=== PATIENT | male | born 1970 | race Two or more races ===

== ENCOUNTER 2016-04-20 00:36 | Emergency (ER) | payer BC ==
[2016-04-20] MEDS ORDERED: IBUPROFEN 600 MG TAB PO STA (00:50)
[2016-04-20] MEDS ORDERED: ACETAMINOPHEN TAB 500 MG TAB PO STA (00:50)
--- NOTE | 2016-04-20 01:01 | ED ---
URI HPI - General Chief Complaint: Upper Respiratory Infection Stated Complaint: Cough Time Seen by Provider: 04/20/16 00:45 Source: patient, RN notes reviewed Mode of arrival: ambulatory Limitations: no limitations - History of Present Illness Initial Comments: 46-year-old male presents emergency Department chief complaint fever, chills, cough. Patient states started last 24 hours. Patient states he has severe body aches. Patient has not taken any acetaminophen or ibuprofen for this. Patient denies any sick contacts though he states that he's been in the hospital visiting his . Patient states that he does have a headache but denies any neck pain or neck stiffness. Patient denies ear pain, runny nose. Patient states he has a dry cough. He primary complaint of the chills, bodyaches. Patient states he did not have a flu shot this year. Patient denies abdominal pain including nausea vomiting. - Related Data Home Medications Medication Instructions Recorded Confirmed Divalproex [Depakote] 500 mg PO BID 09/04/14 04/20/16 metFORMIN HCL [Glucophage] 850 mg PO BID 09/04/14 04/20/16 Atorvastatin [Lipitor] 10 mg PO DAILY 08/16/15 04/20/16 glyBURIDE [Diabeta] 5 mg PO AC-BRKFST 04/20/16 04/20/16 Previous Rx's Medication Instructions Recorded Oseltamivir [Tamiflu] 75 mg PO Q12HR #10 cap 04/20/16 Allergies Allergy/AdvReac Type Severity Reaction Status Date / Time No Known Allergies Allergy Verified 10/07/15 18:56 Review of Systems ROS Statement: Those systems with pertinent positive or pertinent negative responses have been documented in the HPI. ROS Other: All systems not noted in ROS Statement are negative. Past Medical History Past Medical History: Cancer, Diabetes Mellitus, Seizure Disorder Additional Past Medical History / Comment(s): possible enlarged prostate, testicular cancer, renal failure History of Any Multi-Drug Resistant Organisms: None Reported Past Surgical History: Bladder Surgery Additional Past Surgical History / Comment(s): testicular surgery, urethra reconstruction Past Anesthesia/Blood Transfusion Reactions: No Reported Reaction Past Psychological History: No Psychological Hx Reported Smoking Status: Current every day smoker Past Alcohol Use History: Occasional Past Drug Use History: None Reported - Past Family History Father Family Medical History: Diabetes Mellitus, Hypertension Mother Family Medical History: Diabetes Mellitus, Hypertension Additional Family Medical History / Comment(s): Glaucoma General Exam Limitations: no limitations General appearance: alert, in no apparent distress Head exam: Present: atraumatic, normocephalic, normal inspection Eye exam: Present: normal appearance, PERRL, EOMI. Absent: scleral icterus, conjunctival injection, periorbital swelling ENT exam: Present: normal exam, normal oropharynx, mucous membranes moist, TM's normal bilaterally, normal external ear exam Neck exam: Present: normal inspection, full ROM. Absent: tenderness, meningismus, lymphadenopathy Respiratory exam: Present: normal lung sounds bilaterally. Absent: respiratory distress, wheezes, rales, rhonchi, stridor Cardiovascular Exam: Present: normal rhythm, tachycardia, normal heart sounds. Absent: systolic murmur, diastolic murmur, rubs, gallop, clicks GI/Abdominal exam: Present: soft, normal bowel sounds. Absent: distended, tenderness, guarding, rebound, rigid Neurological exam: Present: alert, oriented X3, CN II-XII intact Skin exam: Present: warm, dry, intact, normal color. Absent: rash Course Vital Signs 04/20/16 00:39 Temperature 103.2 F H Pulse Rate 133 H Respiratory 20 Rate Blood Pressure 143/89 O2 Sat by Pulse 97 Oximetry Medical Decision Making - Lab Data Lab Results 04/20/16 Range/Units 00:00 Influenza Type A RNA Detected A (Not Detectd) Influenza Type B (PCR) Not Detected (Not Detectd) Disposition Clinical Impression: Fever, Influenza Disposition: HOME SELF-CARE Condition: Stable Instructions: Influenza (ED) Additional Instructions: Alternate acetaminophen and ibuprofen as directed for fever control.Please return to the Emergency Department if symptoms worsen or any other concerns. Prescriptions: Oseltamivir [Tamiflu] 75 mg PO Q12HR #10 cap Time of Disposition: 02:41
[2016-04-20] MEDS ORDERED: OSELTAMIVIR 75 MG CAP PO STA (02:40)
--- NOTE | 2016-04-20 02:57 | XR ---
EXAMINATION TYPE: XR chest 2V DATE OF EXAM: 04/20/2016 12:58 AM COMPARISON: 08/16/2015 HISTORY: Fever and cough and shortness of breath TECHNIQUE: Frontal and lateral views of the chest are obtained. FINDINGS: Mild infiltrates and atelectasis is suggested in the right lung base. There is mild pulmonary vascula r congestion. No pneumothorax or pleural effusion is noted. The cardiac silhouette size is within nor mal limits. The osseous structures are intact. IMPRESSION: 1. Mild infiltrates and atelectasis is suggested in the right lung base.
[2016-04-20 03:06] VITALS: BP 144/84; PULSE 117; RESP 18; TEMP 100.5
== END 2016-04-20 03:04 | disposition home or self-care (01) ==
LOC: EC 00:36
DX: J11.1 Influenza due to unidentified influenza virus with other respiratory manifestations (principal); G40.909 Epilepsy, unspecified, not intractable, without status epilepticus; E11.9 Type 2 diabetes mellitus without complications; Z85.47 Personal history of malignant neoplasm of testis; F17.200 Nicotine dependence, unspecified, uncomplicated; Z79.84 Long term (current) use of oral hypoglycemic drugs; Z79.899 Other long term (current) drug therapy
CPT/HCPCS: 71020; 87502; 99283

== ENCOUNTER → 2017-11-15 | Outpatient (CLI) | payer BC ==
[2017-11-15 12:17] LABS: Basophils # (A) 0.1 k/uL (0-0.2); Basophils % (A) 1 %; Eosinophils # (A) 0.3 k/uL (0-0.7); Eosinophils % (A) 3 %; HGB 13.5 gm/dL (13.0-17.5); Lymphocytes % (A) 45 %; MCH 30.7 pg (25.0-35.0); MCHC 34.6 g/dL (31.0-37.0); MCV 88.7 fL (80.0-100.0); Mean Platelet Volume 7.7; Monocytes # (A) 0.7 k/uL (0-1.0); Monocytes % (A) 8 %; Neutrophils # (A) 3.8 k/uL (1.3-7.7); Neutrophils % (A) 42 %; Platelet Count 197 k/uL (150-450); RDW 12.9 % (11.5-15.5)
[2017-11-15 12:58] LABS: Valproic Acid (Depakene) 64.5 ug/mL
== END | disposition home or self-care (01) ==
LOC: LABWHC1 12:01
PROVIDERS: ATTEND Psychiatry & Neurology Neurology
DX: G40.209 Localization-related (focal) (partial) symptomatic epilepsy and epileptic syndromes with complex partial seizures, not intractable, without status epilepticus (principal)
CPT/HCPCS: 36415; 80164; 84450; 84460; 85025

== ENCOUNTER → 2017-12-18 | Outpatient (CLI) | payer BC ==
[2017-12-18 10:57] LABS: ALT 69 U/L (21-72); AST 40 U/L (17-59)
== END | disposition home or self-care (01) ==
LOC: LABWHC1 10:01
PROVIDERS: ATTEND Psychiatry & Neurology Neurology
DX: G40.209 Localization-related (focal) (partial) symptomatic epilepsy and epileptic syndromes with complex partial seizures, not intractable, without status epilepticus (principal)
CPT/HCPCS: 36415; 84450; 84460

== ENCOUNTER → 2018-06-05 | Outpatient (CLI) | payer BC ==
--- NOTE | 2018-06-05 14:53 | CONS ---
CONSULTATION PSYCH CONSULTATION FOR SLEEP APNEA: A 48-year-old male patient, currently suffering excessive sleepiness. His Burton score is 19. He falls asleep at any time. He has snoring, quits breathing at night as told by his and he is very much somnolent and sleepy during the day. He wakes up in the morning with a dry mouth. He works at a local [employer] in [place]. He works between 3 pm and 11 pm. He gets home and goes to bed around 3 am, wakes up at 10 am in the morning. He carries the same schedule on the weekends. He works around days a week. When he wakes up, he feels non-refreshed and he is sleepy during the day. He does not fall asleep at work. He does not fall asleep while driving. No sleep paralysis. No hallucinations. No cataplexy, no indication of any narcoleptic disease. No restlessness in his lower extremities. He has gained around 40 pounds over the past 5 years or so. PAST MEDICAL HISTORY: 1. Diabetes. 2. Hyperlipidemia. 3. Obesity. 4. History of urethral stenosis, treated surgically. PAST SURGICAL HISTORY: Includes urethral reconstruction and previous history of testicular surgery for underlying testicular cancer. DRUG ALLERGIES: Not known. OUTPATIENT MEDICATION LIST: Includes Trulicity, metoprolol, ibuprofen, metformin, Lipitor, Divalproex, Januvia, and eyedrops. SOCIAL HISTORY: The patient is a nonsmoker. He vapes. No history of alcohol, no history of IV drugs. FAMILY HISTORY: Negative for sleep apnea. REVIEW OF SYSTEMS: A 12-point review of system was done. Positive findings are mentioned in history of present illness. No fever, no chills. No headache. No altered mentation. No focal neurological deficits. No nocturnal dyspnea, cough, chest tightness or wheeze. No sleepwalking or sleep talking. No parasomnias, no palpitation, no heartburn. No grinding of the teeth. PHYSICAL EXAMINATION: BP is 133/82, pulse 90, respirations 16, temperature 98.3, saturation 96% on room air. Weight is 233, height is 5, 3 inches, neck size 19 -1/4 inch. BMI is 41.8. Burton score is 19. GENERAL APPEARANCE: Calm, comfortable, in no acute distress. Head is atraumatic, normocephalic. Neck is supple. There is no JVD. No goiter or neck masses. He has a Mallampati class IV with significant crowding of the posterior oropharynx. LUNGS: Clear to auscultation. HEART: Sounds regular rate and rhythm. Normal S1, S2. No S3, S4. No murmurs. ABDOMEN: Soft, nontender. No organomegaly. EXTREMITIES: There is no edema and there is no cyanosis or clubbing at this point. NEUROLOGIC: Alert and oriented x3. There is no focal neurological deficits. PSYCHIATRIC: There is no anxiety or depression. IMPRESSION: 1. Hypersomnia, Burton score of 19, high likelihood for obstructive sleep apnea. 2. Obesity, body mass index of 41.2. 3. Diabetes mellitus. 4. Hyperlipidemia. 5. History of this testicular cancer. 6. History of urethral stenosis, treated surgically. We will proceed with a screening polysomnogram to investigate the patient for obstructive sleep apnea. JOHN / ISABELN: [id number] / PATRICK
== END ==
LOC: SLEEP 10:12
PROVIDERS: ATTEND Internal Medicine Critical Care Medicine
DX: G47.10 Hypersomnia, unspecified (principal); E66.9 Obesity, unspecified; E11.9 Type 2 diabetes mellitus without complications; E78.5 Hyperlipidemia, unspecified; N35.919 Unspecified urethral stricture, male, unspecified site; C62.90 Malignant neoplasm of unspecified testis, unspecified whether descended or undescended; Z68.41 Body mass index [BMI] 40.0-44.9, adult; Z79.899 Other long term (current) drug therapy; Z79.84 Long term (current) use of oral hypoglycemic drugs; Z79.1 Long term (current) use of non-steroidal anti-inflammatories (NSAID)
CPT/HCPCS: 99211

== ENCOUNTER → 2018-11-28 | Outpatient (CLI) | payer BC ==
[2018-11-28 12:07] LABS: Basophils % (A) 1 %; Eosinophils # (A) 0.3 k/uL (0-0.7); Eosinophils % (A) 4 %; HGB 13.4 gm/dL (13.0-17.5); Lymphocytes % (A) 36 %; MCH 30.7 pg (25.0-35.0); MCHC 33.6 g/dL (31.0-37.0); MCV 91.4 fL (80.0-100.0); Mean Platelet Volume 7.4; Monocytes # (A) 0.6 k/uL (0-1.0); Monocytes % (A) 7 %; Neutrophils # (A) 4.2 k/uL (1.3-7.7); Neutrophils % (A) 51 %; Platelet Count 227 k/uL (150-450); RBC 4.38 m/uL (4.30-5.90); RDW 13.8 % (11.5-15.5); WBC 8.3 k/uL (3.8-10.6)
== END | disposition home or self-care (01) ==
LOC: LABWHC1 11:40
PROVIDERS: ATTEND Psychiatry & Neurology Neurology
DX: G40.209 Localization-related (focal) (partial) symptomatic epilepsy and epileptic syndromes with complex partial seizures, not intractable, without status epilepticus (principal)
CPT/HCPCS: 36415; 80164; 84450; 84460; 85025

== ENCOUNTER → 2019-10-29 | Outpatient (CLI) | payer BC ==
[2019-10-29 15:46] LABS: Basophils % (A) 0 %; Eosinophils # (A) 0.2 k/uL (0-0.7); Eosinophils % (A) 2 %; HCT 38.5 % (39.0-53.0); HGB 13.2 gm/dL (13.0-17.5); Lymphocytes # (A) 3.5 k/uL (1.0-4.8); Lymphocytes % (A) 40 %; MCH 31.3 pg (25.0-35.0); MCHC 34.3 g/dL (31.0-37.0); Monocytes # (A) 0.6 k/uL (0-1.0); Monocytes % (A) 7 %; Neutrophils # (A) 4.3 k/uL (1.3-7.7); Neutrophils % (A) 49 %; Platelet Count 172 k/uL (150-450); RBC 4.23 m/uL (4.30-5.90); RDW 13.1 % (11.5-15.5); WBC 8.7 k/uL (3.8-10.6)
[2019-10-30 00:52] LABS: Valproic Acid (Depakene) 108.7 ug/mL (50.0-100.0)
== END ==
LOC: LABWHC1 14:52
PROVIDERS: ATTEND Psychiatry & Neurology Neurology
DX: G40.209 Localization-related (focal) (partial) symptomatic epilepsy and epileptic syndromes with complex partial seizures, not intractable, without status epilepticus (principal)
CPT/HCPCS: 36415; 80164; 84450; 84460; 85025

== ENCOUNTER 2019-12-10 15:48 | Emergency (ER) | payer BC ==
[2019-12-10] MEDS ORDERED: SODIUM CHLORIDE 0.9% 1,000 ML IV STA (16:22)
[2019-12-10] MEDS ORDERED: ONDANSETRON 4 MG/2 ML VIAL IVP STA (16:22)
[2019-12-10] MEDS ORDERED: FAMOTIDINE 20 MG/2 ML VIAL IV STA (16:23)
[2019-12-10] MEDS ORDERED: MAG HYDROX/AL HYDROX/SIMETH 30 ML, HYOSCYAMINE ELIXIR 10 ML, LIDOCAINE VISCOUS 2% 10 ML PO STA ×3 (16:23)
[2019-12-10 16:43] LABS: Basophils # (A) 0.1 k/uL (0-0.2); Basophils % (A) 1 %; Eosinophils # (A) 0.2 k/uL (0-0.7); Eosinophils % (A) 2 %; HCT 38.6 % (39.0-53.0); HGB 12.9 gm/dL (13.0-17.5); Lymphocytes # (A) 3.2 k/uL (1.0-4.8); Lymphocytes % (A) 34 %; MCHC 33.4 g/dL (31.0-37.0); MCV 89.8 fL (80.0-100.0); Mean Platelet Volume 7.4; Monocytes # (A) 0.7 k/uL (0-1.0); Monocytes % (A) 8 %; Neutrophils # (A) 5.2 k/uL (1.3-7.7); Neutrophils % (A) 54 %; Platelet Count 247 k/uL (150-450); WBC 9.6 k/uL (3.8-10.6)
[2019-12-10 16:45] LABS: Appearance,Urine Clear (Clear); Bilirubin,Urine Negative (Negative); Blood,Urine Negative (Negative); Color,Urine Yellow; Glucose,Urine (UA) Negative (Negative); Ketones,Urine Negative (Negative); Leukocyte Esterase,Urine Small (Negative); Mucus,Urine Rare /hpf; Nitrite,Urine Negative (Negative); Protein,Urine Negative (Negative); RBC,Urine 1 /hpf (0-5); Specific Gravity,Urine 1.017 (1.001-1.035); Squamous Epithelial Cell,Urine 1 /hpf (0-4); Urobilinogen,Urine <2.0 mg/dL (<2.0); WBC,Urine 3 /hpf (0-5)
[2019-12-10 16:50] LABS: ALT 21 U/L (4-49); AST 20 U/L (17-59); African American GFR (CKD) >90 (>60 ml/min/1.73 sqM); Albumin 3.9 g/dL (3.5-5.0); Alkaline Phosphatase 61 U/L (38-126); Amylase 66 U/L (30-110); Anion Gap 7 mmol/L; Blood Urea Nitrogen 10 mg/dL (9-20); Calcium 9.4 mg/dL (8.4-10.2); Carbon Dioxide 28 mmol/L (22-30); Chloride 104 mmol/L (98-107); Glucose 99 mg/dL (74-99); Non-African American GFR(CKD) >90 (>60 ml/min/1.73 sqM); Potassium 3.9 mmol/L (3.5-5.1); Sodium 139 mmol/L (137-145); Total Bilirubin 0.6 mg/dL (0.2-1.3)
--- NOTE | 2019-12-10 17:08 | ED ---
General Adult HPI - General Chief complaint: Abdominal Pain Stated complaint: chest pain Time Seen by Provider: 12/10/19 15:56 Source: patient, RN notes reviewed Mode of arrival: ambulatory Limitations: no limitations - History of Present Illness Initial comments: 49-year-old male with a past medical history of prostate cancer, testicular cancer, renal failure, diabetes mellitus on 3 oral medications, seizure disorder presents to the emergency room for epigastric and right upper quadrant pain. Patient reports that he has had this pain for a few weeks now. States that it seems to be getting worse. Patient is scheduled for an outpatient ultrasound on Monday but could not wait that long because of the pain. Patient denies any pain radiating to his chest. He does have some mild pain in his back. States that he thinks in his axis pain worse. He does admit to diarrhea. Denies vomiting. Patient has no other complaints at this time including shortness of breath, chest pain, nausea or vomiting, headache, or visual changes. - Related Data Home Medications Medication Instructions Recorded Confirmed Divalproex [Depakote] 500 mg PO BID 09/04/14 04/20/16 metFORMIN HCL [Glucophage] 850 mg PO BID 09/04/14 04/20/16 Atorvastatin [Lipitor] 10 mg PO DAILY 08/16/15 04/20/16 glyBURIDE [Diabeta] 5 mg PO AC-BRKFST 04/20/16 04/20/16 Previous Rx's Medication Instructions Recorded Oseltamivir [Tamiflu] 75 mg PO Q12HR #10 cap 04/20/16 Ondansetron [Zofran ODT] 4 mg PO Q8HR PRN #15 tab 12/10/19 Pantoprazole [Protonix] 40 mg PO DAILY 14 Days #14 12/10/19 tablet. Allergies Allergy/AdvReac Type Severity Reaction Status Date / Time No Known Allergies Allergy Verified 12/10/19 15:52 Review of Systems ROS Statement: Those systems with pertinent positive or pertinent negative responses have been documented in the HPI. ROS Other: All systems not noted in ROS Statement are negative. Past Medical History Past Medical History: Cancer, Diabetes Mellitus, Seizure Disorder Additional Past Medical History / Comment(s): possible enlarged prostate, testicular cancer, renal failure, History of Any Multi-Drug Resistant Organisms: None Reported Past Surgical History: Bladder Surgery Additional Past Surgical History / Comment(s): testicular surgery, urethra reconstruction, Past Anesthesia/Blood Transfusion Reactions: No Reported Reaction Past Psychological History: No Psychological Hx Reported Smoking Status: Former smoker, Vaper Past Alcohol Use History: Occasional Past Drug Use History: None Reported - Past Family History Father Family Medical History: Diabetes Mellitus, Hypertension Mother Family Medical History: Diabetes Mellitus, Hypertension Additional Family Medical History / Comment(s): Glaucoma General Exam Limitations: no limitations General appearance: alert, in no apparent distress Head exam: Present: atraumatic, normocephalic, normal inspection Eye exam: Present: normal appearance, PERRL, EOMI. Absent: scleral icterus, conjunctival injection, periorbital swelling ENT exam: Present: normal exam, mucous membranes moist Neck exam: Present: normal inspection, full ROM. Absent: tenderness, meni ngismus, lymphadenopathy Respiratory exam: Present: normal lung sounds bilaterally. Absent: respiratory distress, wheezes, rales, rhonchi, stridor Cardiovascular Exam: Present: regular rate, normal rhythm, normal heart sounds. Absent: systolic murmur, diastolic murmur, rubs, gallop, clicks GI/Abdominal exam: Present: soft, tenderness (Mild right upper quadrant and epigastric tenderness without guarding), normal bowel sounds. Absent: distended, guarding, rebound, rigid Expanded GI/Abdominal exam: Present: Holman's sign. Absent: psoas sign, obturator sign, heel tap sign, Rovsing's sign, tenderness at McBurney's Point Course Vital Signs 12/10/19 12/10/19 15:49 18:26 Temperature 98.3 F 98.2 F Pulse Rate 79 85 Respiratory 17 18 Rate Blood Pressure 154/92 151/86 O2 Sat by Pulse 99 98 Oximetry Medical Decision Making - Medical Decision Making Vitals are stable. Physical exam reveals mild epigastric and right upper quadrant pain. CBC CMP is unremarkable. There is mild elevation in lipase to 482. This is not triple normal value. Urinalysis is unremarkable. Ultrasound of the right upper quadrant was obtained which showed a moderate fatty infiltration to the liver. CBD measured 0.5 cm. No stones seen. There is moderate fatty infiltration of the liver. Patient was given pain medications and did have significant improvement in pain. At this time patient will be discharged home to follow-up with Gen. surgery as he may have gallbladder dysfunction. Recommended that if symptoms are worsening he'll return here to the emergency room for reevaluation and he is agreeable to this. - Lab Data Result diagrams: 12/10/19 16:28 12/10/19 16:28 Lab Results 12/10/19 12/10/19 12/10/19 Range/Units 16:28 16:28 16:28 WBC 9.6 (3.8-10.6) k/uL RBC 4.30 (4.30-5.90) m/uL Hgb 12.9 L (13.0-17.5) gm/dL Hct 38.6 L (39.0-53.0) % MCV 89.8 (80.0-100.0) fL MCH 30.0 (25.0-35.0) pg MCHC 33.4 (31.0-37.0) g/dL RDW 13.0 (11.5-15.5) % Plt Count 247 (150-450) k/uL Neutrophils % 54 % Lymphocytes % 34 % Monocytes % 8 % Eosinophils % 2 % Basophils % 1 % Neutrophils # 5.2 (1.3-7.7) k/uL Lymphocytes # 3.2 (1.0-4.8) k/uL Monocytes # 0.7 (0-1.0) k/uL Eosinophils # 0.2 (0-0.7) k/uL Basophils # 0.1 (0-0.2) k/uL Sodium 139 (137-145) mmol/L Potassium 3.9 (3.5-5.1) mmol/L Chloride 104 (98-107) mmol/L Carbon Dioxide 28 (22-30) mmol/L Anion Gap 7 mmol/L BUN 10 (9-20) mg/dL Creatinine 0.62 L (0.66-1.25) mg/dL Est GFR (CKD-EPI)AfAm >90 (>60 ml/min/1.73 sqM) Est GFR (CKD-EPI)NonAf >90 (>60 ml/min/1.73 sqM) Glucose 99 (74-99) mg/dL Plasma Lactic Acid Manuel (0.7-2.0) mmol/L Calcium 9.4 (8.4-10.2) mg/dL Total Bilirubin 0.6 (0.2-1.3) mg/dL AST 20 (17-59) U/L ALT 21 (4-49) U/L Alkaline Phosphatase 61 (38-126) U/L Troponin I (0.000-0.034) ng/mL Total Protein 7.0 (6.3-8.2) g/dL Albumin 3.9 (3.5-5.0) g/dL Amylase 66 (30-110) U/L Lipase 482 H (23-300) U/L Urine Color Yellow Urine Appearance Clear (Clear) Urine pH 7.0 (5.0-8.0) Ur Specific [place] 1.017 (1.001-1.035) Urine Protein Negative (Negative) Urine Glucose (UA) Negative (Negative) Urine Ketones Negative (Negative) Urine Blood Negative (Negative) Urine Nitrite Negative (Negative) Urine Bilirubin Negative (Negative) Urine Urobilinogen <2.0 (<2.0) mg/dL Ur Leukocyte Esterase Small H (Negative) Urine RBC 1 (0-5) /hpf Urine WBC 3 (0-5) /hpf Ur Squamous Epith Cells 1 (0-4) /hpf Urine Mucus Rare H (None) /hpf 12/10/19 12/10/19 Range/Units 16:28 16:28 WBC (3.8-10.6) k/uL RBC (4.30-5.90) m/uL Hgb (13.0-17.5) gm/dL Hct (39.0-53.0) % MCV (80.0-100.0) fL MCH (25.0-35.0) pg MCHC (31.0-37.0) g/dL RDW (11.5-15.5) % Plt Count (150-450) k/uL Neutrophils % % Lymphocytes % % Monocytes % % Eosinophils % % Basophils % % Neutrophils # (1.3-7.7) k/uL Lymphocytes # (1.0-4.8) k/uL Monocytes # (0-1.0) k/uL Eosinophils # (0-0.7) k/uL Basophils # (0-0.2) k/uL Sodium (137-145) mmol/L Potassium (3.5-5.1) mmol/L Chloride (98-107) mmol/L Carbon Dioxide (22-30) mmol/L Anion Gap mmol/L BUN (9-20) mg/dL Creatinine (0.66-1.25) mg/dL Est GFR (CKD-EPI)AfAm (>60 ml/min/1.73 sqM) Est GFR (CKD-EPI)NonAf (>60 ml/min/1.73 sqM) Glucose (74-99) mg/dL Plasma Lactic Acid Manuel 1.1 (0.7-2.0) mmol/L Calcium (8.4-10.2) mg/dL Total Bilirubin (0.2-1.3) mg/dL AST (17-59) U/L ALT (4-49) U/L Alkaline Phosphatase (38-126) U/L Troponin I <0.012 (0.000-0.034) ng/mL Total Protein (6.3-8.2) g/dL Albumin (3.5-5.0) g/dL Amylase (30-110) U/L Lipase (23-300) U/L Urine Color Urine Appearance (Clear) Urine pH (5.0-8.0) Ur Specific [place] (1.001-1.035) Urine Protein (Negative) Urine Glucose (UA) (Negative) Urine Ketones (Negative) Urine Blood (Negative) Urine Nitrite (Negative) Urine Bilirubin (Negative) Urine Urobilinogen (<2.0) mg/dL Ur Leukocyte Esterase (Negative) Urine RBC (0-5) /hpf Urine WBC (0-5) /hpf Ur Squamous Epith Cells (0-4) /hpf Urine Mucus (None) /hpf Disposition Clinical Impression: Elevated lipase, Abdominal pain Disposition: HOME SELF-CARE Condition: Good Instructions (If sedation given, give patient instructions): Abdominal Pain (ED) Additional Instructions: Please take Protonix as directed. Take Zofran as needed for nausea. Take Tylenol 3 for severe pain. Please follow-up with primary care and general surgery. If you have worsening symptoms or fevers he needs to return to the emergency room. Prescriptions: Pantoprazole [Protonix] 40 mg PO DAILY 14 Days #14 tablet. Ondansetron [Zofran ODT] 4 mg PO Q8HR PRN #15 tab PRN Reason: Nausea Is patient prescribed a controlled substance at d/c from ED?: No Referrals: Lucila Montejo MD [Primary Care Provider] - 1-2 days Florin Myrick MD [STAFF PHYSICIAN] - 1-2 days Time of Disposition: 19:09
--- NOTE | 2019-12-10 17:43 | US ---
EXAMINATION TYPE: US abdomen limited DATE OF EXAM: 12/10/2019 COMPARISON: NONE CLINICAL HISTORY: ruq. pain EXAM MEASUREMENTS: Liver Length: 15.9 cm Gallbladder Wall: 0.2 cm CBD: 0.5 cm Right Kidney: 13.9 x 4.8 x 6.0 cm Pancreas: not visualized due to bowel gas Liver: fatty sparing noted adjacent to gallbladder. Mild to moderate fatty infiltration liver is [place] dent. Gallbladder: No stones seen Evidence for sonographic Holman's sign: Yes CBD: measures 0.5 cm Right Kidney: No hydronephrosis or masses seen IMPRESSION: 1. Moderate fatty infiltration liver.
[2019-12-10] MEDS ORDERED: HYDROmorphone 0.5 MG/0.5 ML SYRINGE IVP STA (18:02)
[2019-12-10 18:27] VITALS: TEMP 98.2
--- NOTE | 2019-12-10 18:44 | XR ---
EXAMINATION TYPE: XR KUB DATE OF EXAM: 12/10/2019 COMPARISON: None INDICATION: Pain upper abdomen x2 weeks radiating into back TECHNIQUE: Single view abdomen upright view FINDINGS: No free air is under the diaphragm. No suspicious air-fluid levels or differential air-fluid levels a re present. Normal colonic bowel gas is present. Psoas margins are normal. No organomegaly is present. No suspicious calcifications are evident. IMPRESSION: 1. Unremarkable abdomen
[2019-12-10] MEDS ORDERED: ACET/COD 300 MG/30 MG STARTER PACK 6 TAB BTL PO STA (19:12)
[2019-12-10 19:40] VITALS: BP 167/103; PULSE 84; RESP 17
== END 2019-12-10 19:41 | disposition home or self-care (01) ==
LOC: EC 15:48
DX: R10.13 Epigastric pain (principal); R10.11 Right upper quadrant pain; R74.8 Abnormal levels of other serum enzymes; R19.7 Diarrhea, unspecified; K76.0 Fatty (change of) liver, not elsewhere classified; E11.9 Type 2 diabetes mellitus without complications; G40.909 Epilepsy, unspecified, not intractable, without status epilepticus; Z79.84 Long term (current) use of oral hypoglycemic drugs; Z79.899 Other long term (current) drug therapy; Z87.891 Personal history of nicotine dependence; Z85.47 Personal history of malignant neoplasm of testis; Z85.46 Personal history of malignant neoplasm of prostate
CPT/HCPCS: 36415; 93005; 80053; 82150; 83605; 83690; 84484; 85025; 81001; 74018; 76705; 99284; 96374; 96375 ×2; 96361 ×3; J2405; J1170

== ENCOUNTER → 2019-12-13 | Outpatient (CLI) | payer BC ==
[2019-12-13 14:40] LABS: Basophils % (A) 1 %; Eosinophils # (A) 0.1 k/uL (0-0.7); Eosinophils % (A) 2 %; HCT 40.1 % (39.0-53.0); HGB 13.4 gm/dL (13.0-17.5); Lymphocytes # (A) 2.7 k/uL (1.0-4.8); Lymphocytes % (A) 33 %; MCH 30.1 pg (25.0-35.0); MCHC 33.3 g/dL (31.0-37.0); MCV 90.3 fL (80.0-100.0); Mean Platelet Volume 7.5; Monocytes # (A) 0.6 k/uL (0-1.0); Monocytes % (A) 8 %; Neutrophils # (A) 4.7 k/uL (1.3-7.7); Neutrophils % (A) 56 %; Platelet Count 283 k/uL (150-450); RBC 4.44 m/uL (4.30-5.90); RDW 13.2 % (11.5-15.5); WBC 8.4 k/uL (3.8-10.6)
[2019-12-13 20:23] LABS: African American GFR (CKD) 129.3 (60.0-200.0); Albumin 4.4 g/dL (3.80-4.90); Albumin/Globulin Ratio 1.83 (1.60-3.17); Anion Gap 12.6 mmol/L (4.00-12.00); Calcium 9.4 mg/dL (8.7-10.3); Carbon Dioxide 25.4 mmol/L (21.6-31.8); Globulin 2.4 g/dL (1.6-3.3); Non-African American GFR(CKD) 111.6 (60.0-200.0); Potassium 4.2 mmol/L (3.5-5.5); Total Bilirubin 0.5 mg/dL (0.2-1.2); Total Protein 6.8 g/dL (6.2-8.2)
[2019-12-13 20:40] LABS: Valproic Acid (Depakene) 64.1 ug/mL (50.0-100.0)
[2019-12-14 03:30] LABS: Hemoglobin A1C 7.6 % (4.0-6.0)
== END | disposition home or self-care (01) ==
LOC: LABWHC1 13:20
PROVIDERS: ATTEND Family Medicine
DX: K83.9 Disease of biliary tract, unspecified (principal); M54.5 Low back pain; E11.65 Type 2 diabetes mellitus with hyperglycemia; K85.80 Other acute pancreatitis without necrosis or infection; G40.209 Localization-related (focal) (partial) symptomatic epilepsy and epileptic syndromes with complex partial seizures, not intractable, without status epilepticus
CPT/HCPCS: 36415; 80053; 80164; 83036; 83690; 83721; 84443; 84478; 85025

== ENCOUNTER → 2020-04-09 | Outpatient (CLI) | payer BC ==
[2020-04-09 15:04] LABS: Basophils # (A) 0.1 k/uL (0-0.2); Basophils % (A) 1 %; Eosinophils # (A) 0.2 k/uL (0-0.7); Eosinophils % (A) 3 %; HCT 40.9 % (39.0-53.0); HGB 13.9 gm/dL (13.0-17.5); Lymphocytes # (A) 2.7 k/uL (1.0-4.8); Lymphocytes % (A) 34 %; MCH 30.1 pg (25.0-35.0); MCV 88.4 fL (80.0-100.0); Mean Platelet Volume 7.7; Monocytes # (A) 0.5 k/uL (0-1.0); Monocytes % (A) 7 %; Neutrophils # (A) 4.3 k/uL (1.3-7.7); Neutrophils % (A) 54 %; Platelet Count 210 k/uL (150-450); RBC 4.62 m/uL (4.30-5.90); RDW 12.6 % (11.5-15.5); WBC 7.9 k/uL (3.8-10.6)
[2020-04-09 22:50] LABS: Valproic Acid (Depakene) 69.5 ug/mL (50.0-100.0)
== END | disposition home or self-care (01) ==
LOC: LABWHC1 14:25
PROVIDERS: ATTEND Psychiatry & Neurology Neurology
DX: G40.209 Localization-related (focal) (partial) symptomatic epilepsy and epileptic syndromes with complex partial seizures, not intractable, without status epilepticus (principal)
CPT/HCPCS: 36415; 80164; 80177; 84450; 84460; 85025

== ENCOUNTER → 2020-05-05 | Outpatient (CLI) | payer BC | END | disposition home or self-care (01) | LOC: LABWHC1 13:51 | PROVIDERS: ATTEND Psychiatry & Neurology Neurology | DX: G40.209 Localization-related (focal) (partial) symptomatic epilepsy and epileptic syndromes with complex partial seizures, not intractable, without status epilepticus (principal) | CPT/HCPCS: 36415; 80164; 80177 ==

== ENCOUNTER → 2020-06-01 | Outpatient (CLI) | payer BC | END | disposition home or self-care (01) | LOC: LABWHC1 12:08 | PROVIDERS: ATTEND Psychiatry & Neurology Neurology | DX: G40.209 Localization-related (focal) (partial) symptomatic epilepsy and epileptic syndromes with complex partial seizures, not intractable, without status epilepticus (principal) | CPT/HCPCS: 36415; 80177 ==

== ENCOUNTER → 2020-06-16 | Outpatient (CLI) | payer BC | END | disposition home or self-care (01) | LOC: LABWHC1 11:55 | PROVIDERS: ATTEND Psychiatry & Neurology Neurology | DX: G40.209 Localization-related (focal) (partial) symptomatic epilepsy and epileptic syndromes with complex partial seizures, not intractable, without status epilepticus (principal) | CPT/HCPCS: 36415; 80177 ==

== ENCOUNTER 2020-10-29 14:44 | Emergency (ER) | payer BC ==
[2020-10-29 15:44] VITALS: RESP 20
[2020-10-29 15:45] LABS: Basophils % (A) 0 %; Eosinophils # (A) 0.2 k/uL (0-0.7); Eosinophils % (A) 2 %; HCT 39.6 % (39.0-53.0); Lymphocytes # (A) 3.1 k/uL (1.0-4.8); Lymphocytes % (A) 37 %; MCH 30.6 pg (25.0-35.0); MCHC 35.2 g/dL (31.0-37.0); MCV 86.7 fL (80.0-100.0); Mean Platelet Volume 8.7; Monocytes # (A) 0.6 k/uL (0-1.0); Monocytes % (A) 7 %; Neutrophils # (A) 4.3 k/uL (1.3-7.7); Neutrophils % (A) 51 %; Platelet Count 251 k/uL (150-450); RBC 4.57 m/uL (4.30-5.90); RDW 13.1 % (11.5-15.5); WBC 8.4 k/uL (3.8-10.6)
--- NOTE | 2020-10-29 15:49 | ED ---
General Adult HPI - General Chief complaint: Recheck/Abnormal Lab/Rx Stated complaint: tremors Time Seen by Provider: 10/29/20 15:18 Source: patient Mode of arrival: ambulatory Limitations: no limitations - History of Present Illness Initial comments: Patient is a 50-year-old male with history of diabetes, epilepsy, presenting to the emergency Department with complaints of intermittent tremors over the past week or so. Patient states that a random times, he feels twitches in his leg that sometimes goes up into his arms and even into his neck. He states there is no correlation when these happen. He states he feels like it increases with bright lights. He did go to his neurologist today and she recommended patient having his Keppra levels checked but wanted to wait to this afternoon as he just took it this morning. According to his neurologist, she feels a thick [place] could be partial seizures but she is not sure at this time. Patient denies having any pain today, no headaches or blurry vision, no chest pain or shortness of breath, no muscle weakness. He still been eating and drinking as he normally does. No abdominal pain, nausea or vomiting, no fevers or chills. Patient has been on Keppra for the past 6 months, used to be on Depakote. He has been taking it regularly, last took it this morning. Denies any dysuria. He has no further complaints. His vitals are stable upon arrival. - Related Data Home Medications Medication Instructions Recorded Confirmed Atorvastatin [Lipitor] 10 mg PO DAILY 08/16/15 10/29/20 Dorzolamide-Timol 2.23%/0.68% 1 drop BOTH EYES BID 10/29/20 10/29/20 [Cosopt] Glimepiride [Amaryl] 4 mg PO BID 10/29/20 10/29/20 Insulin Glargine,Hum.rec.anlog 15 unit SQ DAILY 10/29/20 10/29/20 [Basaglrobinson Friedman U-100] Irbesartan [Avapro] 150 mg PO DAILY 10/29/20 10/29/20 Ketoconazole 2% Cream [Nizoral 2%] 1 applic TOPICAL BID 10/29/20 10/29/20 Metoprolol Tartrate [Lopressor] 50 mg PO BID 10/29/20 10/29/20 levETIRAcetam [Keppra] 1,500 mg PO BID 10/29/20 10/29/20 metFORMIN HCL [Glucophage] 850 mg PO TID 10/29/20 10/29/20 Allergies Allergy/AdvReac Type Severity Reaction Status Date / Time No Known Allergies Allergy Verified 10/29/20 17:03 Review of Systems ROS Statement: Those systems with pertinent positive or pertinent negative responses have been documented in the HPI. ROS Other: All systems not noted in ROS Statement are negative. Past Medical History Past Medical History: Cancer, Diabetes Mellitus, Seizure Disorder Additional Past Medical History / Comment(s): possible enlarged prostate, testicular cancer, renal failure, History of Any Multi-Drug Resistant Organisms: None Reported Past Surgical History: Bladder Surgery Additional Past Surgical History / Comment(s): testicular surgery, urethra reconstruction, Past Anesthesia/Blood Transfusion Reactions: No Reported Reaction Past Psychological History: No Psychological Hx Reported Smoking Status: Former smoker, Vaper Past Alcohol Use History: Occasional Past Drug Use History: None Reported - Past Family History Father Family Medical History: Diabetes Mellitus, Hypertension Mother Family Medical History: Diabetes Mellitus, Hypertension Additional Family Medical History / Comment(s): Glaucoma General Exam - General Exam Comments Initial Comments: GENERAL: Patient is well-developed and well-nourished. Patient is nontoxic and in no acute distress. HEAD: Atraumatic, normocephalic. EYES: Pupils equal round and reactive to light, extraocular movements intact, sclera anicteric, conjunctiva are normal. Eyelids were unremarkable. ENT: TMs normal, nares patent, oropharynx clear without exudates. Moist mucous membranes. NECK: Normal range of motion, supple without lymphadenopathy or JVD. LUNGS: Unlabored respirations. Breath sounds clear to auscultation bilaterally and equal. No wheezes rales or rhonchi. HEART: Regular rate and rhythm without murmurs, rubs or gallops. ABDOMEN: Soft, nontender, normoactive bowel sounds. No guarding, no rebound. No masses appreciated. : Deferred MUSCULOSKELETAL: Normal extremities with adequate strength and normal range of motion, no pitting or edema. No clubbing or cyanosis. NEUROLOGICAL: Patient is alert and oriented x 3. Motor and sensory are also intact. Cranial nerves II through XII grossly intact. Symmetrical smile. Normal speech, normal gait. PSYCH: Normal mood, normal affect. SKIN: Warm, Dry, normal turgor, no rashes or lesions noted. Limitations: no limitations Course Vital Signs 10/29/20 10/29/20 10/29/20 14:45 15:41 17:00 Temperature 98.2 F Pulse Rate 85 83 87 Respiratory 17 20 20 Rate Blood Pressure 148/87 124/77 111/69 O2 Sat by Pulse 96 97 96 Oximetry EKG Findings - EKG Comments: EKG Findings:: Normal sinus rhythm, normal ECG, no signs of acute process. Ventricular rate 83, ME interval 170, QT 376. Medical Decision Making - Medical Decision Making Patient is a 50-year-old male with history of diabetes, epilepsy, presenting for tremors of the been going on for about a week. He takes Keppra for the last 6 months, used to be on Depakote. He has been taking this regularly, last dose was this morning. His vitals are within normal limits. He has no complaints at this time. His exam is unremarkable, No acute neuro deficits. EKG is normal. Labs are within normal limits, no acute findings, urine has 11 wbc's, urine culture is pending. Patient states he doesn't a history of UTI secondary to stenosis skull or cancer. He has no symptoms at this time. We will await the culture for any further treatment. Keppra level is a send out, this is not back today. Patient has been resting comfortably, vitals are stable. CT shows no acute abnormalities. Patient will follow up with his neurologist, Dr. Del Valle. He will not be driving. He is in agreement with this plan of care is stable for discharge. Return parameters were discussed with them and they verbalized understanding. Case discussed with Dr. Veloz. - Lab Data Result diagrams: 10/29/20 15:33 10/29/20 15:33 Lab Results 10/29/20 10/29/20 10/29/20 Range/Units 15:33 15:33 15:33 WBC 8.4 (3.8-10.6) k/uL RBC 4.57 (4.30-5.90) m/uL Hgb 14.0 (13.0-17.5) gm/dL Hct 39.6 (39.0-53.0) % MCV 86.7 (80.0-100.0) fL MCH 30.6 (25.0-35.0) pg MCHC 35.2 (31.0-37.0) g/dL RDW 13.1 (11.5-15.5) % Plt Count 251 (150-450) k/uL MPV 8.7 Neutrophils % 51 % Lymphocytes % 37 % Monocytes % 7 % Eosinophils % 2 % Basophils % 0 % Neutrophils # 4.3 (1.3-7.7) k/uL Lymphocytes # 3.1 (1.0-4.8) k/uL Monocytes # 0.6 (0-1.0) k/uL Eosinophils # 0.2 (0-0.7) k/uL Basophils # 0.0 (0-0.2) k/uL Sodium 140 (137-145) mmol/L Potassium 4.2 (3.5-5.1) mmol/L Chloride 105 (98-107) mmol/L Carbon Dioxide 23 (22-30) mmol/L Anion Gap 12 mmol/L BUN 12 (9-20) mg/dL Creatinine 0.60 L (0.66-1.25) mg/dL Est GFR (CKD-EPI)AfAm >90 (>60 ml/min/1.73 sqM) Est GFR (CKD-EPI)NonAf >90 (>60 ml/min/1.73 sqM) Glucose 203 H (74-99) mg/dL Calcium 9.5 (8.4-10.2) mg/dL Magnesium (1.6-2.3) mg/dL Total Bilirubin 0.6 (0.2-1.3) mg/dL AST 42 (17-59) U/L ALT 78 H (4-49) U/L Alkaline Phosphatase 68 (38-126) U/L Total Protein 7.3 (6.3-8.2) g/dL Albumin 4.4 (3.5-5.0) g/dL Lipase 82 (23-300) U/L Urine Color Yellow Urine Appearance Clear (Clear) Urine pH 6.0 (5.0-8.0) Ur Specific Oracle 1.020 (1.001-1.035) Urine Protein Trace H (Negative) Urine Glucose (UA) 1+ H (Negative) Urine Ketones Negative (Negative) Urine Blood Negative (Negative) Urine Nitrite Negative (Negative) Urine Bilirubin Negative (Negative) Urine Urobilinogen 3.0 (<2.0) mg/dL Ur Leukocyte Esterase Small H (Negative) Urine RBC 1 (0-5) /hpf Urine WBC 11 H (0-5) /hpf Ur Squamous Epith Cells 1 (0-4) /hpf Urine Bacteria Rare H (None) /hpf Hyaline Casts 1 (0-2) /lpf Urine Mucus Rare H (None) /hpf 10/29/20 Range/Units 15:33 WBC (3.8-10.6) k/uL RBC (4.30-5.90) m/uL Hgb (13.0-17.5) gm/dL Hct (39.0-53.0) % MCV (80.0-100.0) fL MCH (25.0-35.0) pg MCHC (31.0-37.0) g/dL RDW (11.5-15.5) % Plt Count (150-450) k/uL MPV Neutrophils % % Lymphocytes % % Monocytes % % Eosinophils % % Basophils % % Neutrophils # (1.3-7.7) k/uL Lymphocytes # (1.0-4.8) k/uL Monocytes # (0-1.0) k/uL Eosinophils # (0-0.7) k/uL Basophils # (0-0.2) k/uL Sodium (137-145) mmol/L Potassium (3.5-5.1) mmol/L Chloride (98-107) mmol/L Carbon Dioxide (22-30) mmol/L Anion Gap mmol/L BUN (9-20) mg/dL Creatinine (0.66-1.25) mg/dL Est GFR (CKD-EPI)AfAm (>60 ml/min/1.73 sqM) Est GFR (CKD-EPI)NonAf (>60 ml/min/1.73 sqM) Glucose (74-99) mg/dL Calcium (8.4-10.2) mg/dL Magnesium 1.6 (1.6-2.3) mg/dL Total Bilirubin (0.2-1.3) mg/dL AST (17-59) U/L ALT (4-49) U/L Alkaline Phosphatase (38-126) U/L Total Protein (6.3-8.2) g/dL Albumin (3.5-5.0) g/dL Lipase (23-300) U/L Urine Color Urine Appearance (Clear) Urine pH (5.0-8.0) Ur Specific Oracle (1.001-1.035) Urine Protein (Negative) Urine Glucose (UA) (Negative) Urine Ketones (Negative) Urine Blood (Negative) Urine Nitrite (Negative) Urine Bilirubin (Negative) Urine Urobilinogen (<2.0) mg/dL Ur Leukocyte Esterase (Negative) Urine RBC (0-5) /hpf Urine WBC (0-5) /hpf Ur Squamous Epith Cells (0-4) /hpf Urine Bacteria (None) /hpf Hyaline Casts (0-2) /lpf Urine Mucus (None) /hpf Disposition Clinical Impression: Tremors of nervous system Disposition: HOME SELF-CARE Condition: Stable Instructions (If sedation given, give patient instructions): Tremors (ED) Additional Instructions: Please return to the Emergency Department if symptoms worsen or any other concerns. Please follow-up with your neurologist as discussed. Urine culture is pending as well as Keppra level. No driving. Work note given for 2 days. Is patient prescribed a controlled substance at d/c from ED?: No Referrals: Lucila Montejo MD [Primary Care Provider] - 1-2 days Time of Disposition: 17:31
[2020-10-29 15:53] LABS: ALT 78 U/L (4-49); AST 42 U/L (17-59); African American GFR (CKD) >90 (>60 ml/min/1.73 sqM); Albumin 4.4 g/dL (3.5-5.0); Alkaline Phosphatase 68 U/L (38-126); Anion Gap 12 mmol/L; Blood Urea Nitrogen 12 mg/dL (9-20); Calcium 9.5 mg/dL (8.4-10.2); Carbon Dioxide 23 mmol/L (22-30); Chloride 105 mmol/L (98-107); Glucose 203 mg/dL (74-99); Lipase 82 U/L (23-300); Non-African American GFR(CKD) >90 (>60 ml/min/1.73 sqM); Potassium 4.2 mmol/L (3.5-5.1); Sodium 140 mmol/L (137-145); Total Bilirubin 0.6 mg/dL (0.2-1.3); Total Protein 7.3 g/dL (6.3-8.2)
[2020-10-29 15:55] LABS: Appearance,Urine Clear (Clear); Bacteria,Urine Rare /hpf; Bilirubin,Urine Negative (Negative); Blood,Urine Negative (Negative); Color,Urine Yellow; Glucose,Urine (UA) 1+ (Negative); Hyaline Casts,Urine 1 /lpf (0-2); Ketones,Urine Negative (Negative); Leukocyte Esterase,Urine Small (Negative); Mucus,Urine Rare /hpf; Nitrite,Urine Negative (Negative); Protein,Urine Trace (Negative); RBC,Urine 1 /hpf (0-5); Squamous Epithelial Cell,Urine 1 /hpf (0-4); WBC,Urine 11 /hpf (0-5)
--- NOTE | 2020-10-29 16:02 | CT ---
EXAMINATION TYPE: CT brain wo con DATE OF EXAM: 10/29/2020 COMPARISON: 08/16/2015 INDICATION: tremors DLP: 1100.4 mGycm, Automated exposure control for dose reduction was used. CONTRAST: None CT of the brain is performed utilizing 3 mm thick sections through the posterior fossa and 3 mm thick sections through the remaining calvarium. Study is performed within 24 hours of arrival to the hosp ital. No abnormal hyperdensity is present to suggest an acute intracranial hemorrhage. No mass lesion is evident. No acute infarcts are evident. Ventricles and sulci are appropriate for the patient age. Paranasal sinuses and mastoid air cells within the [id number] are clear. IMPRESSIONS: 1. No acute intracranial process.
[2020-10-29 17:42] VITALS: BP 106/63; PULSE 79; TEMP 98
== END 2020-10-29 17:42 | disposition home or self-care (01) ==
LOC: EC 14:44
DX: R25.1 Tremor, unspecified (principal); E11.9 Type 2 diabetes mellitus without complications; G40.909 Epilepsy, unspecified, not intractable, without status epilepticus; Z79.4 Long term (current) use of insulin; Z79.899 Other long term (current) drug therapy; Z87.891 Personal history of nicotine dependence; Z83.3 Family history of diabetes mellitus; Z82.49 Family history of ischemic heart disease and other diseases of the circulatory system
CPT/HCPCS: 36415; 70450; 80053; 80177; 81001; 83690; 83735; 85025; 87077; 87086; 87186; 93005; 99284

== ENCOUNTER 2020-11-09 11:36 | Inpatient (IN) | payer BC ==
[2020-11-09] MEDS ORDERED: SODIUM CHLORIDE 0.9% 1,000 ML IV STA (11:58)
--- NOTE | 2020-11-09 12:01 | ED ---
General Adult HPI - General Chief complaint: Seizure Stated complaint: seizure Time Seen by Provider: 11/09/20 11:55 Source: patient, EMS, RN notes reviewed, old records reviewed Mode of arrival: EMS Limitations: altered mental status - History of Present Illness Initial comments: 50-year-old male with known history of seizure disorder presents from the primary care office for evaluation of recurrent seizure. Patient had multiple, up to 5 recurrent seizures prior to arrival. He was given 5 mg of Versed by EMS during transportation for witnessed tonic-clonic seizure. Apparently the patient had previously been on Depakote but is currently on Keppra and has had some dosing adjustments recently. Patient will respond to voice. Arrival but is not able to answer significant history questions. Vital signs are stable. - Related Data Home Medications Medication Instructions Recorded Confirmed Atorvastatin [Lipitor] 10 mg PO DAILY 08/16/15 11/09/20 Dorzolamide-Timol 2.23%/0.68% 1 drop BOTH EYES BID 10/29/20 11/09/20 [Cosopt] Glimepiride [Amaryl] 4 mg PO BID 10/29/20 11/09/20 Insulin Glargine,Hum.rec.anlog 15 unit SQ DAILY 10/29/20 11/09/20 [Basaglar Kwikpen U-100] Irbesartan [Avapro] 150 mg PO DAILY 10/29/20 11/09/20 Ketoconazole 2% Cream [Nizoral 2%] 1 applic TOPICAL BID 10/29/20 11/09/20 Metoprolol Tartrate [Lopressor] 50 mg PO BID 10/29/20 11/09/20 levETIRAcetam [Keppra] 1,500 mg PO BID 10/29/20 11/09/20 metFORMIN HCL [Glucophage] 850 mg PO TID 10/29/20 11/09/20 Topiramate [Topamax] 25 mg PO BID 11/09/20 11/09/20 Allergies Allergy/AdvReac Type Severity Reaction Status Date / Time No Known Allergies Allergy Verified 11/09/20 12:34 Review of Systems ROS Statement: Those systems with pertinent positive or pertinent negative responses have been documented in the HPI. ROS Other: All systems not noted in ROS Statement are negative. Past Medical History Past Medical History: Cancer, Diabetes Mellitus, Seizure Disorder Additional Past Medical History / Comment(s): possible enlarged prostate, testi cular cancer, renal failure, History of Any Multi-Drug Resistant Organisms: None Reported Past Surgical History: Bladder Surgery Additional Past Surgical History / Comment(s): testicular surgery, urethra reconstruction, Past Anesthesia/Blood Transfusion Reactions: No Reported Reaction Past Psychological History: No Psychological Hx Reported Smoking Status: Former smoker, Vaper Past Alcohol Use History: Occasional Past Drug Use History: None Reported - Past Family History Father Family Medical History: Diabetes Mellitus, Hypertension Mother Family Medical History: Diabetes Mellitus, Hypertension Additional Family Medical History / Comment(s): Glaucoma General Exam Limitations: altered mental status General appearance: lethargic Head exam: Present: atraumatic, normocephalic Eye exam: Present: normal appearance, PERRL ENT exam: Present: normal exam Neck exam: Present: normal inspection. Absent: tenderness, meningismus Respiratory exam: Present: normal lung sounds bilaterally. Absent: respiratory distress, wheezes Cardiovascular Exam: Present: regular rate, normal rhythm GI/Abdominal exam: Present: soft. Absent: distended, tenderness, guarding Extremities exam: Present: normal inspection, normal capillary refill. Absent: pedal edema Neurological exam: Present: other (She will respond to voice, somewhat sedated, nonfocal exam). Absent: motor sensory deficit Skin exam: Present: warm, dry Course Vital Signs 11/09/20 11/09/20 11:49 12:58 Temperature 98.9 F Pulse Rate 74 74 Respiratory 16 18 Rate Blood Pressure 114/76 119/76 O2 Sat by Pulse 99 100 Oximetry EKG Findings - EKG Comments: EKG Findings:: EKG: Normal sinus rhythm, rate 75, MN interval 176, QRS duration 86, QTC 426, no ST segment elevation. Medical Decision Making - Medical Decision Making 50-year-old male with current seizures. Patient had been given Versed by EMS. He was placed on seizure precautions while emergency prompt. Head CT was ordered which is negative for intracranial hemorrhage or mass effect or acute findings. Normal CBC, normal CMP, magnesium was 1.5, replaced with IV mag nesium. He did recently have a seizure-like activity while in the emergency department with left arm tremor and gaze deviation. He was given additional 2 mg of Ativan and given 1 g of Keppra. he will be admitted to Dr. Roche who is aware the patient and neurology will be placed on consult. - Lab Data Result diagrams: 11/09/20 12:15 11/09/20 12:15 Lab Results 11/09/20 11/09/20 Range/Units 12:15 12:15 WBC 8.3 (3.8-10.6) k/uL RBC 4.65 (4.30-5.90) m/uL Hgb 13.7 (13.0-17.5) gm/dL Hct 41.0 (39.0-53.0) % MCV 88.1 (80.0-100.0) fL MCH 29.5 (25.0-35.0) pg MCHC 33.5 (31.0-37.0) g/dL RDW 13.8 (11.5-15.5) % Plt Count 256 (150-450) k/uL MPV 8.3 Neutrophils % 55 % Lymphocytes % 33 % Monocytes % 7 % Eosinophils % 2 % Basophils % 1 % Neutrophils # 4.6 (1.3-7.7) k/uL Lymphocytes # 2.7 (1.0-4.8) k/uL Monocytes # 0.6 (0-1.0) k/uL Eosinophils # 0.2 (0-0.7) k/uL Basophils # 0.1 (0-0.2) k/uL Sodium 138 (137-145) mmol/L Potassium 4.2 (3.5-5.1) mmol/L Chloride 107 (98-107) mmol/L Carbon Dioxide 20 L (22-30) mmol/L Anion Gap 11 mmol/L BUN 11 (9-20) mg/dL Creatinine 0.49 L (0.66-1.25) mg/dL Est GFR (CKD-EPI)AfAm >90 (>60 ml/min/1.73 sqM) Est GFR (CKD-EPI)NonAf >90 (>60 ml/min/1.73 sqM) Glucose 197 H (74-99) mg/dL Calcium 9.7 (8.4-10.2) mg/dL Magnesium 1.5 L (1.6-2.3) mg/dL Total Bilirubin 0.6 (0.2-1.3) mg/dL AST 40 (17-59) U/L ALT 73 H (4-49) U/L Alkaline Phosphatase 74 (38-126) U/L Total Protein 7.0 (6.3-8.2) g/dL Albumin 4.2 (3.5-5.0) g/dL Critical Care Time Critical Care Time: Yes Total Critical Care Time: 35 Disposition Clinical Impression: Status epilepticus, Generalized seizure Disposition: ADMITTED IP TO THIS [facility] Condition: Stable Instructions (If sedation given, give patient instructions): Seizure/Epilepsy Discharge Instructions & Follow-Up Is patient prescribed a controlled substance at d/c from ED?: No Referrals: Lucila Montejo MD [Primary Care Provider] - 1-2 days Decision to Admit Reason: Admit from EC Decision Date: 11/09/20 Decision Time: 13:37
[2020-11-09 12:35] LABS: Basophils # (A) 0.1 k/uL (0-0.2); Basophils % (A) 1 %; Eosinophils # (A) 0.2 k/uL (0-0.7); Eosinophils % (A) 2 %; HGB 13.7 gm/dL (13.0-17.5); Lymphocytes # (A) 2.7 k/uL (1.0-4.8); Lymphocytes % (A) 33 %; MCH 29.5 pg (25.0-35.0); MCHC 33.5 g/dL (31.0-37.0); MCV 88.1 fL (80.0-100.0); Mean Platelet Volume 8.3; Monocytes # (A) 0.6 k/uL (0-1.0); Monocytes % (A) 7 %; Neutrophils # (A) 4.6 k/uL (1.3-7.7); Neutrophils % (A) 55 %; Platelet Count 256 k/uL (150-450); RBC 4.65 m/uL (4.30-5.90); RDW 13.8 % (11.5-15.5); WBC 8.3 k/uL (3.8-10.6)
[2020-11-09 12:54] LABS: ALT 73 U/L (4-49); AST 40 U/L (17-59); African American GFR (CKD) >90 (>60 ml/min/1.73 sqM); Albumin 4.2 g/dL (3.5-5.0); Alkaline Phosphatase 74 U/L (38-126); Anion Gap 11 mmol/L; Blood Urea Nitrogen 11 mg/dL (9-20); Calcium 9.7 mg/dL (8.4-10.2); Carbon Dioxide 20 mmol/L (22-30); Chloride 107 mmol/L (98-107); Glucose 197 mg/dL (74-99); Magnesium 1.5 mg/dL (1.6-2.3); Non-African American GFR(CKD) >90 (>60 ml/min/1.73 sqM); Potassium 4.2 mmol/L (3.5-5.1); Sodium 138 mmol/L (137-145); Total Bilirubin 0.6 mg/dL (0.2-1.3)
[2020-11-09] MEDS: LORazepam 2 MG/ML INJ IV PRN ×3 (12:59→22:58)
--- NOTE | 2020-11-09 13:10 | CT ---
EXAMINATION TYPE: CT brain wo con DATE OF EXAM: 11/09/2020 COMPARISON: 10/29/2010 HISTORY: 50-year-old male Seizure activity. TECHNIQUE: Examination was done in axial plane without intravenous contrast. Coronal and sagittal r econstructions performed. CT DLP: 1173.4 mGycm Automated exposure control for dose reduction was used. FINDINGS: There is no evidence of acute intracranial hemorrhage, acute ischemic changes, mass, mass-effect, or extra-axial fluid collection. There is no effacement of cerebral sulci or basal subarachnoid cister ns. There is no hydrocephalus. There is no midline shift. De La Rosa-white matter distinction is preserv ed. Benign hyperostosis frontalis interna. Paranasal sinuses and mastoid air cells well pneumatized. Slig ht leftward nasal septal deviation. Orbits and globes are intact. IMPRESSION: No acute intracranial abnormality seen.
[2020-11-09] MEDS ORDERED: NALOXONE 0.4 MG/ML 1 ML VIAL IV PRN (13:33)
[2020-11-09] MEDS ORDERED: ACETAMINOPHEN TAB 325 MG TAB PO PRN (13:33)
[2020-11-09] MEDS ORDERED: levETIRAcetam IV 1,000 MG in SALINE 1 100ML.BAG IVPB STA (13:34)
[2020-11-09] MEDS: SODIUM CHLORIDE 0.9% 1,000 ML IV SCH (13:41)
[2020-11-09] MEDS: MAGNESIUM SULFATE-D5W PMX 1 GM in DEXTROSE/WATER 1 100ML.BAG IVPB SCH ×2 (13:41→14:51)
--- NOTE | 2020-11-09 22:53 | P.CNNES ---
History of Present Illness Consult date: 11/09/20 Requesting physician: Yeison Thornton Reason for Consult: Seizure History of Present Illness: Patient is a 50-year-old male with questionable history of seizure disorder, versus tremor disorder, came to the hospital this morning at 11:36 AM for worsening tremor versus seizure. Patient's was also present who knows him for last 10 years. According to EMS flow sheet, found patient in care of staff in the doctor's office. Patient had multiple seizures in the office prior to arrival. Patient has history of seizure and was placed on Keppra with change of doses recently. Patient is conscious and alert 3 and stated he can feel the seizure coming on. Patient had another seizure in front of the EMS staff, started with hand tremors and became full-body lasting 15 seconds with no postictal state. It started with left hand tremors and talked through it. After about 1 minute, patient started with tremors and then into full-body seizures. Versed 5 mg IV push was given. Patient's blood pressure was 126/72, pulse rate 80, respiration 16 saturation 100. Blood sugar dose 85. Patient has mentioned that his triggers are light. CT head and EKG are normal. Blood test shows normal CBC, Chem-7. ALT 73, AST 40. Patient had a prior EEG on 11/13/2013 which was normal. Patient's most recent Keppra level on 10/29/2020 is 28.5 (3-60). Previous Depakote level was 71.1 on 05/05/2020 before it was discontinued. Patient and his states that he has been on Depakote for a long time. They do not know exactly why he was taking Depakote although believes ?may be from seizures, not sure if he has any bipolar disorder. While he was on Depakote for the 10 years, he has not had any seizures. His Depakote was discontinued and switched to Keppra around 04/13/2020. In April he had first seizure type spell. The second spell occurred about 2 months later. Then these have been getting worse and more frequent and particularly in the last 2 weeks which has been very frequent. Patient states that these Spells are occurring about 3-4 times a day and last between 1-2 minutes. Patient does take Keppra 1500 mg twice a day, Topamax 25 mg twice a day Lipitor 10 mg, metoprolol 50 mg twice a day metformin. Patient tells me that he was on Keppra 750 mg 2 tablets twice a day, and was recently increased to taking 3 tablets twice a day by his neurologist Dr. Jean. Patient was also started on Topamax 25 mg twice a day. Patient states that tremor skin start in the hands or the legs. If it affects the hands, it comes up to hold body. Also involves the neck" vocal cords", when he cannot talk. Patient states "It shakes my brain around". May also involve the hips, neck, spine and in the legs. Patient has history of hypertension and diabetes. He occasionally smokes, does not do any drugs. Very occasionally drinks alcohol not heavily. Review of Systems As above in detail. All other 14 point review of systems reviewed and noncontributory. Past Medical History Past Medical History: Cancer, Diabetes Mellitus, Seizure Disorder Additional Past Medical History / Comment(s): possible enlarged prostate, testicular cancer, renal failure, History of Any Multi-Drug Resistant Organisms: None Reported Past Surgical History: Bladder Surgery Additional Past Surgical History / Comment(s): testicular surgery, urethra rec onstruction, Past Anesthesia/Blood Transfusion Reactions: No Reported Reaction Past Psychological History: No Psychological Hx Reported Smoking Status: Former smoker, Vaper Past Alcohol Use History: Occasional Past Drug Use History: None Reported - Past Family History Father Family Medical History: Diabetes Mellitus, Hypertension Mother Family Medical History: Diabetes Mellitus, Hypertension Additional Family Medical History / Comment(s): Glaucoma Medications and Allergies Home Medications Medication Instructions Recorded Confirmed Type Atorvastatin [Lipitor] 10 mg PO DAILY 08/16/15 11/09/20 History Dorzolamide-Timol 2.23%/0.68% 1 drop BOTH EYES BID 10/29/20 11/09/20 History [Cosopt] Glimepiride [Amaryl] 4 mg PO BID 10/29/20 11/09/20 History Insulin Glargine,Hum.rec.anlog 15 unit SQ DAILY 10/29/20 11/09/20 History [Basaglar Kwikpen U-100] Irbesartan [Avapro] 150 mg PO DAILY 10/29/20 11/09/20 History Ketoconazole 2% Cream [Nizoral 2%] 1 applic TOPICAL BID 10/29/20 11/09/20 Histo ry Metoprolol Tartrate [Lopressor] 50 mg PO BID 10/29/20 11/09/20 History levETIRAcetam [Keppra] 1,500 mg PO BID 10/29/20 11/09/20 History metFORMIN HCL [Glucophage] 850 mg PO TID 10/29/20 11/09/20 History Topiramate [Topamax] 25 mg PO BID 11/09/20 11/09/20 History Allergies Allergy/AdvReac Type Severity Reaction Status Date / Time No Known Allergies Allergy Verified 11/09/20 12:34 Physical Examination - Vital Signs Vital Signs: Vital Signs Temp Pulse Resp BP Pulse Ox 11/09/20 15:03 78 16 114/69 100 11/09/20 12:58 74 18 119/76 100 11/09/20 11:49 98.9 F 74 16 114/76 99 Intake and Output 11/09/20 11/09/20 11/09/20 06:59 14:59 22:59 Other: Weight 108.862 kg Patient is a middle aged male, in no acute distress. Patient is alert awake oriented to time place and person. Patient knows that it is [facility]. He states the month as November, and the year is . On asking about the president laughed and states "nobody", then corrects to Biden. Although then Speech and language functions are normal. Attention, concentration and fund of knowledge is adequate. On cranial examination, pupils are round and reacting to light, visual shepard are full on confrontation, extraocular muscles are intact with no nystagmus. Face is symmetric, tongue protrudes to the midline. Palatal elevation and sensation normal, hearing and shoulder shrug normal, facial sensation normal. Shoulder shrug normal. On muscle strength testing, there is no pronator drift and the strength is normal in arms and legs distally and proximally. Deep tendon reflexes are hypoactive and plantars downgoing bilaterally. Sensory to touch is equal with no neglect. Cerebellar function showed no ataxia for [id number] testing, although patient was slow to perform the task. No dysdiadochokinesia. Tone and bulk of muscles normal. Patient gets intermittent tremors in the right arm more than the left. Also sometimes legs shake. Appears psychogenic. These are not seizures. Gait not checked. On general examination, there is no carotid bruit or murmur, S1-S2 audible. Abdomen is soft nontender. Chest is clear. Peripheral pulses are present. Mild peripheral edema. Results - Laboratory Findings CBC and BMP: 11/09/20 12:15 11/09/20 12:15 Abnormal Lab Findings: Abnormal Labs 11/09/20 12:15 Carbon Dioxide 20 L Creatinine 0.49 L Glucose 197 H Magnesium 1.5 L ALT 73 H Assessment and Plan Assessment: * Intermittent tremors, appears psychogenic. Doubt seizures. Plan: * Check TSH, B12, folate. * Await repeat Keppra level. * Check 2.5 hour EEG to evaluate for any interictal epileptiform activity. * Consider psychiatry consultation, if the EEG comes back negative.
[2020-11-09] MEDS ORDERED: LORazepam 2 MG/ML INJ ONE ×2 (22:55→23:12)
[2020-11-09] MEDS: NICOTINE 21MG/24HR PATCH TRANSDERM SCH (23:55)
[2020-11-10] MEDS: SODIUM CHLORIDE 0.9% 1,000 ML IV SCH ×2 (04:41→17:00)
[2020-11-10 06:35] LABS: Glucose,Whole Blood 125 mg/dL (75-99)
[2020-11-10] MEDS: INSULIN ASPART (NovoLOG) 100 UNIT/ML VIAL SQ SCH ×4 (06:38→21:02)
[2020-11-10] MEDS: LORazepam 2 MG/ML INJ IV PRN (07:25)
[2020-11-10] MEDS: DORZOLAMIDE-TIMOLOL 2.23%/0.68 10ML BTL BOTH EYES SCH ×2 (07:48→21:01)
[2020-11-10] MEDS: ATORVASTATIN 10 MG TAB PO SCH (07:48)
[2020-11-10] MEDS: CLOTRIMAZOLE 1% CREAM 30 GM TUBE TOPICAL SCH ×2 (07:48→21:02)
[2020-11-10] MEDS: GLIMEPIRIDE 4 MG TAB PO SCH ×2 (07:48→21:02)
[2020-11-10] MEDS: metFORMIN 850 MG TAB PO SCH ×3 (07:49→21:02)
[2020-11-10] MEDS: METOPROLOL TARTRATE 50 MG TAB PO SCH ×2 (07:49→21:02)
[2020-11-10] MEDS: LOSARTAN 50 MG TAB PO SCH (07:49)
[2020-11-10] MEDS: NICOTINE 21MG/24HR PATCH TRANSDERM SCH (07:49)
[2020-11-10] MEDS: TOPIRAMATE 25 MG TAB PO SCH ×2 (07:49→21:01)
[2020-11-10 12:03] LABS: Glucose,Whole Blood 159 mg/dL (75-99)
[2020-11-10 12:21] LABS: Folate, Serum >24.0 ng/mL
[2020-11-10 14:18] LABS: Hemoglobin A1C 8.2 % (4.0-6.0)
[2020-11-10] MEDS ORDERED: LORazepam 2 MG/ML INJ IV PRN (16:43)
[2020-11-10 17:05] LABS: Glucose,Whole Blood 195 mg/dL (75-99)
--- NOTE | 2020-11-10 18:32 | EEG ---
ELECTROENCEPHALOGRAM REPORT PROCEDURE DATE: 11/10/2020. ELECTROENCEPHALOGRAM (EEG) REPORT: This is a report from a prolonged 2.5 hour inpatient digital EEG performed using the 10/20 electrode placement system. HISTORY: Seizures. OTHER MEDICAL HISTORY: Includes diabetes. CURRENT MEDICATIONS: Tylenol, Lipitor, Cosopt, Amaryl, insulin, Keppra, metformin, Lopressor, Cozaar, nicotine patch, and Topamax. Recording start time: 11/10/2020 at 8:27 am. Recording end time: 11/10/2020 at 10:57 am. EVENTS: During this prolonged 2.5 hour outpatient inpatient digital EEG, three events were recorded that were not associated with epileptiform activity. The event #1 occurred at 10:42:39. There is intermittent right arm trembling and head shaking noted. Event #2 occurred at 10:47:44. The patient indicated that he was dizzy and he was seeing visions of animals. Event #3 occurred at 10:49:20 with the bilateral hand tremor. The duration of each of these symptoms was less than a minute. These symptoms were not associated with epileptiform activity. BACKGROUND: The background activity consisted of 9 to 10 hertz rhythmic waveforms symmetric through both posterior quadrants. ACTIVATION: Hyperventilation: Not performed. Photic stimulation: Symmetric driving seen. Sleep: Stages I and II sleep noted. Please note that the patient was asleep for the majority of this recording. ABNORMALITIES: None. IMPRESSION: Normal 2.5 hour prolonged inpatient digital video EEG. No clinical or electrographic seizures were recorded. No epileptiform activity was present. Three episodes were recorded as described above that were not associated with epileptiform activity. These findings were called to the neurologist taking care of the patient on 11/10/2020 at 2:30 pm. MMODL / IJN: [id number] /
--- NOTE | 2020-11-10 19:01 | P.HPIM ---
History of Present Illness H&P Date: 11/10/20 Chief Complaint: Refractory seizure, type 2 diabetes, hyperlipidemia, electr olyte imbalance. HISTORY OF PRESENT ILLNESS 50-year-old morbidly obese one of Dr. Montejo's patient with past medical history of type 2 diabetes on multiple medication, history of seizure has been on Keppra, history of bipolar disorders and previous history of testicular cancer has been in remission. Patient presented to the office for follow-up on 11/09/2020 he ended up having tonic-clonic seizure in the office. EMS were called and came in to bring patient to the emergency department at [facility]. And transportation patient had another episode of tonic-clonic seizure. At the time was arrived to the ER was loaded with Keppra and giving Versed add and lorazepam had another episode of seizure was more stable at the time. Neurology ended up seen patient and apparently he was on Depakote up till April when Depakote was stopped for claim that it causes side effect of liver problem while patient is uncertain diabetic medication. Patient had more titration of the Keppra at the time up to 750 mg twice a day which when found to have the first episode of seizure in April and then have another one few weeks later and since then has been coming a lot more often. Patient was seen and evaluated the emergency department, CT of the brain didn't show any major abnormality. Patient was seen neurology and not clear whether this is seizure or tremor according to neuro consult decided to up his Redness point can keep patient on seizure management activities EEG is done and rising his dose up to 1500 mg of Keppra twice a day with Topamax 25 mg twice a day. REVIEW OF SYSTEMS Constitutional: No fever, no chills, no night sweats. No weight change. No weakness, fatigue or lethargy. No daytime sleepiness. EENT: No headache. No blurred vision or double vision, no loss of vision. No loss of Hearing, no ringing in the ears, no dizziness. No nasal drainage or congestion. No epistaxis. No sore throat. Lungs: No shortness of breath, cough, no sputum production. No wheezing. Cardiovascular: No chest pain, no lower extremity edema. No palpitations. No paroxysmal nocturnal dyspnea. No orthopnea. No lightheadedness or dizziness. No syncopal episodes. Abdominal: No abdominal pain. No nausea, vomiting. No diarrhea. No cons tipation. No bloody or tarry stools.. No loss of appetite. Genitourinary: No dysuria, increased frequency, urgency. No urinary retention. Musculoskeletal: No myalgias. No muscle weakness, no gait dysfunction, no frequent falls. No back pain. No neck pain. Integumentary: No wounds, no lesions. No rash or pruritus. No unusual bruising. No change in hair or nails. Slight edema and chronic dermatitis. Neurologic: No aphasia. No facial droop. No change in mentation. No head injury. No headache. No paralysis. Positive seizure and tremor. Psychiatric: Positive depression and bipolar disorders. Endocrine: No abnormal blood sugars. No weight change. No excessive sweating or thirst. No cold intolerance. SOCIAL HISTORY Patient smoked one pack a day for the last 20 years, drinks psychosocially, patient is and lives with his . [place] sleep apnea with no CPAP. FAMILY HISTORY Both parents have history of diabetes hypertension and glaucoma. PHYSICAL EXAMINATION Gen: This is a 50 morbidly obese does not look in any respiratory distress. HEENT: Head is atraumatic, normocephalic. Pupils equal, round. Sclerae is anicteric. NECK: Supple. No JVD. No lymphadenopathy. No thyromegaly. LUNGS: Clear to auscultation. No wheezes or rhonchi. No intercostal retractions. HEART: Regular rate and rhythm. No murmur. ABDOMEN: Soft. Bowel sounds are present. No masses. No tenderness. EXTREMITIES: No pedal edema. No calf tenderness. NEUROLOGICAL: Patient is awake, alert and oriented x3. Cranial nerves 2 through 12 are grossly intact. No seizure the time. Examination. ASSESSMENT AND PLAN 1. Refractory seizure: Not clear etiology now only explanation whether having him off Depakote CAD has made huge impact on it. Patient was seen neurology and Keppra was up to 1500 mg twice a day along with Topamax continue medication awaiting for his EEG to decide on further management whether patient can benefit from second antiseizure medication. 2 type 2 diabetes: Has been on basically her 15 units daily along with metformin 850 mg twice a day continue Accu-Chek with sliding scales coverage and still on the glyburide 4 mg twice a day. 3 hypertension: Has been on metoprolol titrate 50 mg twice a day along with of July 02 50 mg daily. 4 hyperlipidemia: Remain on atorvastatin 10 mg a day resume medication. 5 electrolyte imbalance: Specially hypomagnesemia: Magnesium supplement was done today. 6 chronic history of smoking: Smoking cessation was addressed patient be started nicotine patch 20 mg daily. 7 history of testicular cancer: Post surgery patient is in remission doing well. 8 history of chronic kidney disease: Kidney function this time acting normal continue hydration watch for any decline in urine output. 9 GI prophylaxis: Patient will be continue on Pepcid 20 mg daily. 10 DVT prophylaxis: Patient will be on heparin 5000 units subcu status twice a day. CODE STATUS: Full code. Patient will be admitted to the hospital for a minimum of 2 night stay. Past Medical History Past Medical History: Cancer, Diabetes Mellitus, Seizure Disorder Additional Past Medical History / Comment(s): possible enlarged prostate, testicular cancer, renal failure, History of Any Multi-Drug Resistant Organisms: None Reported Past Surgical History: Bladder Surgery Additional Past Surgical History / Comment(s): testicular surgery, urethra reconstruction, Past Anesthesia/Blood Transfusion Reactions: No Reported Reaction Past Psychological History: No Psychological Hx Reported Smoking Status: Former smoker, Vaper Past Alcohol Use History: Occasional Past Drug Use History: None Reported - Past Family History Father Family Medical History: Diabetes Mellitus, Hypertension Mother Family Medical History: Diabetes Mellitus, Hypertension Additional Family Medical History / Comment(s): Glaucoma Medications and Allergies Home Medications Medication Instructions Recorded Confirmed Type Atorvastatin [Lipitor] 10 mg PO DAILY 08/16/15 11/09/20 History Dorzolamide-Timol 2.23%/0.68% 1 drop BOTH EYES BID 10/29/20 11/09/20 History [Cosopt] Glimepiride [Amaryl] 4 mg PO BID 10/29/20 11/09/20 History Insulin Glargine,Hum.rec.anlog 15 unit SQ DAILY 10/29/20 11/09/20 History [Basaglar Kwdannypen U-100] Irbesartan [Avapro] 150 mg PO DAILY 10/29/20 11/09/20 History Ketoconazole 2% Cream [Nizoral 2%] 1 applic TOPICAL BID 10/29/20 11/09/20 History Metoprolol Tartrate [Lopressor] 50 mg PO BID 10/29/20 11/09/20 History levETIRAcetam [Keppra] 1,500 mg PO BID 10/29/20 11/09/20 History metFORMIN HCL [Glucophage] 850 mg PO TID 10/29/20 11/09/20 History Topiramate [Topamax] 25 mg PO BID 11/09/20 11/09/20 History Allergies Allergy/AdvReac Type Severity Reaction Status Date / Time No Known Allergies Allergy Verified 11/09/20 12:34 Physical Exam Vitals: Vital Signs Temp Pulse Resp BP Pulse Ox 11/10/20 16:00 100 17 120/63 97 11/10/20 14:00 17 11/10/20 12:00 81 17 128/77 99 11/10/20 08:00 17 11/10/20 07:57 97.8 F 82 17 126/71 100 11/10/20 04:00 91 18 123/73 99 11/10/20 00:00 88 18 118/67 98 11/09/20 22:58 87 18 117/63 97 11/09/20 20:00 98.1 F 82 18 121/83 99 Intake and Output 11/10/20 11/10/20 11/10/20 06:59 14:59 22:59 Intake Total 620 Balance 620 Intake: Oral 620 Other: # Voids 2 2 Weight 101 kg Results CBC & Chem 7: 11/09/20 12:15 11/09/20 12:15 Labs: Abnormal Lab Results - Last 24 Hours (Table) 11/09/20 11/09/20 11/10/20 Range/Units 12:15 12:15 06:33 POC Glucose (mg/dL) 125 H (75-99) mg/dL Hemoglobin A1c 8.2 H (4.0-6.0) % Vitamin B12 1317.0 H (200.0-944.0) pg/mL 11/10/20 11/10/20 Range/Units 12:00 16:55 POC Glucose (mg/dL) 159 H 195 H (75-99) mg/dL Hemoglobin A1c (4.0-6.0) % Vitamin B12 (200.0-944.0) pg/mL Thrombosis Risk Factor Assmnt - Choose All That Apply Each Factor Represents 1 point: Age 41-60 years Thrombosis Risk Factor Assessment Total Risk Factor Score: 1 Thrombosis Risk Factor Assessment Level: Low Risk
[2020-11-10 20:18] LABS: Glucose,Whole Blood 180 mg/dL (75-99)
[2020-11-10] MEDS: HEPARIN SODIUM,PORCINE/PF 5,000 UNIT/0.5 ML SYRINGE SQ SCH (21:02)
[2020-11-11 06:15] LABS: Glucose,Whole Blood 94 mg/dL (75-99)
[2020-11-11] MEDS: INSULIN ASPART (NovoLOG) 100 UNIT/ML VIAL SQ SCH (06:39)
[2020-11-11 08:05] VITALS: BP 142/74; PULSE 102; RESP 18; TEMP 97.7
[2020-11-11] MEDS: SODIUM CHLORIDE 0.9% 1,000 ML IV SCH (08:24)
[2020-11-11] MEDS: CLOTRIMAZOLE 1% CREAM 30 GM TUBE TOPICAL SCH (08:27)
[2020-11-11] MEDS: metFORMIN 850 MG TAB PO SCH (08:28)
[2020-11-11] MEDS: GLIMEPIRIDE 4 MG TAB PO SCH (08:28)
[2020-11-11] MEDS: ATORVASTATIN 10 MG TAB PO SCH (08:28)
[2020-11-11] MEDS: LOSARTAN 50 MG TAB PO SCH (08:28)
[2020-11-11] MEDS: TOPIRAMATE 25 MG TAB PO SCH (08:28)
[2020-11-11] MEDS: HEPARIN SODIUM,PORCINE/PF 5,000 UNIT/0.5 ML SYRINGE SQ SCH (08:28)
[2020-11-11] MEDS: METOPROLOL TARTRATE 50 MG TAB PO SCH (08:29)
[2020-11-11] MEDS: DORZOLAMIDE-TIMOLOL 2.23%/0.68 10ML BTL BOTH EYES SCH (08:29)
[2020-11-11] MEDS: NICOTINE 21MG/24HR PATCH TRANSDERM SCH (08:29)
[2020-11-11] MEDS ORDERED: FAMOTIDINE 20 MG TAB PO SCH (09:00)
--- NOTE | 2020-11-11 09:45 | P.PN ---
Subjective Progress Note Date: 11/10/20 Patient was seen for a follow-up. Patient's was also present. Patient continues to have seizure-type spells. Patient had a 2-1/2 hours EEG, which was completely normal. Patient had 3 typical spells, which had no electrographic correlate. No epileptiform activity was seen. Patient's spells are psychogenic nonepileptic spells. Objective - Vital Signs Vital signs: Vital Signs Temp 97.8 F 11/10/20 07:57 Pulse 100 11/10/20 16:00 Resp 17 11/10/20 16:00 BP 120/63 11/10/20 16:00 Pulse Ox 97 11/10/20 16:00 Intake & Output 11/09/20 11/10/20 11/10/20 18:59 06:59 18:59 Intake Total 620 Balance 620 Weight 108.862 kg 101 kg Intake: Oral 620 Other: # Voids 2 2 - Exam Patient is laying in the bed, keeps his eyes closed. Patient shakes his left arm intermittently. Per nursing report, he sometimes shakes all over. Patient's telemetry showing sinus rhythm. Sometimes rhythmic artifact occurs due to tremors. - Labs CBC & Chem 7: 11/09/20 12:15 11/09/20 12:15 Labs: Abnormal Lab Results - Last 24 Hours (Table) 11/09/20 11/09/20 11/10/20 Range/Units 12:15 12:15 06:33 POC Glucose (mg/dL) 125 H (75-99) mg/dL Hemoglobin A1c 8.2 H (4.0-6.0) % Vitamin B12 1317.0 H (200.0-944.0) pg/mL 11/10/20 11/10/20 Range/Units 12:00 16:55 POC Glucose (mg/dL) 159 H 195 H (75-99) mg/dL Hemoglobin A1c (4.0-6.0) % Vitamin B12 (200.0-944.0) pg/mL Assessment and Plan Assessment: * Psychogenic nonepileptic seizures * Type 2 diabetes * Hypertension * Hyperlipidemia Plan: * Patient underwent prolonged video EEG for 2.5 today. No clinical or electrographic seizures were recorded. No epileptiform activity was present. 3 episodes were recorded as described above that were not associated with epileptiform activity. * TSH 1.49, B12 1317, folate > 24. * Keppra level 46.0 (3-60). * Psychiatry consultation for psychogenic nonepileptic seizures. * MRI of the brain with and without contrast.
--- NOTE | 2020-11-11 10:39 | P.DS ---
Providers Date of admission: 11/09/20 13:33 Expected date of discharge: 11/11/20 Attending physician: Shant Roche Consults: 11/09/20 13:33 Consult Physician Routine Consulting Provider: Yuridia De Luna Consult Reason/Comments: Seizure Do you want consulting provider notified?: Yes 11/10/20 14:43 Consult Physician Routine Consulting Provider: Louie Olmos Consult Reason/Comments: Non-epileptic spells/seizure type activity Do you want consulting provider notified?: Yes Primary care physician: Lucila Montejo [facility] Course: HISTORY OF PRESENT ILLNESS 50-year-old morbidly obese one of Dr. Montejo's patient with past medical history of type 2 diabetes on multiple medication, history of seizure has been on Keppra, history of bipolar disorders and previous history of testicular cancer has been in remission. Patient presented to the office for follow-up on 11/09/2020 he ended up having tonic-clonic seizure in the office. EMS were called and came in to bring patient to the emergency department at [facility]. And transportation patient had another episode of tonic-clonic seizure. At the time was arrived to the ER was loaded with Keppra and giving Versed add and lorazepam had another episode of seizure was more stable at the time. Neurology ended up seen patient and apparently he was on Depakote up till April when Depakote was stopped for claim that it causes side effect of liver problem while patient is uncertain diabetic medication. Patient had more titration of the Keppra at the time up to 750 mg twice a day which when found to have the first episode of seizure in April and then have another one few weeks later and since then has been coming a lot more often. Patient was seen and evaluated the emergency department, CT of the brain didn't show any major abnormality. Patient was seen neurology and not clear whether this is seizure or tremor according to neuro consult decided to up his Redness point can keep patient on seizure management activities EEG is done and rising his dose up to 1500 mg of Keppra twice a day with Topamax 25 mg twice a day. 11/11: Patient has been seen by Dr. De Luna. ASSESSMENT AND PLAN 1. Refractory seizure 2 type 2 diabetes 3 hypertension 4 hyperlipidemia 5 electrolyte imbalance: Specially hypomagnesemia 6 chronic history of smoking: Smoking cessation 7 history of testicular cancer: Post surgery patient is in remission 8 history of chronic kidney disease DISCHARGE PLAN Home Impression and plan of care have been directed as dictated by the signing physician. Neha Rinaldi nurse practitioner acting as scribe for signing physician. Patient Condition at Discharge: Stable Plan - Discharge Summary Discharge Rx Participant: No New Discharge Prescriptions: New Divalproex [Depakote] 250 mg PO BID #60 tablet.[address] Duran Atorvastatin [Lipitor] 10 mg PO DAILY Metoprolol Tartrate [Lopressor] 50 mg PO BID levETIRAcetam [Keppra] 1,500 mg PO BID Irbesartan [Avapro] 150 mg PO DAILY Insulin Glargine,Hum.rec.anlog [Basaglar Kwikpen U-100] 15 unit SQ DAILY metFORMIN HCL [Glucophage] 850 mg PO TID Ketoconazole 2% Cream [Nizoral 2%] 1 applic TOPICAL BID Glimepiride [Amaryl] 4 mg PO BID Dorzolamide-Timol 2.23%/0.68% [Cosopt] 1 drop BOTH EYES BID Topiramate [Topamax] 25 mg PO BID Discharge Medication List Atorvastatin [Lipitor] 10 mg PO DAILY 08/16/15 [History] Dorzolamide-Timol 2.23%/0.68% [Cosopt] 1 drop BOTH EYES BID 10/29/20 [History] Glimepiride [Amaryl] 4 mg PO BID 10/29/20 [History] Insulin Glargine,Hum.rec.anlog [Basaglar Kwikpen U-100] 15 unit SQ DAILY 10/29/20 [History] Irbesartan [Avapro] 150 mg PO DAILY 10/29/20 [History] Ketoconazole 2% Cream [Nizoral 2%] 1 applic TOPICAL BID 10/29/20 [History] Metoprolol Tartrate [Lopressor] 50 mg PO BID 10/29/20 [History] levETIRAcetam [Keppra] 1,500 mg PO BID 10/29/20 [History] metFORMIN HCL [Glucophage] 850 mg PO TID 10/29/20 [History] Topiramate [Topamax] 25 mg PO BID 11/09/20 [History] Divalproex [Depakote] 250 mg PO BID #60 tablet. 11/11/20 [Rx] Follow up Appointment(s)/Referral(s): Lucila Montejo MD [Primary Care Provider] - 1 Week Clementine Jean MD [REFERRING] - 1 Week Patient Instructions/Handouts: Seizure/Epilepsy Discharge Instructions & Follow-Up Discharge Disposition: HOME SELF-CARE
[2020-11-11 11:50] LABS: Glucose,Whole Blood 260 mg/dL (75-99)
--- NOTE | 2020-11-11 12:03 | CDI ---
Documentation Clarification Form Date: 11/11/2020 11:49:40 AM From: Gracia ZamoranoAlvarezRODRICK rivas, CCDS Admit Date: 11/09/2020 01:33:00 PM Patient Name: El Chase Visit Number: [id number] Discharge Date: ATTENTION: The Clinical Documentation Specialists (CDI) and [facility] Coding Staff appreciate your assistance in clarifying documentation. Please respond to the clarification below the line at the bottom and electronically sign. The CDI & [facility] Coding staff will review the response and follow-up if needed. Please note: Queries are made part of the Legal Health Record. If you have any questions, please contact the author of this message via ITS. Dr. Shant Roche: Conflicting documentation has been found in the medical record: Per the 11/11 Discharge Summary Assessment: Refractory seizures. Per the 11/09 Neurology Consult and 11/10 Progress Note Assessment: Psychogenic nonepileptic seizures. As attending physician, please provide clarification. History/Risk Factors per the 11/10 H/P: 50-year-old morbidly obese, with past medical history of DM II on multiple medications, Seizures on Keppra, Bipolar disorders and previous history of testicular cancer in remission. Clinical Indicators: Patient presented to the (PCP) office for follow-up on 11/09/2020 he ended up having tonic-clonic seizure in the office. EMS called. Had another episode of tonic-clonic seizure. On arrival to ER was loaded with Keppra, given Versed & Lorazepam. Had another episode of seizure, was more stable at the time. Neurology Consulted: Was on Depakote until April, Depakote was stopped due to possible side effects to liver. Assessment: Intermittent tremors, appears psychogenic, doubt seizures. Recommend Psychiatric Consult. 11/09 CT Brain: No acute intracranial abnormality. 11/10 EEG (Prolonged 2.5 hour EEG): No abnormalities found. Treatment: Telemetry, Blood Glucose Monitoring, Insulin sliding scale, Seizure precautions, IV Na Cl 1,000 mls @ 999 mls/hr q1H, IV Mag Sulf 100 mls/hr q1H, IV Keppra 400 mls/hr x1, IV Ativan 2 mg x2, IV Na Cl 1,000 mls @ 75 mls/hr q13H, Nicotine Patch. Please clarify which diagnosis is most appropriate: [xx ] Refractory Seizure (Unspecified Epilepsy, intractable) [ ] Psychogenic Nonepileptic Seizures [ ] Other (please specify) [ ] Unable to determine (Template Last Revised: June 2020) MTDD
== END 2020-11-11 12:05 | disposition home or self-care (01) | DRG 101 ==
LOC: EC 11:36 → 3SCARD 13:33
PROVIDERS: ADMIT Internal Medicine Geriatric Medicine; ATTEND Internal Medicine Geriatric Medicine
DX: G40.804 Other epilepsy, intractable, without status epilepticus (principal); E66.01 Morbid (severe) obesity due to excess calories; E78.5 Hyperlipidemia, unspecified; E83.42 Hypomagnesemia; E11.22 Type 2 diabetes mellitus with diabetic chronic kidney disease; G47.30 Sleep apnea, unspecified; I12.9 Hypertensive chronic kidney disease with stage 1 through stage 4 chronic kidney disease, or unspecified chronic kidney disease; N18.9 Chronic kidney disease, unspecified; Z79.84 Long term (current) use of oral hypoglycemic drugs; Z79.899 Other long term (current) drug therapy; Z82.49 Family history of ischemic heart disease and other diseases of the circulatory system; Z83.3 Family history of diabetes mellitus; Z85.47 Personal history of malignant neoplasm of testis; Z87.891 Personal history of nicotine dependence
CPT/HCPCS: 70450; 80053; 80177; 82607; 82746; 83036; 83735; 84443; 85025; 93005; 95713; 99291

== ENCOUNTER → 2021-01-13 | Outpatient (CLI) | payer BC | END | disposition home or self-care (01) | LOC: LABWHC1 15:19 | PROVIDERS: ATTEND Psychiatry & Neurology Neurology | DX: G40.209 Localization-related (focal) (partial) symptomatic epilepsy and epileptic syndromes with complex partial seizures, not intractable, without status epilepticus (principal) | CPT/HCPCS: 36415; 80164 ==

== ENCOUNTER → 2021-02-05 | Outpatient (CLI) | payer BC ==
[2021-02-05 16:14] LABS: Mean Platelet Volume 7.9; Platelet Count 193 k/uL (150-450)
[2021-02-06 04:27] LABS: Valproic Acid (Depakene) 88.8 ug/mL (50.0-100.0)
== END | disposition home or self-care (01) ==
LOC: LABWHC1 13:43
PROVIDERS: ATTEND Psychiatry & Neurology Neurology
DX: G40.209 Localization-related (focal) (partial) symptomatic epilepsy and epileptic syndromes with complex partial seizures, not intractable, without status epilepticus (principal); Z79.899 Other long term (current) drug therapy
CPT/HCPCS: 36415; 80164; 84450; 84460; 85049

== ENCOUNTER 2021-03-18 16:59 | Emergency (ER) | payer BC ==
[2021-03-18 17:21] VITALS: RESP 18
--- NOTE | 2021-03-18 18:14 | ED ---
General Adult HPI - General Chief complaint: Neuro Symptoms/Deficit Stated complaint: Poss stroke Time Seen by Provider: 03/18/21 17:41 Source: patient Mode of arrival: ambulatory Limitations: no limitations - History of Present Illness Initial comments: Dictation was produced using [employer] dictation software. please excuse any grammatical, word or spelling errors. Chief Complaint: 51-year-old male presents to the emergency department for abnormal face History of Present Illness: [id number] she has past medical history of d iabetes and seizures. Takes Depakote. Patient states that for 4 days his face has been frozen. States that he is having difficulties opening closing his eyes. Patient states he takes Depakote for seizure disorder. He states his whole face feels like he can't control it. Patient states he is also having worsening tremors. Patient states she's been taking his medications as prescribed. Denies any noticing paresthesias to his arms or legs. He lives at home with his . The ROS documented in this emergency department record has been reviewed and confirmed by me. Those systems with pertinent positive or negative responses have been documented in the HPI. All other systems are other negative and/or noncontributory. PHYSICAL EXAM: General Impression: Alert and oriented x3, not in acute distress HEENT: Normocephalic atraumatic, extra-ocular movements intact, pupils equal and reactive to light bilaterally, mucous membranes moist. Cardiovascular: Heart regular rate and rhythm Chest: Able to complete full sentences, no retractions, no tachypnea Abdomen: abdomen soft, non-tender, non-distended, no organomegaly Musculoskeletal: Pulses present and equal in all extremities, no peripheral edema Motor: no focal deficits noted Neurological: Having seconds long tremors at the bedside involving his arms and legs, patient does stop with sternal rub, when forcefully opening patient's eyelids he resists actively Skin: Intact with no visualized rashes Psych: Normal affect and mood ED course: 51-year-old male with chief complaint of facial dystonia. He does not take any antipsychotic medications. Patient states his whole face is dystonic. No concern for L palsy. States that he does have history of seizure and takes Depakote. He has psychogenic seizures because he responds with sternal rub during one of these active convulsive episodes. Chart review shows that patient was recently admitted to the hospital value to by neurology in November and suspicious for psychogenic seizures. He had an EEG that was negative. Vital signs upon arrival shows findings within acceptable limits. Patient is reevaluated at bedside at 7:30 PM. Patient not having any psychogenic seizures at the bedside. Repeat neurologic exam shows facial weakness to the right side and into the right periorbital area. 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 Patient counseled on eye care. He is given prescription for antivirals and prednisone. Patient advised follow-up with primary care doctor and neurologist. EKG interpretation: Ventricular rate a 4, normal sinus rhythm,. 166, QRS 78, QTC 425. No NV prolongation, no QTC prolongation, no ST or T-wave changes noted. Overall, this EKG is unremarkable - Related Data Home Medications Medication Instructions Recorded Confirmed Atorvastatin [Lipitor] 10 mg PO DAILY 08/16/15 03/18/21 Dorzolamide-Timol 2.23%/0.68% 1 drop BOTH EYES BID 10/29/20 03/18/21 [Cosopt] Glimepiride [Amaryl] 4 mg PO BID 10/29/20 03/18/21 Insulin Glargine,Hum.rec.anlog 22 unit SQ DAILY 10/29/20 03/18/21 [Basaglar Kwikpen U-100] Irbesartan [Avapro] 150 mg PO DAILY 10/29/20 03/18/21 Ketoconazole 2% Cream [Nizoral 2%] 1 applic TOPICAL DAILY 10/29/20 03/18/21 Metoprolol Tartrate [Lopressor] 50 mg PO BID 10/29/20 03/18/21 metFORMIN HCL [Glucophage] 850 mg PO TID 10/29/20 03/18/21 Divalproex Sodium [Depakote] 500 mg PO BID 03/18/21 03/18/21 Fluticasone Nasal Randall [Flonase 2 spray EA NOSTRIL HS 03/18/21 03/18/21 Nasal Randall] Previous Rx's Medication Instructions Recorded Divalproex [Depakote] 250 mg PO BID #60 tablet. 11/11/20 Artificial Tears-Hypromellose 1 drops LEFT EYE TID #10 ml 03/18/21 [Artificial Tear Drops] predniSONE 80 mg PO DAILY 7 Days #14 tab 03/18/21 valACYclovir HCL [Valtrex] 1,000 mg PO DAILY 7 Days #7 tablet 03/18/21 Allergies Allergy/AdvReac Type Severity Reaction Status Date / Time No Known Allergies Allergy Verified 03/18/21 18:39 Review of Systems ROS Statement: Those systems with pertinent positive or pertinent negative responses have been documented in the HPI. ROS Other: All systems not noted in ROS Statement are negative. Past Medical History Past Medical History: Cancer, Diabetes Mellitus, Seizure Disorder Additional Past Medical History / Comment(s): possible enlarged prostate, testicular cancer, renal failure, History of Any Multi-Drug Resistant Organisms: None Reported Past Surgical History: Bladder Surgery Additional Past Surgical History / Comment(s): testicular surgery, urethra reconstruction, Past Anesthesia/Blood Transfusion Reactions: No Reported Reaction Past Psychological History: No Psychological Hx Reported Smoking Status: Former smoker, Vaper Past Alcohol Use History: Occasional Past Drug Use History: None Reported - Past Family History Father Family Medical History: Diabetes Mellitus, Hypertension Mother Family Medical History: Diabetes Mellitus, Hypertension Additional Family Medical History / Comment(s): Glaucoma General Exam Limitations: no limitations Course Vital Signs 03/18/21 03/18/21 03/18/21 17:14 18:09 19:07 Temperature 98.2 F Pulse Rate 88 84 85 Respiratory 18 18 18 Rate Blood Pressure 128/80 120/66 103/73 O2 Sat by Pulse 96 96 100 Oximetry Medical Decision Making - Lab Data Result diagrams: 03/18/21 18:08 03/18/21 18:08 Lab Results 03/18/21 03/18/21 Range/Units 18:08 18:08 WBC 11.3 H (3.8-10.6) k/uL RBC 4.70 (4.30-5.90) m/uL Hgb 15.1 (13.0-17.5) gm/dL Hct 43.6 (39.0-53.0) % MCV 92.7 (80.0-100.0) fL MCH 32.1 (25.0-35.0) pg MCHC 34.7 (31.0-37.0) g/dL RDW 13.2 (11.5-15.5) % Plt Count 233 (150-450) k/uL MPV 7.3 Neutrophils % 43 % Lymphocytes % 43 % Monocytes % 9 % Eosinophils % 2 % Basophils % 1 % Neutrophils # 4.9 (1.3-7.7) k/uL Lymphocytes # 4.9 H (1.0-4.8) k/uL Monocytes # 1.0 (0-1.0) k/uL Eosinophils # 0.2 (0-0.7) k/uL Basophils # 0.1 (0-0.2) k/uL Sodium 136 L (137-145) mmol/L Potassium 4.4 (3.5-5.1) mmol/L Chloride 99 (98-107) mmol/L Carbon Dioxide 22 (22-30) mmol/L Anion Gap 15 mmol/L BUN 22 H (9-20) mg/dL Creatinine 0.80 (0.66-1.25) mg/dL Est GFR (CKD-EPI)AfAm >90 (>60 ml/min/1.73 sqM) Est GFR (CKD-EPI)NonAf >90 (>60 ml/min/1.73 sqM) Glucose 317 H (74-99) mg/dL Calcium 9.5 (8.4-10.2) mg/dL Magnesium 1.5 L (1.6-2.3) mg/dL Valproic Acid 94.2 ug/mL Disposition Clinical Impression: Psychogenic nonepileptic seizure, Cross palsy Disposition: HOME SELF-CARE Condition: Fair Instructions (If sedation given, give patient instructions): Cross Palsy (ED) Additional Instructions: Eye Protection Cornea eye protection Artificial tears qhr while patient is awake Ophthalmic ointment at night Eye should be taped shut at night Protective glasses or goggles Steroids Should be started within 72hrs of symptom onset Prednisone 60-80mg qday x1wk Antivirals Most likely no added benefit when combined with steroids. Valacyclovir 1000mg TID x1 week[4] Prescriptions: Artificial Tears-Hypromellose [Artificial Tear Drops] 1 drops LEFT EYE TID #10 ml predniSONE 80 mg PO DAILY 7 Days #14 tab valACYclovir HCL [Valtrex] 1,000 mg PO DAILY 7 Days #7 tablet Is patient prescribed a controlled substance at d/c from ED?: No Referrals: Lucila Montejo MD [Primary Care Provider] - 1-2 days
[2021-03-18 18:19] LABS: Basophils # (A) 0.1 k/uL (0-0.2); Basophils % (A) 1 %; Eosinophils # (A) 0.2 k/uL (0-0.7); Eosinophils % (A) 2 %; HCT 43.6 % (39.0-53.0); HGB 15.1 gm/dL (13.0-17.5); Lymphocytes # (A) 4.9 k/uL (1.0-4.8); Lymphocytes % (A) 43 %; MCH 32.1 pg (25.0-35.0); MCHC 34.7 g/dL (31.0-37.0); MCV 92.7 fL (80.0-100.0); Mean Platelet Volume 7.3; Monocytes % (A) 9 %; Neutrophils # (A) 4.9 k/uL (1.3-7.7); Neutrophils % (A) 43 %; Platelet Count 233 k/uL (150-450); RDW 13.2 % (11.5-15.5); WBC 11.3 k/uL (3.8-10.6)
[2021-03-18 18:55] LABS: African American GFR (CKD) >90 (>60 ml/min/1.73 sqM); Anion Gap 15 mmol/L; Blood Urea Nitrogen 22 mg/dL (9-20); Calcium 9.5 mg/dL (8.4-10.2); Carbon Dioxide 22 mmol/L (22-30); Chloride 99 mmol/L (98-107); Glucose 317 mg/dL (74-99); Magnesium 1.5 mg/dL (1.6-2.3); Non-African American GFR(CKD) >90 (>60 ml/min/1.73 sqM); Potassium 4.4 mmol/L (3.5-5.1); Sodium 136 mmol/L (137-145); Valproic Acid (Depakene) 94.2 ug/mL
[2021-03-18 19:08] VITALS: PULSE 85
[2021-03-18] MEDS ORDERED: MAGNESIUM OXIDE 400 MG TAB PO STA (19:33)
--- NOTE | 2021-03-18 19:39 | CT ---
EXAMINATION: CT brain wo con DATE AND TIME: 03/18/2021 7:16 PM CLINICAL INDICATION: PHH; seizure TECHNIQUE: Standard departmental protocol Total DLP: 2177.4 mGy-cm COMPARISON: 11/09/2020 FINDINGS: The calvarium is intact. There is no intracranial hemorrhage. There is no intracranial mass or mass effect. No definite new intra-axial or extra-axial attenuation defect. The paranasal sinuses, middle ear cavities, and mastoid sinus air cells are clear. The orbits are unremarkable. IMPRESSION: NO ACUTE PROCESS.
[2021-03-18] MEDS ORDERED: valACYclovir HCL 1,000 MG TABLET PO STA (19:59)
[2021-03-18] MEDS ORDERED: ARTIFICIAL TEARS OINTMENT 3.5 GM TUBE RIGHT EYE STA (20:00)
[2021-03-18] MEDS ORDERED: predniSONE 20 MG TAB PO STA (20:00)
[2021-03-18 20:37] VITALS: BP 99/65; TEMP 98.5
== END 2021-03-18 20:35 | disposition home or self-care (01) ==
LOC: EC 16:59
DX: G51.0 Bell's palsy (principal); F44.5 Conversion disorder with seizures or convulsions; E11.9 Type 2 diabetes mellitus without complications; Z87.891 Personal history of nicotine dependence; Z79.4 Long term (current) use of insulin; Z79.84 Long term (current) use of oral hypoglycemic drugs; Z79.899 Other long term (current) drug therapy
CPT/HCPCS: 36415; 93005; 80164; 80048; 83735; 85025; 70450; 99285; J7512

== ENCOUNTER 2022-11-02 14:40 | Inpatient (IN) | payer BC ==
[2022-11-02 15:06] LABS: Glucose,Whole Blood 254 mg/dL (70-110)
[2022-11-02 16:14] LABS: Glucose,Whole Blood 263 mg/dL (70-110)
--- NOTE | 2022-11-02 16:41 | ED ---
Dizziness HPI - General Chief Complaint: Syncope Stated Complaint: Nausea,Loss of Balance,Low Mobility/Type 2 Diab Source: patient Mode of arrival: wheelchair Limitations: no limitations - History of Present Illness Initial Comments: G2-year-old male presenting to the ED with a chief complaint of chills. Per patient, last night started to state that he did not feel good. Started to experience chills and nausea. Per , states that when the patient returned home last night complaining that he was not feeling good. Today, states that this has worsened. Notes that the patient is more tired than usual. States that the patient is normally not this lethargic. Patient and are unsure patient did have a syncopal episode. Denies any symptoms of cough, congestion. Patient currently denies abdominal pain or chest pain. No other complaints. - Related Data Home Medications Medication Instructions Recorded Confirmed Dorzolamide-Timol 2.23%/0.68% 1 drop BOTH EYES BID 10/29/20 11/02/22 [Cosopt] Glimepiride [Amaryl] 4 mg PO BID 10/29/20 11/02/22 Metoprolol Tartrate [Lopressor] 50 mg PO BID 10/29/20 11/02/22 metFORMIN HCL [Glucophage] 850 mg PO BID 10/29/20 11/02/22 Divalproex Sodium [Depakote] 1,000 mg PO DIRECTED 03/18/21 11/02/22 Fluticasone Nasal Lee [Flonase 1 spray EA NOSTRIL BID PRN 03/18/21 11/02/22 Nasal Lee] Divalproex [Depakote] 500 mg PO DIRECTED 11/02/22 11/02/22 Latanoprost [Latanoprost 0.005%] 1 drop BOTH EYES HS 11/02/22 11/02/22 Semaglutide [Ozempic] 0.5 mg SQ CAMACHO 11/02/22 11/02/22 Allergies Allergy/AdvReac Type Severity Reaction Status Date / Time No Known Allergies Allergy Verified 11/02/22 16:29 Review of Systems ROS Statement: Those systems with pertinent positive or pertinent negative responses have been documented in the HPI. ROS Other: All systems not noted in ROS Statement are negative. Past Medical History Past Medical History: Cancer, Diabetes Mellitus, Seizure Disorder Additional Past Medical History / Comment(s): possible enlarged prostate, testicular cancer, renal failure, History of Any Multi-Drug Resistant Organisms: None Reported Past Surgical History: Bladder Surgery Additional Past Surgical History / Comment(s): testicular surgery, urethra reconstruction, Past Anesthesia/Blood Transfusion Reactions: No Reported Reaction Past Psychological History: No Psychological Hx Reported Smoking Status: Former smoker, Vaper Past Alcohol Use History: Occasional Past Drug Use History: None Reported - Past Family History Father Family Medical History: Diabetes Mellitus, Hypertension Mother Family Medical History: Diabetes Mellitus, Hypertension Additional Family Medical History / Comment(s): Glaucoma General Exam Limitations: altered mental status (Lethargic however alert and oriented 3. Will eventually answer questions.) General appearance: alert, lethargic Eye exam: Present: PERRL ENT exam: Present: mucous membranes moist Respiratory exam: Present: normal lung sounds bilaterally Cardiovascular Exam: Present: regular rate, normal rhythm GI/Abdominal exam: Present: soft (Diffuse abdominal tenderness to palpation. No rebound guarding or rigidity.), normal bowel sounds Neurological exam: Present: alert, oriented X3 Skin exam: Present: warm, dry Course Vital Signs 11/02/22 11/02/22 11/02/22 15:03 16:17 18:05 Temperature 98 F 102.9 F H Pulse Rate 130 H 125 H 134 H Respiratory 20 22 24 Rate Blood Pressure 136/86 133/86 115/74 O2 Sat by Pulse 94 L 97 96 Oximetry Medical Decision Making - Medical Decision Making Was pt. sent in by a medical professional or institution (, PA, CASING WORKER, urgent care, hospital, or fdc...) When possible be specific @ -No Did you speak to anyone other than the patient for history (EMS, parent, family, police, friend...)? What history was obtained from this source @ -No Did you review nursing and triage notes (agree or disagree)? Why? @ -I reviewed and agree with nursing and triage notes Were old charts reviewed (outside hosp., previous admission, EMS record, old EKG, old radiological studies, urgent care reports/EKG's, fdc records)? Report findings @ -No old charts were reviewed Differential Diagnosis (chest pain, altered mental status, abdominal pain women, abdominal pain men, vaginal bleeding, weakness, fever, dyspnea, syncope, headache, dizziness, GI bleed, back pain, seizure, CVA, palpatations, mental health, musculoskeletal)? @ -Differential Altered Mental Status: Hypoglycemia, DKA, hypercapnia, ETOH, overdose, CO poisoning, trauma, myxedema coma, HTN encephalopathy, infection, encephalitis, psychosis, intercranial hemorrhage, hepatic encephalopathy, meningitis, CVA, this is not meant to be an all-inclusive list EKG interpreted by me (3pts min.). @ -As above X-rays interpreted by me (1pt min.). @ -X-ray of the chest showed low lung volumes. CT interpreted by me (1pt min.). @ -CT brain showed no acute findings. CT of the abdomen and pelvis showed fat stranding of the kidneys. U/S interpreted by me (1pt. min.). @ -None done What testing was considered but not performed or refused? (CT, X-rays, U/S, labs)? Why? @ -None What meds were considered but not given or refused? Why? @ -None Did you discuss the management of the patient with other professionals (professionals i.e. , PA, CASING WORKER, lab, RT, psych nurse, social media editor, forest management professor, teacher, admissions officer, casework specialist)? Give summary @ -Spoke to Dr. Taylor, who accepts admission. Was smoking cessation discussed for >3mins.? @ -No Was critical care preformed (if so, how long)? @ -No Were there social determinants of health that impacted care today? How? (Homelessness, low income, unemployed, alcoholism, drug addiction, transportation, low edu. Level, literacy, decrease access to med. care, usp, rehab)? @ -No Was there de-escalation of care discussed even if they declined (Discuss DNR or withdrawal of care, Hospice)? DNR status @ -No What co-morbidities impacted this encounter? (DM, HTN, Smoking, COPD, CAD, Cancer, CVA, ARF, Chemo, Hep., AIDS, mental health diagnosis, sleep apnea, morbid obesity)? @ -None Was patient admitted / discharged? Hospital course, mention meds given and route, prescriptions, significant lab abnormalities, going to OR and other pertinent info. @ -Admission. Laboratory studies show a white blood cell count at 14.6, glucose elevated at 263 otherwise chemistry panel unremarkable, urine showed some white blood cell clumps and they will white blood cells, positive leukocyte esterase, and trace blood. CT of the abdomen and pelvis showed fat stranding of the kidneys. Patient will be admitted for pyelonephritis. Blood cultures obtained. At this time lactic acid pending. Patient currently tachycardic and febrile, concern for sepsis. At this time, normotensive. Undiagnosed new problem with uncertain prognosis? @ -No Drug Therapy requiring intensive monitoring for toxicity (Heparin, Nitro, Insulin, Cardizem)? @ -No Were any procedures done? @ -No Diagnosis/symptom? @ -Pyelonephritis, sepsis Acute, or Chronic, or Acute on Chronic? @ -Acute Uncomplicated (without systemic symptoms) or Complicated (systemic symptoms)? @ -Complicated, tachycardic and febrile Side effects of treatment? @ -No Exacerbation, Progression, or Severe Exacerbation? @ -No Poses a threat to life or bodily function? How? (Chest pain, [place], ME, pneumonia, PE, COPD, DKA, ARF, appy, cholecystitis, CVA, Diverticulitis, Homicidal, Erin cidal, threat to staff... and all critical care pts) @ -Yes, sepsis - Lab Data Result diagrams: 11/02/22 15:45 11/02/22 15:45 Lab Results 11/02/22 11/02/22 11/02/22 Range/Units 15:05 15:45 15:45 WBC 14.6 H (3.8-10.6) k/uL RBC 4.59 (4.30-5.90) m/uL Hgb 15.3 (13.0-17.5) gm/dL Hct 42.7 (39.0-53.0) % MCV 93.2 (80.0-100.0) fL MCH 33.3 (25.0-35.0) pg MCHC 35.7 (31.0-37.0) g/dL RDW 12.7 (11.5-15.5) % Plt Count 144 L (150-450) k/uL MPV 7.9 Neutrophils % 69 % Lymphocytes % 16 % Monocytes % 12 % Eosinophils % 2 % Basophils % 0 % Neutrophils # 10.0 H (1.3-7.7) k/uL Lymphocytes # 2.4 (1.0-4.8) k/uL Monocytes # 1.7 H (0-1.0) k/uL Eosinophils # 0.2 (0-0.7) k/uL Basophils # 0.0 (0-0.2) k/uL PT 10.6 (9.0-12.0) sec INR 1.0 (<1.2) APTT 23.6 (22.0-30.0) sec Sodium (137-145) mmol/L Potassium (3.5-5.1) mmol/L Chloride (98-107) mmol/L Carbon Dioxide (22-30) mmol/L Anion Gap mmol/L BUN (9-20) mg/dL Creatinine (0.66-1.25) mg/dL Est GFR (CKD-EPI)AfAm (>60 ml/min/1.73 sqM) Est GFR (CKD-EPI)NonAf (>60 ml/min/1.73 sqM) Glucose (74-99) mg/dL POC Glucose (mg/dL) 254 H (70-110) mg/dL POC Glu Energy Director ID Pj, Alfred Plasma Lactic Acid Manuel (0.7-2.0) mmol/L Calcium (8.4-10.2) mg/dL Magnesium (1.6-2.3) mg/dL Total Bilirubin (0.2-1.3) mg/dL AST (17-59) U/L ALT (4-49) U/L Alkaline Phosphatase (38-126) U/L Troponin I (0.000-0.034) ng/mL Total Protein (6.3-8.2) g/dL Albumin (3.5-5.0) g/dL Amylase (30-110) U/L Lipase (23-300) U/L Urine Color Urine Appearance (Clear) Urine pH (5.0-8.0) Ur Specific [place] (1.001-1.035) Urine Protein (Negative) Urine Glucose (UA) (Negative) Urine Ketones (Negative) Urine Blood (Negative) Urine Nitrite (Negative) Urine Bilirubin (Negative) Urine Urobilinogen (<2.0) mg/dL Ur Leukocyte Esterase (Negative) Urine RBC (0-5) /hpf Urine WBC (0-5) /hpf Urine WBC Clumps (None) /hpf Ur Squamous Epith Cells (0-4) /hpf Urine Mucus (None) /hpf 11/02/22 11/02/2223 Range/Units 15:45 15:45 16:03 WBC (3.8-10.6) k/uL RBC (4.30-5.90) m/uL Hgb (13.0-17.5) gm/dL Hct (39.0-53.0) % MCV (80.0-100.0) fL MCH (25.0-35.0) pg MCHC (31.0-37.0) g/dL RDW (11.5-15.5) % Plt Count (150-450) k/uL MPV Neutrophils % % Lymphocytes % % Monocytes % % Eosinophils % % Basophils % % Neutrophils # (1.3-7.7) k/uL Lymphocytes # (1.0-4.8) k/uL Monocytes # (0-1.0) k/uL Eosinophils # (0-0.7) k/uL Basophils # (0-0.2) k/uL PT (9.0-12.0) sec INR (<1.2) APTT (22.0-30.0) sec Sodium 135 L (137-145) mmol/L Potassium 4.3 (3.5-5.1) mmol/L Chloride 98 (98-107) mmol/L Carbon Dioxide 27 (22-30) mmol/L Anion Gap 10 mmol/L BUN 12 (9-20) mg/dL Creatinine 0.83 (0.66-1.25) mg/dL Est GFR (CKD-EPI)AfAm >90 (>60 ml/min/1.73 sqM) Est GFR (CKD-EPI)NonAf >90 (>60 ml/min/1.73 sqM) Glucose 258 H (74-99) mg/dL POC Glucose (mg/dL) 263 H (70-110) mg/dL POC Glu Energy Director Akiko Booth Plasma Lactic Acid Manuel (0.7-2.0) mmol/L Calcium 9.6 (8.4-10.2) mg/dL Magnesium 1.3 L (1.6-2.3) mg/dL Total Bilirubin 1.0 (0.2-1.3) mg/dL AST 47 (17-59) U/L ALT 82 H (4-49) U/L Alkaline Phosphatase 75 (38-126) U/L Troponin I <0.012 (0.000-0.034) ng/mL Total Protein 7.9 (6.3-8.2) g/dL Albumin 4.3 (3.5-5.0) g/dL Amylase 56 (30-110) U/L Lipase 246 (23-300) U/L Urine Color Urine Appearance (Clear) Urine pH (5.0-8.0) Ur Specific [place] (1.001-1.035) Urine Protein (Negative) Urine Glucose (UA) (Negative) Urine Ketones (Negative) Urine Blood (Negative) Urine Nitrite (Negative) Urine Bilirubin (Negative) Urine Urobilinogen (<2.0) mg/dL Ur Leukocyte Esterase (Negative) Urine RBC (0-5) /hpf Urine WBC (0-5) /hpf Urine WBC Clumps (None) /hpf Ur Squamous Epith Cells (0-4) /hpf Urine Mucus (None) /hpf 11/02/22 11/02/22 Range/Units 17:30 18:05 WBC (3.8-10.6) k/uL RBC (4.30-5.90) m/uL Hgb (13.0-17.5) gm/dL Hct (39.0-53.0) % MCV (80.0-100.0) fL MCH (25.0-35.0) pg MCHC (31.0-37.0) g/dL RDW (11.5-15.5) % Plt Count (150-450) k/uL MPV Neutrophils % % Lymphocytes % % Monocytes % % Eosinophils % % Basophils % % Neutrophils # (1.3-7.7) k/uL Lymphocytes # (1.0-4.8) k/uL Monocytes # (0-1.0) k/uL Eosinophils # (0-0.7) k/uL Basophils # (0-0.2) k/uL PT (9.0-12.0) sec INR (<1.2) APTT (22.0-30.0) sec Sodium (137-145) mmol/L Potassium (3.5-5.1) mmol/L Chloride (98-107) mmol/L Carbon Dioxide (22-30) mmol/L Anion Gap mmol/L BUN (9-20) mg/dL Creatinine (0.66-1.25) mg/dL Est GFR (CKD-EPI)AfAm (>60 ml/min/1.73 sqM) Est GFR (CKD-EPI)NonAf (>60 ml/min/1.73 sqM) Glucose (74-99) mg/dL POC Glucose (mg/dL) (70-110) mg/dL POC Glu Energy Director ID Plasma Lactic Acid Manuel 1.5 (0.7-2.0) mmol/L Calcium (8.4-10.2) mg/dL Magnesium (1.6-2.3) mg/dL Total Bilirubin (0.2-1.3) mg/dL AST (17-59) U/L ALT (4-49) U/L Alkaline Phosphatase (38-126) U/L Troponin I (0.000-0.034) ng/mL Total Protein (6.3-8.2) g/dL Albumin (3.5-5.0) g/dL Amylase (30-110) U/L Lipase (23-300) U/L Urine Color Yellow Urine Appearance Clear (Clear) Urine pH 6.0 (5.0-8.0) Ur Specific [place] 1.024 (1.001-1.035) Urine Protein 1+ H (Negative) Urine Glucose (UA) 4+ H (Negative) Urine Ketones 1+ H (Negative) Urine Blood Trace H (Negative) Urine Nitrite Negative (Negative) Urine Bilirubin Negative (Negative) Urine Urobilinogen <2.0 (<2.0) mg/dL Ur Leukocyte Esterase Small H (Negative) Urine RBC 9 H (0-5) /hpf Urine WBC 31 H (0-5) /hpf Urine WBC Clumps Rare H (None) /hpf Ur Squamous Epith Cells <1 (0-4) /hpf Urine Mucus Rare H (None) /hpf - EKG Data EKG Comments: EKG shows sinus tachycardia at a rate of 128 beats for minute. ID [id number], QRS 87, QT/QTC 294/370. Disposition Clinical Impression: Pyelonephritis, Sepsis Disposition: ADMITTED IP TO THIS HOSP Condition: Good Referrals: Lucila Montejo MD [Primary Care Provider] - 1-2 days Time of Disposition: 18:22
[2022-11-02 16:52] LABS: Basophils % (A) 0 %; Eosinophils # (A) 0.2 k/uL (0-0.7); Eosinophils % (A) 2 %; HCT 42.7 % (39.0-53.0); HGB 15.3 gm/dL (13.0-17.5); Lymphocytes # (A) 2.4 k/uL (1.0-4.8); Lymphocytes % (A) 16 %; MCH 33.3 pg (25.0-35.0); MCHC 35.7 g/dL (31.0-37.0); MCV 93.2 fL (80.0-100.0); Mean Platelet Volume 7.9; Monocytes # (A) 1.7 k/uL (0-1.0); Monocytes % (A) 12 %; Neutrophils % (A) 69 %; Platelet Count 144 k/uL (150-450); RBC 4.59 m/uL (4.30-5.90); RDW 12.7 % (11.5-15.5); WBC 14.6 k/uL (3.8-10.6)
[2022-11-02 17:08] LABS: ALT 82 U/L (4-49); AST 47 U/L (17-59); African American GFR (CKD) >90 (>60 ml/min/1.73 sqM); Albumin 4.3 g/dL (3.5-5.0); Alkaline Phosphatase 75 U/L (38-126); Amylase 56 U/L (30-110); Anion Gap 10 mmol/L; Blood Urea Nitrogen 12 mg/dL (9-20); Calcium 9.6 mg/dL (8.4-10.2); Carbon Dioxide 27 mmol/L (22-30); Chloride 98 mmol/L (98-107); Glucose 258 mg/dL (74-99); Lipase 246 U/L (23-300); Magnesium 1.3 mg/dL (1.6-2.3); Non-African American GFR(CKD) >90 (>60 ml/min/1.73 sqM); Potassium 4.3 mmol/L (3.5-5.1); Sodium 135 mmol/L (137-145); Total Protein 7.9 g/dL (6.3-8.2)
[2022-11-02 17:11] LABS: Partial Thromboplastin Time 23.6 sec (22.0-30.0); Prothrombin Time 10.6 sec (9.0-12.0)
--- NOTE | 2022-11-02 17:37 | XR ---
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 CLINICAL INDICATION:Male, 52 years old with history of AMS; FINDINGS: Lungs/Pleura: There is no evidence of pleural effusion, focal consolidation, or pneumothorax. Pulmonary vascularity: Unremarkable. Heart/mediastinum: Cardiomediastinal silhouette is unremarkable. Musculoskeletal: No acute osseous pathology. IMPRESSION: Low lung volumes with a generalized hazy appearance which could represent atelectasis versus pulmonar y edema correlate with serum BNP.
--- NOTE | 2022-11-02 17:40 | CT ---
EXAMINATION TYPE: CT brain wo con CT DLP: 1176.4 mGycm, Automated exposure control for dose reduction was used. DATE OF EXAM: 11/02/2022 5:10 PM COMPARISON: 03/18/2021. CLINICAL INDICATION:Male, 52 years old with history of syncope, syncope and abdominal pain TECHNIQUE: Brain: Axial CT images of the brain were obtained with coronal and sagittal reformats created and rev iewed. Contrast used: None. Oral contrast used: None. FINDINGS: Brain: Extra-axial spaces: No abnormal extra-axial fluid collections. Ventricular system: Within normal limits Cerebral parenchyma: No acute intraparenchymal hemorrhage or mass effect. The owen-white junction is well differentiated. Cerebellum: Unremarkable. Mass effect: No evidence of midline shift. Intracranial vasculature: unremarkable Soft tissues: Normal. Calvarium/osseous structures: No depressed skull fracture. Paranasal sinuses and mastoid air cells: Mild scattered paranasal sinus disease. Visualized orbits: Orbital contents are intact. IMPRESSION: No acute intracranial process.
[2022-11-02 17:41] LABS: Appearance,Urine Clear (Clear); Bilirubin,Urine Negative (Negative); Blood,Urine Trace (Negative); Color,Urine Yellow; Glucose,Urine (UA) 4+ (Negative); Ketones,Urine 1+ (Negative); Leukocyte Esterase,Urine Small (Negative); Mucus,Urine Rare /hpf; Nitrite,Urine Negative (Negative); Protein,Urine 1+ (Negative); RBC,Urine 9 /hpf (0-5); Specific Gravity,Urine 1.024 (1.001-1.035); Squamous Epithelial Cell,Urine <1 /hpf (0-4); Urobilinogen,Urine <2.0 mg/dL (<2.0); WBC,Urine 31 /hpf (0-5)
--- NOTE | 2022-11-02 17:44 | CT ---
EXAMINATION TYPE: CT abdomen pelvis wo con CT DLP: 1052.4 mGycm, Automated exposure control for dose reduction was used. DATE OF EXAM: 11/02/2022 5:13 PM COMPARISON: None. CLINICAL INDICATION:Male, 52 years old with history of abdominal pain diffuse; syncope and abdominal pain TECHNIQUE: Axial CT of the abdomen and pelvis. Sagittal and coronal reformats were created on a [employer] workstation. Contrast used: mL of , (none if empty) Oral contrast used: without Oral Contrast (none if empty) FINDINGS: LOWER CHEST: Unremarkable ABDOMEN LIVER: Diffusely hypoattenuating parenchyma. GALLBLADDER AND BILE DUCTS: Unremarkable. PANCREAS: Unremarkable. SPLEEN: Unremarkable. ADRENAL GLANDS: Unremarkable. KIDNEYS AND URETERS: Tiny 1 mm calcifications are seen bilaterally. Some facet joint changes are seen in the kidneys. PELVIS BLADDER: Unremarkable REPRODUCTIVE: Unremarkable. ABDOMEN & PELVIS STOMACH AND BOWEL: No evidence of bowel obstruction. The appendix is normal. PERITONEUM/RETROPERITONEUM: No evidence of pneumoperitoneum or free fluid. VASCULATURE: No evidence of aortic aneurysm. MUSCULOSKELETAL: No acute osseous abnormalities LYMPH NODES: No gross evidence for lymphadenopathy. SOFT TISSUE/ABDOMINAL WALL: Unremarkable IMPRESSION: 1. Fat stranding changes around the kidneys, left greater than right, with prominent retroperitoneal lymph nodes most proximal left. Correlate for infection. Consider dedicated renal mass protocol CT/M RI for underlying for complete evaluation of the kidneys. Correlation with urinalysis recommended. 2. Hepatic steatosis.
[2022-11-02] MEDS ORDERED: SODIUM CHLORIDE 0.9% 1,000 ML IV STA (18:33)
[2022-11-02] MEDS ORDERED: SODIUM CHLORIDE 0.9% 2,000 ML IV STA (18:33)
[2022-11-02] MEDS ORDERED: NALOXONE 0.4 MG/ML 1 ML VIAL IV PRN (19:37)
[2022-11-02] MEDS ORDERED: HYDROmorphone 0.5 MG/0.5 ML SYRINGE IVP PRN (19:37)
[2022-11-02] MEDS ORDERED: ONDANSETRON 4 MG/2 ML VIAL IVP PRN (19:37)
[2022-11-02] MEDS: SODIUM CHLORIDE 0.9% 1,000 ML IV SCH (19:58)
[2022-11-03] MEDS: ACETAMINOPHEN TAB 325 MG TAB PO PRN ×3 (00:53→17:48)
[2022-11-03] MEDS: HYDROmorphone 1 MG/ML 1 ML SYRINGE IVP PRN ×2 (00:54→06:00)
[2022-11-03] MEDS: SODIUM CHLORIDE 0.9% 1,000 ML IV SCH ×3 (03:32→22:59)
[2022-11-03] MEDS ORDERED: Magnesium Replacement Protocol 1 EACH MISC MISCELLANE PRN (04:57)
[2022-11-03] MEDS: MAGNESIUM SULFATE-D5W PMX 1 GM in DEXTROSE/WATER 1 100ML.BAG IVPB SCH ×4 (05:59→09:06)
[2022-11-03 07:48] LABS: Glucose,Whole Blood 328 mg/dL (70-110)
[2022-11-03] MEDS ORDERED: FLUTICASONE 50MCG/SPRAY NASAL 16GM EA NOSTRIL PRN (09:14)
[2022-11-03] MEDS ORDERED: DEXTROSE 50% SYRINGE 50 ML IVP PRN ×4 (09:16→15:23)
[2022-11-03] MEDS: DIVALPROEX 500 MG TABLET.DR PO SCH ×2 (10:31→21:28)
[2022-11-03] MEDS: METOPROLOL TARTRATE 50 MG TAB PO SCH ×2 (10:31→21:28)
[2022-11-03] MEDS: DIVALPROEX 250 MG TABLET.DR PO SCH ×2 (11:03→21:33)
[2022-11-03] MEDS: DORZOLAMIDE-TIMOLOL 2.23%/0.68 10ML BTL BOTH EYES SCH ×2 (11:04→22:38)
[2022-11-03 11:36] LABS: African American GFR (CKD) >90 (>60 ml/min/1.73 sqM); Anion Gap 13 mmol/L; Blood Urea Nitrogen 18 mg/dL (9-20); Calcium 8.2 mg/dL (8.4-10.2); Carbon Dioxide 20 mmol/L (22-30); Chloride 95 mmol/L (98-107); Glucose 421 mg/dL (74-99); Magnesium 2.6 mg/dL (1.6-2.3); Non-African American GFR(CKD) 82 (>60 ml/min/1.73 sqM); Potassium 4.7 mmol/L (3.5-5.1); Sodium 128 mmol/L (137-145)
[2022-11-03 11:49] LABS: HCT 38.9 % (39.0-53.0); HGB 13.9 gm/dL (13.0-17.5); MCH 34.4 pg (25.0-35.0); MCHC 35.8 g/dL (31.0-37.0); MCV 95.9 fL (80.0-100.0); Mean Platelet Volume 8.1; Platelet Count 154 k/uL (150-450); RBC 4.06 m/uL (4.30-5.90); RDW 13.1 % (11.5-15.5)
[2022-11-03 12:19] LABS: Glucose,Whole Blood 408 mg/dL (70-110)
[2022-11-03 12:42] LABS: Eosinophils # (M) 0.22 k/uL (0-0.7); Lymphocytes # (M) 2.86 k/uL (1.0-4.8); Metamyelocytes # (M) 0.22 k/uL (0); Metamyelocytes % 1 %; Monocytes # (M) 3.96 k/uL (0-1.0); Neutrophils # (M) 14.96 k/uL (1.3-7.7); Neutrophils % (M) 68 %; Nucleated Red Blood Cells 0 /100 WBC (0-0); Total Cells Counted 200
[2022-11-03] MEDS: INSULIN ASPART (NovoLOG) 100 UNIT/ML VIAL SQ SCH ×3 (13:08→21:41)
[2022-11-03] MEDS ORDERED: KETOROLAC 15 MG/ML 1 ML VIAL IVP PRN (16:21)
--- NOTE | 2022-11-03 16:26 | P.HPIM ---
History of Present Illness H&P Date: 11/03/22 This is a 52-year-old male who presented to the emergency department for increased weakness and fatigue and generalized not feeling well. Patient reports over the last 2 days he is progressively becoming more weak and having chills and fevers and came to the ER for further evaluation. Patient also reports he has been having pain and burning with urination that has been ongoing for the last 2 weeks and did not follow-up with his doctor in regards to this. Patient follows with Dr. Montejo in the outpatient setting with a past medical history of enlarged prostate, testicular cancer along with diabetes mellitus and seizure disorder and renal failure. Patient reports to being a former smoker and uses a vape. In the ER chest x-ray showed low lung volumes with a generalized hazy appearance which could represent atelectasis versus pulmonary edema, CT brain showed no acute intracranial process, CT abdomen and pelvis showed fat stranding changing around the kidneys with left greater than right with prominent retroperitoneal lymph nodes most proximal left correlate for infection consider dedicated renal mass protocol CT MRI for underlying for complete evaluation of the kidneys and correlation with urinalysis is recommended along with hepatic steatosis, and EKG showed sinus tachycardia. Labs reviewed reveal a white blood count of 14.6, hemoglobin 15.3, sodium 135 with a potassium of 4.3, creatinine 0.83, lactic acid was 1.5, magnesium was 1.3 with a total bilirubin of 1.0, troponin was negative and amylase lipase within normal limits. Urinalysis revealed high protein glucose and ketones with a small amount of leukocyte Estrace and white blood count was 31. Urine culture is pending at this time. Blood cultures were ordered and infectious disease was consulted. Patient was given a gram of Rocephin and will resume and start the patient on insulin regimen as patient's blood sugars are poorly controlled. Review Of Systems: Constitutional: Reports fever with chills, no night sweats. No weight change. Reports weakness, fatigue and lethargy. Reports daytime sleepiness. HEENT: No headache. No blurred vision or double vision, no loss of vision. No loss of Hearing, no ringing in the ears, no dizziness. No nasal drainage or congestion. No epistaxis. No sore throat. Lungs: No shortness of breath, cough, no sputum production. No wheezing. Cardiovascular: No chest pain, no lower extremity edema. No palpitations. No paroxysmal nocturnal dyspnea. No orthopnea. No lightheadedness or dizziness. No syncopal episodes. Abdominal: No abdominal pain. No nausea, vomiting. No diarrhea. No constipation. No bloody or tarry stools.. Reports loss of appetite. Genitourinary: Reports pain dysuria with urination, increased frequency, urgency. No urinary retention. Musculoskeletal: Reports myalgias. No muscle weakness, no gait dysfunction, no frequent falls. No back pain. No neck pain. Integumentary: No wounds, no lesions. No rash or pruritus. No unusual bruising. No change in hair or nails. Neurologic: No aphasia. No facial droop. No change in mentation. No head injury. No headache. No paralysis. No paresthesia. Psychiatric: No depression. No anxiety. No mood swings. Endocrine: Reports abnormal blood sugars. No weight change. No excessive swe ating or thirst. No cold intolerance. PHYSICAL EXAMINATION: GENERAL: The patient is alert and oriented 2-3, nodding off and lethargic at times, Well developed, well nourished. Obese HEENT: Pupils are round and equally reacting to light. EOMI. no scleral icterus. No conjunctival pallor. Normocephalic, atraumatic. No pharyngeal erythema. No thyromegaly. CARDIOVASCULAR: S1 and S2 muffled PULMONARY: diminished breath sounds bilaterally with no wheezing or rhonchi noted. ABDOMEN: soft. Nontender on exam. obese. non-distended, normoactive bowel sounds. No palpable organomegaly. MUSCULOSKELETAL: No joint swelling or deformity. EXTREMITIES: No cyanosis, clubbing, or pedal edema. NEUROLOGICAL: Gross neurological examination did not reveal any focal deficits. Diffuse weakness SKIN: No rashes. Assessment: Burning with urination, possible acute urinary tract infection, present on admission Possible pyelonephritis Leukocytosis secondary to above Hypomagnesemia Obesity with a BMI of 34.3 Diabetes mellitus, type II, severely uncontrolled with hyperglycemia and noncompliance of medications History of testicular cancer Seizure disorder history Former smoker and Vapes GI prophylaxis DVT prophylaxis Full code Plan: Patient will be continued on IV hydration and home medications reviewed and resumed as appropriate Infectious disease consulted and pending at this time for urinary tract infection with pyelonephritis Patient significantly uncontrolled diabetes with hyperglycemia will add insulin sliding scale along with long-acting with consistent carb diet Patient with increased lethargy would recommend holding IV narcotics and will continue Tylenol and add Toradol Currently awaiting urine and blood cultures which are pending will give 1 g ceftriaxone and await input and recommendations from infectious disease as patient reports has been having burning and pain with frequency during urination that has been ongoing for the last few weeks although started developing fevers and chills with body aches over the last 2-3 days and becoming progressively more weak Will have PT/OT therapy evaluate the patient Discussed with the patient at length about diabetes compliance and will also obtain hemoglobin A1c. Patient does take ozempic along with oral diabetic agents once weekly. Will hold diabetic agents for now and continue with insulin regimen Encouraged to increase activity as tolerated and will also add incentive spirometer and encourage the patient to continue coughing and deep breathing as well. The impression and plan of care has been dictated by Dagmar Cardona, nurse practitioner as directed. Dr. Gabriel MD I have performed a history and examination and MDM of this patient, discussed the same with the dictator, and agree with the dictator's assessment and plan as written ,documented as a scribe. Based on total visit time, I have performed more than 50% of the visit. Any additional findings or plans will be noted. Past Medical History Past Medical History: Cancer, Diabetes Mellitus, Seizure Disorder Additional Past Medical History / Comment(s): possible enlarged prostate, testicular cancer, renal failure, History of Any Multi-Drug Resistant Organisms: None Reported Past Surgical History: Bladder Surgery Additional Past Surgical History / Comment(s): testicular surgery, urethra reconstruction, Past Anesthesia/Blood Transfusion Reactions: No Reported Reaction Past Psychological History: No Psychological Hx Reported Smoking Status: Former smoker, Vaper Past Alcohol Use History: Occasional Past Drug Use History: None Reported - Past Family History Father Family Medical History: Diabetes Mellitus, Hypertension Mother Family Medical History: Diabetes Mellitus, Hypertension Additional Family Medical History / Comment(s): Glaucoma Medications and Allergies Home Medications Medication Instructions Recorded Confirmed Type Dorzolamide-Timol 2.23%/0.68% 1 drop BOTH EYES BID 10/29/20 11/02/22 History [Cosopt] Glimepiride [Amaryl] 4 mg PO BID 10/29/20 11/02/22 History Metoprolol Tartrate [Lopressor] 50 mg PO BID 10/29/20 11/02/22 History metFORMIN HCL [Glucophage] 850 mg PO BID 10/29/20 11/02/22 History Divalproex Sodium [Depakote] 1,000 mg PO DIRECTED 03/18/21 11/02/22 History Fluticasone Nasal [place] [Flonase 1 spray EA NOSTRIL BID PRN 03/18/21 11/02/22 History Nasal [place]] Divalproex [Depakote] 500 mg PO DIRECTED 11/02/22 11/02/22 History Latanoprost [Latanoprost 0.005%] 1 drop BOTH EYES HS 11/02/22 11/02/22 History Semaglutide [Ozempic] 0.5 mg SQ CAMACHO 11/02/22 11/02/22 History Allergies Allergy/AdvReac Type Severity Reaction Status Date / Time No Known Allergies Allergy Verified 11/02/22 16:29 Physical Exam Vitals: Vital Signs Temp Pulse Pulse Resp BP BP Pulse Ox 11/03/22 08:00 98.2 F 113 H 18 126/62 95 11/03/22 06:00 126 H 18 123/82 94 L 11/03/22 04:43 98.6 F 120 H 16 123/82 96 11/03/22 04:00 121 H 18 95 11/03/22 03:29 122 H 18 93 L 11/03/22 02:07 100.3 F H 11/03/22 02:00 135 H 20 142/66 93 L 11/03/22 00:46 103.1 F H 11/03/22 00:00 134 H 134/77 95 11/02/22 22:00 125 H 158/76 95 11/02/22 21:00 99.8 F H 11/02/22 20:00 130 H 123/59 95 11/02/22 19:55 133 H 20 123/59 96 11/02/22 18:05 102.9 F H 134 H 24 115/74 96 11/02/22 16:17 125 H 22 133/86 97 11/02/22 15:03 98 F 130 H 20 136/86 94 L Intake and Output 11/02/22 11/03/22 11/03/22 22:59 06:59 14:59 Intake Total 360 Balance 360 Intake: Oral 360 Other: Weight 90.718 kg Results CBC & Chem 7: 11/03/22 10:57 11/03/22 10:57 Labs: Abnormal Lab Results - Last 24 Hours (Table) 11/02/22 11/02/22 11/02/22 Range/Units 15:05 15:45 15:45 WBC 14.6 H (3.8-10.6) k/uL Plt Count 144 L (150-450) k/uL Neutrophils # 10.0 H (1.3-7.7) k/uL Monocytes # 1.7 H (0-1.0) k/uL Sodium 135 L (137-145) mmol/L Glucose 258 H (74-99) mg/dL POC Glucose (mg/dL) 254 H (70-110) mg/dL Magnesium 1.3 L (1.6-2.3) mg/dL ALT 82 H (4-49) U/L Urine Protein (Negative) Urine Glucose (UA) (Negative) Urine Ketones (Negative) Urine Blood (Negative) Ur Leukocyte Esterase (Negative) Urine RBC (0-5) /hpf Urine WBC (0-5) /hpf Urine WBC Clumps (None) /hpf Urine Mucus (None) /hpf 11/02/22 11/02/22 11/03/22 Range/Units 16:03 17:30 07:47 WBC (3.8-10.6) k/uL Plt Count (150-450) k/uL Neutrophils # (1.3-7.7) k/uL Monocytes # (0-1.0) k/uL Sodium (137-145) mmol/L Glucose (74-99) mg/dL POC Glucose (mg/dL) 263 H 328 H (70-110) mg/dL Magnesium (1.6-2.3) mg/dL ALT (4-49) U/L Urine Protein 1+ H (Negative) Urine Glucose (UA) 4+ H (Negative) Urine Ketones 1+ H (Negative) Urine Blood Trace H (Negative) Ur Leukocyte Esterase Small H (Negative) Urine RBC 9 H (0-5) /hpf Urine WBC 31 H (0-5) /hpf Urine WBC Clumps Rare H (None) /hpf Urine Mucus Rare H (None) /hpf Thrombosis Risk Factor Assmnt - DVT/VTE Prophylaxis DVT/VTE Prophylaxis: Pharmacologic Prophylaxis ordered Assessment and Plan Time with Patient: Greater than 30
[2022-11-03] MEDS: INSULIN DETEMIR (LEVEMIR) 100 UNIT/ML SYR SQ SCH ×2 (17:22→22:58)
[2022-11-03 17:24] LABS: Glucose,Whole Blood 288 mg/dL (70-110)
--- NOTE | 2022-11-03 20:00 | US ---
EXAMINATION TYPE: US kidneys/renal and bladder DATE OF EXAM: 11/03/2022 COMPARISON: CT: 11/02/22 CLINICAL INDICATION: Male, 52 years old with history of UTI, pyelonephritis. EXAM MEASUREMENTS: Right Kidney: 12.8 x 5.7 x 6.5 cm Left Kidney: 13.3 x 5.5 x 7.2 cm Right Kidney: No hydronephrosis or masses seen Left Kidney: No hydronephrosis or masses seen Bladder: Masslike mural based echogenic material along the anterior wall towards the left, refer to i mage 10 of 42. This may represent artifact as it was not appreciated by the machine hoop maker helper during real-t negar scanning. Recommend short interval follow-up in 2-3 days to ensure that there is no bladder mass. Bilateral Jets seen: No Incidental echogenic hepatic parenchyma. IMPRESSION: 1. No hydronephrosis. 2. Masslike area along the left anterior wall of the bladder. This may represent artifact as it was n ot appreciated by the machine hoop maker helper during real-time scanning. Recommend short interval follow-up in 2- 3 days to ensure that there is no bladder mass. 3. Incidental hepatic steatosis.
[2022-11-03 20:46] LABS: Glucose,Whole Blood 254 mg/dL (70-110)
[2022-11-03] MEDS: HEPARIN SODIUM,PORCINE 5,000 UNIT/ML 1 ML VIAL SQ SCH (21:29)
--- NOTE | 2022-11-03 22:03 | P.CONS ---
History of Present Illness - Reason for Consult Consult date: 11/03/22 - History of Present Illness Patient is a 52-year-old male with a past medical history significant for diabetes mellitus history of testicular cancer and seizure disorder did have a surgery for testicular cancer and urothelial reconstruction presenting to the hospital for evaluation of chills patient mention has not been feeling well for the last few days patient did have nausea and decreased oral intake and has been complaining of some pain to the right flank area more of a dull aching 5-09/10 no radiation patient also complaining of burning after eating some difficulty urination for a few days with the same to the patient has been evaluated on presentation to the hospital patient did have a fever of 102 F, patient was tachycardic however not hypotensive or hypoxic and did have white count of 22,000 with a left shift kidney function has been normal did have a positive UA blood and urine culture has been received currently pending patient did have a CT of abdominal pelvis 5 stranding changes around the kidneys left greater than the right concerning for infection evidence of any abscess or stones and no hydronephrosis patient was started on ceftriaxone infectious disease consulted for further management of antibiotic therapy Past Medical History Past Medical History: Cancer, Diabetes Mellitus, Seizure Disorder Additional Past Medical History / Comment(s): possible enlarged prostate, testicular cancer, renal failure, History of Any Multi-Drug Resistant Organisms: None Reported Past Surgical History: Bladder Surgery Additional Past Surgical History / Comment(s): testicular surgery, urethra reconstruction, Past Anesthesia/Blood Transfusion Reactions: No Reported Reaction Past Psychological History: No Psychological Hx Reported Smoking Status: Former smoker, Vaper Past Alcohol Use History: Occasional Past Drug Use History: None Reported - Past Family History Father Family Medical History: Diabetes Mellitus, Hypertension Mother Family Medical History: Diabetes Mellitus, Hypertension Additional Family Medical History / Comment(s): Glaucoma Medications and Allergies Home Medications Medication Instructions Recorded Confirmed Type Dorzolamide-Timol 2.23%/0.68% 1 drop BOTH EYES BID 10/29/20 11/02/22 History [Cosopt] Glimepiride [Amaryl] 4 mg PO BID 10/29/20 11/02/22 History Metoprolol Tartrate [Lopressor] 50 mg PO BID 10/29/20 11/02/22 History metFORMIN HCL [Glucophage] 850 mg PO BID 10/29/20 11/02/22 History Divalproex Sodium [Depakote] 1,000 mg PO DIRECTED 03/18/21 11/02/22 History Fluticasone Nasal [place] [Flonase 1 spray EA NOSTRIL BID PRN 03/18/21 11/02/22 History Nasal [place]] Divalproex [Depakote] 500 mg PO DIRECTED 11/02/22 11/02/22 History Latanoprost [Latanoprost 0.005%] 1 drop BOTH EYES HS 11/02/22 11/02/22 History Semaglutide [Ozempic] 0.5 mg SQ CAMACHO 11/02/22 11/02/22 History Allergies Allergy/AdvReac Type Severity Reaction Status Date / Time No Known Allergies Allergy Verified 11/02/22 16:29 Physical Exam Vitals: Vital Signs Temp Pulse Pulse Resp BP BP Pulse Ox 11/03/22 08:00 98.2 F 113 H 18 126/62 95 11/03/22 06:00 126 H 18 123/82 94 L 11/03/22 04:43 98.6 F 120 H 16 123/82 96 11/03/22 04:00 121 H 18 95 11/03/22 03:29 122 H 18 93 L 11/03/22 02:07 100.3 F H 11/03/22 02:00 135 H 20 142/66 93 L 11/03/22 00:46 103.1 F H 11/03/22 00:00 134 H 134/77 95 11/02/22 22:00 125 H 158/76 95 11/02/22 21:00 99.8 F H 11/02/22 20:00 130 H 123/59 95 11/02/22 19:55 133 H 20 123/59 96 11/02/22 18:05 102.9 F H 134 H 24 115/74 96 11/02/22 16:17 125 H 22 133/86 97 11/02/22 15:03 98 F 130 H 20 136/86 94 L Intake and Output 11/02/22 11/03/22 11/03/22 22:59 06:59 14:59 Intake Total 360 Balance 360 Intake: Oral 360 Other: Weight 90.718 kg Results CBC & Chem 7: 11/05/22 04:12 11/05/22 04:12 Labs: Abnormal Lab Results - Last 24 Hours (Table) 11/02/22 11/02/22 11/02/22 Range/Units 15:05 15:45 15:45 WBC 14.6 H (3.8-10.6) k/uL Plt Count 144 L (150-450) k/uL Neutrophils # 10.0 H (1.3-7.7) k/uL Monocytes # 1.7 H (0-1.0) k/uL Sodium 135 L (137-145) mmol/L Chloride (98-107) mmol/L Carbon Dioxide (22-30) mmol/L Glucose 258 H (74-99) mg/dL POC Glucose (mg/dL) 254 H (70-110) mg/dL Calcium (8.4-10.2) mg/dL Magnesium 1.3 L (1.6-2.3) mg/dL ALT 82 H (4-49) U/L Urine Protein (Negative) Urine Glucose (UA) (Negative) Urine Ketones (Negative) Urine Blood (Negative) Ur Leukocyte Esterase (Negative) Urine RBC (0-5) /hpf Urine WBC (0-5) /hpf Urine WBC Clumps (None) /hpf Urine Mucus (None) /hpf 11/02/22 11/02/22 11/03/22 Range/Units 16:03 17:30 07:47 WBC (3.8-10.6) k/uL Plt Count (150-450) k/uL Neutrophils # (1.3-7.7) k/uL Monocytes # (0-1.0) k/uL Sodium (137-145) mmol/L Chloride (98-107) mmol/L Carbon Dioxide (22-30) mmol/L Glucose (74-99) mg/dL POC Glucose (mg/dL) 263 H 328 H (70-110) mg/dL Calcium (8.4-10.2) mg/dL Magnesium (1.6-2.3) mg/dL ALT (4-49) U/L Urine Protein 1+ H (Negative) Urine Glucose (UA) 4+ H (Negative) Urine Ketones 1+ H (Negative) Urine Blood Trace H (Negative) Ur Leukocyte Esterase Small H (Negative) Urine RBC 9 H (0-5) /hpf Urine WBC 31 H (0-5) /hpf Urine WBC Clumps Rare H (None) /hpf Urine Mucus Rare H (None) /hpf 11/03/22 Range/Units 10:57 WBC (3.8-10.6) k/uL Plt Count (150-450) k/uL Neutrophils # (1.3-7.7) k/uL Monocytes # (0-1.0) k/uL Sodium 128 L (137-145) mmol/L Chloride 95 L (98-107) mmol/L Carbon Dioxide 20 L (22-30) mmol/L Glucose 421 H (74-99) mg/dL POC Glucose (mg/dL) (70-110) mg/dL Calcium 8.2 L (8.4-10.2) mg/dL Magnesium 2.6 H (1.6-2.3) mg/dL ALT (4-49) U/L Urine Protein (Negative) Urine Glucose (UA) (Negative) Urine Ketones (Negative) Urine Blood (Negative) Ur Leukocyte Esterase (Negative) Urine RBC (0-5) /hpf Urine WBC (0-5) /hpf Urine WBC Clumps (None) /hpf Urine Mucus (None) /hpf Assessment and Plan Plan: 1patient presented to the hospital with sepsis in this patient did have a fever tachycardia elevated white resources pyelonephritis in this patient with a urinary symptoms and did have a history of urethra reconstruction after surgery for testicular cancer however CT did not show evidence of hydronephrosis respectively possibly involving some urinary retention 2-we will increase the dose of Rocephin to 2 g daily 3-gentle IV fluid We will follow on clinical condition and cultures to further adjust medication if needed Thank you for this consultation we will follow the patient along with you Dictation was produced using [employer] dictation software. please excuse any grammatical, word or spelling errors. Time with Patient: Greater than 30
[2022-11-03] MEDS: LATANOPROST 0.005% OPHTH DROPS 2.5 ML BTL BOTH EYES SCH (22:38)
[2022-11-04] MEDS: ACETAMINOPHEN TAB 325 MG TAB PO PRN ×2 (00:02→06:49)
[2022-11-04 05:42] LABS: Glucose,Whole Blood 181 mg/dL (70-110)
[2022-11-04 06:37] LABS: Basophils # (A) 0.1 k/uL (0-0.2); Basophils % (A) 0 %; Eosinophils # (A) 0.3 k/uL (0-0.7); Eosinophils % (A) 2 %; HCT 38.5 % (39.0-53.0); HGB 13.4 gm/dL (13.0-17.5); Lymphocytes # (A) 2.7 k/uL (1.0-4.8); Lymphocytes % (A) 14 %; MCH 32.8 pg (25.0-35.0); MCHC 34.7 g/dL (31.0-37.0); MCV 94.6 fL (80.0-100.0); Mean Platelet Volume 7.6; Monocytes # (A) 1.8 k/uL (0-1.0); Monocytes % (A) 9 %; Neutrophils # (A) 14.1 k/uL (1.3-7.7); Neutrophils % (A) 73 %; Platelet Count 145 k/uL (150-450); RBC 4.08 m/uL (4.30-5.90); WBC 19.4 k/uL (3.8-10.6)
[2022-11-04] MEDS: INSULIN DETEMIR (LEVEMIR) 100 UNIT/ML SYR SQ SCH ×2 (06:49→20:56)
[2022-11-04] MEDS: INSULIN ASPART (NovoLOG) 100 UNIT/ML VIAL SQ SCH ×4 (06:50→20:56)
[2022-11-04 07:12] LABS: Band Neutrophils % 3 %; Monocytes # (M) 2.33 k/uL (0-1.0); Neutrophils % (M) 68 %; Nucleated Red Blood Cells 0 /100 WBC (0-0); Total Cells Counted 100
[2022-11-04 07:13] LABS: ALT 37 U/L (4-49); African American GFR (CKD) >90 (>60 ml/min/1.73 sqM); Albumin 3.4 g/dL (3.5-5.0); Anion Gap 10 mmol/L; Blood Urea Nitrogen 14 mg/dL (9-20); Calcium 8.2 mg/dL (8.4-10.2); Carbon Dioxide 22 mmol/L (22-30); Chloride 101 mmol/L (98-107); Globulin 3.3 g/dL; Glucose 185 mg/dL (74-99); Non-African American GFR(CKD) >90 (>60 ml/min/1.73 sqM); Polychromasia Present; Sodium 133 mmol/L (137-145); Total Bilirubin 0.9 mg/dL (0.2-1.3); Total Protein 6.7 g/dL (6.3-8.2)
[2022-11-04 07:23] LABS: AST 35 U/L (17-59); Alkaline Phosphatase 54 U/L (38-126)
[2022-11-04] MEDS ORDERED: PANTOPRAZOLE 40 MG TABLET PO SCH (07:30)
[2022-11-04] MEDS: DIVALPROEX 500 MG TABLET.DR PO SCH ×2 (08:49→21:09)
[2022-11-04] MEDS: DIVALPROEX 250 MG TABLET.DR PO SCH (08:49)
[2022-11-04] MEDS: HEPARIN SODIUM,PORCINE 5,000 UNIT/ML 1 ML VIAL SQ SCH ×2 (08:50→20:53)
[2022-11-04] MEDS: DORZOLAMIDE-TIMOLOL 2.23%/0.68 10ML BTL BOTH EYES SCH ×2 (08:50→20:57)
[2022-11-04] MEDS: METOPROLOL TARTRATE 50 MG TAB PO SCH ×2 (08:50→20:56)
[2022-11-04 09:00] LABS: Valproic Acid (Depakene) 120.5 ug/mL
[2022-11-04 09:37] LABS: Glucose,Whole Blood 217 mg/dL (70-110)
[2022-11-04] MEDS ORDERED: LORazepam 2 MG/ML INJ ONE ×2 (09:38→09:45)
[2022-11-04] MEDS ORDERED: ACETAMINOPHEN IV (For NPO) 1,000 MG in EMPTY BAG 1 BAG IVPB ONE (09:40)
[2022-11-04] MEDS ORDERED: LORazepam 2 MG/ML INJ IV STA (09:40)
--- NOTE | 2022-11-04 10:42 | CT ---
EXAMINATION TYPE: CT brain wo con DATE OF EXAM: 11/04/2022 COMPARISON: 11/02/2022 HISTORY: 52-year-old male Seizures. TECHNIQUE: Examination was done in axial plane without intravenous contrast. Coronal and sagittal r econstructions performed. CT DLP: 1271.4 mGycm Automated exposure control for dose reduction was used. FINDINGS: Exam limitations due to combination of movement and prominent calvarial and dental amalgam artifacts There is no evidence of acute intracranial hemorrhage, acute ischemic changes, mass, mass-effect, or extra-axial fluid collection. There is no effacement of cerebral sulci or basal subarachnoid cister ns. There is no hydrocephalus. There is no midline shift. [place]-white matter distinction is preserv ed. Leftward nasal septal deviation. Paranasal sinuses and mastoid air cells well pneumatized. Orbits and globes are intact. Partially empty sella. IMPRESSION: Allowing for scattered prominent artifacts, no definite acute process.
[2022-11-04 10:43] LABS: Glucose,Whole Blood 285 mg/dL (70-110)
--- NOTE | 2022-11-04 10:50 | P.CNPUL ---
History of Present Illness Consult date: 11/04/22 Chief complaint: Sepsis, altered mentation History of present illness: This is a 52-year-old male patient chest to the intensive care unit as the patient was having fever and ongoing seizures on the medical floor. The patient was admitted yesterday to the hospital with symptoms of UTI and SPECT of urine tract infection sepsis. The patient was complaining of some pain in the right flank along burning in his urine for few days. He is known to have diabetes mellitus. His also undergone a previous surgery for testicular cancer and is also known to have seizure disorder maintained on Depakote a total of 1500 mg on a daily basis. The patient presented with fever of 102, tachycardia, hypotension, leukocytosis and sepsis. The patient had a white cell count of 22,000. The patient had a CAT scan of the abdomen that showed stranding along the left kidney and the right kidney concerning of an underlying infection. The fat stranding was worse on the left. The patient also has a prominent retroperitoneal lymph nodes proximal left. There was also evidence of hepatitic steatosis. The patient was started on IV Rocephin. The patient was seen by infectious disease. UA showed 31 WBCs and +4 glucose, +1 ketones and small amount of leukocyte esterase. Ultrasound the kidneys and the level was also done that showed no evidence of any hydronephrosis. There was a masslike area along the left anterior wall of the bladder which could be a session artifacts. There was again hepatitic steatosis. The patient got transferred to the ICU as the patient was having high-grade fever. The patient was becoming unresponsive and has had been having frequent episodes of seizures a total of 3 or 4. The A team was involved and the patient was given a total of 6 minute grams of IV Ativan. Currently is post ictal and unresponsive. Chest is currently on 3 L of oxygen by nasal cannula. He is obese and he is having some soft snoring. Non verbal. Not responding to any verbal commands. Withdraws only to painful stimulation. No neck stiffness. Is in sinus tachycardia. Heart rate is around 140. Pulse is 94% on 3 L of oxygen by nasal cannula. BP is 130/77. Kingston catheter be inserted. The seizures were essentially the pulmonary chronic chronic seizures. The patient's had a CAT scan of the brain and the time of admission that showed no acute abnormalities. His Depakote level is 120 which is supratherapeutic. The patient has been followed by Dr. rider outpatient. Blood sugar control has been suboptimal outpatient basis. He has limited on a combination of ozempic and oral hypoglycemic medications. No chronic lung disea se. No history of any cardiac disease. IV fluids are currently in the form of normal saline at 130 mL an hour. Most recent temperature is 103.8. Review of Systems ROS unobtainable: due to mental status Past Medical History Past Medical History: Cancer, Diabetes Mellitus, Seizure Disorder Additional Past Medical History / Comment(s): possible enlarged prostate, testicular cancer, renal failure, History of Any Multi-Drug Resistant Organisms: None Reported Past Surgical History: Bladder Surgery Additional Past Surgical History / Comment(s): testicular surgery, urethra reconstruction, Past Anesthesia/Blood Transfusion Reactions: No Reported Reaction Past Psychological History: No Psychological Hx Reported Smoking Status: Former smoker, Vaper Past Alcohol Use History: Occasional Past Drug Use History: None Reported - Past Family History Father Family Medical History: Diabetes Mellitus, Hypertension Mother Family Medical History: Diabetes Mellitus, Hypertension Additional Family Medical History / Comment(s): Glaucoma Medications and Allergies Home Medications Medication Instructions Recorded Confirmed Type Dorzolamide-Timol 2.23%/0.68% 1 drop BOTH EYES BID 10/29/20 11/02/22 History [Cosopt] Glimepiride [Amaryl] 4 mg PO BID 10/29/20 11/02/22 History Metoprolol Tartrate [Lopressor] 50 mg PO BID 10/29/20 11/02/22 History metFORMIN HCL [Glucophage] 850 mg PO BID 10/29/20 11/02/22 History Divalproex Sodium [Depakote] 1,000 mg PO DIRECTED 03/18/21 11/02/22 History Fluticasone Nasal [place] [Flonase 1 spray EA NOSTRIL BID PRN 03/18/21 11/02/22 History Nasal [place]ie] Divalproex [Depakote] 500 mg PO DIRECTED 11/02/22 11/02/22 History Latanoprost [Latanoprost 0.005%] 1 drop BOTH EYES HS 11/02/22 11/02/22 History Semaglutide [Ozempic] 0.5 mg SQ CAMACHO 11/02/22 11/02/22 History Allergies Allergy/AdvReac Type Severity Reaction Status Date / Time No Known Allergies Allergy Verified 11/02/22 16:29 Physical Exam Vitals: Vital Signs Temp Pulse Pulse Resp BP BP Pulse Ox 11/04/22 08:56 99.8 F H 11/04/22 06:52 103.1 F H 138 H 19 114/72 91 L 11/04/22 01:44 101.9 F H 118 H 18 122/69 90 L 11/03/22 22:29 102.9 F H 11/03/22 19:41 101.0 F H 120 H 20 124/65 11/03/22 18:36 98.9 F 102 H 14 119/80 97 11/03/22 18:11 100.3 F H 114 H 18 118/69 100 11/03/22 17:44 100.3 F H 114 H 18 118/69 100 11/03/22 12:00 105 H 18 131/84 95 Intake and Output 11/03/22 11/04/22 11/04/22 22:59 06:59 14:59 Output Total 200 Balance -200 Output: Urine 200 Other: # Voids 2 3 The patient is unresponsive at this point in time. Breathing is labored. He is tachypneic. His tachycardic. Is afebrile. No active seizures at this point in time. He is encephalopathic and he is probably a post ictal stage also. Head exam was generally normal. There was no scleral icterus or corneal arcus. Mucous membranes were moist. Neck was supple and without jugular venous distension, thyromegaly, or carotid bruits. Carotids were easily palpable bilaterally. There was no adenopathy. There is no neck stiffness. The patient has dry mucous membranes and the patient is a Mallampati class IV. Lungs were clear to auscultation and percussion, and with normal diaphragmatic excursion. No wheezes or rales were noted. Cardiac exam revealed the PMI to be normally situated and sized. The rhythm was regular and no extrasystoles were noted during several minutes of auscultation. The first and second heart sounds were normal and physiologic splitting of the second heart sound was noted. There were no murmurs, rubs, clicks, or gallops. Abdominal exam revealed normal bowel sounds. The abdomen was soft, non-tender, and without masses, organomegaly, or appreciable enlargement of the abdominal aorta. Extremities Examination of the extremities revealed easily palpable radial, femoral and pedal pulses. There was no cyanosis, clubbing or edema. Examination of the skin revealed no evidence of significant rashes, suspicious appearing nevi or other concerning lesions. Results - Laboratory Findings CBC and BMP: 11/04/22 06:20 11/04/22 06:20 PT/INR, D-dimer PT 10.6 sec (9.0-12.0) 11/02/22 15:45 INR 1.0 (<1.2) 11/02/22 15:45 Abnormal lab findings: Abnormal Labs 11/02/22 11/02/22 11/02/22 15:05 15:45 15:45 WBC 14.6 H RBC Hct Plt Count 144 L Neutrophils # 10.0 H Neutrophils # (Manual) Monocytes # 1.7 H Monocytes # (Manual) Metamyelocytes # (Man) Sodium 135 L Chloride Carbon Dioxide Glucose 258 H POC Glucose (mg/dL) 254 H Calcium Magnesium 1.3 L ALT 82 H Albumin Urine Protein Urine Glucose (UA) Urine Ketones Urine Blood Ur Leukocyte Esterase Urine RBC Urine WBC Urine WBC Clumps Urine Mucus Valproic Acid 11/02/22 11/02/22 11/03/22 16:03 17:30 07:47 WBC RBC Hct Plt Count Neutrophils # Neutrophils # (Manual) Monocytes # Monocytes # (Manual) Metamyelocytes # (Man) Sodium Chloride Carbon Dioxide Glucose POC Glucose (mg/dL) 263 H 328 H Calcium Magnesium ALT Albumin Urine Protein 1+ H Urine Glucose (UA) 4+ H Urine Ketones 1+ H Urine Blood Trace H Ur Leukocyte Esterase Small H Urine RBC 9 H Urine WBC 31 H Urine WBC Clumps Rare H Urine Mucus Rare H Valproic Acid 11/03/22 11/03/22 11/03/22 10:57 10:57 12:17 WBC 22.0 H RBC 4.06 L Hct 38.9 L Plt Count Neutrophils # Neutrophils # (Manual) 14.96 H Monocytes # Monocytes # (Manual) 3.96 H Metamyelocytes # (Man) 0.22 H Sodium 128 L Chloride 95 L Carbon Dioxide 20 L Glucose 421 H POC Glucose (mg/dL) 408 H Calcium 8.2 L Magnesium 2.6 H ALT Albumin Urine Protein Urine Glucose (UA) Urine Ketones Urine Blood Ur Leukocyte Esterase Urine RBC Urine WBC Urine WBC Clumps Urine Mucus Valproic Acid 11/03/22 11/03/22 11/04/22 17:22 20:44 05:40 WBC RBC Hct Plt Count Neutrophils # Neutrophils # (Manual) Monocytes # Monocytes # (Manual) Metamyelocytes # (Man) Sodium Chloride Carbon Dioxide Glucose POC Glucose (mg/dL) 288 H 254 H 181 H Calcium Magnesium ALT Albumin Urine Protein Urine Glucose (UA) Urine Ketones Urine Blood Ur Leukocyte Esterase Urine RBC Urine WBC Urine WBC Clumps Urine Mucus Valproic Acid 11/04/22 11/04/22 11/04/22 06:20 06:20 09:34 WBC 19.4 H RBC 4.08 L Hct 38.5 L Plt Count 145 L Neutrophils # 14.1 H Neutrophils # (Manual) 13.70 H Monocytes # 1.8 H Monocytes # (Manual) 2.33 H Metamyelocytes # (Man) Sodium 133 L Chloride Carbon Dioxide Glucose 185 H POC Glucose (mg/dL) 217 H Calcium 8.2 L Magnesium ALT Albumin 3.4 L Urine Protein Urine Glucose (UA) Urine Ketones Urine Blood Ur Leukocyte Esterase Urine RBC Urine WBC Urine WBC Clumps Urine Mucus Valproic Acid 120.5 H* - Diagnostic Findings Chest x-ray: image reviewed Assessment and Plan Plan: Acute breakthrough seizure, Depakote level is 120 and the patient received a total of 6 mg grams IV Ativan. The patient is known to have seizure disorder. CAT scan of the brain was done at time of admission that was negative. Repeat CAT scan results are still pending. Acute febrile illness/sepsis currently under investigation. Rule out underlying urinary tract infection/pyelonephritis. The patient may have underlying pyonep hritis on the left and the patient initially presented with flank pain. The patient is on IV Rocephin. CAT scan of abdomen showed fat stranding bilaterally worse on the left. Acute leukocytosis secondary to above Acute tachycardia secondary to above Diabetes mellitus type 2 Obesity with a BMI of 34.3. Altered mentation secondary to sepsis in addition to post ictal state following recurrent seizures witnessed on the medical floor History of testicular cancer with previous testicular resection and bladder surgeries Plan IV Tylenol for fever Cooling blankets and ice packs blood cultures, urine culture and check pro calcitonin level Continue IV Rocephin 2 g every 24 hours and add vancomycin ID consultation Monitor mental status. The patient has a therapeutic/supratherapeutic Depakote level. He was given IV Ativan. We'll discuss with neurology and add IV needed. Check CPK Check lactic acid level Check blood gases This is a Kingston catheter Continue IV fluids with normal saline at the rate of 150 mL an hour Aspiration precautions Seizure precautions Neurology consultation EEG Sliding-scale insulin coverage Lovenox 40 mg subcu for DVT prophylaxis IV Protonix Titrate oxygen flow to maintain a saturation above 90% Monitor stool output and his diarrhea, check stool for C. diff We'll continue to follow Condition is critical
[2022-11-04] MEDS ORDERED: LORazepam 2 MG/ML INJ IV PRN (11:03)
[2022-11-04] MEDS ORDERED: NALOXONE 0.4 MG/ML 1 ML VIAL IV PRN (11:03)
[2022-11-04] MEDS ORDERED: Lacosamide IV (ages 17+ yrs) 200 MG/20 ML ML IVP STA (11:03)
[2022-11-04 11:30] LABS: African American GFR (CKD) >90 (>60 ml/min/1.73 sqM); Anion Gap 12 mmol/L; Blood Urea Nitrogen 16 mg/dL (9-20); Calcium 7.7 mg/dL (8.4-10.2); Carbon Dioxide 17 mmol/L (22-30); Chloride 100 mmol/L (98-107); Creatine Kinase 103 U/L (55-170); Glucose 244 mg/dL (74-99); Non-African American GFR(CKD) >90 (>60 ml/min/1.73 sqM); Sodium 129 mmol/L (137-145)
[2022-11-04 11:38] LABS: Basophils % (A) 0 %; Eosinophils # (A) 0.1 k/uL (0-0.7); Eosinophils % (A) 1 %; HCT 36.3 % (39.0-53.0); HGB 12.4 gm/dL (13.0-17.5); Lymphocytes # (A) 1.1 k/uL (1.0-4.8); Lymphocytes % (A) 8 %; MCH 32.6 pg (25.0-35.0); MCHC 34.2 g/dL (31.0-37.0); MCV 95.1 fL (80.0-100.0); Magnesium 1.8 mg/dL (1.6-2.3); Mean Platelet Volume 7.7; Monocytes # (A) 1.2 k/uL (0-1.0); Monocytes % (A) 9 %; Neutrophils # (A) 11.1 k/uL (1.3-7.7); Neutrophils % (A) 81 %; Platelet Count 121 k/uL (150-450); Potassium 4.5 mmol/L (3.5-5.1); RBC 3.81 m/uL (4.30-5.90); RDW 12.9 % (11.5-15.5); WBC 13.7 k/uL (3.8-10.6)
[2022-11-04] MEDS: SODIUM CHLORIDE 0.9% 1,000 ML IV SCH ×2 (12:00→19:08)
[2022-11-04 12:36] LABS: ABG Base Excess -1.6 mmol/L; ABG HCO3 23 mmol/L (21-25); ABG Oxygen Saturation 97.2 % (94-97); ABG PCO2 37 mmHg (35-45); ABG PH 7.41 (7.35-7.45); ABG PO2 88 mmHg (83-108); ABG TCO2 24 mmol/L (19-24); Allen Test Performed? Yes
--- NOTE | 2022-11-04 12:59 | P.CNNES ---
History of Present Illness Consult date: 11/04/22 Requesting physician: Dagmar Cardona Reason for Consult: seizure-like activity History of Present Illness: This is a 52-year-old gentleman with history of nonepileptic seizures, type 2 diabetes, hypertension, hyperlipidemia who is in the hospital for underlying UTI. It seems that the patient is in sepsis due to underlying UTI. The history is obtained from medical records as well as the patient's was at bedside. Neurology is consulted because of seizure-like activity. Today in the morning is seems the patient had seizure-like activity for 10 minutes according to the nurse practitioner from the primary team as well as the nurse and the episode lasted for 10 minutes and he was shaking of upper extremity eyes closed and was drooling. As a result A-team was called and patient was given 6mg Ativan. Then the patient was present the ICU. According to the patient has nonepileptic seizures and he had a prolonged EEG about a week long over at [facility] and she stated that the his episodes were nonepileptic. Patient is on Depakote 1500mg bid. Per the the patient has not followed up with a neurologist currently but in the past was followed up with Dr. Del Valle and the patient was on Keppra and he did not tolerate the medication well. The patient and is seeking that to see a different neurologist. Per the he is having shaking of extremities that is brief and after the episode he be responsive and sometimes not responsive but there are brief period denies any urinary or bowel incontinence. Had few episodes of tongue bite. Of note, patient was seen by my colleague (Dr. De Luna) last on 11/10/2020 and he stated that psychogenic nonepileptic seizures.. Patient had that to a half hour EEG in our facility and no clinical or electrographic seizures were recorded. No epileptiform activity were present. 3 episodes were recorded and were not associated with epileptiform activity. Some other workup during this hospital visit consisted of: White blood cells 14.6 thousand predominantly neutrophilic and then it got as high as 22,000 Sugar is uncontrolled in the 200s. Hemoglobin A1c is 11.0. Plasma-Lyte acid vein is a 1.4 Urinalysis is a leukocyte esterases small but urine white blood cells 31. Valproic acid is 120.5 and the therapeutic is between 5220 within [address] of the head was reported as allowing for scattered prominent artifact, no definite acute process. I personally reviewed the CT and I agree there is motion artifact but there is no acute or subacute ischemia or bleed that was appreciable. Ammonia level is 32. Normal is less than 30. Review of Systems Review of system is limited with apparent positive and negative as per HPI. Past Medical History Past Medical History: Cancer, Diabetes Mellitus, Seizure Disorder Additional Past Medical History / Comment(s): possible enlarged prostate, testicular cancer, renal failure, History of Any Multi-Drug Resistant Organisms: None Reported Past Surgical History: Bladder Surgery Additional Past Surgical History / Comment(s): testicular surgery, urethra reconstruction, Past Anesthesia/Blood Transfusion Reactions: No Reported Reaction Past Psychological History: No Psychological Hx Reported Smoking Status: Former smoker, Vaper Past Alcohol Use History: Occasional Past Drug Use History: None Reported - Past Family History Father Family Medical History: Diabetes Mellitus, Hypertension Mother Family Medical History: Diabetes Mellitus, Hypertension Additional Family Medical History / Comment(s): Glaucoma Medications and Allergies Home Medications Medication Instructions Recorded Confirmed Type Dorzolamide-Timol 2.23%/0.68% 1 drop BOTH EYES BID 10/29/20 11/02/22 History [Cosopt] Glimepiride [Amaryl] 4 mg PO BID 10/29/20 11/02/22 History Metoprolol Tartrate [Lopressor] 50 mg PO BID 10/29/20 11/02/22 History metFORMIN HCL [Glucophage] 850 mg PO BID 10/29/20 11/02/22 History Divalproex Sodium [Depakote] 1,000 mg PO DIRECTED 03/18/21 11/02/22 History Fluticasone Nasal [place] [Flonase 1 spray EA NOSTRIL BID PRN 03/18/21 11/02/22 History Nasal [place]] Divalproex [Depakote] 500 mg PO DIRECTED 11/02/22 11/02/22 History Latanoprost [Latanoprost 0.005%] 1 drop BOTH EYES HS 11/02/22 11/02/22 History Semaglutide [Ozempic] 0.5 mg SQ CAMACHO 11/02/22 11/02/22 History Allergies Allergy/AdvReac Type Severity Reaction Status Date / Time No Known Allergies Allergy Verified 11/02/22 16:29 Physical Examination - Vital Signs Vital Signs: Vital Signs Temp Pulse Pulse Resp BP BP BP 11/04/22 12:00 102.3 F H 114 H 33 H 92/54 11/04/22 10:32 103.8 F H 146 H 52 H 100/53 11/04/22 08:56 99.8 F H 11/04/22 06:52 103.1 F H 138 H 19 114/72 11/04/22 01:44 101.9 F H 118 H 18 122/69 11/03/22 22:29 102.9 F H 11/03/22 19:41 101.0 F H 120 H 20 124/65 11/03/22 18:36 98.9 F 102 H 14 119/80 11/03/22 18:11 100.3 F H 114 H 18 118/69 11/03/22 17:44 100.3 F H 114 H 18 118/69 11/03/22 16:00 101 H 131/84 11/03/22 14:00 104 H 131/84 Pulse Ox 11/04/22 12:00 96 11/04/22 10:32 95 11/04/22 08:56 11/04/22 06:52 91 L 11/04/22 01:44 90 L 11/03/22 22:29 11/03/22 19:41 11/03/22 18:36 97 11/03/22 18:11 100 11/03/22 17:44 100 11/03/22 16:00 11/03/22 14:00 Intake and Output 11/03/22 11/04/22 11/04/22 22:59 06:59 14:59 Intake Total 130 Output Total 200 600 Balance -200 -470 Intake: Intake, IV Titration 130 Amount Sodium Chloride 0.9% 1, 130 000 ml @ 130 mls/hr IV . [id number] [facility] Rx#:[id number] Output: Urine 200 600 Other: Voiding Method Urinal # Voids 2 3 GENERAL: The patient is lying in bed and does not appear in acute distress. HENT: Supple neck. NEUROLOGICAL: Limited since patient received total of 6mg of Ativan. Severely encephalopathic. No facial weakness. No spontaneous movement. Normal bulk of extremities. Plantars are mute. Results - Laboratory Findings CBC and BMP: 11/04/22 10:53 11/04/22 10:53 Abnormal Lab Findings: Abnormal Labs 11/02/22 11/02/22 11/02/22 15:05 15:45 15:45 WBC 14.6 H RBC Hgb Hct Plt Count 144 L Neutrophils # 10.0 H Neutrophils # (Manual) Monocytes # 1.7 H Monocytes # (Manual) Metamyelocytes # (Man) Sodium 135 L Chloride Carbon Dioxide Glucose 258 H POC Glucose (mg/dL) 254 H Hemoglobin A1c Calcium Magnesium 1.3 L ALT 82 H Ammonia Albumin Urine Protein Urine Glucose (UA) Urine Ketones Urine Blood Ur Leukocyte Esterase Urine RBC Urine WBC Urine WBC Clumps Urine Mucus Valproic Acid 11/02/22 11/02/22 11/03/22 16:03 17:30 07:47 WBC RBC Hgb Hct Plt Count Neutrophils # Neutrophils # (Manual) Monocytes # Monocytes # (Manual) Metamyelocytes # (Man) Sodium Chloride Carbon Dioxide Glucose POC Glucose (mg/dL) 263 H 328 H Hemoglobin A1c Calcium Magnesium ALT Ammonia Albumin Urine Protein 1+ H Urine Glucose (UA) 4+ H Urine Ketones 1+ H Urine Blood Trace H Ur Leukocyte Esterase Small H Urine RBC 9 H Urine WBC 31 H Urine WBC Clumps Rare H Urine Mucus Rare H Valproic Acid 11/03/22 11/03/22 11/03/22 10:57 10:57 12:17 WBC 22.0 H RBC 4.06 L Hgb Hct 38.9 L Plt Count Neutrophils # Neutrophils # (Manual) 14.96 H Monocytes # Monocytes # (Manual) 3.96 H Metamyelocytes # (Man) 0.22 H Sodium 128 L Chloride 95 L Carbon Dioxide 20 L Glucose 421 H POC Glucose (mg/dL) 408 H Hemoglobin A1c Calcium 8.2 L Magnesium 2.6 H ALT Ammonia Albumin Urine Protein Urine Glucose (UA) Urine Ketones Urine Blood Ur Leukocyte Esterase Urine RBC Urine WBC Urine WBC Clumps Urine Mucus Valproic Acid 11/03/22 11/03/22 11/04/22 17:22 20:44 05:40 WBC RBC Hgb Hct Plt Count Neutrophils # Neutrophils # (Manual) Monocytes # Monocytes # (Manual) Metamyelocytes # (Man) Sodium Chloride Carbon Dioxide Glucose POC Glucose (mg/dL) 288 H 254 H 181 H Hemoglobin A1c Calcium Magnesium ALT Ammonia Albumin Urine Protein Urine Glucose (UA) Urine Ketones Urine Blood Ur Leukocyte Esterase Urine RBC Urine WBC Urine WBC Clumps Urine Mucus Valproic Acid 11/04/22 11/04/22 11/04/22 06:20 06:20 09:34 WBC 19.4 H RBC 4.08 L Hgb Hct 38.5 L Plt Count 145 L Neutrophils # 14.1 H Neutrophils # (Manual) 13.70 H Monocytes # 1.8 H Monocytes # (Manual) 2.33 H Metamyelocytes # (Man) Sodium 133 L Chloride Carbon Dioxide Glucose 185 H POC Glucose (mg/dL) 217 H Hemoglobin A1c Calcium 8.2 L Magnesium ALT Ammonia Albumin 3.4 L Urine Protein Urine Glucose (UA) Urine Ketones Urine Blood Ur Leukocyte Esterase Urine RBC Urine WBC Urine WBC Clumps Urine Mucus Valproic Acid 120.5 H* 11/04/22 11/04/22 11/04/22 10:42 10:53 10:53 WBC RBC Hgb Hct Plt Count Neutrophils # Neutrophils # (Manual) Monocytes # Monocytes # (Manual) Metamyelocytes # (Man) Sodium Chloride Carbon Dioxide Glucose POC Glucose (mg/dL) 285 H Hemoglobin A1c 11.0 H Calcium Magnesium ALT Ammonia 32 H Albumin Urine Protein Urine Glucose (UA) Urine Ketones Urine Blood Ur Leukocyte Esterase Urine RBC Urine WBC Urine WBC Clumps Urine Mucus Valproic Acid 11/04/22 11/04/22 10:53 10:53 WBC 13.7 H RBC 3.81 L Hgb 12.4 L Hct 36.3 L Plt Count 121 L Neutrophils # 11.1 H Neutrophils # (Manual) Monocytes # 1.2 H Monocytes # (Manual) Metamyelocytes # (Man) Sodium 129 L Chloride Carbon Dioxide 17 L Glucose 244 H POC Glucose (mg/dL) Hemoglobin A1c Calcium 7.7 L Magnesium ALT Ammonia Albumin Urine Protein Urine Glucose (UA) Urine Ketones Urine Blood Ur Leukocyte Esterase Urine RBC Urine WBC Urine WBC Clumps Urine Mucus Valproic Acid Assessment and Plan Assessment: This is a 52-year-old gentleman with history of nonepileptic seizures and had multiple studies had a prolonged 20 half hour EEG in our facility in November 2020 and his episodes were not epileptic as well as a had EEG done overhead reported and also was nonepileptic according to the , uncontrolled diabetes will has underlying sepsis due to UTI. Today patient had seizure-like activity lasting for 10 minutes and resolved she was given 6 limb Ativan. Breakthrough seizure as likely nonepileptic in nature especially with his previous history of nonepileptic seizures and his lactic acid was normal today (even though he had prolonged shaking) Encephalopathy as a result the patient given 6 limb Ativan after the seizure as well as underlying sepsis History of nonepileptic seizures (had prolonged 2.5 hour EEG in our facility in 11/2020 and a week study at [facility] and both were non-epileptic) Uncontrolled diabetes mellitus with a hemoglobin A1c of 11.0 Sepsis possible due to underlying UTI/pyelonephritis Plan: Since the patient's valproic acid level was 120 which was a possible toxic level. I went down on valproic acid function at 1500 mg twice a day 2000 mg twice a day. There is a a lot of side effects to valproic acid such as obesity, osteoporosis, confusion etc. I loaded the patient with Vimpat 100 mg once and I saw him on Vimpat 50mg twice a day in the meantime. Once the patient is more awake. The Vimpat and started him on Lamictal which helps with both mood disord er as well as antiepileptic. He discontinued the order of 2 mg every 1 hour when necessary for seizures that was ordered by the ICU attending especially since the patient's episodes are nonepileptic Recommend the patient to follow-up with a neurologist as an outpatient as well as psychiatry as an outpatient because of his nonepileptic seizures Continue neuro checks Defer the rest of the management to primary, I see another specialist The plan discussed with the patient's was at bedside and the primary team H[employer]HER. Thank you for consultation Time with Patient: Greater than 30
--- NOTE | 2022-11-04 13:08 | EEG ---
ELECTROENCEPHALOGRAM REPORT CLINICAL HISTORY: This is a 52-year-old gentleman with history of seizure who had seizure-like activity today witnessed by nursing staff and as a result was given 6 mg of Ativan. The video EEG is obtained to evaluate for seizure epileptiform activity. RELEVANT MEDICATION: Depakote. EEG TYPE: A routine 21 channel EEG is obtained using 10/20 electrode system is obtained. DESCRIPTION: Background consists of low to moderate voltage of 11 to 12 hertz activity. At times, the background consists of diffuse nonrhythmic delta activity. There was no physiological stage 2 sleep architecture. There is no focal slowing. Interictal ictal is none. ACTIVATION PROCEDURE: Photic stimulation did not evoke positive driving response. There is no abnormality during the photic stimulation. Hyperventilation is not performed. CLINICAL CORRELATION: This is an abnormal routine EEG. The background slowing is suggestive of mild encephalopathy likely due to medication effect (Ativan). Otherwise there is no focal slowing, epileptiform discharges or seizure on the EEG. Clinical correlation is recommended. JOHN / ISABELN: [id number] / PATRICK
[2022-11-04 14:27] LABS: Glucose,Whole Blood 220 mg/dL (70-110)
[2022-11-04] MEDS ORDERED: LIDOCAINE 2% URO-JET JELLY 5 ML KIT URETHRAL ONE (15:49)
[2022-11-04] MEDS ORDERED: ACETAMINOPHEN IV (For NPO) 1,000 MG in EMPTY BAG 1 BAG IVPB PRN (16:00)
[2022-11-04 18:17] LABS: Glucose,Whole Blood 212 mg/dL (70-110)
[2022-11-04 18:48] LABS: Urine Alcohol Negative (Negative); Urine Barbiturate Negative (Negative); Urine Cocaine Negative (Negative); Urine Methadone Negative (Negative); Urine Opiates Negative (Negative); Urine Phencyclidine Negative (Negative)
[2022-11-04 18:51] LABS: Appearance,Urine Clear (Clear); Bilirubin,Urine Negative (Negative); Blood,Urine Trace (Negative); Color,Urine Yellow; Glucose,Urine (UA) 4+ (Negative); Ketones,Urine Trace (Negative); Leukocyte Esterase,Urine Negative (Negative); Nitrite,Urine Negative (Negative); PH, Urine 5.5 (5.0-8.0); Protein,Urine Trace (Negative); RBC,Urine 2 /hpf (0-5); Specific Gravity,Urine 1.019 (1.001-1.035); Urobilinogen,Urine <2.0 mg/dL (<2.0); WBC,Urine 6 /hpf (0-5)
--- NOTE | 2022-11-04 19:15 | P.PN ---
Subjective Progress Note Date: 11/04/22 This is a 52-year-old male who presented to the emergency department for increased weakness and fatigue and generalized not feeling well. Patient reports over the last 2 days he is progressively becoming more weak and having chills and fevers and came to the ER for further evaluation. Patient also reports he has been having pain and burning with urination that has been ongoing for the last 2 weeks and did not follow-up with his doctor in regards to this. Patient follows with Dr. Montejo in the outpatient setting with a past medical history of enlarged prostate, testicular cancer along with diabetes mellitus and seizure disorder and renal failure. Patient reports to being a former smoker and uses a vape. In the ER chest x-ray showed low lung volumes with a generalized hazy appearance which could represent atelectasis versus pulmonary edema, CT brain showed no acute intracranial process, CT abdomen and pelvis showed fat stranding changing around the kidneys with left greater than right with prominent retroperitoneal lymph nodes most proximal left correlate for infection consider dedicated renal mass protocol CT MRI for underlying for complete evaluation of the kidneys and correlation with urinalysis is recommended along with hepatic steatosis, and EKG showed sinus tachycardia. L abs reviewed reveal a white blood count of 14.6, hemoglobin 15.3, sodium 135 with a potassium of 4.3, creatinine 0.83, lactic acid was 1.5, magnesium was 1.3 with a total bilirubin of 1.0, troponin was negative and amylase lipase within normal limits. Urinalysis revealed high protein glucose and ketones with a small amount of leukocyte Estrace and white blood count was 31. Urine culture is pending at this time. Blood cultures were ordered and infectious disease was consulted. Patient was given a gram of Rocephin and will resume and start the patient on insulin regimen as patient's blood sugars are poorly controlled. 11/04/2022 Patient seen and evaluated in follow-up this morning during an a team for seizure-like activity. Patient maintained on Depakote as per for seizure history and had extensive neurologic workup at [facility] and reported as nonepileptic. Medical records requested and pending at this time. Patient had been seen previously in this hospital and underwent prolonged EEG which was negative as well. Valproic acid level was drawn and extremely elevated at 120. Patient started becoming more obtunded and unresponsive and convulsing that lasted approximately 10 minutes. Patient received a total of 6 mg of Ativan during the a team and a repeat computed tomography scan was ordered and pending. Patient was noted to have significant fevers throughout the night of 103. Patient is currently maintained on IV antibiotics in the form of ceftriaxone with infectious disease following. Urine culture has been sent and pending at this time. Blood sugars better controlled and will continue current regimen hemoglobin A1c was noted to be above 11 and patient is normally maintained on once weekly ozempic along with oral diabetic agents and will need better glycemic control and insulins on discharge. Patient continued to have seizure- like activity and unresponsive and discussed with ICU equine manager and will be brought to ICU for closer monitoring. Neurology was consulted as well. Review of systems: Unable to obtain as patient is having seizure-like activity currently and sedated on Ativan PHYSICAL EXAMINATION: GENERAL: The patient is bed, unresponsive, lethargic, Well developed, well nourished. Obese HEENT: Pupils are 2-3 mm although reacting to light. EOMI. no scleral icterus. No conjunctival pallor. Normocephalic, atraumatic. No pharyngeal erythema. No thyromegaly. CARDIOVASCULAR: S1 and S2 muffled PULMONARY: diminished breath sounds bilaterally with no wheezing or rhonchi noted. tachypneic ABDOMEN: soft. Nontender on exam. obese. non-distended, normoactive bowel sounds. No palpable organomegaly. MUSCULOSKELETAL: No joint swelling or deformity. EXTREMITIES: No cyanosis, clubbing, or pedal edema. NEUROLOGICAL: Gross neurological examination did not reveal any focal deficits. Diffuse weakness SKIN: No rashes. Assessment: Fevers with leukocytosis with features of sepsis, present on admission. Patient is reporting Burning and frequency with urination, possible acute urinary tract infection/ pyelonephritis Leukocytosis secondary to above Acute Metabolic encephalopathy, multifactorial, secondary to sepsis as well as seizure-like activity Hypomagnesemia, replaced and improved Breakthrough seizure with history of seizure disorder, maintained on Depakote Elevated Depakote level of 120 Obesity with a BMI of 34.3 Diabetes mellitus, type II, severely uncontrolled with hyperglycemia and noncompliance of medications, hemoglobin A1c is 11 History of testicular cancer Seizure disorder history Former smoker and Vapes GI prophylaxis DVT prophylaxis Full code Plan: Patient will be continued on IV hydration and home medications reviewed and resumed as appropriate. Confirmed with primary care provider's office of Depakote dosage that was prescribed to him from [facility] and he takes a total of 750 mg twice daily. Valproic acid was 120. Patient was an a team for seizure-like activity most likely provoked from fevers as patient was having temps throughout the night and T-max 103. Neurology was consulted and patient did receive a total of 6 mg of Ativan for continued seizing patient is presently postictal and unresponsive. Repeat CT showed no acute abnormalities. EEG is ordered and pending. Per patient had extensive epileptic workup at [facility] with prolonged EEG showing no epileptiform activity. Requested medical records which are pending at this time Was brought to the ICU for continued seizing activity and unresponsive and equine manager consulted. Awaiting urine culture and patient is continued on ceftriaxone with concerns of pyelonephritis with urinary tract infection. Infectious disease is following. Patient significantly uncontrolled diabetes with hyperglycemia will continue insulin sliding scale along with long-acting with consistent carb diet. Hemoglo bin A1c was above 11 and will need insulins on discharge Will order indwelling Kingston catheter for strict intake and output although patient has history of testicular cancer and reconstruction surgeries will consult urology for Kingston catheter insertion Will have PT/OT therapy evaluate the patient The impression and plan of care has been dictated by Dagmar Cardona, nurse practitioner as directed. Dr. Gabriel MD I have performed a history and examination and MDM of this patient, discussed the same with the dictator, and agree with the dictator's assessment and plan as written ,documented as a scribe. Based on total visit time, I have performed more than 50% of the visit. Any additional findings or plans will be noted. Objective - Vital Signs Vital signs: Vital Signs Temp 101.9 F H 11/04/22 01:44 Pulse 118 H 11/04/22 01:44 Resp 18 11/04/22 01:44 BP 122/69 11/04/22 01:44 Pulse Ox 90 L 11/04/22 01:44 FiO2 Intake & Output 11/03/22 11/03/22 11/04/22 06:59 18:59 06:59 Intake Total 480 Output Total 200 Balance 280 Intake: Oral 480 Output: Urine 200 Other: Voiding Method Urinal # Voids 2 - Labs CBC & Chem 7: 11/04/22 10:53 11/04/22 10:53 Labs: Abnormal Lab Results - Last 24 Hours (Table) 11/03/22 11/03/22 11/03/22 Range/Units 07:47 10:57 10:57 WBC 22.0 H (3.8-10.6) k/uL RBC 4.06 L (4.30-5.90) m/uL Hct 38.9 L (39.0-53.0) % Neutrophils # (Manual) 14.96 H (1.3-7.7) k/uL Monocytes # (Manual) 3.96 H (0-1.0) k/uL Metamyelocytes # (Man) 0.22 H (0) k/uL Sodium 128 L (137-145) mmol/L Chloride 95 L (98-107) mmol/L Carbon Dioxide 20 L (22-30) mmol/L Glucose 421 H (74-99) mg/dL POC Glucose (mg/dL) 328 H (70-110) mg/dL Calcium 8.2 L (8.4-10.2) mg/dL Magnesium 2.6 H (1.6-2.3) mg/dL 11/03/22 11/03/22 11/03/22 Range/Units 12:17 17:22 20:44 WBC (3.8-10.6) k/uL RBC (4.30-5.90) m/uL Hct (39.0-53.0) % Neutrophils # (Manual) (1.3-7.7) k/uL Monocytes # (Manual) (0-1.0) k/uL Metamyelocytes # (Man) (0) k/uL Sodium (137-145) mmol/L Chloride (98-107) mmol/L Carbon Dioxide (22-30) mmol/L Glucose (74-99) mg/dL POC Glucose (mg/dL) 408 H 288 H 254 H (70-110) mg/dL Calcium (8.4-10.2) mg/dL Magnesium (1.6-2.3) mg/dL 11/04/22 Range/Units 05:40 WBC (3.8-10.6) k/uL RBC (4.30-5.90) m/uL Hct (39.0-53.0) % Neutrophils # (Manual) (1.3-7.7) k/uL Monocytes # (Manual) (0-1.0) k/uL Metamyelocytes # (Man) (0) k/uL Sodium (137-145) mmol/L Chloride (98-107) mmol/L Carbon Dioxide (22-30) mmol/L Glucose (74-99) mg/dL POC Glucose (mg/dL) 181 H (70-110) mg/dL Calcium (8.4-10.2) mg/dL Magnesium (1.6-2.3) mg/dL Microbiology - Last 24 Hours (Table) 11/02/22 18:00 Blood Culture - Preliminary Blood 11/02/22 17:45 Blood Culture - Preliminary Blood
[2022-11-04 20:46] LABS: Glucose,Whole Blood 193 mg/dL (70-110)
[2022-11-04] MEDS: Lacosamide IV (ages 17+ yrs) 200 MG/20 ML ML IVP SCH (20:53)
[2022-11-04] MEDS: LATANOPROST 0.005% OPHTH DROPS 2.5 ML BTL BOTH EYES SCH (20:57)
[2022-11-05] MEDS: ACETAMINOPHEN TAB 325 MG TAB PO PRN ×2 (02:59→20:20)
[2022-11-05] MEDS: SODIUM CHLORIDE 0.9% 1,000 ML IV SCH ×4 (03:34→19:35)
[2022-11-05 04:40] LABS: Basophils % (A) 0 %; Eosinophils # (A) 0.1 k/uL (0-0.7); Eosinophils % (A) 1 %; HCT 32.5 % (39.0-53.0); HGB 11.4 gm/dL (13.0-17.5); Lymphocytes # (A) 1.6 k/uL (1.0-4.8); Lymphocytes % (A) 15 %; MCH 33.1 pg (25.0-35.0); MCHC 35.1 g/dL (31.0-37.0); MCV 94.3 fL (80.0-100.0); Mean Platelet Volume 7.7; Monocytes # (A) 1.2 k/uL (0-1.0); Monocytes % (A) 11 %; Neutrophils # (A) 7.7 k/uL (1.3-7.7); Neutrophils % (A) 70 %; Platelet Count 112 k/uL (150-450); RBC 3.44 m/uL (4.30-5.90); RDW 12.7 % (11.5-15.5); WBC 10.9 k/uL (3.8-10.6)
[2022-11-05 04:50] LABS: African American GFR (CKD) >90 (>60 ml/min/1.73 sqM); Anion Gap 5 mmol/L; Blood Urea Nitrogen 14 mg/dL (9-20); Calcium 7.5 mg/dL (8.4-10.2); Carbon Dioxide 23 mmol/L (22-30); Chloride 105 mmol/L (98-107); Glucose 104 mg/dL (74-99); Non-African American GFR(CKD) >90 (>60 ml/min/1.73 sqM); Potassium 3.7 mmol/L (3.5-5.1); Sodium 133 mmol/L (137-145)
[2022-11-05] MEDS ORDERED: Potassium Replacement Protocol 1 EACH MISC MISCELLANE PRN (05:18)
[2022-11-05 05:28] LABS: Valproic Acid (Depakene) 127.2 ug/mL
[2022-11-05] MEDS ORDERED: POTASSIUM CHLORIDE ER 20 MEQ TAB.ER PO SCH (06:00)
[2022-11-05] MEDS: INSULIN DETEMIR (LEVEMIR) 100 UNIT/ML SYR SQ SCH ×2 (06:12→20:21)
[2022-11-05 06:42] LABS: Glucose,Whole Blood 111 mg/dL (70-110)
[2022-11-05] MEDS: INSULIN ASPART (NovoLOG) 100 UNIT/ML VIAL SQ SCH ×4 (06:45→20:21)
--- NOTE | 2022-11-05 07:18 | P.GSCN ---
History of Present Illness Consult date: 11/04/22 Reason for Consult: Urethral stricture Requesting physician: Lee Ann Taylor History of present illness: The patient is a 52-year-old white male admitted with fever, chills, weakness, and generalized malaise. He has recently experienced dysuria. Attempts by the nursing staff to insert a Kingston catheter were unsuccessful. The patient's postvoid residual was 211 mL. The patient's urologic history is significant for testicular cancer. He underwent a left radical orchiectomy and received adjuvant radiation therapy, consistent with the management of seminoma. He underwent an open urethroplasty by Dr. Christiano Avendano at [facility] for urethral stricture disease. The patient is minimally communicative and much of the history was obtained from the patient's . Review of Systems - Constitutional Reports chills, Reports fatigue, Reports fever, Reports weakness - Genitourinary Reports dysuria Past Medical History Past Medical History: Cancer, Diabetes Mellitus, Seizure Disorder Additional Past Medical History / Comment(s): possible enlarged prostate, test icular cancer, renal failure, History of Any Multi-Drug Resistant Organisms: None Reported Past Surgical History: Bladder Surgery Additional Past Surgical History / Comment(s): testicular surgery, urethra reconstruction, Past Anesthesia/Blood Transfusion Reactions: No Reported Reaction Past Psychological History: No Psychological Hx Reported Smoking Status: Former smoker, Vaper Past Alcohol Use History: Occasional Past Drug Use History: None Reported - Past Family History Father Family Medical History: Diabetes Mellitus, Hypertension Mother Family Medical History: Diabetes Mellitus, Hypertension Additional Family Medical History / Comment(s): Glaucoma Medications and Allergies Home Medications Medication Instructions Recorded Confirmed Type Dorzolamide-Timol 2.23%/0.68% 1 drop BOTH EYES BID 10/29/20 11/02/22 History [Cosopt] Glimepiride [Amaryl] 4 mg PO BID 10/29/20 11/02/22 History Metoprolol Tartrate [Lopressor] 50 mg PO BID 10/29/20 11/02/22 History metFORMIN HCL [Glucophage] 850 mg PO BID 10/29/20 11/02/22 History Divalproex Sodium [Depakote] 1,000 mg PO DIRECTED 03/18/21 11/02/22 History Fluticasone Nasal [place] [Flonase 1 spray EA NOSTRIL BID PRN 03/18/21 11/02/22 History Nasal [place]] Divalproex [Depakote] 500 mg PO DIRECTED 11/02/22 11/02/22 History Latanoprost [Latanoprost 0.005%] 1 drop BOTH EYES HS 11/02/22 11/02/22 History Semaglutide [Ozempic] 0.5 mg SQ CAMACHO 11/02/22 11/02/22 History Allergies Allergy/AdvReac Type Severity Reaction Status Date / Time No Known Allergies Allergy Verified 11/02/22 16:29 Surgical - Exam Vital Signs Temp Pulse Resp BP Pulse Ox 98 F 130 H 20 136/86 94 L 11/02/22 15:03 11/02/22 15:03 11/02/22 15:03 11/02/22 15:03 11/02/22 15:03 - General well developed, well nourished, no distress - Respiratory normal respiratory effort - Abdomen Abdomen: soft, non tender, no guarding, no rigid, no rebound - Genitourinary The penis is covered by an external urinary collection device. The scrotum is normal. The right testicle is normal. The left testicle is surgically absent. - Psychiatric oriented to time, oriented to person, oriented to place, speech is normal, memory intact Results - Labs 11/05/22 04:12 11/05/22 04:12 Abnormal Lab Results - Last 24 Hours (Table) 11/04/22 11/04/22 11/04/22 Range/Units 05:40 06:20 06:20 WBC 19.4 H (3.8-10.6) k/uL RBC 4.08 L (4.30-5.90) m/uL Hgb (13.0-17.5) gm/dL Hct 38.5 L (39.0-53.0) % Plt Count 145 L (150-450) k/uL Neutrophils # 14.1 H (1.3-7.7) k/uL Neutrophils # (Manual) 13.70 H (1.3-7.7) k/uL Monocytes # 1.8 H (0-1.0) k/uL Monocytes # (Manual) 2.33 H (0-1.0) k/uL ABG O2 Saturation (94-97) % Sodium 133 L (137-145) mmol/L Carbon Dioxide (22-30) mmol/L Glucose 185 H (74-99) mg/dL POC Glucose (mg/dL) 181 H (70-110) mg/dL Hemoglobin A1c (<=6.0) % Calcium 8.2 L (8.4-10.2) mg/dL Ammonia (<30) umol/L Albumin 3.4 L (3.5-5.0) g/dL Procalcitonin (0.02-0.09) ng/mL Urine Protein (Negative) Urine Glucose (UA) (Negative) Urine Ketones (Negative) Urine Blood (Negative) Urine WBC (0-5) /hpf Valproic Acid 120.5 H* ug/mL 11/04/22 11/04/22 11/04/22 Range/Units 09:34 10:42 10:53 WBC (3.8-10.6) k/uL RBC (4.30-5.90) m/uL Hgb (13.0-17.5) gm/dL Hct (39.0-53.0) % Plt Count (150-450) k/uL Neutrophils # (1.3-7.7) k/uL Neutrophils # (Manual) (1.3-7.7) k/uL Monocytes # (0-1.0) k/uL Monocytes # (Manual) (0-1.0) k/uL ABG O2 Saturation (94-97) % Sodium (137-145) mmol/L Carbon Dioxide (22-30) mmol/L Glucose (74-99) mg/dL POC Glucose (mg/dL) 217 H 285 H (70-110) mg/dL Hemoglobin A1c 11.0 H (<=6.0) % Calcium (8.4-10.2) mg/dL Ammonia (<30) umol/L Albumin (3.5-5.0) g/dL Procalcitonin (0.02-0.09) ng/mL Urine Protein (Negative) Urine Glucose (UA) (Negative) Urine Ketones (Negative) Urine Blood (Negative) Urine WBC (0-5) /hpf Valproic Acid ug/mL 11/04/22 11/04/22 11/04/22 Range/Units 10:53 10:53 10:53 WBC 13.7 H (3.8-10.6) k/uL RBC 3.81 L (4.30-5.90) m/uL Hgb 12.4 L (13.0-17.5) gm/dL Hct 36.3 L (39.0-53.0) % Plt Count 121 L (150-450) k/uL Neutrophils # 11.1 H (1.3-7.7) k/uL Neutrophils # (Manual) (1.3-7.7) k/uL Monocytes # 1.2 H (0-1.0) k/uL Monocytes # (Manual) (0-1.0) k/uL ABG O2 Saturation (94-97) % Sodium 129 L (137-145) mmol/L Carbon Dioxide 17 L (22-30) mmol/L Glucose 244 H (74-99) mg/dL POC Glucose (mg/dL) (70-110) mg/dL Hemoglobin A1c (<=6.0) % Calcium 7.7 L (8.4-10.2) mg/dL Ammonia 32 H (<30) umol/L Albumin (3.5-5.0) g/dL Procalcitonin (0.02-0.09) ng/mL Urine Protein (Negative) Urine Glucose (UA) (Negative) Urine Ketones (Negative) Urine Blood (Negative) Urine WBC (0-5) /hpf Valproic Acid ug/mL 11/04/22 11/04/22 11/04/22 Range/Units 10:53 12:29 14:26 WBC (3.8-10.6) k/uL RBC (4.30-5.90) m/uL Hgb (13.0-17.5) gm/dL Hct (39.0-53.0) % Plt Count (150-450) k/uL Neutrophils # (1.3-7.7) k/uL Neutrophils # (Manual) (1.3-7.7) k/uL Monocytes # (0-1.0) k/uL Monocytes # (Manual) (0-1.0) k/uL ABG O2 Saturation 97.2 H (94-97) % Sodium (137-145) mmol/L Carbon Dioxide (22-30) mmol/L Glucose (74-99) mg/dL POC Glucose (mg/dL) 220 H (70-110) mg/dL Hemoglobin A1c (<=6.0) % Calcium (8.4-10.2) mg/dL Ammonia (<30) umol/L Albumin (3.5-5.0) g/dL Procalcitonin 1.98 H (0.02-0.09) ng/mL Urine Protein (Negative) Urine Glucose (UA) (Negative) Urine Ketones (Negative) Urine Blood (Negative) Urine WBC (0-5) /hpf Valproic Acid ug/mL 11/04/22 11/04/22 11/04/22 Range/Units 18:16 18:30 20:45 WBC (3.8-10.6) k/uL RBC (4.30-5.90) m/uL Hgb (13.0-17.5) gm/dL Hct (39.0-53.0) % Plt Count (150-450) k/uL Neutrophils # (1.3-7.7) k/uL Neutrophils # (Manual) (1.3-7.7) k/uL Monocytes # (0-1.0) k/uL Monocytes # (Manual) (0-1.0) k/uL ABG O2 Saturation (94-97) % Sodium (137-145) mmol/L Carbon Dioxide (22-30) mmol/L Glucose (74-99) mg/dL POC Glucose (mg/dL) 212 H 193 H (70-110) mg/dL Hemoglobin A1c (<=6.0) % Calcium (8.4-10.2) mg/dL Ammonia (<30) umol/L Albumin (3.5-5.0) g/dL Procalcitonin (0.02-0.09) ng/mL Urine Protein Trace H (Negative) Urine Glucose (UA) 4+ H (Negative) Urine Ketones Trace H (Negative) Urine Blood Trace H (Negative) Urine WBC 6 H (0-5) /hpf Valproic Acid ug/mL Microbiology - Last 24 Hours (Table) 11/02/22 18:00 Blood Culture - Preliminary Blood 11/02/22 17:45 Blood Culture - Preliminary Blood Diabetes panel 11/04/22 11/04/22 11/04/22 Range/Units 06:20 10:53 10:53 Sodium 133 L 129 L (137-145) mmol/L Potassium 5.0 4.5 (3.5-5.1) mmol/L Chloride 101 100 (98-107) mmol/L Carbon Dioxide 22 17 L (22-30) mmol/L BUN 14 16 (9-20) mg/dL Creatinine 0.75 0.84 (0.66-1.25) mg/dL Glucose 185 H 244 H (74-99) mg/dL Hemoglobin A1c 11.0 H (<=6.0) % Calcium 8.2 L 7.7 L (8.4-10.2) mg/dL AST 35 (17-59) U/L ALT 37 (4-49) U/L Alkaline Phosphatase 54 (38-126) U/L Total Protein 6.7 (6.3-8.2) g/dL Albumin 3.4 L (3.5-5.0) g/dL Calcium panel 11/04/22 11/04/22 Range/Units 06:20 10:53 Calcium 8.2 L 7.7 L (8.4-10.2) mg/dL Albumin 3.4 L (3.5-5.0) g/dL Pituitary panel 11/04/22 11/04/22 Range/Units 06:20 10:53 Sodium 133 L 129 L (137-145) mmol/L Potassium 5.0 4.5 (3.5-5.1) mmol/L Chloride 101 100 (98-107) mmol/L Carbon Dioxide 22 17 L (22-30) mmol/L BUN 14 16 (9-20) mg/dL Creatinine 0.75 0.84 (0.66-1.25) mg/dL Glucose 185 H 244 H (74-99) mg/dL Calcium 8.2 L 7.7 L (8.4-10.2) mg/dL Adrenal panel 11/04/22 11/04/22 Range/Units 06:20 10:53 Sodium 133 L 129 L (137-145) mmol/L Potassium 5.0 4.5 (3.5-5.1) mmol/L Chloride 101 100 (98-107) mmol/L Carbon Dioxide 22 17 L (22-30) mmol/L BUN 14 16 (9-20) mg/dL Creatinine 0.75 0.84 (0.66-1.25) mg/dL Glucose 185 H 244 H (74-99) mg/dL Calcium 8.2 L 7.7 L (8.4-10.2) mg/dL Total Bilirubin 0.9 (0.2-1.3) mg/dL AST 35 (17-59) U/L ALT 37 (4-49) U/L Alkaline Phosphatase 54 (38-126) U/L Total Protein 6.7 (6.3-8.2) g/dL Albumin 3.4 L (3.5-5.0) g/dL - Imaging CT scan - abdomen: report reviewed, image reviewed Assessment and Plan Assessment: CT scan shows fat stranding around both kidneys, left greater than right, with mild left retroperitoneal adenopathy. Although this appears to be inflammatory, perhaps due to an underlying UTI, it is noteworthy that this is the region where left testicular cancer would metastasize. Plan: Urethral dilation would be required to place a Kingston catheter. Given that the patient is emptying his bladder adequately, it would be my preference not to instrument his urethra unless absolutely necessary. The patient is currently re ceiving ceftriaxone, pending urine and blood cultures. I will review the patient's office records regarding his history of seminoma. Thank you for allowing me to participate in Mr. Chase's care. I will continue to follow him with you. Time with Patient: Greater than 30
--- NOTE | 2022-11-05 08:31 | P.PN ---
Subjective Progress Note Date: 11/04/22 Principal diagnosis: UTI with sepsis Patient is a 52-year-old male with a past medical history significant for diabetes mellitus history of testicular cancer and seizure disorder did have a surgery for testicular cancer and urothelial reconstruction presenting to the hospital for evaluation of chills patient mention has not been feeling well, patient was diagnosed with a pyelonephritis admitted to the floor subsequently did have another fever and question of seizure and the patient was transferred to the ICU. On today's evaluation that is 11/04/2022 the patient did spike a fever of 103 F this morning, patient is currently on 3 L nasal cannula oxygen patient is le thargic and has received medication for seizure and did not provide any history no vomiting diarrhea or any other changes reported. Patient white count is down to 13.7 creatinine 0.84 COVID influenza and RSV PCR negative blood cultures currently pending urine cultures pending Objective - Vital Signs Vital signs: Vital Signs Temp 101 F H 11/04/22 12:37 Pulse 107 H 11/04/22 12:30 Resp 27 H 11/04/22 12:30 BP 90/49 11/04/22 12:30 Pulse Ox 95 11/04/22 12:30 FiO2 Intake & Output 11/03/22 11/04/22 11/04/22 18:59 06:59 18:59 Intake Total 480 130 Output Total 200 600 Balance 280 -470 Intake: Intake, IV Titration 130 Amount Sodium Chloride 0.9% 1, 130 000 ml @ 130 mls/hr IV . Q7H42M [facility] Rx#:[id number] Oral 480 Output: Urine 200 600 Other: Voiding Method Urinal Urinal # Voids 2 3 - Exam GENERAL DESCRIPTION: A middle-age male lying in bed in no distress RESPIRATORY SYSTEM: Unlabored breathing , decreased breath sounds at bases HEART: S1 S2 regular rate and rhythm , ABDOMEN: Soft , no tenderness EXTREMITIES: No edema feet - Labs CBC & Chem 7: 11/05/22 04:12 11/05/22 04:12 Labs: Abnormal Lab Results - Last 24 Hours (Table) 11/03/22 11/03/22 11/03/22 Range/Units 10:57 17:22 20:44 WBC (3.8-10.6) k/uL RBC (4.30-5.90) m/uL Hgb (13.0-17.5) gm/dL Hct (39.0-53.0) % Plt Count (150-450) k/uL Neutrophils # (1.3-7.7) k/uL Neutrophils # (Manual) 14.96 H (1.3-7.7) k/uL Monocytes # (0-1.0) k/uL Monocytes # (Manual) 3.96 H (0-1.0) k/uL Metamyelocytes # (Man) 0.22 H (0) k/uL ABG O2 Saturation (94-97) % Sodium (137-145) mmol/L Carbon Dioxide (22-30) mmol/L Glucose (74-99) mg/dL POC Glucose (mg/dL) 288 H 254 H (70-110) mg/dL Hemoglobin A1c (<=6.0) % Calcium (8.4-10.2) mg/dL Ammonia (<30) umol/L Albumin (3.5-5.0) g/dL Valproic Acid ug/mL 11/04/22 11/04/22 11/04/22 Range/Units 05:40 06:20 06:20 WBC 19.4 H (3.8-10.6) k/uL RBC 4.08 L (4.30-5.90) m/uL Hgb (13.0-17.5) gm/dL Hct 38.5 L (39.0-53.0) % Plt Count 145 L (150-450) k/uL Neutrophils # 14.1 H (1.3-7.7) k/uL Neutrophils # (Manual) 13.70 H (1.3-7.7) k/uL Monocytes # 1.8 H (0-1.0) k/uL Monocytes # (Manual) 2.33 H (0-1.0) k/uL Metamyelocytes # (Man) (0) k/uL ABG O2 Saturation (94-97) % Sodium 133 L (137-145) mmol/L Carbon Dioxide (22-30) mmol/L Glucose 185 H (74-99) mg/dL POC Glucose (mg/dL) 181 H (70-110) mg/dL Hemoglobin A1c (<=6.0) % Calcium 8.2 L (8.4-10.2) mg/dL Ammonia (<30) umol/L Albumin 3.4 L (3.5-5.0) g/dL Valproic Acid 120.5 H* ug/mL 11/04/22 11/04/22 11/04/22 Range/Units 09:34 10:42 10:53 WBC (3.8-10.6) k/uL RBC (4.30-5.90) m/uL Hgb (13.0-17.5) gm/dL Hct (39.0-53.0) % Plt Count (150-450) k/uL Neutrophils # (1.3-7.7) k/uL Neutrophils # (Manual) (1.3-7.7) k/uL Monocytes # (0-1.0) k/uL Monocytes # (Manual) (0-1.0) k/uL Metamyelocytes # (Man) (0) k/uL ABG O2 Saturation (94-97) % Sodium (137-145) mmol/L Carbon Dioxide (22-30) mmol/L Glucose (74-99) mg/dL POC Glucose (mg/dL) 217 H 285 H (70-110) mg/dL Hemoglobin A1c 11.0 H (<=6.0) % Calcium (8.4-10.2) mg/dL Ammonia (<30) umol/L Albumin (3.5-5.0) g/dL Valproic Acid ug/mL 11/04/22 11/04/22 11/04/22 Range/Units 10:53 10:53 10:53 WBC 13.7 H (3.8-10.6) k/uL RBC 3.81 L (4.30-5.90) m/uL Hgb 12.4 L (13.0-17.5) gm/dL Hct 36.3 L (39.0-53.0) % Plt Count 121 L (150-450) k/uL Neutrophils # 11.1 H (1.3-7.7) k/uL Neutrophils # (Manual) (1.3-7.7) k/uL Monocytes # 1.2 H (0-1.0) k/uL Monocytes # (Manual) (0-1.0) k/uL Metamyelocytes # (Man) (0) k/uL ABG O2 Saturation (94-97) % Sodium 129 L (137-145) mmol/L Carbon Dioxide 17 L (22-30) mmol/L Glucose 244 H (74-99) mg/dL POC Glucose (mg/dL) (70-110) mg/dL Hemoglobin A1c (<=6.0) % Calcium 7.7 L (8.4-10.2) mg/dL Ammonia 32 H (<30) umol/L Albumin (3.5-5.0) g/dL Valproic Acid ug/mL 11/04/22 Range/Units 12:29 WBC (3.8-10.6) k/uL RBC (4.30-5.90) m/uL Hgb (13.0-17.5) gm/dL Hct (39.0-53.0) % Plt Count (150-450) k/uL Neutrophils # (1.3-7.7) k/uL Neutrophils # (Manual) (1.3-7.7) k/uL Monocytes # (0-1.0) k/uL Monocytes # (Manual) (0-1.0) k/uL Metamyelocytes # (Man) (0) k/uL ABG O2 Saturation 97.2 H (94-97) % Sodium (137-145) mmol/L Carbon Dioxide (22-30) mmol/L Glucose (74-99) mg/dL POC Glucose (mg/dL) (70-110) mg/dL Hemoglobin A1c (<=6.0) % Calcium (8.4-10.2) mg/dL Ammonia (<30) umol/L Albumin (3.5-5.0) g/dL Valproic Acid ug/mL Microbiology - Last 24 Hours (Table) 11/02/22 18:00 Blood Culture - Preliminary Blood 11/02/22 17:45 Blood Culture - Preliminary Blood Assessment and Plan (1) Pyelonephritis Current Visit: Yes Status: Acute Code(s): N12 - TUBULO-INTERSTITIAL NEPHRITIS, NOT SPCF ACUTE OR CHRONIC SNOMED Code(s): 18915018 (2) Sepsis Current Visit: Yes Status: Acute Code(s): A41.9 - SEPSIS, UNSPECIFIED ORGANISM SNOMED Code(s): 33154926 Plan: 1patient presented to the hospital with sepsis in this patient did have a fever tachycardia elevated white resources pyelonephritis in this patient with a urinary symptoms and did have a history of urethra reconstruction after surgery for testicular cancer however CT did not show evidence of hydronephrosis 2-the patient white count is trending down more likely indicating Rocephin sensitive pathogen we will continue the patient on Rocephin to 2 g daily and monitor his clinical course closely. Family the bedside questions were answered Dictation was produced using [employer] dictation software. please excuse any grammatical, word or spelling errors.
--- NOTE | 2022-11-05 08:36 | P.PN ---
Subjective Progress Note Date: 11/05/22 Principal diagnosis: Difficulty voiding The patient states that he is voiding without difficulty this morning. Urine output has been good. Postvoid residuals have been consistently below 200 mL. Objective - Vital Signs Vital signs: Vital Signs Temp 100.6 F H 11/05/22 08:00 Pulse 107 H 11/05/22 08:00 Resp 36 H 11/05/22 08:00 BP 104/82 11/05/22 08:00 Pulse Ox 97 11/05/22 08:10 FiO2 Intake & Output 11/04/22 11/05/22 11/05/22 18:59 06:59 18:59 Intake Total 1170 1820 Output Total 850 650 Balance 320 1170 Weight 90.718 kg 107.4 kg Intake: Intake, IV Titration 1170 1820 Amount Sodium Chloride 0.9% 1, 1170 1820 000 ml @ 130 mls/hr IV . Q7H42M [facility] Rx#:[id number] Output: Urine 850 650 Other: Voiding Method Urinal External Catheter # Voids 1 - Constitutional General appearance: Present: average body habitus, no acute distress - Psychiatric Psychiatric: Present: A&O x's 3 - Labs CBC & Chem 7: 11/05/22 04:12 11/05/22 04:12 Labs: Abnormal Lab Results - Last 24 Hours (Table) 11/04/22 11/04/22 11/04/22 Range/Units 06:20 09:34 10:42 WBC (3.8-10.6) k/uL RBC (4.30-5.90) m/uL Hgb (13.0-17.5) gm/dL Hct (39.0-53.0) % Plt Count (150-450) k/uL Neutrophils # (1.3-7.7) k/uL Monocytes # (0-1.0) k/uL ABG O2 Saturation (94-97) % Sodium (137-145) mmol/L Carbon Dioxide (22-30) mmol/L Glucose (74-99) mg/dL POC Glucose (mg/dL) 217 H 285 H (70-110) mg/dL Hemoglobin A1c (<=6.0) % Calcium (8.4-10.2) mg/dL Ammonia (<30) umol/L Procalcitonin (0.02-0.09) ng/mL Urine Protein (Negative) Urine Glucose (UA) (Negative) Urine Ketones (Negative) Urine Blood (Negative) Urine WBC (0-5) /hpf Valproic Acid 120.5 H* ug/mL 11/04/22 11/04/22 11/04/22 Range/Units 10:53 10:53 10:53 WBC 13.7 H (3.8-10.6) k/uL RBC 3.81 L (4.30-5.90) m/uL Hgb 12.4 L (13.0-17.5) gm/dL Hct 36.3 L (39.0-53.0) % Plt Count 121 L (150-450) k/uL Neutrophils # 11.1 H (1.3-7.7) k/uL Monocytes # 1.2 H (0-1.0) k/uL ABG O2 Saturation (94-97) % Sodium (137-145) mmol/L Carbon Dioxide (22-30) mmol/L Glucose (74-99) mg/dL POC Glucose (mg/dL) (70-110) mg/dL Hemoglobin A1c 11.0 H (<=6.0) % Calcium (8.4-10.2) mg/dL Ammonia 32 H (<30) umol/L Procalcitonin (0.02-0.09) ng/mL Urine Protein (Negative) Urine Glucose (UA) (Negative) Urine Ketones (Negative) Urine Blood (Negative) Urine WBC (0-5) /hpf Valproic Acid ug/mL 11/04/22 11/04/22 11/04/22 Range/Units 10:53 10:53 12:29 WBC (3.8-10.6) k/uL RBC (4.30-5.90) m/uL Hgb (13.0-17.5) gm/dL Hct (39.0-53.0) % Plt Count (150-450) k/uL Neutrophils # (1.3-7.7) k/uL Monocytes # (0-1.0) k/uL ABG O2 Saturation 97.2 H (94-97) % Sodium 129 L (137-145) mmol/L Carbon Dioxide 17 L (22-30) mmol/L Glucose 244 H (74-99) mg/dL POC Glucose (mg/dL) (70-110) mg/dL Hemoglobin A1c (<=6.0) % Calcium 7.7 L (8.4-10.2) mg/dL Ammonia (<30) umol/L Procalcitonin 1.98 H (0.02-0.09) ng/mL Urine Protein (Negative) Urine Glucose (UA) (Negative) Urine Ketones (Negative) Urine Blood (Negative) Urine WBC (0-5) /hpf Valproic Acid ug/mL 11/04/22 11/04/22 11/04/22 Range/Units 14:26 18:16 18:30 WBC (3.8-10.6) k/uL RBC (4.30-5.90) m/uL Hgb (13.0-17.5) gm/dL Hct (39.0-53.0) % Plt Count (150-450) k/uL Neutrophils # (1.3-7.7) k/uL Monocytes # (0-1.0) k/uL ABG O2 Saturation (94-97) % Sodium (137-145) mmol/L Carbon Dioxide (22-30) mmol/L Glucose (74-99) mg/dL POC Glucose (mg/dL) 220 H 212 H (70-110) mg/dL Hemoglobin A1c (<=6.0) % Calcium (8.4-10.2) mg/dL Ammonia (<30) umol/L Procalcitonin (0.02-0.09) ng/mL Urine Protein Trace H (Negative) Urine Glucose (UA) 4+ H (Negative) Urine Ketones Trace H (Negative) Urine Blood Trace H (Negative) Urine WBC 6 H (0-5) /hpf Valproic Acid ug/mL 11/04/22 11/05/22 11/05/22 Range/Units 20:45 04:12 04:12 WBC 10.9 H (3.8-10.6) k/uL RBC 3.44 L (4.30-5.90) m/uL Hgb 11.4 L (13.0-17.5) gm/dL Hct 32.5 L (39.0-53.0) % Plt Count 112 L (150-450) k/uL Neutrophils # (1.3-7.7) k/uL Monocytes # 1.2 H (0-1.0) k/uL ABG O2 Saturation (94-97) % Sodium 133 L (137-145) mmol/L Carbon Dioxide (22-30) mmol/L Glucose 104 H (74-99) mg/dL POC Glucose (mg/dL) 193 H (70-110) mg/dL Hemoglobin A1c (<=6.0) % Calcium 7.5 L (8.4-10.2) mg/dL Ammonia (<30) umol/L Procalcitonin (0.02-0.09) ng/mL Urine Protein (Negative) Urine Glucose (UA) (Negative) Urine Ketones (Negative) Urine Blood (Negative) Urine WBC (0-5) /hpf Valproic Acid 127.2 H* ug/mL 11/05/22 Range/Units 06:41 WBC (3.8-10.6) k/uL RBC (4.30-5.90) m/uL Hgb (13.0-17.5) gm/dL Hct (39.0-53.0) % Plt Count (150-450) k/uL Neutrophils # (1.3-7.7) k/uL Monocytes # (0-1.0) k/uL ABG O2 Saturation (94-97) % Sodium (137-145) mmol/L Carbon Dioxide (22-30) mmol/L Glucose (74-99) mg/dL POC Glucose (mg/dL) 111 H (70-110) mg/dL Hemoglobin A1c (<=6.0) % Calcium (8.4-10.2) mg/dL Ammonia (<30) umol/L Procalcitonin (0.02-0.09) ng/mL Urine Protein (Negative) Urine Glucose (UA) (Negative) Urine Ketones (Negative) Urine Blood (Negative) Urine WBC (0-5) /hpf Valproic Acid ug/mL Microbiology - Last 24 Hours (Table) 11/02/22 18:00 Blood Culture - Preliminary Blood 11/02/22 17:45 Blood Culture - Preliminary Blood Assessment and Plan Assessment: The patient is emptying his bladder adequately. CT scan shows fat stranding around both kidneys, left greater than right, with mild left retroperitoneal adenopathy. Although this appears to be inflammatory, perhaps due to an un derlying UTI, it is noteworthy that this is the region where left testicular cancer would metastasize. Plan: -Urethral dilation would be required to place a [place] catheter. I will recommend this be done only if his postvoid residuals increase. - Continue ceftriaxone, pending urine and blood cultures. - Will review office records regarding patient's history of seminoma.
--- NOTE | 2022-11-05 08:49 | P.PN ---
Subjective Progress Note Date: 11/05/22 This is a 52-year-old male patient chest to the intensive care unit as the patient was having fever and ongoing seizures on the medical floor. The patient was admitted yesterday to the hospital with symptoms of UTI and SPECT of urine tract infection sepsis. The patient was complaining of some pain in the right flank along burning in his urine for few days. He is known to have diabetes mellitus. His also undergone a previous surgery for testicular cancer and is also known to have seizure disorder maintained on Depakote a total of 1500 mg on a daily basis. The patient presented with fever of 102, tachycardia, hypotension, leukocytosis and sepsis. The patient had a white cell count of 22,000. The patient had a CAT scan of the abdomen that showed stranding along the left kidney and the right kidney concerning of an underlying infection. The fat stranding was worse on the left. The patient also has a prominent retroperitoneal lymph nodes proximal left. There was also evidence of hepatitic steatosis. The patient was started on IV Rocephin. The patient was seen by infectious disease. UA showed 31 WBCs and +4 glucose, +1 ketones and small amount of leukocyte esterase. Ultrasound the kidneys and the level was also done that showed no evidence of any hydronephrosis. There was a masslike area along the left anterior wall of the bladder which could be a session artifacts. There was again hepatitic steatosis. The patient got transferred to the ICU as the patient was having high-grade fever. The patient was becoming unresponsive and has had been having frequent episodes of seizures a total of 3 or 4. The A team was involved and the patient was given a total of 6 minute grams of IV Ativan. Currently is post ictal and unresponsive. Chest is currently on 3 L of oxygen by nasal cannula. He is obese and he is having some soft snoring. Nonverbal. Not responding to any verbal commands. Withdraws only to painful stimulation. No neck stiffness. Is in sinus tachycardia. Heart rate is around 140. Pulse is 94% on 3 L of oxygen by nasal cannula. BP is 130/77. Kingston catheter be inserted. The seizures were essentially the pulmonary chronic chronic seizures. The patient's had a CAT scan of the brain and the time of admission that showed no acute abnormalities. His Depakote level is 120 which is supratherapeutic. The patient has been followed by Dr. rider outpatient. Blood sugar control has been suboptimal outpatient basis. He has limited on a combination of ozempic and oral hypoglycemic medications. No chronic lung disease. No history of any cardiac disease. IV fluids are currently in the form of normal saline at 130 mL an hour. Most recent temperature is 103.8. On today's evaluation of 11/05/2022, the patient is being seen for a follow-up. Is calm and comfortable. No seizure activity overnight. The patient is currently on oxygen at 2 L/m nasal cannula. His white cell count is at 10.9. Blood cultures are still negative. His most recent temperature was 100.6. Cultures still pending for now. His pro calcitonin level was elevated at 1.98 consistent with an underlying bacterial infection. He remains on Rocephin 2 g. There was also given a dose of vancomycin yesterday. He remains on Vimpat. Neurology is on the case. EEG was completed yesterday and the patient's had an abnormal EEG with diffuse slowing of the ways. There was no evidence of any active seizures based on the EEG findings. The white cycles of 10.9, hemoglobin 11.4, platelet count is at 112, BUN is at 40 with a creatinine of 0.9 and a sodium level is at 133. His urine drug screen has been negative. He remains on Tylenol for fever. He remains on Lovenox for DVT prophylaxis. Remains on Levemir insulin at a dose of 25 units and is also receiving a sliding scale coverage. The patient is recovering from his post ictal state. He remains quite lethargic and somnolent and encephalopathic at this point in time. Urology was consulted regarding urethral stricture and there was noted that the patient was emptying his bladder adequately. CAT scan of the abdomen showed fat stranding in both kidneys. There is obviously inflammatory. Is also known to have less testicular cancer. The Kingston catheter was then inserted due to urethral stricture. Objective - Vital Signs Vital signs: Vital Signs Temp 100.6 F H 11/05/22 08:00 Pulse 107 H 11/05/22 08:00 Resp 36 H 11/05/22 08:00 BP 104/82 11/05/22 08:00 Pulse Ox 97 11/05/22 08:10 FiO2 Intake & Output 11/04/22 11/05/22 11/05/22 18:59 06:59 18:59 Intake Total 1170 1820 Output Total 850 650 Balance 320 1170 Weight 90.718 kg 107.4 kg Intake: Intake, IV Titration 1170 1820 Amount Sodium Chloride 0.9% 1, 1170 1820 000 ml @ 130 mls/hr IV . Q7H42M [facility] Rx#:[id number] Output: Urine 850 650 Other: Voiding Method Urinal External Catheter # Voids 1 - Exam The patient is still encephalopathic, yet arousable. Is quite somnolent. Is moving all 4 extremities. No focal neurological deficits. No neck stiffness. He was in a postictal state yesterday and he seems to be gradually improving. Head exam was generally normal. There was no scleral icterus or corneal arcus. Mucous membranes were moist. Neck was supple and without jugular venous distension, thyromegaly, or carotid bruits. Carotids were easily palpable bilaterally. There was no adenopathy. There is no neck stiffness. The patient has dry mucous membranes and the patient is a Mallampati class IV. Lungs were clear to auscultation and percussion, and with normal diaphragmatic excursion. No wheezes or rales were noted. Cardiac exam revealed the PMI to be normally situated and sized. The rhythm was regular and no extrasystoles were noted during several minutes of auscultation. The first and second heart sounds were normal and physiologic splitting of the second heart sound was noted. There were no murmurs, rubs, clicks, or gallops. Abdominal exam revealed normal bowel sounds. The abdomen was soft, non-tender, and without masses, organomegaly, or appreciable enlargement of the abdominal aorta. Extremities Examination of the extremities revealed easily palpable radial, femoral and pedal pulses. There was no cyanosis, clubbing or edema. Examination of the skin revealed no evidence of significant rashes, suspicious appearing nevi or other concerning lesions. - Labs CBC & Chem 7: 11/05/22 04:12 11/05/22 04:12 Labs: Abnormal Lab Results - Last 24 Hours (Table) 11/04/22 11/04/22 11/04/22 Range/Units 06:20 09:34 10:42 WBC (3.8-10.6) k/uL RBC (4.30-5.90) m/uL Hgb (13.0-17.5) gm/dL Hct (39.0-53.0) % Plt Count (150-450) k/uL Neutrophils # (1.3-7.7) k/uL Monocytes # (0-1.0) k/uL ABG O2 Saturation (94-97) % Sodium (137-145) mmol/L Carbon Dioxide (22-30) mmol/L Glucose (74-99) mg/dL POC Glucose (mg/dL) 217 H 285 H (70-110) mg/dL Hemoglobin A1c (<=6.0) % Calcium (8.4-10.2) mg/dL Ammonia (<30) umol/L Procalcitonin (0.02-0.09) ng/mL Urine Protein (Negative) Urine Glucose (UA) (Negative) Urine Ketones (Negative) Urine Blood (Negative) Urine WBC (0-5) /hpf Valproic Acid 120.5 H* ug/mL 11/04/22 11/04/22 11/04/22 Range/Units 10:53 10:53 10:53 WBC 13.7 H (3.8-10.6) k/uL RBC 3.81 L (4.30-5.90) m/uL Hgb 12.4 L (13.0-17.5) gm/dL Hct 36.3 L (39.0-53.0) % Plt Count 121 L (150-450) k/uL Neutrophils # 11.1 H (1.3-7.7) k/uL Monocytes # 1.2 H (0-1.0) k/uL ABG O2 Saturation (94-97) % Sodium (137-145) mmol/L Carbon Dioxide (22-30) mmol/L Glucose (74-99) mg/dL POC Glucose (mg/dL) (70-110) mg/dL Hemoglobin A1c 11.0 H (<=6.0) % Calcium (8.4-10.2) mg/dL Ammonia 32 H (<30) umol/L Procalcitonin (0.02-0.09) ng/mL Urine Protein (Negative) Urine Glucose (UA) (Negative) Urine Ketones (Negative) Urine Blood (Negative) Urine WBC (0-5) /hpf Valproic Acid ug/mL 08/04/23 08/04/23 08/04/23 Range/Units 10:53 10:53 12:29 WBC (3.8-10.6) k/uL RBC (4.30-5.90) m/uL Hgb (13.0-17.5) gm/dL Hct (39.0-53.0) % Plt Count (150-450) k/uL Neutrophils # (1.3-7.7) k/uL Monocytes # (0-1.0) k/uL ABG O2 Saturation 97.2 H (94-97) % Sodium 129 L (137-145) mmol/L Carbon Dioxide 17 L (22-30) mmol/L Glucose 244 H (74-99) mg/dL POC Glucose (mg/dL) (70-110) mg/dL Hemoglobin A1c (<=6.0) % Calcium 7.7 L (8.4-10.2) mg/dL Ammonia (<30) umol/L Procalcitonin 1.98 H (0.02-0.09) ng/mL Urine Protein (Negative) Urine Glucose (UA) (Negative) Urine Ketones (Negative) Urine Blood (Negative) Urine WBC (0-5) /hpf Valproic Acid ug/mL 11/04/22 11/04/22 11/04/22 Range/Units 14:26 18:16 18:30 WBC (3.8-10.6) k/uL RBC (4.30-5.90) m/uL Hgb (13.0-17.5) gm/dL Hct (39.0-53.0) % Plt Count (150-450) k/uL Neutrophils # (1.3-7.7) k/uL Monocytes # (0-1.0) k/uL ABG O2 Saturation (94-97) % Sodium (137-145) mmol/L Carbon Dioxide (22-30) mmol/L Glucose (74-99) mg/dL POC Glucose (mg/dL) 220 H 212 H (70-110) mg/dL Hemoglobin A1c (<=6.0) % Calcium (8.4-10.2) mg/dL Ammonia (<30) umol/L Procalcitonin (0.02-0.09) ng/mL Urine Protein Trace H (Negative) Urine Glucose (UA) 4+ H (Negative) Urine Ketones Trace H (Negative) Urine Blood Trace H (Negative) Urine WBC 6 H (0-5) /hpf Valproic Acid ug/mL 11/04/22 11/05/22 11/05/22 Range/Units 20:45 04:12 04:12 WBC 10.9 H (3.8-10.6) k/uL RBC 3.44 L (4.30-5.90) m/uL Hgb 11.4 L (13.0-17.5) gm/dL Hct 32.5 L (39.0-53.0) % Plt Count 112 L (150-450) k/uL Neutrophils # (1.3-7.7) k/uL Monocytes # 1.2 H (0-1.0) k/uL ABG O2 Saturation (94-97) % Sodium 133 L (137-145) mmol/L Carbon Dioxide (22-30) mmol/L Glucose 104 H (74-99) mg/dL POC Glucose (mg/dL) 193 H (70-110) mg/dL Hemoglobin A1c (<=6.0) % Calcium 7.5 L (8.4-10.2) mg/dL Ammonia (<30) umol/L Procalcitonin (0.02-0.09) ng/mL Urine Protein (Negative) Urine Glucose (UA) (Negative) Urine Ketones (Negative) Urine Blood (Negative) Urine WBC (0-5) /hpf Valproic Acid 127.2 H* ug/mL 11/05/22 Range/Units 06:41 WBC (3.8-10.6) k/uL RBC (4.30-5.90) m/uL Hgb (13.0-17.5) gm/dL Hct (39.0-53.0) % Plt Count (150-450) k/uL Neutrophils # (1.3-7.7) k/uL Monocytes # (0-1.0) k/uL ABG O2 Saturation (94-97) % Sodium (137-145) mmol/L Carbon Dioxide (22-30) mmol/L Glucose (74-99) mg/dL POC Glucose (mg/dL) 111 H (70-110) mg/dL Hemoglobin A1c (<=6.0) % Calcium (8.4-10.2) mg/dL Ammonia (<30) umol/L Procalcitonin (0.02-0.09) ng/mL Urine Protein (Negative) Urine Glucose (UA) (Negative) Urine Ketones (Negative) Urine Blood (Negative) Urine WBC (0-5) /hpf Valproic Acid ug/mL Microbiology - Last 24 Hours (Table) 11/02/22 18:00 Blood Culture - Preliminary Blood 11/02/22 17:45 Blood Culture - Preliminary Blood Assessment and Plan Plan: Acute breakthrough seizure, Depakote level is 120 and the patient received a total of 6 mg grams IV Ativan. The patient is known to have seizure disorder. CAT scan of the brain was done at time of admission that was negative. Repeat CAT scan was done yesterday and showed no acute process and the EEG showed no active seizure activity and there was diffuse slowing of the ways and the p atient remains on Vimpat. Neurology is on the case. No neck stiffness. No focal neurological deficit at this point in time. Acute febrile illness/sepsis currently under investigation. Rule out underlying urinary tract infection/pyelonephritis. The patient may have underlying pyonephritis on the left and the patient initially presented with flank pain. The patient is on IV Rocephin. CAT scan of abdomen showed fat stranding bilaterally worse on the left. The pro-calcitonin level is elevated and suspected bacterial infection. The patient remains on IV Rocephin. ID is on the case. Cultures are negative thus far. Acute leukocytosis secondary to above, improving Acute tachycardia secondary to above, improving Diabetes mellitus type 2, currently on Levemir insulin Obesity with a BMI of 34.3. Altered mentation secondary to sepsis in addition to post ictal state following recurrent seizures witnessed on the medical floor History of testicular cancer with previous testicular resection and bladder surgeries Urethral stricture, no instrumentation or Kingston catheterization was done and the patient is voiding adequately for now Plan IV Tylenol for fever, monitor fever pattern blood cultures, urine culture and check pro calcitonin level is elevated Continue IV Rocephin 2 g every 24 hours ID consultation Monitor mental status. Mental status is somewhat improved compared to yesterday although the patient continues to be encephalopathic Continue Vimpat Check CPK Check lactic acid level was 1.4 Check blood gases Kingston catheter was inserted because of urethral stricture Continue IV fluids with normal saline at the rate of 1:30 mL an hour Aspiration precautions Seizure precautions Neurology consultation EEG was noted is consistent with encephalopathy Sliding-scale insulin coverage, addition to Levemir insulin Lovenox 40 mg subcu for DVT prophylaxis IV Protonix Titrate oxygen flow to maintain a saturation above 90% Monitor stool output and his diarrhea, check stool for C. diff We'll continue to follow Condition is critical We'll keep the patient in intensive care unit for now
[2022-11-05] MEDS: DIVALPROEX 500 MG TABLET.DR PO SCH ×2 (09:36→20:20)
[2022-11-05] MEDS: ENOXAPARIN 40 MG/0.4 ML SYRINGE SQ SCH (09:40)
[2022-11-05] MEDS: Lacosamide IV (ages 17+ yrs) 200 MG/20 ML ML IVP SCH (09:40)
[2022-11-05] MEDS: PANTOPRAZOLE 40 MG/10 ML VIAL IV SCH (09:40)
[2022-11-05] MEDS: METOPROLOL TARTRATE 50 MG TAB PO SCH ×2 (09:40→20:21)
[2022-11-05] MEDS: DORZOLAMIDE-TIMOLOL 2.23%/0.68 10ML BTL BOTH EYES SCH ×2 (09:49→20:21)
--- NOTE | 2022-11-05 11:15 | P.PN ---
Subjective Progress Note Date: 11/05/22 Patient seen at bedside and the per the nurse he is improving. Objective - Vital Signs Vital signs: Vital Signs Temp 100.6 F H 11/05/22 08:00 Pulse 107 H 11/05/22 09:00 Resp 26 H 11/05/22 09:00 BP 115/70 11/05/22 09:00 Pulse Ox 97 11/05/22 09:00 FiO2 Intake & Output 11/04/22 11/05/22 11/05/22 18:59 06:59 18:59 Intake Total 1170 1820 270 Output Total 850 650 0 Balance 320 1170 270 Weight 90.718 kg 107.4 kg Intake: IV 270 Invasive Line 1 10 Sodium Chloride 0.9% 1, 260 000 ml @ 130 mls/hr IV . Q7H42M [facility] Rx#:[id number] Intake, IV Titration 1170 1820 Amount Sodium Chloride 0.9% 1, 1170 1820 000 ml @ 130 mls/hr IV . Q7H42M [facility] Rx#:[id number] Output: Urine 850 650 0 Other: Voiding Method Urinal External Catheter External Catheter # Voids 1 - Exam General: patient is lying in bed and is not in acute distress. Neuro- Limited because of his condition/cooperation. Patient is drowsy but is awake couple to voice. He is oriented to self, place and time. He is able to follow a few simple commands such as a showed a thumbs up and do wiggling his toes. No facial weakness. No dysarthria. Motor the strength is hard to assess because of his cooperation but is able to show thumbs up on bilateral hand as well as wiggling toes. Some other workup during this hospital visit consisted of: White blood cells 14.6 thousand predominantly neutrophilic and then it got as high as 22,000 Sugar is uncontrolled in the 200s. Hemoglobin A1c is 11.0. Plasma lactic acid vein is a 1.4 Urinalysis is a leukocyte esterases small but urine white blood cells 31. Valproic acid is 120.5 and the therapeutic is between 5220 within [address] of the head was reported as allowing for scattered prominent artifact, no definite acute process. I personally reviewed the CT and I agree there is motion artifact but there is no acute or subacute ischemia or bleed that was appreciable. Ammonia level is 32. Normal is less than 30. Routine EEG is abnormal. The background slowing suggestive of mild encephalopathy likely due to underlying medication effect (Ativan). Was there is no focal slowing, epileptiform discharges or seizure on the EEG. - Labs CBC & Chem 7: 11/05/22 04:12 11/05/22 04:12 Labs: Abnormal Lab Results - Last 24 Hours (Table) 11/04/22 11/04/22 11/04/22 Range/Units 10:53 10:53 10:53 WBC 13.7 H (3.8-10.6) k/uL RBC 3.81 L (4.30-5.90) m/uL Hgb 12.4 L (13.0-17.5) gm/dL Hct 36.3 L (39.0-53.0) % Plt Count 121 L (150-450) k/uL Neutrophils # 11.1 H (1.3-7.7) k/uL Monocytes # 1.2 H (0-1.0) k/uL ABG O2 Saturation (94-97) % Sodium (137-145) mmol/L Carbon Dioxide (22-30) mmol/L Glucose (74-99) mg/dL POC Glucose (mg/dL) (70-110) mg/dL Hemoglobin A1c 11.0 H (<=6.0) % Calcium (8.4-10.2) mg/dL Ammonia 32 H (<30) umol/L Procalcitonin (0.02-0.09) ng/mL Urine Protein (Negative) Urine Glucose (UA) (Negative) Urine Ketones (Negative) Urine Blood (Negative) Urine WBC (0-5) /hpf Valproic Acid ug/mL 11/04/22 11/04/22 11/04/22 Range/Units 10:53 10:53 12:29 WBC (3.8-10.6) k/uL RBC (4.30-5.90) m/uL Hgb (13.0-17.5) gm/dL Hct (39.0-53.0) % Plt Count (150-450) k/uL Neutrophils # (1.3-7.7) k/uL Monocytes # (0-1.0) k/uL ABG O2 Saturation 97.2 H (94-97) % Sodium 129 L (137-145) mmol/L Carbon Dioxide 17 L (22-30) mmol/L Glucose 244 H (74-99) mg/dL POC Glucose (mg/dL) (70-110) mg/dL Hemoglobin A1c (<=6.0) % Calcium 7.7 L (8.4-10.2) mg/dL Ammonia (<30) umol/L Procalcitonin 1.98 H (0.02-0.09) ng/mL Urine Protein (Negative) Urine Glucose (UA) (Negative) Urine Ketones (Negative) Urine Blood (Negative) Urine WBC (0-5) /hpf Valproic Acid ug/mL 11/04/22 11/04/22 11/04/22 Range/Units 14:26 18:16 18:30 WBC (3.8-10.6) k/uL RBC (4.30-5.90) m/uL Hgb (13.0-17.5) gm/dL Hct (39.0-53.0) % Plt Count (150-450) k/uL Neutrophils # (1.3-7.7) k/uL Monocytes # (0-1.0) k/uL ABG O2 Saturation (94-97) % Sodium (137-145) mmol/L Carbon Dioxide (22-30) mmol/L Glucose (74-99) mg/dL POC Glucose (mg/dL) 220 H 212 H (70-110) mg/dL Hemoglobin A1c (<=6.0) % Calcium (8.4-10.2) mg/dL Ammonia (<30) umol/L Procalcitonin (0.02-0.09) ng/mL Urine Protein Trace H (Negative) Urine Glucose (UA) 4+ H (Negative) Urine Ketones Trace H (Negative) Urine Blood Trace H (Negative) Urine WBC 6 H (0-5) /hpf Valproic Acid ug/mL 11/04/22 11/05/22 11/05/22 Range/Units 20:45 04:12 04:12 WBC 10.9 H (3.8-10.6) k/uL RBC 3.44 L (4.30-5.90) m/uL Hgb 11.4 L (13.0-17.5) gm/dL Hct 32.5 L (39.0-53.0) % Plt Count 112 L (150-450) k/uL Neutrophils # (1.3-7.7) k/uL Monocytes # 1.2 H (0-1.0) k/uL ABG O2 Saturation (94-97) % Sodium 133 L (137-145) mmol/L Carbon Dioxide (22-30) mmol/L Glucose 104 H (74-99) mg/dL POC Glucose (mg/dL) 193 H (70-110) mg/dL Hemoglobin A1c (<=6.0) % Calcium 7.5 L (8.4-10.2) mg/dL Ammonia (<30) umol/L Procalcitonin (0.02-0.09) ng/mL Urine Protein (Negative) Urine Glucose (UA) (Negative) Urine Ketones (Negative) Urine Blood (Negative) Urine WBC (0-5) /hpf Valproic Acid 127.2 H* ug/mL 11/05/22 Range/Units 06:41 WBC (3.8-10.6) k/uL RBC (4.30-5.90) m/uL Hgb (13.0-17.5) gm/dL Hct (39.0-53.0) % Plt Count (150-450) k/uL Neutrophils # (1.3-7.7) k/uL Monocytes # (0-1.0) k/uL ABG O2 Saturation (94-97) % Sodium (137-145) mmol/L Carbon Dioxide (22-30) mmol/L Glucose (74-99) mg/dL POC Glucose (mg/dL) 111 H (70-110) mg/dL Hemoglobin A1c (<=6.0) % Calcium (8.4-10.2) mg/dL Ammonia (<30) umol/L Procalcitonin (0.02-0.09) ng/mL Urine Protein (Negative) Urine Glucose (UA) (Negative) Urine Ketones (Negative) Urine Blood (Negative) Urine WBC (0-5) /hpf Valproic Acid ug/mL Microbiology - Last 24 Hours (Table) 11/02/22 18:00 Blood Culture - Preliminary Blood 11/02/22 17:45 Blood Culture - Preliminary Blood Assessment and Plan Assessment: This is a 52-year-old gentleman with history of nonepileptic seizures and had multiple studies had a prolonged 20 half hour EEG in our facility in November 2020 and his episodes were not epileptic as well as a had EEG done overhead reported and also was nonepileptic according to the , uncontrolled diabetes will has underlying sepsis due to UTI. Today patient had seizure-like activity lasting for 10 minutes and resolved she was given 6 limb Ativan. Breakthrough seizure is likely nonepileptic in nature especially with his previous history of nonepileptic seizures and his lactic acid was normal (even though he had prolonged shaking). EEG is mild encephalopathy and no seizure or discharges. Encephalopathy due to underlying sepsis from UTI/pyelopnephritis--mentation improving History of nonepileptic seizures (had prolonged 2.5 hour EEG in our facility in 11/2020 and a week study at [facility] and both were non-epileptic) Uncontrolled diabetes mellitus with a hemoglobin A1c of 11.0 Sepsis possible due to underlying UTI/pyelonephritis Plan: Since the patient's valproic acid level was 120 which was a possible toxic level. I went down on valproic acid function at 1500 mg twice a day 2000 mg twice a day. There is a a lot of side effects to valproic acid such as obesity, osteoporosis, confusion etc. I started him on Vimpat 50mg twice a day on 11/04/2022. I will stop Vimpat since mentation is better and started him on Lamictal which helps both with mood disorder and antiepiletpic benefit. Also start the patient on Lamictal 25 mg daily at bedtime and the goal is 50 mg twice a day. Every week we'll add a 25 mg dose (so next week 25mg bid). If patient develop any rash please discontinue lamictal. Ordered repeat Valproic level. I discontinued the order of 2 mg every 1 hour when necessary for seizures that was ordered by the ICU attending especially since the patient's episodes are nonepileptic Recommend the patient to follow-up with a neurologist as an outpatient as well as psychiatry as an outpatient because of his nonepileptic seizures Continue neuro checks Defer the rest of the management to primary, I see another specialist The plan discussed with his nurse. Time with Patient: Less than 30
[2022-11-05 11:37] LABS: Glucose,Whole Blood 78 mg/dL (70-110)
[2022-11-05] MEDS: lamoTRIgine 25 MG TAB PO SCH (11:50)
--- NOTE | 2022-11-05 12:46 | P.PN ---
Subjective Progress Note Date: 11/05/22 This is a 52-year-old male who presented to the emergency department for increased weakness and fatigue and generalized not feeling well. Patient reports over the last 2 days he is progressively becoming more weak and having chills and fevers and came to the ER for further evaluation. Patient also repo rts he has been having pain and burning with urination that has been ongoing for the last 2 weeks and did not follow-up with his doctor in regards to this. Patient follows with Dr. Montejo in the outpatient setting with a past medical history of enlarged prostate, testicular cancer along with diabetes mellitus and seizure disorder and renal failure. Patient reports to being a former smoker and uses a vape. In the ER chest x-ray showed low lung volumes with a generalized hazy appearance which could represent atelectasis versus pulmonary edema, CT brain showed no acute intracranial process, CT abdomen and pelvis showed fat stranding changing around the kidneys with left greater than right with prominent retroperitoneal lymph nodes most proximal left correlate for infection consider dedicated renal mass protocol CT MRI for underlying for complete evaluation of the kidneys and correlation with urinalysis is recommended along with hepatic steatosis, and EKG showed sinus tachycardia. Labs reviewed reveal a white blood count of 14.6, hemoglobin 15.3, sodium 135 with a potassium of 4.3, creatinine 0.83, lactic acid was 1.5, magnesium was 1.3 with a total bilirubin of 1.0, troponin was negative and amylase lipase within normal limits. Urinalysis revealed high protein glucose and ketones with a small amount of leukocyte Estrace and white blood count was 31. Urine culture is pending at this time. Blood cultures were ordered and infectious disease was consulted. Patient was given a gram of Rocephin and will resume and start the patient on insulin regimen as patient's blood sugars are poorly controlled. 11/04/2022 Patient seen and evaluated in follow-up this morning during an a team for seizure-like activity. Patient maintained on Depakote as per for seizure history and had extensive neurologic workup at [facility] and reported as nonepileptic. Medical records requested and pending at this time. Patient had been seen previously in this hospital and underwent prolonged EEG which was negative as well. Valproic acid level was drawn and extremely elevated at 120. Patient started becoming more obtunded and unresponsive and convulsing that lasted approximately 10 minutes. Patient received a total of 6 mg of Ativan during the a team and a repeat computed tomography scan was ordered and pending. Patient was noted to have significant fevers throughout the night of 103. Patient is currently maintained on IV antibiotics in the form of ceftriaxone wi th infectious disease following. Urine culture has been sent and pending at this time. Blood sugars better controlled and will continue current regimen hemoglobin A1c was noted to be above 11 and patient is normally maintained on once weekly ozempic along with oral diabetic agents and will need better glycemic control and insulins on discharge. Patient continued to have seizure- like activity and unresponsive and discussed with ICU meteorologist in charge and will be brought to ICU for closer monitoring. Neurology was consulted as well. 11/05/2022 Patient remains in intensive care unit, no further seizure-like activity reported. He continues to be confused today he is alert 0. Brain CT completed yesterday shows scattered prominent artifact with no definite acute process. He also underwent EEG which is negative for seizure-like activity this suggestion of mild encephalopathy likely due to medication effect. Patient did receive IV Ativan prior to. He was seen in consultation by neurology, meteorologist in charge and urologist. He does have a history of multiple urological surgeries does have a known urethral stricture ALLERGIES recommending to use external catheter and avoid indwelling catheter possible. His bladder scans have been showing less than 200 mls. He is following commands he was noted to have diffused weakness. Labs today show white count of 10.9, hemoglobin stable 11.4, sodium has improved to 133, kidney function is within normal limits. His blood glucoses improved with the addition of long-acting insulin today to swell 4. Hemoglobin A1c was noted to be 11. He had an elevated pro-calcitonin level of 1.98 suggesting an underlying bacterial infection and he remains on IV antibiotics in the form of IV Rocephin. Valproic acid was noted to be in the toxic range of 127.2 today neurology did decrease depakote and also recommended patient to begin lamictal. Ammonia level was noted to be elevated at 30 to yesterday we will repeat this level and provide a dose of lactulose. Review of systems: Unable to obtain patient is confused alert x 0 and not answering questions appropriately. PHYSICAL EXAMINATION: GENERAL: The patient is bed, alert x 0, lethargic, Well developed, well nourished. Obese HEENT: Pupils are 2-3 mm although reacting to light. EOMI. no scleral icterus. No conjunctival pallor. Normocephalic, atraumatic. No pharyngeal erythema. No thyromegaly. CARDIOVASCULAR: S1 and S2 muffled PULMONARY: diminished breath sounds bilaterally with no wheezing or rhonchi noted. tachypneic ABDOMEN: soft. Nontender on exam. obese. non-distended, normoactive bowel sounds. No palpable organomegaly. MUSCULOSKELETAL: No joint swelling or deformity. EXTREMITIES: No cyanosis, clubbing, or pedal edema. NEUROLOGICAL: Gross neurological examination did not reveal any focal deficits. Diffuse weakness SKIN: No rashes. Assessment: Fevers with leukocytosis with features of sepsis, present on admission. Patient is reporting Burning and frequency with urination, possible acute urinary tract infection/ pyelonephritis. Procalcitonin is elevated suggestive of bacterial infection. Leukocytosis secondary to above Acute Metabolic encephalopathy, multifactorial, secondary to sepsis as well as seizure-like activity with EEG showing no seizure like activity Hypomagnesemia, replaced and improved Breakthrough seizure with history of seizure disorder, maintained on Depakote Elevated Depakote level Obesity with a BMI of 34.3 Diabetes mellitus, type II, severely uncontrolled with hyperglycemia and noncompliance of medications, hemoglobin A1c is 11 History of testicular cancer Seizure disorder history Former smoker and Vapes GI prophylaxis DVT prophylaxis Full code Plan: Confirmed with primary care provider's office of Depakote dosage [facility] and he takes a total of 750 mg twice daily. Valproic acid was 120. Medical records from [facility] are pending. Was brought to the ICU for continued seizing activity and unresponsive and meteorologist in charge consulted. Patient will remain in the ICU with close monitoring. No further seizure like activity noted. Awaiting urine culture and patient is continued on ceftriaxone with concerns of pyelonephritis with urinary tract infection. Infectious disease is following. Urine culture has not been collected yet. Patient significantly uncontrolled diabetes with hyperglycemia will continue insulin sliding scale along with long-acting with consistent carb diet. Hemoglobin A1c was above 11 and will need insulins on discharge Urology has evaluated the patient recommending external catheter to avoid IDC if possible and continue to monitor for urinary retention. Will have PT/OT therapy evaluate the patient Repeat ammonia level and follow up CBC and BMP In the AM. Neurology adjusting medications has decreased depakote dose and will repeat valproic acid level. The impression and plan of care has been dictated by Vee Melendrez Nurse Practitioner as directed. Dr. Gabriel MD I have performed a history and physical examination and medical decision making of this patient, discussed the same with the dictator, and agree with the dictators assessment and plan as written, documented as a scribe. Based on total visit time, I have performed more than 50% of this visit. Objective - Vital Signs Vital signs: Vital Signs Temp 100.6 F H 11/05/22 08:00 Pulse 107 H 11/05/22 08:00 Resp 36 H 11/05/22 08:00 BP 104/82 11/05/22 08:00 Pulse Ox 97 11/05/22 08:10 FiO2 Intake & Output 11/04/22 11/05/22 11/05/22 18:59 06:59 18:59 Intake Total 1170 1820 Output Total 850 650 Balance 320 1170 Weight 90.718 kg 107.4 kg Intake: Intake, IV Titration 1170 1820 Amount Sodium Chloride 0.9% 1, 1170 1820 000 ml @ 130 mls/hr IV . [id number] [facility] Rx#:[id number] Output: Urine 850 650 Other: Voiding Method Urinal External Catheter # Voids 1 - Labs CBC & Chem 7: 11/05/22 04:12 11/05/22 04:12 Labs: Abnormal Lab Results - Last 24 Hours (Table) 11/04/22 11/04/22 11/04/22 Range/Units 09:34 10:42 10:53 WBC (3.8-10.6) k/uL RBC (4.30-5.90) m/uL Hgb (13.0-17.5) gm/dL Hct (39.0-53.0) % Plt Count (150-450) k/uL Neutrophils # (1.3-7.7) k/uL Monocytes # (0-1.0) k/uL ABG O2 Saturation (94-97) % Sodium (137-145) mmol/L Carbon Dioxide (22-30) mmol/L Glucose (74-99) mg/dL POC Glucose (mg/dL) 217 H 285 H (70-110) mg/dL Hemoglobin A1c 11.0 H (<=6.0) % Calcium (8.4-10.2) mg/dL Ammonia (<30) umol/L Procalcitonin (0.02-0.09) ng/mL Urine Protein (Negative) Urine Glucose (UA) (Negative) Urine Ketones (Negative) Urine Blood (Negative) Urine WBC (0-5) /hpf Valproic Acid ug/mL 11/04/22 11/04/22 11/04/22 Range/Units 10:53 10:53 10:53 WBC 13.7 H (3.8-10.6) k/uL RBC 3.81 L (4.30-5.90) m/uL Hgb 12.4 L (13.0-17.5) gm/dL Hct 36.3 L (39.0-53.0) % Plt Count 121 L (150-450) k/uL Neutrophils # 11.1 H (1.3-7.7) k/uL Monocytes # 1.2 H (0-1.0) k/uL ABG O2 Saturation (94-97) % Sodium 129 L (137-145) mmol/L Carbon Dioxide 17 L (22-30) mmol/L Glucose 244 H (74-99) mg/dL POC Glucose (mg/dL) (70-110) mg/dL Hemoglobin A1c (<=6.0) % Calcium 7.7 L (8.4-10.2) mg/dL Ammonia 32 H (<30) umol/L Procalcitonin (0.02-0.09) ng/mL Urine Protein (Negative) Urine Glucose (UA) (Negative) Urine Ketones (Negative) Urine Blood (Negative) Urine WBC (0-5) /hpf Valproic Acid ug/mL 11/04/22 11/04/22 11/04/22 Range/Units 10:53 12:29 14:26 WBC (3.8-10.6) k/uL RBC (4.30-5.90) m/uL Hgb (13.0-17.5) gm/dL Hct (39.0-53.0) % Plt Count (150-450) k/uL Neutrophils # (1.3-7.7) k/uL Monocytes # (0-1.0) k/uL ABG O2 Saturation 97.2 H (94-97) % Sodium (137-145) mmol/L Carbon Dioxide (22-30) mmol/L Glucose (74-99) mg/dL POC Glucose (mg/dL) 220 H (70-110) mg/dL Hemoglobin A1c (<=6.0) % Calcium (8.4-10.2) mg/dL Ammonia (<30) umol/L Procalcitonin 1.98 H (0.02-0.09) ng/mL Urine Protein (Negative) Urine Glucose (UA) (Negative) Urine Ketones (Negative) Urine Blood (Negative) Urine WBC (0-5) /hpf Valproic Acid ug/mL 11/04/22 11/04/22 11/04/22 Range/Units 18:16 18:30 20:45 WBC (3.8-10.6) k/uL RBC (4.30-5.90) m/uL Hgb (13.0-17.5) gm/dL Hct (39.0-53.0) % Plt Count (150-450) k/uL Neutrophils # (1.3-7.7) k/uL Monocytes # (0-1.0) k/uL ABG O2 Saturation (94-97) % Sodium (137-145) mmol/L Carbon Dioxide (22-30) mmol/L Glucose (74-99) mg/dL POC Glucose (mg/dL) 212 H 193 H (70-110) mg/dL Hemoglobin A1c (<=6.0) % Calcium (8.4-10.2) mg/dL Ammonia (<30) umol/L Procalcitonin (0.02-0.09) ng/mL Urine Protein Trace H (Negative) Urine Glucose (UA) 4+ H (Negative) Urine Ketones Trace H (Negative) Urine Blood Trace H (Negative) Urine WBC 6 H (0-5) /hpf Valproic Acid ug/mL 11/05/22 11/05/22 11/05/22 Range/Units 04:12 04:12 06:41 WBC 10.9 H (3.8-10.6) k/uL RBC 3.44 L (4.30-5.90) m/uL Hgb 11.4 L (13.0-17.5) gm/dL Hct 32.5 L (39.0-53.0) % Plt Count 112 L (150-450) k/uL Neutrophils # (1.3-7.7) k/uL Monocytes # 1.2 H (0-1.0) k/uL ABG O2 Saturation (94-97) % Sodium 133 L (137-145) mmol/L Carbon Dioxide (22-30) mmol/L Glucose 104 H (74-99) mg/dL POC Glucose (mg/dL) 111 H (70-110) mg/dL Hemoglobin A1c (<=6.0) % Calcium 7.5 L (8.4-10.2) mg/dL Ammonia (<30) umol/L Procalcitonin (0.02-0.09) ng/mL Urine Protein (Negative) Urine Glucose (UA) (Negative) Urine Ketones (Negative) Urine Blood (Negative) Urine WBC (0-5) /hpf Valproic Acid 127.2 H* ug/mL Microbiology - Last 24 Hours (Table) 11/02/22 18:00 Blood Culture - Preliminary Blood 11/02/22 17:45 Blood Culture - Preliminary Blood Assessment and Plan Time with Patient: Less than 30
[2022-11-05 16:48] LABS: Glucose,Whole Blood 67 mg/dL (70-110)
[2022-11-05 17:11] LABS: Glucose,Whole Blood 75 mg/dL (70-110)
[2022-11-05 20:12] LABS: Glucose,Whole Blood 96 mg/dL (70-110)
[2022-11-05] MEDS: LATANOPROST 0.005% OPHTH DROPS 2.5 ML BTL BOTH EYES SCH (20:21)
--- NOTE | 2022-11-05 23:21 | XR ---
EXAMINATION TYPE: XR chest 1V DATE OF EXAM: 11/05/2022 COMPARISON: None INDICATION: Fever TECHNIQUE: Single frontal view of the chest is obtained. FINDINGS: The heart size is mildly prominent. The pulmonary vasculature is upper limits of normal. The lungs are clear. IMPRESSION: 1. Cardiomegaly with prominent pulmonary vascular markings. Early volume overload or congestive heart failure can be considered. Follow-up can be performed as clinically indicated.
[2022-11-06 03:54] LABS: African American GFR (CKD) >90 (>60 ml/min/1.73 sqM); Anion Gap 6 mmol/L; Blood Urea Nitrogen 12 mg/dL (9-20); Calcium 7.6 mg/dL (8.4-10.2); Carbon Dioxide 21 mmol/L (22-30); Chloride 105 mmol/L (98-107); Glucose 127 mg/dL (74-99); Non-African American GFR(CKD) >90 (>60 ml/min/1.73 sqM); Potassium 4.2 mmol/L (3.5-5.1); Sodium 132 mmol/L (137-145)
[2022-11-06 03:59] LABS: Basophils % (A) 0 %; Eosinophils % (A) 1 %; HCT 32.6 % (39.0-53.0); HGB 11.3 gm/dL (13.0-17.5); Lymphocytes # (A) 1.6 k/uL (1.0-4.8); Lymphocytes % (A) 23 %; MCH 33.4 pg (25.0-35.0); MCHC 34.7 g/dL (31.0-37.0); MCV 96.1 fL (80.0-100.0); Mean Platelet Volume 7.6; Monocytes # (A) 0.9 k/uL (0-1.0); Monocytes % (A) 13 %; Neutrophils # (A) 4.3 k/uL (1.3-7.7); Neutrophils % (A) 60 %; Platelet Count 117 k/uL (150-450); RBC 3.39 m/uL (4.30-5.90); RDW 12.7 % (11.5-15.5); WBC 7.2 k/uL (3.8-10.6)
[2022-11-06] MEDS: SODIUM CHLORIDE 0.9% 1,000 ML IV SCH ×2 (04:26→09:16)
[2022-11-06] MEDS: INSULIN DETEMIR (LEVEMIR) 100 UNIT/ML SYR SQ SCH ×2 (06:22→20:20)
[2022-11-06] MEDS: INSULIN ASPART (NovoLOG) 100 UNIT/ML VIAL SQ SCH ×4 (06:43→20:20)
[2022-11-06 06:44] LABS: Glucose,Whole Blood 150 mg/dL (70-110)
--- NOTE | 2022-11-06 08:24 | P.PN ---
Subjective Progress Note Date: 11/06/22 This is a 52-year-old male patient chest to the intensive care unit as the patient was having fever and ongoing seizures on the medical floor. The patient was admitted yesterday to the hospital with symptoms of UTI and SPECT of urine tract infection sepsis. The patient was complaining of some pain in the right flank along burning in his urine for few days. He is known to have diabetes mellitus. His also undergone a previous surgery for testicular cancer and is also known to have seizure disorder maintained on Depakote a total of 1500 mg on a daily basis. The patient presented with fever of 102, tachycardia, hypotension, leukocytosis and sepsis. The patient had a white cell count of 22,000. The patient had a CAT scan of the abdomen that showed stranding along the left kidney and the right kidney concerning of an underlying infection. The fat stranding was worse on the left. The patient also has a prominent retroperitoneal lymph nodes proximal left. There was also evidence of hepatitic steatosis. The patient was started on IV Rocephin. The patient was seen by infectious disease. UA showed 31 WBCs and +4 glucose, +1 ketones and small amount of leukocyte esterase. Ultrasound the kidneys and the level was also done that showed no evidence of any hydronephrosis. There was a masslike area along the left anterior wall of the bladder which could be a session artifacts. There was again hepatitic steatosis. The patient got transferred to the ICU as the patient was having high-grade fever. The patient was becoming unresponsive and has had been having frequent episodes of seizures a total of 3 or 4. The A team was involved and the patient was given a total of 6 minute grams of IV Ativan. Currently is post ictal and unresponsive. Chest is currently on 3 L of oxygen by nasal cannula. He is obese and he is having some soft snoring. Nonverbal. Not responding to any verbal commands. Withdraws only to painful stimulation. No neck stiffness. Is in sinus tachycardia. Heart rate is around 140. Pulse is 94% on 3 L of oxygen by nasal cannula. BP is 130/77. Kingston catheter be inserted. The seizures were essentially the pulmonary chronic chronic seizures. The patient's had a CAT scan of the brain and the time of admission that showed no acute abnormalities. His Depakote level is 120 which is supratherapeutic. The patient has been followed by Dr. adry outpatient. Blood sugar control has been suboptimal outpatient basis. He has limited on a combination of ozempic and oral hypoglycemic medications. No chronic lung disease. No history of any cardiac disease. IV fluids are currently in the form of normal saline at 130 mL an hour. Most recent temperature is 103.8. On today's evaluation of 11/05/2022, the patient is being seen for a follow-up. Is calm and comfortable. No seizure activity overnight. The patient is currently on oxygen at 2 L/m nasal cannula. His white cell count is at 10.9. Blood cultures are still negative. His most recent temperature was 100.6. Cultures still pending for now. His pro calcitonin level was elevated at 1.98 consistent with an underlying bacterial infection. He remains on Rocephin 2 g. There was also given a dose of vancomycin yesterday. He remains on Vimpat. Neurology is on the case. EEG was completed yesterday and the patient's had an abnormal EEG with diffuse slowing of the ways. There was no evidence of any active seizures based on the EEG findings. The white cycles of 10.9, hemoglobin 11.4, platelet count is at 112, BUN is at 40 with a creatinine of 0.9 and a sodium level is at 133. His urine drug screen has been negative. He remains on Tylenol for fever. He remains on Lovenox for DVT prophylaxis. Remains on Levemir insulin at a dose of 25 units and is also receiving a sliding scale coverage. The patient is recovering from his post ictal state. He remains quite lethargic and somnolent and encephalopathic at this point in time. Urology was consulted regarding urethral stricture and there was noted that the patient was emptying his bladder adequately. CAT scan of the abdomen showed fat stranding in both kidneys. There is obviously inflammatory. Is also known to have less testicular cancer. The Kingston catheter was then inserted due to urethral stricture. 11/06/2022, the patient is still spiking temperature. The working diagnosis was UTI with secondary sepsis. All of the cultures came back negative. Pro- calcitonin was elevated suggestive of an underlying bacterial infection. The white cycles down to 7.2 and the patient is hemodynamically stable. Meanwhile, his mental status continues to improve and the patient is lethargic and sleepy at awake and communicating and he wants to have some breakfast today. Hemodynamically stable. No neck pain. No headache. No neck stiffness. Neurology on the case. No active seizures noted over the past 48 hours and the patient remains on Vimpat. He is moving all 4 extremities without any limitation. Blood cultures were negative. Kingston catheter was not inserted due to stricture on urology is on the case and if urine output is adequate for now. The white cell count at 7.2 with a hemoglobin of 11 and a platelet count of 117. BUN is at 12 and a creatinine of 0.5 and a sodium level is at 132. Chest x-ray showing some mild pulmonary vascular congestion. The patient is currently on normal saline at rate of 130 mL an hour and the patient is on oxygen at 2 L. Objective - Vital Signs Vital signs: Vital Signs Temp 98.3 F 11/06/22 04:00 Pulse 90 11/06/22 07:00 Resp 20 11/06/22 07:00 BP 114/68 11/06/22 07:00 Pulse Ox 98 11/06/22 07:00 FiO2 Intake & Output 11/05/22 11/06/22 11/06/22 18:59 06:59 18:59 Intake Total 1460 1720 130 Output Total 903 1705 300 Balance 557 15 -170 Weight 109.1 kg Intake: IV 1460 1720 130 Invasive Line 1 30 30 Sodium Chloride 0.9% 1, 1430 1690 130 000 ml @ 130 mls/hr IV . Q7H42M [facility] Rx#:[id number] Output: Urine 900 1700 300 Stool 3 5 Other: Voiding Method External Catheter External Catheter # Voids 1 # Bowel Movements 1 - Exam The patient is more awake and arousable. Is quite somnolent. Is moving all 4 extremities. No focal neurological deficits. No neck stiffness. He was in a postictal state yesterday and he seems to be gradually improving.is communicating. She is following commands. Head exam was generally normal. There was no scleral icterus or corneal arcus. Mucous membranes were moist. Neck was supple and without jugular venous distension, thyromegaly, or carotid bruits. Carotids were easily palpable bilaterally. There was no adenopathy. There is no neck stiffness. The patient has dry mucous membranes and the patient is a Mallampati class IV. Lungs were clear to auscultation and percussion, and with normal diaphragmatic excursion. No wheezes or rales were noted. Cardiac exam revealed the PMI to be normally situated and sized. The rhythm was regular and no extrasystoles were noted during several minutes of auscultation. The first and second heart sounds were normal and physiologic splitting of the second heart sound was noted. There were no murmurs, rubs, clicks, or gallops. Abdominal exam revealed normal bowel sounds. The abdomen was soft, non-tender, and without masses, organomegaly, or appreciable enlargement of the abdominal aorta. Extremities Examination of the extremities revealed easily palpable radial, femoral and pedal pulses. There was no cyanosis, clubbing or edema. Examination of the skin revealed no evidence of significant rashes, suspicious appearing nevi or other concerning lesions. - Labs CBC & Chem 7: 11/06/22 03:11 11/06/22 03:11 Labs: Abnormal Lab Results - Last 24 Hours (Table) 11/05/22 11/06/22 11/06/22 Range/Units 16:46 03:11 03:11 RBC 3.39 L (4.30-5.90) m/uL Hgb 11.3 L (13.0-17.5) gm/dL Hct 32.6 L (39.0-53.0) % Plt Count 117 L (150-450) k/uL Sodium 132 L (137-145) mmol/L Carbon Dioxide 21 L (22-30) mmol/L Creatinine 0.59 L (0.66-1.25) mg/dL Glucose 127 H (74-99) mg/dL POC Glucose (mg/dL) 67 L (70-110) mg/dL Calcium 7.6 L (8.4-10.2) mg/dL 11/06/22 Range/Units 06:42 RBC (4.30-5.90) m/uL Hgb (13.0-17.5) gm/dL Hct (39.0-53.0) % Plt Count (150-450) k/uL Sodium (137-145) mmol/L Carbon Dioxide (22-30) mmol/L Creatinine (0.66-1.25) mg/dL Glucose (74-99) mg/dL POC Glucose (mg/dL) 150 H (70-110) mg/dL Calcium (8.4-10.2) mg/dL Microbiology - Last 24 Hours (Table) 11/02/22 18:00 Blood Culture - Preliminary Blood 11/02/22 17:45 Blood Culture - Preliminary Blood 11/04/22 11:35 Blood Culture - Preliminary Blood 11/04/22 11:20 Blood Culture - Preliminary Blood Assessment and Plan Plan: Acute breakthrough seizure, Depakote level is 120 and the patient received a total of 6 mg grams IV Ativan. The patient is known to have seizure disorder. CAT scan of the brain was done at time of admission that was negative. Repeat CAT scan was done yesterday and showed no acute process and the EEG showed no active seizure activity and there was diffuse slowing of the ways and the patient remains on Vimpat. Neurology is on the case. No neck stiffness. No focal neurological deficit at this point in time.the patient has been free of seizures for the past 48 hours and then he remains on Vimpat and valproic acid Acute febrile illness/sepsis currently under investigation. Rule out underlying urinary tract infection/pyelonephritis. The patient may have underlying pyonephritis on the left and the patient initially presented with flank pain. The patient is on IV Rocephin. CAT scan of abdomen showed fat stranding bilaterally worse on the left. The pro-calcitonin level is elevated and suspected bacterial infection. The patient remains on IV Rocephin. ID is on the case. Cultures are negative thus far.his mental status continues to be impaired and the patient continues to have fever, a lumbar puncture may need to be considered for the possibility of encephalitis. I do favor bacterial infecti on and the patient's pro-calcitonin level was elevated. The source is likely urinary and the patient has a urethral stricture and chronic obstructive uropathy along with previous history of testicular cancer and previous testicular and bladder surgeries. Acute leukocytosis secondary to above, improving Acute tachycardia secondary to above, improving Metabolic encephalopathy secondary to above, improving, and there was also a component of post ictal state procedures Diabetes mellitus type 2, currently on Levemir insulin Obesity with a BMI of 34.3. Altered mentation secondary to sepsis in addition to post ictal state following recurrent seizures witnessed on the medical floor, currently free of any seizures History of testicular cancer with previous testicular resection and bladder s urgeries Urethral stricture, no instrumentation or Kingston catheterization was done and the patient is voiding adequately for now diarrhea, stool for C. diff has been negative Plan IV Tylenol for fever, monitor fever pattern blood cultures, urine culture and check pro calcitonin level is elevated Continue IV Rocephin 2 g every 24 hours ID consultation consider a lumbar puncture if the patient continues to have febrile episodes Monitor mental status. Mental status is somewhat improved compared to yesterday although the patient continues to be encephalopathic, He continues to improve Continue Vimpat Check CPK nonelevated Check lactic acid level was 1.4 Kingston catheter was inserted because of urethral stricture Continue IV fluids 50 mL an hour oxygen at Aspiration precautions Seizure precautions Neurology consultation EEG was noted is consistent with encephalopathy Sliding-scale insulin coverage, addition to Levemir insulin Lovenox 40 mg subcu for DVT prophylaxis IV Protonix Titrate oxygen flow to maintain a saturation above 90% Monitor stool output and his diarrhea, check stool for C. diffhas been negative for now check valproic acid level We'll continue to follow We'll keep the patient in intensive care unit for now
[2022-11-06] MEDS ORDERED: NON FORMULARY DRUG (Semaglutide [Ozempic] 0.25 MG/0.2 ML Each) SQ SCH (09:00)
[2022-11-06] MEDS: lamoTRIgine 25 MG TAB PO SCH (09:13)
[2022-11-06] MEDS: METOPROLOL TARTRATE 50 MG TAB PO SCH ×2 (09:13→20:20)
[2022-11-06] MEDS: PANTOPRAZOLE 40 MG/10 ML VIAL IV SCH (09:13)
[2022-11-06] MEDS: ENOXAPARIN 40 MG/0.4 ML SYRINGE SQ SCH (09:13)
[2022-11-06] MEDS: DORZOLAMIDE-TIMOLOL 2.23%/0.68 10ML BTL BOTH EYES SCH ×2 (09:21→20:21)
--- NOTE | 2022-11-06 09:23 | P.PN ---
Subjective Progress Note Date: 11/06/22 Principal diagnosis: Difficulty voiding The patient is more alert this morning. He reports mild dysuria and urinary urgency. Urine output has been good. Postvoid residuals have been consistently below 200 mL. Objective - Vital Signs Vital signs: Vital Signs Temp 98.3 F 11/06/22 04:00 Pulse 88 11/06/22 06:00 Resp 22 11/06/22 06:00 BP 119/65 11/06/22 06:00 Pulse Ox 97 11/06/22 06:00 FiO2 Intake & Output 11/05/22 11/05/22 11/06/22 06:59 18:59 06:59 Intake Total 1820 1460 1720 Output Total 593 486 3361 Balance 1170 557 15 Weight 107.4 kg 109.1 kg Intake: IV 1460 1720 Invasive Line 1 30 30 Sodium Chloride 0.9% 1, 1430 1690 000 ml @ 130 mls/hr IV . Q7H42M [facility] Rx#:[id number] Intake, IV Titration 1820 Amount Sodium Chloride 0.9% 1, 1820 000 ml @ 130 mls/hr IV . Q7H42M [facility] Rx#:[id number] Output: Urine 782 380 5751 Stool 3 5 Other: Voiding Method External Catheter External Catheter External Catheter # Voids 1 # Bowel Movements 1 - Constitutional General appearance: Present: average body habitus, cooperative, no acute distress - Psychiatric Psychiatric: Present: A&O x's 3 - Labs CBC & Chem 7: 11/06/22 03:11 11/06/22 03:11 Labs: Abnormal Lab Results - Last 24 Hours (Table) 11/05/22 11/05/22 11/06/22 Range/Units 06:41 16:46 03:11 RBC 3.39 L (4.30-5.90) m/uL Hgb 11.3 L (13.0-17.5) gm/dL Hct 32.6 L (39.0-53.0) % Plt Count 117 L (150-450) k/uL Sodium (137-145) mmol/L Carbon Dioxide (22-30) mmol/L Creatinine (0.66-1.25) mg/dL Glucose (74-99) mg/dL POC Glucose (mg/dL) 111 H 67 L (70-110) mg/dL Calcium (8.4-10.2) mg/dL 11/06/22 Range/Units 03:11 RBC (4.30-5.90) m/uL Hgb (13.0-17.5) gm/dL Hct (39.0-53.0) % Plt Count (150-450) k/uL Sodium 132 L (137-145) mmol/L Carbon Dioxide 21 L (22-30) mmol/L Creatinine 0.59 L (0.66-1.25) mg/dL Glucose 127 H (74-99) mg/dL POC Glucose (mg/dL) (70-110) mg/dL Calcium 7.6 L (8.4-10.2) mg/dL Microbiology - Last 24 Hours (Table) 11/02/22 18:00 Blood Culture - Preliminary Blood 11/02/22 17:45 Blood Culture - Preliminary Blood 11/04/22 11:35 Blood Culture - Preliminary Blood 11/04/22 11:20 Blood Culture - Preliminary Blood Assessment and Plan Assessment: The patient reports mild dysuria and urgency, but has confirmed to be emptying his bladder adequately. Urine culture was ordered but appears not to have been done. Blood cultures are negative thus far. I had the opportunity to review the patient's records regarding testicular cancer. He underwent a left radical orchiectomy in April 2006 for an 8 cm le ft testicular mass. Alpha-fetoprotein and beta hCG levels were elevated. 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 CT scan of the chest, abdomen, and pelvis showed possible small pulmonary nodules with peritracheal and left para-aortic adenopathy. The patient was treated with systemic chemotherapy (BEP). CT scan now shows fat stranding around both kidneys, left greater than right, with mild left retroperitoneal adenopathy. Although this appears to be inflammatory, perhaps due to an underlying UTI, it is noteworthy that this is the region where left testicular cancer would metastasize. Plan: -Urethral dilation would be required to place a Kingston catheter. I will recommend this be done only if his postvoid residuals increase. Given the patient's voiding symptoms, I have suggested he schedule a follow-up appointment for office cystoscopy for further evaluation. - Continue ceftriaxone, pending final culture results. - In view of the patient's history of testicular cancer and the para-aortic adenopathy seen on CT scan, I have ordered serum markers be checked (LDH, alpha- fetoprotein, beta hCG).
[2022-11-06 09:52] LABS: Valproic Acid (Depakene) 77.7 ug/mL
[2022-11-06] MEDS: DIVALPROEX 500 MG TABLET.DR PO SCH ×2 (10:27→20:19)
--- NOTE | 2022-11-06 10:42 | P.PN ---
Subjective Progress Note Date: 11/06/22 On follow-up with the patient and per the nurse, his mentation is improving. Patient did acknowlege he had long EEG study over at [facility] and was told nonepileptic seizures. Objective - Vital Signs Vital signs: Vital Signs Temp 99.5 F 11/06/22 09:00 Pulse 94 11/06/22 10:00 Resp 15 11/06/22 10:00 BP 136/97 11/06/22 10:00 Pulse Ox 98 11/06/22 10:00 FiO2 Intake & Output 11/05/22 11/06/22 11/06/22 18:59 06:59 18:59 Intake Total 1460 1720 130 Output Total 903 1705 300 Balance 557 15 -170 Weight 109.1 kg Intake: IV 1460 1720 130 Invasive Line 1 30 30 Sodium Chloride 0.9% 1, 1430 1690 130 000 ml @ 130 mls/hr IV . Q7H42M [facility] Rx#:[id number] Output: Urine 900 1700 300 Stool 3 5 Other: Voiding Method External Catheter External Catheter # Voids 1 # Bowel Movements 1 - Exam General: patient is lying in bed and is not in acute distress. Neuro- Somewhat limited because of his condition/cooperation. Patient is mildly drowsy but is awakeable to voice. He is oriented to self, place and time. He is able to name watch and glasses. He is able to follow simple commands such as a showed a thumbs up and do wiggling his toes. No facial weakness. No dysarthria. Motor the strength is hard to assess because of his cooperation but is able to lift bilateral upper extremities on own and appears symmetric and wiggling toes. Some other workup during this hospital visit consisted of: White blood cells 14.6 thousand predominantly neutrophilic and then it got as high as 22,000 Sugar is uncontrolled in the 200s. Hemoglobin A1c is 11.0. Plasma lactic acid vein is a 1.4 Urinalysis is a leukocyte esterases small but urine white blood cells 31. Valproic acid is 120.5 and the therapeutic is between 50-120. > 100 is considered possible toxic. Recent repeat Valproic acid level is 77.7. CT of the head was reported as allowing for scattered prominent artifact, no definite acute process. I personally reviewed the CT and I agree there is motion artifact but there is no acute or subacute ischemia or bleed that was appreciable. Ammonia level is 32. Normal is less than 30.--repeat is 22. Routine EEG is abnormal. The background slowing suggestive of mild encephalopathy likely due to underlying medication effect (Ativan). Was there is no focal slowing, epileptiform discharges or seizure on the EEG. - Labs CBC & Chem 7: 11/06/22 03:11 11/06/22 03:11 Labs: Abnormal Lab Results - Last 24 Hours (Table) 11/05/22 11/06/22 11/06/22 Range/Units 16:46 03:11 03:11 RBC 3.39 L (4.30-5.90) m/uL Hgb 11.3 L (13.0-17.5) gm/dL Hct 32.6 L (39.0-53.0) % Plt Count 117 L (150-450) k/uL Sodium 132 L (137-145) mmol/L Carbon Dioxide 21 L (22-30) mmol/L Creatinine 0.59 L (0.66-1.25) mg/dL Glucose 127 H (74-99) mg/dL POC Glucose (mg/dL) 67 L (70-110) mg/dL Calcium 7.6 L (8.4-10.2) mg/dL Lactate Dehydrogenase (120-246) U/L 11/06/22 11/06/22 Range/Units 06:42 09:20 RBC (4.30-5.90) m/uL Hgb (13.0-17.5) gm/dL Hct (39.0-53.0) % Plt Count (150-450) k/uL Sodium (137-145) mmol/L Carbon Dioxide (22-30) mmol/L Creatinine (0.66-1.25) mg/dL Glucose (74-99) mg/dL POC Glucose (mg/dL) 150 H (70-110) mg/dL Calcium (8.4-10.2) mg/dL Lactate Dehydrogenase 272 H (120-246) U/L Microbiology - Last 24 Hours (Table) 11/02/22 18:00 Blood Culture - Preliminary Blood 11/02/22 17:45 Blood Culture - Preliminary Blood 11/04/22 11:35 Blood Culture - Preliminary Blood 11/04/22 11:20 Blood Culture - Preliminary Blood Assessment and Plan Assessment: This is a 52-year-old gentleman with history of nonepileptic seizures and had multiple studies had a prolonged 20 half hour EEG in our facility in November 2020 and his episodes were not epileptic as well as a had EEG done overhead reported and also was nonepileptic according to the , uncontrolled diabetes will has underlying sepsis due to UTI. Today patient had seizure-like activity lasting for 10 minutes and resolved she was given 6 limb Ativan. Breakthrough seizure is likely nonepileptic in nature especially with his previous history of nonepileptic seizures and his lactic acid was normal (even though he had prolonged shaking). EEG is mild encephalopathy and no seizure or discharges. His break-thru seizure due to underlying UTI--stable for last two days. Encephalopathy due to underlying sepsis from UTI/pyelopnephritis--mentation improving. History of nonepileptic seizures (had prolonged 2.5 hour EEG in our facility in 11/2020 and a week study at [facility] and both were non-epileptic) Uncontrolled diabetes mellitus with a hemoglobin A1c of 11.0 Sepsis possible due to underlying UTI/pyelonephritis Plan: Since the patient's valproic acid level was 120 which was a possible toxic level. I went down on valproic acid function at 1500 mg twice a day to 1000 mg twice a day. There is a a lot of side effects to valproic acid such as obesity, osteoporosis, confusion etc. I started him on Lamictal which helps both with mood disorder and antiepiletpic benefit. Also start the patient on Lamictal 25 mg daily at bedtime and the goal is 50 mg twice a day. Every week we'll add a 25 mg dose (so next week 25mg bid). If patient develop any rash please disconti nue lamictal. I discontinued the order of 2 mg every 1 hour when necessary for seizures that was ordered by the ICU attending especially since the patient's episodes are nonepileptic If mentation does not improve and continues to have fever consider lumbar puncture and consider repeat EEG. Recommend the patient to follow-up with a neurologist as an outpatient as well as psychiatry as an outpatient because of his nonepileptic seizures Continue neuro checks Defer the rest of the management to primary, I see another specialist The plan discussed with his nurse. Dr. De Luna will start neurology service tomorrow A.M. Time with Patient: Less than 30
[2022-11-06 11:09] LABS: Glucose,Whole Blood 146 mg/dL (70-110)
[2022-11-06 13:56] LABS: Glucose,Whole Blood 180 mg/dL (70-110)
--- NOTE | 2022-11-06 15:06 | P.PN ---
Subjective Progress Note Date: 11/06/22 This is a 52-year-old male who presented to the emergency department for increased weakness and fatigue and generalized not feeling well. Patient reports over the last 2 days he is progressively becoming more weak and having chills and fevers and came to the ER for further evaluation. Patient also repo rts he has been having pain and burning with urination that has been ongoing for the last 2 weeks and did not follow-up with his doctor in regards to this. Patient follows with Dr. Montejo in the outpatient setting with a past medical history of enlarged prostate, testicular cancer along with diabetes mellitus and seizure disorder and renal failure. Patient reports to being a former smoker and uses a vape. In the ER chest x-ray showed low lung volumes with a generalized hazy appearance which could represent atelectasis versus pulmonary edema, CT brain showed no acute intracranial process, CT abdomen and pelvis showed fat stranding changing around the kidneys with left greater than right with prominent retroperitoneal lymph nodes most proximal left correlate for infection consider dedicated renal mass protocol CT MRI for underlying for complete evaluation of the kidneys and correlation with urinalysis is recommended along with hepatic steatosis, and EKG showed sinus tachycardia. Labs reviewed reveal a white blood count of 14.6, hemoglobin 15.3, sodium 135 with a potassium of 4.3, creatinine 0.83, lactic acid was 1.5, magnesium was 1.3 with a total bilirubin of 1.0, troponin was negative and amylase lipase within normal limits. Urinalysis revealed high protein glucose and ketones with a small amount of leukocyte Estrace and white blood count was 31. Urine culture is pending at this time. Blood cultures were ordered and infectious disease was consulted. Patient was given a gram of Rocephin and will resume and start the patient on insulin regimen as patient's blood sugars are poorly controlled. 11/04/2022 Patient seen and evaluated in follow-up this morning during an a team for seizure-like activity. Patient maintained on Depakote as per for seizure history and had extensive neurologic workup at [facility] and reported as nonepileptic. Medical records requested and pending at this time. Patient had been seen previously in this hospital and underwent prolonged EEG which was negative as well. Valproic acid level was drawn and extremely elevated at 120. Patient started becoming more obtunded and unresponsive and convulsing that lasted approximately 10 minutes. Patient received a total of 6 mg of Ativan during the a team and a repeat computed tomography scan was ordered and pending. Patient was noted to have significant fevers throughout the night of 103. Patient is currently maintained on IV antibiotics in the form of ceftriaxone wi th infectious disease following. Urine culture has been sent and pending at this time. Blood sugars better controlled and will continue current regimen hemoglobin A1c was noted to be above 11 and patient is normally maintained on once weekly ozempic along with oral diabetic agents and will need better glycemic control and insulins on discharge. Patient continued to have seizure- like activity and unresponsive and discussed with ICU sprayer insecticide and will be brought to ICU for closer monitoring. Neurology was consulted as well. 11/05/2022 Patient remains in intensive care unit, no further seizure-like activity reported. He continues to be confused today he is alert 0. Brain CT completed yesterday shows scattered prominent artifact with no definite acute process. He also underwent EEG which is negative for seizure-like activity this suggestion of mild encephalopathy likely due to medication effect. Patient did receive IV Ativan prior to. He was seen in consultation by neurology, sprayer insecticide and urologist. He does have a history of multiple urological surgeries does have a known urethral stricture ALLERGIES recommending to use external catheter and avoid indwelling catheter possible. His bladder scans have been showing less than 200 mls. He is following commands he was noted to have diffused weakness. Labs today show white count of 10.9, hemoglobin stable 11.4, sodium has improved to 133, kidney function is within normal limits. His blood glucoses improved with the addition of long-acting insulin today to swell 4. Hemoglobin A1c was noted to be 11. He had an elevated pro-calcitonin level of 1.98 suggesting an underlying bacterial infection and he remains on IV antibiotics in the form of IV Rocephin. Valproic acid was noted to be in the toxic range of 127.2 today neurology did decrease depakote and also recommended patient to begin lamictal. Ammonia level was noted to be elevated at 30 to yesterday we will repeat this level and provide a dose of lactulose. 11/06/2022 Patient remains in intensive care unit mentation is improved he is currently alert 3. He is still fatigued and tires easily with activity. No further seizure-like activity. He remains on a decreased dose of Depakote and serum valproic acid levels have normalized. Level is currently 77.7 which is an therapeutic range He also continues on Lamictal daily. Neurology is following closely. LabsIMA, 7.2, hemoglobin 11.3, sodium 132, BUN 12, creatinine 0.59, blood glucose 180s. Blood culture remains negative and urine culture is currently received and pending at this time. He remains on IV ceftriaxone. Had a chest x-ray yesterday evening showing cardiomegaly with prominent pulmonary vascular markings with early volume overload or congestive heart failure to be considered. He did have a proBNP which is up in the 600s is increased from prior but still normal for age. Patient is currently afebrile, heart rate of 89, blood pressure 123/68 and he is 96% on room air. Review of Systems Constitutional: Denied any fatigue denied any fever. Cardio vascular: denied any chest pain, palpitations Gastrointestinal: denied any nausea, vomiting, diarrhea Pulmonary: Denied any shortness of breath cough Neurologic denied any new focal deficits All inpatient medications were reviewed and appropriate changes in these medications as dictated in the interval history and assessment and plan. PHYSICAL EXAMINATION: GENERAL: The patient is bed, alert x 3, fatigued. Well developed, well nourished. Obese HEENT: Pupils are 2-3 mm although reacting to light. EOMI. no scleral icterus. No conjunctival pallor. Normocephalic, atraumatic. No pharyngeal erythema. No thyromegaly. CARDIOVASCULAR: S1 and S2 muffled PULMONARY: diminished breath sounds bilaterally with no wheezing or rhonchi noted. ABDOMEN: soft. Nontender on exam. obese. non-distended, normoactive bowel so unds. No palpable organomegaly. MUSCULOSKELETAL: No joint swelling or deformity. EXTREMITIES: No cyanosis, clubbing, or pedal edema. NEUROLOGICAL: Gross neurological examination did not reveal any focal deficits. Diffuse weakness SKIN: No rashes. Assessment: Fevers with leukocytosis with features of sepsis, present on admission. Possibly urinary tract infection/pyelonephritis. Procalcitonin is elevated suggestive of bacterial infection. Leukocytosis secondary to above, normalized Acute Metabolic encephalopathy, multifactorial, secondary to sepsis as well as seizure-like activity with EEG no epileptiform activity Hypomagnesemia, replaced and improved Breakthrough seizure with history of nonepileptic seizure disorder, maintained on Depakote Elevated Depakote level currently normalized and in therapeutic range Obesity with a BMI of 34.3 Diabetes mellitus, type II, severely uncontrolled with hyperglycemia and noncompliance of medications, hemoglobin A1c is 11 History of testicular cancer Seizure disorder history Former smoker and Vapes GI prophylaxis DVT prophylaxis Full code Plan: Continues on Depakote at decreased dose as well as lamictal, seizure precautions and neurology following Medical records [facility] are pending. Continues close monitoring in intensive care unit Awaiting urine culture, patient remains on IV ceftriaxone for suspected UTI/Pyelone. Infectious disease is following. Urology has evaluated the patient recommending external catheter to avoid IDC if possible and continue to monitor for urinary retention. Will have PT/OT therapy evaluate the patient Repeat labs in AM The impression and plan of care has been dictated by Vee Melendrez, Nurse Practitioner as directed. Dr. Gabriel MD I have performed a history and physical examination and medical decision making of this patient, discussed the same with the dictator, and agree with the dictators assessment and plan as written, documented as a scribe. Based on total visit time, I have performed more than 50% of this visit. Objective - Vital Signs Vital signs: Vital Signs Temp 98.3 F 11/06/22 04:00 Pulse 90 11/06/22 07:00 Resp 20 11/06/22 07:00 BP 114/68 11/06/22 07:00 Pulse Ox 98 11/06/22 07:00 FiO2 Intake & Output 11/05/22 11/06/22 11/06/22 18:59 06:59 18:59 Intake Total 1460 1720 130 Output Total 903 1705 300 Balance 557 15 -170 Weight 109.1 kg Intake: IV 1460 1720 130 Invasive Line 1 30 30 Sodium Chloride 0.9% 1, 1430 1690 130 000 ml @ 130 mls/hr IV . Q7H42M [facility] Rx#:[id number] Output: Urine 900 1700 300 Stool 3 5 Other: Voiding Method External Catheter External Catheter # Voids 1 # Bowel Movements 1 - Labs CBC & Chem 7: 11/06/22 03:11 11/06/22 03:11 Labs: Abnormal Lab Results - Last 24 Hours (Table) 11/05/22 11/06/22 11/06/22 Range/Units 16:46 03:11 03:11 RBC 3.39 L (4.30-5.90) m/uL Hgb 11.3 L (13.0-17.5) gm/dL Hct 32.6 L (39.0-53.0) % Plt Count 117 L (150-450) k/uL Sodium 132 L (137-145) mmol/L Carbon Dioxide 21 L (22-30) mmol/L Creatinine 0.59 L (0.66-1.25) mg/dL Glucose 127 H (74-99) mg/dL POC Glucose (mg/dL) 67 L (70-110) mg/dL Calcium 7.6 L (8.4-10.2) mg/dL 11/06/22 Range/Units 06:42 RBC (4.30-5.90) m/uL Hgb (13.0-17.5) gm/dL Hct (39.0-53.0) % Plt Count (150-450) k/uL Sodium (137-145) mmol/L Carbon Dioxide (22-30) mmol/L Creatinine (0.66-1.25) mg/dL Glucose (74-99) mg/dL POC Glucose (mg/dL) 150 H (70-110) mg/dL Calcium (8.4-10.2) mg/dL Microbiology - Last 24 Hours (Table) 11/02/22 18:00 Blood Culture - Preliminary Blood 11/02/22 17:45 Blood Culture - Preliminary Blood 11/04/22 11:35 Blood Culture - Preliminary Blood 11/04/22 11:20 Blood Culture - Preliminary Blood Assessment and Plan Time with Patient: Less than 30
--- NOTE | 2022-11-06 16:08 | P.PN ---
Subjective Progress Note Date: 11/05/22 Principal diagnosis: UTI with sepsis Patient is a 52-year-old male with a past medical history significant for diabetes mellitus history of testicular cancer and seizure disorder did have a surgery for testicular cancer and urothelial reconstruction presenting to the hospital for evaluation of chills patient mention has not been feeling well, patient was diagnosed with a pyelonephritis admitted to the floor subsequently did have another fever and question of seizure and the patient was transferred to the ICU. On today's evaluation that is 11/05/2022 the patient did spike a fever of 102 F this morning, patient is currently on 3 L nasal cannula oxygen patient is l ethargic and did not provide any history no vomiting diarrhea or any other changes reported by the nursing staff Patient white count is down to 10.9 creatinine 0.69, COVID influenza and RSV PCR negative blood cultures currently pending urine cultures pending Objective - Vital Signs Vital signs: Vital Signs Temp 100.6 F H 11/05/22 08:00 Pulse 107 H 11/05/22 09:00 Resp 26 H 11/05/22 09:00 BP 115/70 11/05/22 09:00 Pulse Ox 97 11/05/22 09:00 FiO2 Intake & Output 11/04/22 11/05/22 11/05/22 18:59 06:59 18:59 Intake Total 1170 1820 270 Output Total 850 650 0 Balance 320 1170 270 Weight 90.718 kg 107.4 kg Intake: IV 270 Invasive Line 1 10 Sodium Chloride 0.9% 1, 260 000 ml @ 130 mls/hr IV . Q7H42M [facility] Rx#:[id number] Intake, IV Titration 1170 1820 Amount Sodium Chloride 0.9% 1, 1170 1820 000 ml @ 130 mls/hr IV . Q7H42M [facility] Rx#:[id number] Output: Urine 850 650 0 Other: Voiding Method Urinal External Catheter External Catheter # Voids 1 - Exam GENERAL DESCRIPTION: A middle-age male lying in bed in no distress RESPIRATORY SYSTEM: Unlabored breathing , decreased breath sounds at bases HEART: S1 S2 regular rate and rhythm , ABDOMEN: Soft , no tenderness EXTREMITIES: No edema feet - Labs CBC & Chem 7: 11/06/22 03:11 11/06/22 03:11 Labs: Abnormal Lab Results - Last 24 Hours (Table) 0811/04/22 11/04/22 Range/Units 10:53 10:53 10:53 WBC 13.7 H (3.8-10.6) k/uL RBC 3.81 L (4.30-5.90) m/uL Hgb 12.4 L (13.0-17.5) gm/dL Hct 36.3 L (39.0-53.0) % Plt Count 121 L (150-450) k/uL Neutrophils # 11.1 H (1.3-7.7) k/uL Monocytes # 1.2 H (0-1.0) k/uL ABG O2 Saturation (94-97) % Sodium (137-145) mmol/L Carbon Dioxide (22-30) mmol/L Glucose (74-99) mg/dL POC Glucose (mg/dL) (70-110) mg/dL Hemoglobin A1c 11.0 H (<=6.0) % Calcium (8.4-10.2) mg/dL Ammonia 32 H (<30) umol/L Procalcitonin (0.02-0.09) ng/mL Urine Protein (Negative) Urine Glucose (UA) (Negative) Urine Ketones (Negative) Urine Blood (Negative) Urine WBC (0-5) /hpf Valproic Acid ug/mL 11/04/22 11/04/22 11/04/22 Range/Units 10:53 10:53 12:29 WBC (3.8-10.6) k/uL RBC (4.30-5.90) m/uL Hgb (13.0-17.5) gm/dL Hct (39.0-53.0) % Plt Count (150-450) k/uL Neutrophils # (1.3-7.7) k/uL Monocytes # (0-1.0) k/uL ABG O2 Saturation 97.2 H (94-97) % Sodium 129 L (137-145) mmol/L Carbon Dioxide 17 L (22-30) mmol/L Glucose 244 H (74-99) mg/dL POC Glucose (mg/dL) (70-110) mg/dL Hemoglobin A1c (<=6.0) % Calcium 7.7 L (8.4-10.2) mg/dL Ammonia (<30) umol/L Procalcitonin 1.98 H (0.02-0.09) ng/mL Urine Protein (Negative) Urine Glucose (UA) (Negative) Urine Ketones (Negative) Urine Blood (Negative) Urine WBC (0-5) /hpf Valproic Acid ug/mL 11/04/22 11/04/22 11/04/22 Range/Units 14:26 18:16 18:30 WBC (3.8-10.6) k/uL RBC (4.30-5.90) m/uL Hgb (13.0-17.5) gm/dL Hct (39.0-53.0) % Plt Count (150-450) k/uL Neutrophils # (1.3-7.7) k/uL Monocytes # (0-1.0) k/uL ABG O2 Saturation (94-97) % Sodium (137-145) mmol/L Carbon Dioxide (22-30) mmol/L Glucose (74-99) mg/dL POC Glucose (mg/dL) 220 H 212 H (70-110) mg/dL Hemoglobin A1c (<=6.0) % Calcium (8.4-10.2) mg/dL Ammonia (<30) umol/L Procalcitonin (0.02-0.09) ng/mL Urine Protein Trace H (Negative) Urine Glucose (UA) 4+ H (Negative) Urine Ketones Trace H (Negative) Urine Blood Trace H (Negative) Urine WBC 6 H (0-5) /hpf Valproic Acid ug/mL 11/04/22 11/05/22 11/05/22 Range/Units 20:45 04:12 04:12 WBC 10.9 H (3.8-10.6) k/uL RBC 3.44 L (4.30-5.90) m/uL Hgb 11.4 L (13.0-17.5) gm/dL Hct 32.5 L (39.0-53.0) % Plt Count 112 L (150-450) k/uL Neutrophils # (1.3-7.7) k/uL Monocytes # 1.2 H (0-1.0) k/uL ABG O2 Saturation (94-97) % Sodium 133 L (137-145) mmol/L Carbon Dioxide (22-30) mmol/L Glucose 104 H (74-99) mg/dL POC Glucose (mg/dL) 193 H (70-110) mg/dL Hemoglobin A1c (<=6.0) % Calcium 7.5 L (8.4-10.2) mg/dL Ammonia (<30) umol/L Procalcitonin (0.02-0.09) ng/mL Urine Protein (Negative) Urine Glucose (UA) (Negative) Urine Ketones (Negative) Urine Blood (Negative) Urine WBC (0-5) /hpf Valproic Acid 127.2 H* ug/mL 11/05/22 Range/Units 06:41 WBC (3.8-10.6) k/uL RBC (4.30-5.90) m/uL Hgb (13.0-17.5) gm/dL Hct (39.0-53.0) % Plt Count (150-450) k/uL Neutrophils # (1.3-7.7) k/uL Monocytes # (0-1.0) k/uL ABG O2 Saturation (94-97) % Sodium (137-145) mmol/L Carbon Dioxide (22-30) mmol/L Glucose (74-99) mg/dL POC Glucose (mg/dL) 111 H (70-110) mg/dL Hemoglobin A1c (<=6.0) % Calcium (8.4-10.2) mg/dL Ammonia (<30) umol/L Procalcitonin (0.02-0.09) ng/mL Urine Protein (Negative) Urine Glucose (UA) (Negative) Urine Ketones (Negative) Urine Blood (Negative) Urine WBC (0-5) /hpf Valproic Acid ug/mL Microbiology - Last 24 Hours (Table) 11/02/22 18:00 Blood Culture - Preliminary Blood 11/02/22 17:45 Blood Culture - Preliminary Blood Assessment and Plan (1) Pyelonephritis Current Visit: Yes Status: Acute Code(s): N12 - TUBULO-INTERSTITIAL NEP HRITIS, NOT SPCF ACUTE OR CHRONIC SNOMED Code(s): 77701106 (2) Sepsis Current Visit: Yes Status: Acute Code(s): A41.9 - SEPSIS, UNSPECIFIED ORGANISM SNOMED Code(s): 36242027 Plan: 1patient presented to the hospital with sepsis in this patient did have a fever tachycardia elevated white resources pyelonephritis in this patient with a urinary symptoms and did have a history of urethra reconstruction after surgery for testicular cancer however CT did not show evidence of hydronephrosis 2-the patient white count has normalized blood culture has been negative so far urine cultures pending 3-we'll continue the patient on Rocephin while waiting for the culture finalized and monitor clinical course closely Mother at the bedside and multiple questions and concerns were answered Dictation was produced using [employer] dictation software. please excuse any grammatical, word or spelling errors. Time with Patient: Less than 30
--- NOTE | 2022-11-06 16:10 | P.PN ---
Subjective Progress Note Date: 11/06/22 Principal diagnosis: UTI with sepsis Patient is a 52-year-old male with a past medical history significant for diabetes mellitus history of testicular cancer and seizure disorder did have a surgery for testicular cancer and urothelial reconstruction presenting to the hospital for evaluation of chills patient mention has not been feeling well, patient was diagnosed with a pyelonephritis admitted to the floor subsequently did have another fever and question of seizure and the patient was transferred to the ICU. On today's evaluation that is 11/06/2022 the patient did spike a fever of 101.8F last night the patient is afebrile this morning, patient is more awake and alert up in the chair and is breathing comfortably on room air denies any chest pain occasional cough no vomiting or diarrhea has been reported and no abdominal pain Patient white count is down to 7.2, creatinine 0.59, COVID influenza and RSV PCR negative blood cultures so far negative, urine cultures pending, patient did have a chest x-ray is mostly shows pulmonary vascular congestion no mention of any consolidation , Objective - Vital Signs Vital signs: Vital Signs Temp 99.5 F 11/06/22 09:00 Pulse 89 11/06/22 15:00 Resp 22 11/06/22 15:00 BP 123/68 11/06/22 15:00 Pulse Ox 96 11/06/22 15:00 FiO2 Intake & Output 11/05/22 11/06/22 11/06/22 18:59 06:59 18:59 Intake Total 1460 1720 1000 Output Total 903 1705 1000 Balance 557 15 0 Weight 109.1 kg Intake: IV 1460 1720 150 Invasive Line 1 30 30 20 Sodium Chloride 0.9% 1, 1430 1690 130 000 ml @ 130 mls/hr IV . Q7H42M [facility] Rx#:[id number] Intake, IV Titration 350 Amount Sodium Chloride 0.9% 1, 50 000 ml @ 50 mls/hr IV . Q20H [facility] Rx#:[id number] cefTRIAXone 2 gm In 300 Sodium Chloride 0.9% 50 ml @ 100 mls/hr IVPB Q24HR [facility] Rx#:[id number] Oral 500 Output: Urine 900 1700 1000 Stool 3 5 Other: Voiding Method External Catheter External Catheter # Voids 1 # Bowel Movements 1 1 - Exam GENERAL DESCRIPTION: A middle-age male up in the chair in no distress RESPIRATORY SYSTEM: Unlabored breathing , decreased breath sounds at bases HEART: S1 S2 regular rate and rhythm , ABDOMEN: Soft , no tenderness EXTREMITIES: No edema feet - Labs CBC & Chem 7: 11/06/22 03:11 11/06/22 03:11 Labs: Abnormal Lab Results - Last 24 Hours (Table) 11/05/22 11/06/22 11/06/22 Range/Units 16:46 03:11 03:11 RBC 3.39 L (4.30-5.90) m/uL Hgb 11.3 L (13.0-17.5) gm/dL Hct 32.6 L (39.0-53.0) % Plt Count 117 L (150-450) k/uL Sodium 132 L (137-145) mmol/L Carbon Dioxide 21 L (22-30) mmol/L Creatinine 0.59 L (0.66-1.25) mg/dL Glucose 127 H (74-99) mg/dL POC Glucose (mg/dL) 67 L (70-110) mg/dL Calcium 7.6 L (8.4-10.2) mg/dL Lactate Dehydrogenase (120-246) U/L 11/06/22 11/06/22 11/06/22 Range/Units 06:42 09:20 11:08 RBC (4.30-5.90) m/uL Hgb (13.0-17.5) gm/dL Hct (39.0-53.0) % Plt Count (150-450) k/uL Sodium (137-145) mmol/L Carbon Dioxide (22-30) mmol/L Creatinine (0.66-1.25) mg/dL Glucose (74-99) mg/dL POC Glucose (mg/dL) 150 H 146 H (70-110) mg/dL Calcium (8.4-10.2) mg/dL Lactate Dehydrogenase 272 H (120-246) U/L 11/06/22 Range/Units 13:55 RBC (4.30-5.90) m/uL Hgb (13.0-17.5) gm/dL Hct (39.0-53.0) % Plt Count (150-450) k/uL Sodium (137-145) mmol/L Carbon Dioxide (22-30) mmol/L Creatinine (0.66-1.25) mg/dL Glucose (74-99) mg/dL POC Glucose (mg/dL) 180 H (70-110) mg/dL Calcium (8.4-10.2) mg/dL Lactate Dehydrogenase (120-246) U/L Microbiology - Last 24 Hours (Table) 11/02/22 18:00 Blood Culture - Preliminary Blood 11/02/22 17:45 Blood Culture - Preliminary Blood 11/04/22 11:35 Blood Culture - Preliminary Blood 11/04/22 11:20 Blood Culture - Preliminary Blood Assessment and Plan (1) Pyelonephritis Current Visit: Yes Status: Acute Code(s): N12 - TUBULO-INTERSTITIAL NEPHRITIS, NOT SPCF ACUTE OR CHRONIC SNOMED Code(s): 72357102 (2) Sepsis Current Visit: Yes Status: Acute Code(s): A41.9 - SEPSIS, UNSPECIFIED ORGANISM SNOMED Code(s): 96608449 Plan: 1patient presented to the hospital with sepsis in this patient did have a fever tachycardia elevated white resources pyelonephritis in this patient with a urinary symptoms and did have a history of urethra reconstruction after surgery for testicular cancer however CT did not show evidence of hydronephrosis 2-the patient white count has normalized blood culture has been negative so far urine cultures pending 3-patient to continue Rocephin and monitor clinical course closely Dictation was produced using [employer] dictation software. please excuse any grammatical, word or spelling errors. Time with Patient: Less than 30
[2022-11-06 16:17] LABS: Glucose,Whole Blood 177 mg/dL (70-110)
[2022-11-06 20:00] LABS: Glucose,Whole Blood 197 mg/dL (70-110)
[2022-11-06] MEDS: LATANOPROST 0.005% OPHTH DROPS 2.5 ML BTL BOTH EYES SCH (20:21)
[2022-11-07 04:02] LABS: Basophils % (A) 0 %; Eosinophils # (A) 0.1 k/uL (0-0.7); Eosinophils % (A) 1 %; HCT 33.2 % (39.0-53.0); HGB 11.6 gm/dL (13.0-17.5); Lymphocytes # (A) 1.6 k/uL (1.0-4.8); Lymphocytes % (A) 24 %; MCH 32.7 pg (25.0-35.0); MCHC 34.8 g/dL (31.0-37.0); Mean Platelet Volume 7.5; Monocytes # (A) 0.7 k/uL (0-1.0); Monocytes % (A) 11 %; Neutrophils % (A) 60 %; Platelet Count 128 k/uL (150-450); RBC 3.53 m/uL (4.30-5.90); RDW 12.6 % (11.5-15.5); WBC 6.6 k/uL (3.8-10.6)
[2022-11-07 04:14] LABS: African American GFR (CKD) >90 (>60 ml/min/1.73 sqM); Anion Gap 8 mmol/L; Blood Urea Nitrogen 8 mg/dL (9-20); Calcium 8.2 mg/dL (8.4-10.2); Carbon Dioxide 22 mmol/L (22-30); Chloride 104 mmol/L (98-107); Glucose 150 mg/dL (74-99); Magnesium 1.6 mg/dL (1.6-2.3); Non-African American GFR(CKD) >90 (>60 ml/min/1.73 sqM); Potassium 3.9 mmol/L (3.5-5.1); Sodium 134 mmol/L (137-145)
[2022-11-07] MEDS ORDERED: POTASSIUM CHLORIDE ER 20 MEQ TAB.ER PO SCH (05:00)
[2022-11-07] MEDS: MAGNESIUM SULFATE-D5W PMX 1 GM in DEXTROSE/WATER 1 100ML.BAG IVPB SCH ×2 (05:21→05:58)
[2022-11-07] MEDS: SODIUM CHLORIDE 0.9% 1,000 ML IV SCH (05:29)
[2022-11-07 06:22] LABS: Glucose,Whole Blood 186 mg/dL (70-110)
[2022-11-07] MEDS: INSULIN DETEMIR (LEVEMIR) 100 UNIT/ML SYR SQ SCH ×2 (06:30→20:55)
[2022-11-07] MEDS: INSULIN ASPART (NovoLOG) 100 UNIT/ML VIAL SQ SCH ×4 (06:30→20:55)
[2022-11-07] MEDS: METOPROLOL TARTRATE 50 MG TAB PO SCH ×2 (08:55→20:55)
[2022-11-07] MEDS: lamoTRIgine 25 MG TAB PO SCH (08:55)
[2022-11-07] MEDS: DIVALPROEX 500 MG TABLET.DR PO SCH ×2 (08:55→20:55)
[2022-11-07] MEDS: DORZOLAMIDE-TIMOLOL 2.23%/0.68 10ML BTL BOTH EYES SCH ×2 (08:55→20:55)
[2022-11-07] MEDS: ENOXAPARIN 40 MG/0.4 ML SYRINGE SQ SCH (08:55)
[2022-11-07] MEDS: PANTOPRAZOLE 40 MG/10 ML VIAL IV SCH (08:55)
[2022-11-07] MEDS: ACETAMINOPHEN TAB 325 MG TAB PO PRN (08:56)
[2022-11-07 11:19] LABS: Glucose,Whole Blood 139 mg/dL (70-110)
--- NOTE | 2022-11-07 12:33 | P.PN ---
Subjective Progress Note Date: 11/07/22 Principal diagnosis: Acute febrile illness/sepsis and breakthrough seizure This is a 52-year-old male patient chest to the intensive care unit as the patient was having fever and ongoing seizures on the medical floor. The patient was admitted yesterday to the hospital with symptoms of UTI and SPECT of urine tract infection sepsis. The patient was complaining of some pain in the right flank along burning in his urine for few days. He is known to have diabetes mellitus. His also undergone a previous surgery for testicular cancer and is also known to have seizure disorder maintained on Depakote a total of 1500 mg on a daily basis. The patient presented with fever of 102, tachycardia, hypotension, leukocytosis and sepsis. The patient had a white cell count of 22,000. The patient had a CAT scan of the abdomen that showed stranding along the left kidney and the right kidney concerning of an underlying infection. The fat stranding was worse on the left. The patient also has a prominent retroperitoneal lymph nodes proximal left. There was also evidence of hepatitic steatosis. The patient was started on IV Rocephin. The patient was seen by infectious disease. UA showed 31 WBCs and +4 glucose, +1 ketones and small amount of leukocyte esterase. Ultrasound the kidneys and the level was also done that showed no evidence of any hydronephrosis. There was a masslike area along the left anterior wall of the bladder which could be a session artifacts. There was again hepatitic steatosis. The patient got transferred to the ICU as the patient was having high-grade fever. The patient was becoming unresponsive and has had been having frequent episodes of seizures a total of 3 or 4. The A team was involved and the patient was given a total of 6 minute grams of IV Ativan. Currently is post ictal and unresponsive. Chest is currently on 3 L of oxygen by nasal cannula. He is obese and he is having some soft snoring. Nonverbal. Not responding to any verbal commands. Withdraws only to painful stimulation. No neck stiffness. Is in sinus tachycardia. Heart rate is around 140. Pulse is 94% on 3 L of oxygen by nasal cannula. BP is 130/77. Kingston catheter be inserted. The seizures were essentially the pulmonary chronic chronic seizures. The patient's had a CAT scan of the brain and the time of admission that showed no acute abnormalities. His Depakote level is 120 which is supratherapeutic. The patient has been followed by Dr. rider outpatient. Blood sugar control has been suboptimal outpatient basis. He has limited on a combination of ozempic and oral hypoglycemic medications. No chronic lung disease. No history of any cardiac disease. IV fluids are currently in the form of normal saline at 130 mL an hour. Most recent temperature is 103.8. On today's evaluation of 11/05/2022, the patient is being seen for a follow-up. Is calm and comfortable. No seizure activity overnight. The patient is currently on oxygen at 2 L/m nasal cannula. His white cell count is at 10.9. Blood cultures are still negative. His most recent temperature was 100.6. Cultures still pending for now. His pro calcitonin level was elevated at 1.98 consistent with an underlying bacterial infection. He remains on Rocephin 2 g. There was also given a dose of vancomycin yesterday. He remains on Vimpat. Neurology is on the case. EEG was completed yesterday and the patient's had an abnormal EEG with diffuse slowing of the ways. There was no evidence of any active seizures based on the EEG findings. The white cycles of 10.9, hemoglobin 11.4, platelet count is at 112, BUN is at 40 with a creatinine of 0.9 and a sodium level is at 133. His urine drug screen has been negative. He remains on Tylenol for fever. He remains on Lovenox for DVT prophylaxis. Remains on Levemir insulin at a dose of 25 units and is also receiving a sliding scale coverage. The patient is recovering from his post ictal state. He remains quite lethargic and somnolent and encephalopathic at this point in time. Urology was consulted regarding urethral stricture and there was noted that the patient was emptying his bladder adequately. CAT scan of the abdomen showed fat stranding in both kidneys. There is obviously inflammatory. Is also known to have less testicular cancer. The Kingston catheter was then inserted due to urethral stricture. 11/06/2022, the patient is still spiking temperature. The working diagnosis was UTI with secondary sepsis. All of the cultures came back negative. Pro- calcitonin was elevated suggestive of an underlying bacterial infection. The white cycles down to 7.2 and the patient is hemodynamically stable. Meanwhile, his mental status continues to improve and the patient is lethargic and sleepy at awake and communicating and he wants to have some breakfast today. Hemodynamically stable. No neck pain. No headache. No neck stiffness. Neurology on the case. No active seizures noted over the past 48 hours and the patient remains on Vimpat. He is moving all 4 extremities without any limitation. Blood cultures were negative. Kingston catheter was not inserted due to stricture on urology is on the case and if urine output is adequate for now. The white cell count at 7.2 with a hemoglobin of 11 and a platelet count of 117. BUN is at 12 and a creatinine of 0.5 and a sodium level is at 132. Chest x-ray showing some mild pulmonary vascular congestion. The patient is currently on normal saline at rate of 130 mL an hour and the patient is on oxygen at 2 L. Reevaluated today on 11/07/2022, patient remains in the ICU, he is presently on room air, complaining of a sore neck, does not seem to be in any distress, all his cultures remain negative pro-calcitonin level was elevated. Patient is hemo dynamically stable, no active seizures over the last 72 hours, patient remains on Vimpat. WBC count is 6.6 hemoglobin 11.6 Electrolytesenc normal renal profile is normal. Chest x-ray from 11/05 showed cardiomegaly and some prominent pulmonary vasculature, urine cultures and blood cultures remain negative. Remains on Rocephin, being followed by infectious disease. Objective - Vital Signs Vital signs: Vital Signs Temp 98.3 F 11/07/22 08:00 Pulse 94 11/07/22 08:00 Resp 22 11/07/22 08:00 BP 117/71 11/07/22 08:00 Pulse Ox 93 L 11/07/22 07:36 FiO2 Intake & Output 11/06/22 11/07/22 11/07/22 18:59 06:59 18:59 Intake Total 1660 600 Output Total 1750 1550 Balance -90 -950 Intake: IV 130 Sodium Chloride 0.9% 1, 130 000 ml @ 130 mls/hr IV . Q7H42M [facility] Rx#:[id number] Intake, IV Titration 550 600 Amount Sodium Chloride 0.9% 1, 100 600 000 ml @ 50 mls/hr IV . Q20H [facility] Rx#:[id number] cefTRIAXone 2 gm In 450 Sodium Chloride 0.9% 50 ml @ 100 mls/hr IVPB Q24HR [facility] Rx#:[id number] Oral 980 Output: Urine 1750 1550 Other: Voiding Method External Catheter Urinal Urinal # Bowel Movements 1 - Exam Physical Exam: Revealed 52-year-old male in no distress, on room air with O2 saturation ranging between 93 and 95% Head: Atraumatic, normocephalic. HEENT:[Neck is supple.] [No neck masses.] [No thyromegaly.] [No JVD.] Chest: [Clear throughout, no crackles, no rhonchi, no wheezes.] Cardiac Exam: [Normal S1 and S2, no S3 gallop, no murmur.] Abdomen: [Soft, nontender, no megaly, no rebound, no guarding, normal bowel sounds.] Extremities: [No clubbing, no edema, no cyanosis.] Neurological Exam: [No focal neurologic deficit.] Alert and oriented 3 Psychiatric: Normal mood affect and normal mental status exam. - Labs CBC & Chem 7: 11/07/22 03:06 11/07/22 03:06 Labs: Abnormal Lab Results - Last 24 Hours (Table) 11/06/22 11/06/22 11/06/22 Range/Units 13:55 16:16 19:58 RBC (4.30-5.90) m/uL Hgb (13.0-17.5) gm/dL Hct (39.0-53.0) % Plt Count (150-450) k/uL Sodium (137-145) mmol/L BUN (9-20) mg/dL Creatinine (0.66-1.25) mg/dL Glucose (74-99) mg/dL POC Glucose (mg/dL) 180 H 177 H 197 H (70-110) mg/dL Calcium (8.4-10.2) mg/dL 11/07/22 11/07/22 11/07/22 Range/Units 03:06 03:06 06:21 RBC 3.53 L (4.30-5.90) m/uL Hgb 11.6 L (13.0-17.5) gm/dL Hct 33.2 L (39.0-53.0) % Plt Count 128 L (150-450) k/uL Sodium 134 L (137-145) mmol/L BUN 8 L (9-20) mg/dL Creatinine 0.58 L (0.66-1.25) mg/dL Glucose 150 H (74-99) mg/dL POC Glucose (mg/dL) 186 H (70-110) mg/dL Calcium 8.2 L (8.4-10.2) mg/dL 11/07/22 Range/Units 11:18 RBC (4.30-5.90) m/uL Hgb (13.0-17.5) gm/dL Hct (39.0-53.0) % Plt Count (150-450) k/uL Sodium (137-145) mmol/L BUN (9-20) mg/dL Creatinine (0.66-1.25) mg/dL Glucose (74-99) mg/dL POC Glucose (mg/dL) 139 H (70-110) mg/dL Calcium (8.4-10.2) mg/dL Microbiology - Last 24 Hours (Table) 11/05/22 19:30 Urine Culture - Final Urine,Clean Catch 11/04/22 11:35 Blood Culture - Preliminary Blood 11/04/22 11:20 Blood Culture - Preliminary Blood Assessment and Plan Assessment: Impression: Acute febrile illness/sepsis, possible urinary tract infection/pyelonephritis. Acute breakthrough seizure Metabolic encephalopathy, resolved/acute Type 2 diabetes without complications under control. History of testicular cancer History of urethral stricture Recommendation: Will recommend transferring the patient out of the ICU to a regular medical floor. Continue antibiotics as per ID on the case presently on Rocephin Neurological status is being addressed by neurology on the case, remains on Vimpat for his breakthrough seizure Continue aspiration precautions Continue sliding scale insulin coverage Continue GI and DVT prophylaxis including Lovenox and Protonix Transfer patient out of the ICU to a medical surgical floor. We will continue to follow Time with Patient: Less than 30
--- NOTE | 2022-11-07 12:41 | P.PN ---
Subjective Progress Note Date: 11/07/22 Patient was initially seen by Dr. Fabiano Morales. Please refer to his notes for detail. Patient was seen for a follow-up. Patient is laying comfortably in the bed. Patient denies any headache. He has slow mentation. He denies any pain anywhere. Patient is a 52-year-old male who presents because of pyelonephritis. Patient had a 10 minute seizure but has history of nonepileptic seizures. Patient was on Depakote 1.5 g, but Dr. Morales has decreased it to 1 g. Also started him on Lamictal. Some other workup during this hospital visit consisted of: White blood cells 14.6 thousand predominantly neutrophilic and then it got as high as 22,000 Sugar is uncontrolled in the 200s. Hemoglobin A1c is 11.0. Plasma lactic acid vein is a 1.4 Urinalysis is a leukocyte esterases small but urine white blood cells 31. Valproic acid is 120.5 and the therapeutic is between 50-120. > 100 is considered possible toxic. Recent repeat Valproic acid level is 77.7. CT of the head was reported as allowing for scattered prominent artifact, no definite acute process. I personally reviewed the CT and I agree there is motion artifact but there is no acute or subacute ischemia or bleed that was appreciable. Ammonia level is 32. Normal is less than 30.--repeat is 22. Routine EEG is abnormal. The background slowing suggestive of mild encephalopathy likely due to underlying medication effect (Ativan). Was there is no focal slowing, epileptiform discharges or seizure on the EEG. ( Objective - Vital Signs Vital signs: Vital Signs Temp 98.3 F 11/07/22 08:00 Pulse 94 11/07/22 08:00 Resp 20 11/07/22 08:00 BP 117/71 11/07/22 08:00 Pulse Ox 93 L 11/07/22 07:36 FiO2 Intake & Output 11/06/22 11/07/22 11/07/22 18:59 06:59 18:59 Intake Total 1660 600 Output Total 1750 1550 Balance -90 -950 Intake: IV 130 Sodium Chloride 0.9% 1, 130 000 ml @ 130 mls/hr IV . Q7H42M [facility] Rx#:[id number] Intake, IV Titration 550 600 Amount Sodium Chloride 0.9% 1, 100 600 000 ml @ 50 mls/hr IV . Q20H [facility] Rx#:[id number] cefTRIAXone 2 gm In 450 Sodium Chloride 0.9% 50 ml @ 100 mls/hr IVPB Q24HR [facility] Rx#:[id number] Oral 980 Output: Urine 1750 1550 Other: Voiding Method External Catheter Urinal # Bowel Movements 1 - Exam Patient is a middle aged male, laying in the bed. Patient has slow mentation. Patient knows it is [facility] in [facility]. He knows it is November 2022. Speech and language functions are normal. His pupils are equal, round and reacting, visual shepard are full, face is symmetric and tongue protrudes the midline. Muscle strength appears normal. - Labs CBC & Chem 7: 11/07/22 03:06 11/07/22 03:06 Labs: Abnormal Lab Results - Last 24 Hours (Table) 11/06/22 11/06/22 11/06/22 Range/Units 09:20 11:08 13:55 RBC (4.30-5.90) m/uL Hgb (13.0-17.5) gm/dL Hct (39.0-53.0) % Plt Count (150-450) k/uL Sodium (137-145) mmol/L BUN (9-20) mg/dL Creatinine (0.66-1.25) mg/dL Glucose (74-99) mg/dL POC Glucose (mg/dL) 146 H 180 H (70-110) mg/dL Calcium (8.4-10.2) mg/dL Lactate Dehydrogenase 272 H (120-246) U/L 11/06/22 11/06/22 11/07/22 Range/Units 16:16 19:58 03:06 RBC 3.53 L (4.30-5.90) m/uL Hgb 11.6 L (13.0-17.5) gm/dL Hct 33.2 L (39.0-53.0) % Plt Count 128 L (150-450) k/uL Sodium (137-145) mmol/L BUN (9-20) mg/dL Creatinine (0.66-1.25) mg/dL Glucose (74-99) mg/dL POC Glucose (mg/dL) 177 H 197 H (70-110) mg/dL Calcium (8.4-10.2) mg/dL Lactate Dehydrogenase (120-246) U/L 11/07/22 11/07/22 Range/Units 03:06 06:21 RBC (4.30-5.90) m/uL Hgb (13.0-17.5) gm/dL Hct (39.0-53.0) % Plt Count (150-450) k/uL Sodium 134 L (137-145) mmol/L BUN 8 L (9-20) mg/dL Creatinine 0.58 L (0.66-1.25) mg/dL Glucose 150 H (74-99) mg/dL POC Glucose (mg/dL) 186 H (70-110) mg/dL Calcium 8.2 L (8.4-10.2) mg/dL Lactate Dehydrogenase (120-246) U/L Microbiology - Last 24 Hours (Table) 11/05/22 19:30 Urine Culture - Final Urine,Clean Catch 11/04/22 11:35 Blood Culture - Preliminary Blood 11/04/22 11:20 Blood Culture - Preliminary Blood Assessment and Plan Assessment: This is a 52-year-old gentleman with history of nonepileptic seizures and had multiple studies had a prolonged 2.5 hour EEG in our facility in November 2020 and his episodes were not epileptic as well as a had EEG done overhead reported and also was nonepileptic according to the , uncontrolled diabetes will has underlying sepsis due to UTI. Patient had seizure-like activity lasting for 10 minutes and resolved she was given 6 mg Ativan. Breakthrough seizure is likely nonepileptic in nature especially with his previous history of nonepileptic seizures and his lactic acid was normal (even though he had prolonged shaking). EEG showed mild encephalopathy and no seizure or discharges. His break-thru seizure due to underlying UTI--stable for last two days. Encephalopathy due to underlying sepsis from UTI/pyelopnephritis--mentation improving. History of nonepileptic seizures (had prolonged 2.5 hour EEG in our facility in 11/2020 and a week study at [facility] and both were non-epileptic) Uncontrolled diabetes mellitus with a hemoglobin A1c of 11.0 Sepsis possible due to underlying UTI/pyelonephritis Plan: Since the patient's valproic acid level was 120 which was a possible toxic lev el. Dr. Morales has decreased dose of Depakote from 1500 mg twice a day down to 1000 mg twice a day. There is a a lot of side effects to valproic acid such as obesity, osteoporosis, confusion etc. Dr. Dr. Morales further started him on Lamictal which helps both with mood disorder and antiepiletpic benefit. Also start the patient on Lamictal 25 mg daily at bedtime and the goal is 50 mg twice a day. Every week we'll add a 25 mg dose (so from 11/12/2022, the dose can be increased to 25mg bid). If patient develop any rash please discontinue lamictal. Recommend the patient to follow-up with a neurologist as an outpatient as well as psychiatry as an outpatient because of his nonepileptic seizures Continue neuro checks Defer the rest of the management to primary, and other specialists on board.
--- NOTE | 2022-11-07 14:33 | P.PN ---
Subjective Progress Note Date: 11/07/22 This is a 52-year-old male who presented to the emergency department for increased weakness and fatigue and generalized not feeling well. Patient reports over the last 2 days he is progressively becoming more weak and having chills and fevers and came to the ER for further evaluation. Patient also reports he has been having pain and burning with urination that has been ongoing for the last 2 weeks and did not follow-up with his doctor in regards to this. Patient follows with Dr. Montejo in the outpatient setting with a past medical history of enlarged prostate, testicular cancer along with diabetes mellitus and seizure disorder and renal failure. Patient reports to being a former smoker and uses a vape. In the ER chest x-ray showed low lung volumes with a generalized hazy appearance which could represent atelectasis versus pulmonary edema, CT brain showed no acute intracranial process, CT abdomen and pelvis showed fat stranding changing around the kidneys with left greater than right with prominent retroperitoneal lymph nodes most proximal left correlate for infection consider dedicated renal mass protocol CT MRI for underlying for complete evaluation of the kidneys and correlation with urinalysis is recommended along with hepatic steatosis, and EKG showed sinus tachycardia. L abs reviewed reveal a white blood count of 14.6, hemoglobin 15.3, sodium 135 with a potassium of 4.3, creatinine 0.83, lactic acid was 1.5, magnesium was 1.3 with a total bilirubin of 1.0, troponin was negative and amylase lipase within normal limits. Urinalysis revealed high protein glucose and ketones with a small amount of leukocyte Estrace and white blood count was 31. Urine culture is pending at this time. Blood cultures were ordered and infectious disease was consulted. Patient was given a gram of Rocephin and will resume and start the patient on insulin regimen as patient's blood sugars are poorly controlled. 11/04/2022 Patient seen and evaluated in follow-up this morning during an a team for seizure-like activity. Patient maintained on Depakote as per for seizure history and had extensive neurologic workup at [facility] and reported as nonepileptic. Medical records requested and pending at this time. Patient had been seen previously in this hospital and underwent prolonged EEG which was negative as well. Valproic acid level was drawn and extremely elevated at 120. Patient started becoming more obtunded and unresponsive and convulsing that lasted approximately 10 minutes. Patient received a total of 6 mg of Ativan during the a team and a repeat computed tomography scan was ordered and pending. Patient was noted to have significant fevers throughout the night of 103. Patient is currently maintained on IV antibiotics in the form of ceftriaxone with infectious disease following. Urine culture has been sent and pending at this time. Blood sugars better controlled and will continue current regimen hemoglobin A1c was noted to be above 11 and patient is normally maintained on once weekly ozempic along with oral diabetic agents and will need better glycemic control and insulins on discharge. Patient continued to have seizure- like activity and unresponsive and discussed with ICU vessel master and will be brought to ICU for closer monitoring. Neurology was consulted as well. 11/05/2022 Patient remains in intensive care unit, no further seizure-like activity reported. He continues to be confused today he is alert 0. Brain CT completed yesterday shows scattered prominent artifact with no definite acute process. He also underwent EEG which is negative for seizure-like activity this suggestion of mild encephalopathy likely due to medication effect. Patient did receive IV Ativan prior to. He was seen in consultation by neurology, vessel master and urologist. He does have a history of multiple urological surgeries does have a known urethral stricture ALLERGIES recommending to use external catheter and avoid indwelling catheter possible. His bladder scans have been showing less than 200 mls. He is following commands he was noted to have diffused weakness. Labs today show white count of 10.9, hemoglobin stable 11.4, sodium has improved to 133, kidney function is within normal limits. His blood glucoses improved with the addition of long-acting insulin today to swell 4. Hemoglobin A1c was noted to be 11. He had an elevated pro-calcitonin level of 1.98 suggesting an underlying bacterial infection and he remains on IV antibiotics in the form of IV Rocephin. Valproic acid was noted to be in the toxic range of 127.2 today neurology did decrease depakote and also recommended patient to begin lamictal. Ammonia level was noted to be elevated at 30 to yesterday we will repeat this level and provide a dose of lactulose. 11/06/2022 Patient remains in intensive care unit mentation is improved he is currently laura rt 3. He is still fatigued and tires easily with activity. No further seizure-like activity. He remains on a decreased dose of Depakote and serum valproic acid levels have normalized. Level is currently 77.7 which is an therapeutic range He also continues on Lamictal daily. Neurology is following closely. LabsIMA, 7.2, hemoglobin 11.3, sodium 132, BUN 12, creatinine 0.59, blood glucose 180s. Blood culture remains negative and urine culture is currently received and pending at this time. He remains on IV ceftriaxone. Had a chest x-ray yesterday evening showing cardiomegaly with prominent pulmonary vascular markings with early volume overload or congestive heart failure to be considered. He did have a proBNP which is up in the 600s is increased from prior but still normal for age. Patient is currently afebrile, heart rate of 89, blood pressure 123/68 and he is 96% on room air. 11/07/2022 Patient is seen and evaluated and follow-up continues to be in the ICU with multiple medical consultations following. Patient currently awaiting a [facility] bed and is a down grade. Patient has been seen by neurology recommending to continue current regimen and close outpatient follow-up with his neurologist. Patient has been room air with no further reports of shortness of breath. Patient is maintained on IV ceftriaxone with infectious disease following an cultures including urine culture has finalized and negative and will discuss further with infectious disease about discharge planning with antibiotics. Patient is afebrile with no reports of chest pain or palpitations. Patient tolerating diet and will continue monitoring blood sugars. Patient will need insulins on discharge. Review of Systems Constitutional: Denied any fatigue denied any fever. Cardio vascular: denied any chest pain, palpitations Gastrointestinal: denied any nausea, vomiting, diarrhea Pulmonary: Denied any shortness of breath cough Neurologic denied any new focal deficits, reports generalized weakness Active Medications Acetaminophen (Acetaminophen Tab 325 Mg Tab) 650 mg PO Q6HR PRN PRN Reason: Mild Pain or Fever > 100.5 Last Admin: 11/07/22 08:56 Dose: 650 mg Dextrose/Water (Dextrose 50% Syringe 50 Ml) 25 ml IVP PER PROTOCOL PRN; Protocol PRN Reason: Hypoglycemia Dextrose/Water (Dextrose 50% Syringe 50 Ml) 50 ml IVP PER PROTOCOL PRN; Protocol PRN Reason: Hypoglycemia Divalproex Sodium (Divalproex 500 Mg Anirudh.) 1,000 mg PO BID BRIAN Last Admin: 11/07/22 08:55 Dose: 1,000 mg Dorzolamide/Timolol (Dorzolamide-Timolol 2.23%/0.68 10ml Btl) 1 drops BOTH EYES BID [facility] Last Admin: 11/07/22 08:55 Dose: 1 drops Enoxaparin Sodium (Enoxaparin 40 Mg/0.4 Ml Syringe) 40 mg SQ DAILY [facility] Last Admin: 11/07/22 08:55 Dose: 40 mg Fluticasone Propionate (Fluticasone 50mcg/[place] Nasal 16gm) 1 spray EA NOSTRIL BID PRN PRN Reason: Allergy Symptoms Ceftriaxone Sodium 2 gm/ (Sodium Chloride) 50 mls @ 100 mls/hr IVPB Q24HR [facility]; Protocol Last Admin: 11/07/22 08:54 Dose: 100 mls/hr Sodium Chloride (Saline 0.9%) 1,000 mls @ 50 mls/hr IV .Q20H [facility] Last Admin: 11/07/22 05:29 Dose: 50 mls/hr Insulin Aspart (Insulin Aspart (Novolog) 100 Unit/Ml Vial) 0 unit SQ ACHS [facility]; Protocol Last Admin: 11/07/22 11:49 Dose: Not Given Insulin Detemir (Insulin Detemir (Levemir) 100 Unit/Ml Syr) 25 unit SQ BID@0700,2100 [facility] Last Admin: 11/07/22 06:30 Dose: 25 unit Ketorolac Tromethamine (Ketorolac 15 Mg/Ml 1 Ml Vial) 15 mg IVP Q6HR PRN PRN Reason: Pain Stop: 11/08/22 16:21 Lamotrigine (Lamotrigine 25 Mg Tab) 25 mg PO DAILY [facility] Last Admin: 11/07/22 08:55 Dose: 25 mg Latanoprost (Latanoprost 0.005% Ophth Drops 2.5 Ml Btl) 1 drops BOTH EYES HS [facility] Last Admin: 11/06/22 20:21 Dose: 1 drops Metoprolol Tartrate (Metoprolol Tartrate 50 Mg Tab) 50 mg PO BID [facility] Last Admin: 11/07/22 08:55 Dose: 50 mg Miscellaneous Information (Magnesium Replacement Protocol 1 Each Misc) 1 each MISCELLANE DAILY PRN; Protocol PRN Reason: Per Protocol Miscellaneous Information (Potassium Replacement Protocol 1 Each Misc) 1 each MISCELLANE DAILY PRN; Protocol PRN Reason: Per Protocol Naloxone HCl (Naloxone 0.4 Mg/Ml 1 Ml Vial) 0.2 mg IV Q2M PRN PRN Reason: Opioid Reversal Non-Formulary Medication (Semaglutide [Ozempic]) 0.5 mg SQ [place] [facility] Last Admin: 11/06/22 15:46 Dose: Not Given Ondansetron HCl (Ondansetron 4 Mg/2 Ml Vial) 4 mg IVP Q8HR PRN PRN Reason: Nausea And Vomiting Last Admin: 11/04/22 00:57 Dose: 4 mg Pantoprazole Sodium (Pantoprazole 40 Mg/10 Ml Vial) 40 mg IV DAILY [facility] Last Admin: 11/07/22 08:55 Dose: 40 mg PHYSICAL EXAMINATION: GENERAL: The patient is currently up on the bedside commode, alert and oriented 3, Well developed, well nourished. Obese HEENT: Pupils are 2-3 mm although reacting to light. EOMI. no scleral icterus. No conjunctival pallor. Normocephalic, atraumatic. No pharyngeal erythema. No thyromegaly. CARDIOVASCULAR: S1 and S2 muffled PULMONARY: diminished breath sounds bilaterally with no wheezing or rhonchi noted. ABDOMEN: soft. Nontender on exam. obese. non-distended, normoactive bowel sounds. No palpable organomegaly. MUSCULOSKELETAL: No joint swelling or deformity. EXTREMITIES: No cyanosis, clubbing, or pedal edema. NEUROLOGICAL: Gross neurological examination did not reveal any focal deficits. Diffuse weakness SKIN: No rashes. Assessment: Fevers with leukocytosis with features of sepsis, present on admission. Pro- calcitonin elevated with concerns of urinary tract infection/pyelonephritis, suggestive of bacterial infection Leukocytosis secondary to above, normalized Acute Metabolic encephalopathy, multifactorial, secondary to sepsis as well as seizure-like activity, EEG negative for epileptiform activity Hypomagnesemia, replaced and improved Breakthrough seizure with history of seizure disorder, maintained on Depakote Elevated Depakote level of 120, normalized and within therapeutic range Obesity with a BMI of 34.3 Diabetes mellitus, type II, severely uncontrolled with hyperglycemia and noncompliance of medications, hemoglobin A1c is 11 History of testicular cancer Seizure disorder history Former smoker and Vapes GI prophylaxis DVT prophylaxis Full code Plan: Continues on Depakote at decreased dose as well as lamictal, seizure precautions and neurology following recommending outpatient follow-up and continue current regimen [facility]. Continues to be closely monitored in intensive care unit and awaiting a bed on the MedSurg unit Awaiting urine culture, patient remains on IV ceftriaxone for suspected UTI/Pyelone. Infectious disease is following. Urology has evaluated the patient recommending external catheter to avoid IDC if possible and continue to monitor for urinary retention. Patient reports voiding with no difficulties Will have PT/OT therapy evaluate the patient Repeat labs in AM and replace magnesium and electrolytes per protocol Possible discharge in the next 24 hours The impression and plan of care has been dictated by Dagmar Cardona, nurse practitioner as directed. Dr. Brandon MD I have performed a history and examination and MDM of this patient, discussed the same with the dictator, and agree with the dictator's assessment and plan as written ,documented as a scribe. Based on total visit time, I have performed more than 50% of the visit. Any additional findings or plans will be noted. Objective - Vital Signs Vital signs: Vital Signs Temp 98.3 F 11/07/22 13:59 Pulse 84 11/07/22 13:59 Resp 16 11/07/22 13:59 BP 123/74 11/07/22 13:59 Pulse Ox 93 L 11/07/22 07:36 FiO2 Intake & Output 11/06/22 11/07/22 11/07/22 18:59 06:59 18:59 Intake Total 1660 600 Output Total 1750 1550 Balance -90 -950 Intake: IV 130 Sodium Chloride 0.9% 1, 130 000 ml @ 130 mls/hr IV . Q7H42M [facility]RIAN Rx#:[id number] Intake, IV Titration 550 600 Amount Sodium Chloride 0.9% 1, 100 600 000 ml @ 50 mls/hr IV . Q20H [facility] Rx#:[id number] cefTRIAXone 2 gm In 450 Sodium Chloride 0.9% 50 ml @ 100 mls/hr IVPB Q24HR [facility] Rx#:[id number] Oral 980 Output: Urine 1750 1550 Other: Voiding Method External Catheter Urinal Urinal # Bowel Movements 1 - Labs CBC & Chem 7: 11/07/22 03:06 11/07/22 03:06 Labs: Abnormal Lab Results - Last 24 Hours (Table) 11/06/22 11/06/22 11/07/22 Range/Units 16:16 19:58 03:06 RBC 3.53 L (4.30-5.90) m/uL Hgb 11.6 L (13.0-17.5) gm/dL Hct 33.2 L (39.0-53.0) % Plt Count 128 L (150-450) k/uL Sodium (137-145) mmol/L BUN (9-20) mg/dL Creatinine (0.66-1.25) mg/dL Glucose (74-99) mg/dL POC Glucose (mg/dL) 177 H 197 H (70-110) mg/dL Calcium (8.4-10.2) mg/dL 11/07/22 11/07/22 11/07/22 Range/Units 03:06 06:21 11:18 RBC (4.30-5.90) m/uL Hgb (13.0-17.5) gm/dL Hct (39.0-53.0) % Plt Count (150-450) k/uL Sodium 134 L (137-145) mmol/L BUN 8 L (9-20) mg/dL Creatinine 0.58 L (0.66-1.25) mg/dL Glucose 150 H (74-99) mg/dL POC Glucose (mg/dL) 186 H 139 H (70-110) mg/dL Calcium 8.2 L (8.4-10.2) mg/dL Microbiology - Last 24 Hours (Table) 11/05/22 19:30 Urine Culture - Final Urine,Clean Catch 11/04/22 11:35 Blood Culture - Preliminary Blood 11/04/22 11:20 Blood Culture - Preliminary Blood
[2022-11-07 16:28] LABS: Glucose,Whole Blood 204 mg/dL (70-110)
[2022-11-07 20:35] LABS: Glucose,Whole Blood 223 mg/dL (70-110)
[2022-11-07] MEDS: LATANOPROST 0.005% OPHTH DROPS 2.5 ML BTL BOTH EYES SCH (20:55)
[2022-11-08] MEDS: SODIUM CHLORIDE 0.9% 1,000 ML IV SCH (01:34)
[2022-11-08 03:53] VITALS: RESP 16
[2022-11-08] MEDS ORDERED: Magnesium Replacement Protocol 1 EACH MISC MISCELLANE PRN (06:08)
[2022-11-08 06:33] LABS: Glucose,Whole Blood 182 mg/dL (70-110)
[2022-11-08] MEDS: INSULIN ASPART (NovoLOG) 100 UNIT/ML VIAL SQ SCH ×2 (06:42→12:09)
[2022-11-08] MEDS: INSULIN DETEMIR (LEVEMIR) 100 UNIT/ML SYR SQ SCH (06:42)
[2022-11-08] MEDS: MAGNESIUM SULFATE-D5W PMX 1 GM in DEXTROSE/WATER 1 100ML.BAG IVPB SCH ×2 (06:43→08:32)
[2022-11-08] MEDS: DORZOLAMIDE-TIMOLOL 2.23%/0.68 10ML BTL BOTH EYES SCH (08:31)
[2022-11-08] MEDS: ENOXAPARIN 40 MG/0.4 ML SYRINGE SQ SCH (08:32)
[2022-11-08] MEDS: PANTOPRAZOLE 40 MG/10 ML VIAL IV SCH (08:32)
[2022-11-08] MEDS: lamoTRIgine 25 MG TAB PO SCH (08:33)
[2022-11-08] MEDS: METOPROLOL TARTRATE 50 MG TAB PO SCH (08:33)
[2022-11-08] MEDS: DIVALPROEX 500 MG TABLET.DR PO SCH (08:33)
[2022-11-08 08:46] VITALS: BP 129/80; PULSE 68; TEMP 98.7
--- NOTE | 2022-11-08 10:46 | P.PN ---
Subjective Progress Note Date: 11/08/22 Principal diagnosis: Acute febrile illness/sepsis and breakthrough seizure This is a 52-year-old male patient chest to the intensive care unit as the patient was having fever and ongoing seizures on the medical floor. The patient was admitted yesterday to the hospital with symptoms of UTI and SPECT of urine tract infection sepsis. The patient was complaining of some pain in the right flank along burning in his urine for few days. He is known to have diabetes mellitus. His also undergone a previous surgery for testicular cancer and is also known to have seizure disorder maintained on Depakote a total of 1500 mg on a daily basis. The patient presented with fever of 102, tachycardia, hypotension, leukocytosis and sepsis. The patient had a white cell count of 22,000. The patient had a CAT scan of the abdomen that showed stranding along the left kidney and the right kidney concerning of an underlying infection. The fat stranding was worse on the left. The patient also has a prominent retroperitoneal lymph nodes proximal left. There was also evidence of hepatitic steatosis. The patient was started on IV Rocephin. The patient was seen by infectious disease. UA showed 31 WBCs and +4 glucose, +1 ketones and small amount of leukocyte esterase. Ultrasound the kidneys and the level was also done that showed no evidence of any hydronephrosis. There was a masslike area along the left anterior wall of the bladder which could be a session artifacts. There was again hepatitic steatosis. The patient got transferred to the ICU as the patient was having high-grade fever. The patient was becoming unresponsive and has had been having frequent episodes of seizures a total of 3 or 4. The A team was involved and the patient was given a total of 6 minute grams of IV Ativan. Currently is post ictal and unresponsive. Chest is currently on 3 L of oxygen by nasal cannula. He is obese and he is having some soft snoring. Nonverbal. Not responding to any verbal commands. Withdraws only to painful stimulation. No neck stiffness. Is in sinus tachycardia. Heart rate is around 140. Pulse is 94% on 3 L of oxygen by nasal cannula. BP is 130/77. Kingston catheter be inserted. The seizures were essentially the pulmonary chronic chronic seizures. The patient's had a CAT scan of the brain and the time of admission that showed no acute abnormalities. His Depakote level is 120 which is supratherapeutic. The patient has been followed by Dr. rider outpatient. Blood sugar control has been suboptimal outpatient basis. He has limited on a combination of ozempic and oral hypoglycemic medications. No chronic lung disease. No history of any cardiac disease. IV fluids are currently in the form of normal saline at 130 mL an hour. Most recent temperature is 103.8. On today's evaluation of 11/05/2022, the patient is being seen for a follow-up. Is calm and comfortable. No seizure activity overnight. The patient is currently on oxygen at 2 L/m nasal cannula. His white cell count is at 10.9. Blood cultures are still negative. His most recent temperature was 100.6. Cultures still pending for now. His pro calcitonin level was elevated at 1.98 consistent with an underlying bacterial infection. He remains on Rocephin 2 g. There was also given a dose of vancomycin yesterday. He remains on Vimpat. Neurology is on the case. EEG was completed yesterday and the patient's had an abnormal EEG with diffuse slowing of the ways. There was no evidence of any active seizures based on the EEG findings. The white cycles of 10.9, hemoglobin 11.4, platelet count is at 112, BUN is at 40 with a creatinine of 0.9 and a sodium level is at 133. His urine drug screen has been negative. He remains on Tylenol for fever. He remains on Lovenox for DVT prophylaxis. Remains on Levemir insulin at a dose of 25 units and is also receiving a sliding scale coverage. The patient is recovering from his post ictal state. He remains quite lethargic and somnolent and encephalopathic at this point in time. Urology was consulted regarding urethral stricture and there was noted that the patient was emptying his bladder adequately. CAT scan of the abdomen showed fat stranding in both kidneys. There is obviously inflammatory. Is also known to have less testicular cancer. The Kingston catheter was then inserted due to urethral stricture. 11/06/2022, the patient is still spiking temperature. The working diagnosis was UTI with secondary sepsis. All of the cultures came back negative. Pro- calcitonin was elevated suggestive of an underlying bacterial infection. The white cycles down to 7.2 and the patient is hemodynamically stable. Meanwhile, his mental status continues to improve and the patient is lethargic and sleepy at awake and communicating and he wants to have some breakfast today. Hemodynamically stable. No neck pain. No headache. No neck stiffness. Neurology on the case. No active seizures noted over the past 48 hours and the patient remains on Vimpat. He is moving all 4 extremities without any limitation. Blood cultures were negative. Kingston catheter was not inserted due to stricture on urology is on the case and if urine output is adequate for now. The white cell count at 7.2 with a hemoglobin of 11 and a platelet count of 117. BUN is at 12 and a creatinine of 0.5 and a sodium level is at 132. Chest x-ray showing some mild pulmonary vascular congestion. The patient is currently on normal saline at rate of 130 mL an hour and the patient is on oxygen at 2 L. Reevaluated today on 11/07/2022, patient remains in the ICU, he is presently on room air, complaining of a sore neck, does not seem to be in any distress, all his cultures remain negative pro-calcitonin level was elevated. Patient is hemo dynamically stable, no active seizures over the last 72 hours, patient remains on Vimpat. WBC count is 6.6 hemoglobin 11.6 Electrolytesenc normal renal profile is normal. Chest x-ray from 11/05 showed cardiomegaly and some prominent pulmonary vasculature, urine cultures and blood cultures remain negative. Remains on Rocephin, being followed by infectious disease. Patient was reevaluated today on 11/08/2022, remains in the ICU, presently on room air, doing extremely well, asymptomatic, is presently overflow to a medical surgical floor. WBC count 6.6 hemoglobin is 11.6, electrolytes are normal renal profile is normal, cultures, and that is including blood cultures and urine cultures Objective - Vital Signs Vital signs: Vital Signs Temp 98.7 F 11/08/22 08:00 Pulse 68 11/08/22 08:00 Resp 16 11/08/22 08:00 BP 129/80 11/08/22 08:00 Pulse Ox 96 11/08/22 08:00 FiO2 Intake & Output 11/07/22 11/08/22 11/08/22 18:59 06:59 18:59 Intake Total 500 Output Total 1500 1400 Balance -1500 -900 Weight 108.4 kg Intake: IV 500 Sodium Chloride 0.9% 1, 500 000 ml @ 50 mls/hr IV . Q20H [facility] Rx#:[id number] Output: Urine 1500 1400 Other: Voiding Method Urinal External Catheter # Bowel Movements 1 2 - Exam Physical Exam: Revealed 52-year-old male in no distress, on room air Head: Atraumatic, normocephalic. HEENT:[Neck is supple.] [No neck masses.] [No thyromegaly.] [No JVD.] Chest: [Clear throughout, no crackles, no rhonchi, no wheezes.] Cardiac Exam: [Normal S1 and S2, no S3 gallop, no murmur.] Abdomen: [Soft, nontender, no megaly, no rebound, no guarding, normal bowel sounds.] Extremities: [No clubbing, no edema, no cyanosis.] Neurological Exam: [No focal neurologic deficit.] Alert and oriented 3 Psychiatric: Normal mood affect and normal mental status exam. - Labs CBC & Chem 7: 11/07/22 03:06 11/07/22 03:06 Labs: Abnormal Lab Results - Last 24 Hours (Table) 11/07/22 11/07/22 11/07/22 Range/Units 11:18 16:27 20:34 POC Glucose (mg/dL) 139 H 204 H 223 H (70-110) mg/dL Magnesium (1.6-2.3) mg/dL 11/08/22 11/08/22 Range/Units 03:05 06:32 POC Glucose (mg/dL) 182 H (70-110) mg/dL Magnesium 1.5 L (1.6-2.3) mg/dL Microbiology - Last 24 Hours (Table) 11/02/22 18:00 Blood Culture - Final Blood 11/02/22 17:45 Blood Culture - Final Blood 11/04/22 11:35 Blood Culture - Preliminary Blood 11/04/22 11:20 Blood Culture - Preliminary Blood 11/05/22 19:30 Urine Culture - Final Urine,Clean Catch Assessment and Plan Assessment: Impression: Acute febrile illness/sepsis, possible pyelonephritis Acute breakthrough seizure Metabolic encephalopathy, resolved/acute Type 2 diabetes without complications under control. History of testicular cancer History of urethral stricture Recommendation: Continue antibiotics as per ID on the case presently on Rocephin Continue seizure meds/of Vimpat Continue aspiration precautions Continue sliding scale insulin coverage Continue GI and DVT prophylaxis including Lovenox and Protonix Will clear for transfer out of the ICU to a regular medical floor once a bed is available We will continue to follow Time with Patient: Less than 30
[2022-11-08 11:28] LABS: Glucose,Whole Blood 221 mg/dL (70-110)
[2022-11-08 13:06] VITALS: BMI 41.0
--- NOTE | 2022-11-08 15:14 | P.PN ---
Subjective Progress Note Date: 11/07/22 Principal diagnosis: UTI with sepsis Patient is a 52-year-old male with a past medical history significant for diabetes mellitus history of testicular cancer and seizure disorder did have a surgery for testicular cancer and urothelial reconstruction presenting to the hospital for evaluation of chills patient mention has not been feeling well, patient was diagnosed with a pyelonephritis admitted to the floor subsequently did have another fever and question of seizure and the patient was transferred to the ICU. On today's evaluation that is 11/07/2022 the patient is afebrile for more than 24 hours now, patient is more awake and alert up in the chair, the patient is breathing comfortably on room air , the patient denies any chest pain occasional cough no vomiting or diarrhea has been reported and no abdominal pain Patient white count is normal at 6.6 , creatinine 0.58, COVID influenza and RSV PCR negative blood cultures so far negative, urine cultures negative so far, patient did have a chest x-ray is mostly shows pulmonary vascular congestion no mention of any consolidation , Objective - Vital Signs Vital signs: Vital Signs Temp 98.3 F 11/07/22 08:00 Pulse 94 11/07/22 08:00 Resp 22 11/07/22 08:00 BP 117/71 11/07/22 08:00 Pulse Ox 93 L 11/07/22 07:36 FiO2 Intake & Output 11/06/22 11/07/22 11/07/22 18:59 06:59 18:59 Intake Total 1660 600 Output Total 1750 1550 Balance -90 -950 Intake: IV 130 Sodium Chloride 0.9% 1, 130 000 ml @ 130 mls/hr IV . Q7H42M [facility] Rx#:[id number] Intake, IV Titration 550 600 Amount Sodium Chloride 0.9% 1, 100 600 000 ml @ 50 mls/hr IV . Q20H [facility] Rx#:[id number] cefTRIAXone 2 gm In 450 Sodium Chloride 0.9% 50 ml @ 100 mls/hr IVPB Q24HR [facility] Rx#:[id number] Oral 980 Output: Urine 1750 1550 Other: Voiding Method External Catheter Urinal Urinal # Bowel Movements 1 - Exam GENERAL DESCRIPTION: A middle-age male up in the chair in no distress RESPIRATORY SYSTEM: Unlabored breathing , decreased breath sounds at bases HEART: S1 S2 regular rate and rhythm , ABDOMEN: Soft , no tenderness EXTREMITIES: No edema feet - Labs CBC & Chem 7: 11/07/22 03:06 11/07/22 03:06 Labs: Abnormal Lab Results - Last 24 Hours (Table) 11/06/22 11/06/22 11/06/22 Range/Units 13:55 16:16 19:58 RBC (4.30-5.90) m/uL Hgb (13.0-17.5) gm/dL Hct (39.0-53.0) % Plt Count (150-450) k/uL Sodium (137-145) mmol/L BUN (9-20) mg/dL Creatinine (0.66-1.25) mg/dL Glucose (74-99) mg/dL POC Glucose (mg/dL) 180 H 177 H 197 H (70-110) mg/dL Calcium (8.4-10.2) mg/dL 11/07/22 11/07/22 11/07/22 Range/Units 03:06 03:06 06:21 RBC 3.53 L (4.30-5.90) m/uL Hgb 11.6 L (13.0-17.5) gm/dL Hct 33.2 L (39.0-53.0) % Plt Count 128 L (150-450) k/uL Sodium 134 L (137-145) mmol/L BUN 8 L (9-20) mg/dL Creatinine 0.58 L (0.66-1.25) mg/dL Glucose 150 H (74-99) mg/dL POC Glucose (mg/dL) 186 H (70-110) mg/dL Calcium 8.2 L (8.4-10.2) mg/dL 11/07/22 Range/Units 11:18 RBC (4.30-5.90) m/uL Hgb (13.0-17.5) gm/dL Hct (39.0-53.0) % Plt Count (150-450) k/uL Sodium (137-145) mmol/L BUN (9-20) mg/dL Creatinine (0.66-1.25) mg/dL Glucose (74-99) mg/dL POC Glucose (mg/dL) 139 H (70-110) mg/dL Calcium (8.4-10.2) mg/dL Microbiology - Last 24 Hours (Table) 11/05/22 19:30 Urine Culture - Final Urine,Clean Catch 11/04/22 11:35 Blood Culture - Preliminary Blood 11/04/22 11:20 Blood Culture - Preliminary Blood Assessment and Plan (1) Pyelonephritis Current Visit: Yes Status: Acute Code(s): N12 - TUBULO-INTERSTITIAL NEPHRITIS, NOT SPCF ACUTE OR CHRONIC SNOMED Code(s): 13231900 (2) Sepsis Current Visit: Yes Status: Acute Code(s): A41.9 - SEPSIS, UNSPECIFIED ORGANISM SNOMED Code(s): 11921135 Plan: 1patient presented to the hospital with sepsis in this patient did have a fever tachycardia elevated white resources pyelonephritis in this patient with a urinary symptoms and did have a history of urethra reconstruction after surgery for testicular cancer however CT did not show evidence of hydronephrosis 2-the patient white count has normalized blood culture has been negative so far urine cultures negative as well 3-patient seemed to have shown clinical improvement and we will continue Rocephin and monitor clinical course closely Dictation was produced using [employer] dictation software. please excuse any grammatical, word or spelling errors. Time with Patient: Less than 30
--- NOTE | 2022-11-08 15:16 | P.PN ---
Subjective Progress Note Date: 11/08/22 Principal diagnosis: UTI with sepsis Patient is a 52-year-old male with a past medical history significant for diabetes mellitus history of testicular cancer and seizure disorder did have a surgery for testicular cancer and urothelial reconstruction presenting to the hospital for evaluation of chills patient mention has not been feeling well, patient was diagnosed with a pyelonephritis admitted to the floor subsequently did have another fever and question of seizure and the patient was transferred to the ICU. On today's evaluation that is 11/08/2022 the patient remains to be afebrile, patient is more awake and alert up in the chair and mention feeling much better today, the patient is breathing comfortably on room air , the patient denies any chest pain occasional cough no vomiting or diarrhea has been reported and no abdominal pain Patient white count is normal at 6.6 , creatinine 0.58 as of 11/07/2022, no blood work done today, COVID influenza and RSV PCR negative blood cultures so far negative, urine cultures negative so far, patient did have a chest x-ray is mostly shows pulmonary vascular congestion no mention of any consolidation , Objective - Vital Signs Vital signs: Vital Signs Temp 98.7 F 11/08/22 08:00 Pulse 68 11/08/22 08:00 Resp 16 11/08/22 08:00 BP 129/80 11/08/22 08:00 Pulse Ox 96 11/08/22 08:00 FiO2 Intake & Output 11/07/22 11/08/22 11/08/22 18:59 06:59 18:59 Intake Total 500 Output Total 1500 1400 1400 Balance -1500 -900 -1400 Weight 108.4 kg Intake: IV 500 Sodium Chloride 0.9% 1, 500 000 ml @ 50 mls/hr IV . Q20H [facility] Rx#:[id number] Output: Urine 1500 1400 1400 Other: Voiding Method Urinal External Catheter External Catheter # Voids 1 # Bowel Movements 1 2 2 - Exam GENERAL DESCRIPTION: A middle-age male up in the chair in no distress RESPIRATORY SYSTEM: Unlabored breathing , decreased breath sounds at bases HEART: S1 S2 regular rate and rhythm , ABDOMEN: Soft , no tenderness EXTREMITIES: No edema feet - Labs CBC & Chem 7: 11/07/22 03:06 11/07/22 03:06 Labs: Abnormal Lab Results - Last 24 Hours (Table) 11/07/22 11/07/2223 Range/Units 16:27 20:34 03:05 POC Glucose (mg/dL) 204 H 223 H (70-110) mg/dL Magnesium 1.5 L (1.6-2.3) mg/dL 11/08/22 11/08/22 Range/Units 06:32 11:27 POC Glucose (mg/dL) 182 H 221 H (70-110) mg/dL Magnesium (1.6-2.3) mg/dL Microbiology - Last 24 Hours (Table) 11/02/22 18:00 Blood Culture - Final Blood 11/02/22 17:45 Blood Culture - Final Blood 11/04/22 11:35 Blood Culture - Preliminary Blood 11/04/22 11:20 Blood Culture - Preliminary Blood Assessment and Plan (1) Pyelonephritis Current Visit: Yes Status: Acute Code(s): N12 - TUBULO-INTERSTITIAL NEPHRITIS, NOT SPCF ACUTE OR CHRONIC SNOMED Code(s): 05828337 (2) Sepsis Current Visit: Yes Status: Acute Code(s): A41.9 - SEPSIS, UNSPECIFIED ORGANISM SNOMED Code(s): 96386639 Plan: 1patient presented to the hospital with sepsis in this patient did have a fever tachycardia elevated white resources pyelonephritis in this patient with a urinary symptoms and did have a history of urethra reconstruction after surgery for testicular cancer however CT did not show evidence of hydronephrosis 2-the patient white count has normalized blood culture has been negative so far urine cultures negative as well 3-patient seemed to have shown clinical improvement with Rocephin, plan to finish therapy with oral Ceftin 500 mg twice a day for 10 days, discussed with the SCHOOL DIRECTOR for admitting team working on discharge Dictation was produced using [employer] dictation software. please excuse any grammatical, word or spelling errors. Time with Patient: Less than 30
--- NOTE | 2022-11-09 14:46 | P.DS ---
Providers Date of admission: 11/03/22 00:19 Expected date of discharge: 11/08/22 Attending physician: Lee Ann Taylor Consults: 11/02/22 19:37 Consult Physician Urgent Consulting Provider: Cristy Milian Consult Reason/Comments: Pyelo, AMS Do you want consulting provider notified?: Yes 11/04/22 09:42 Consult Physician Urgent Consulting Provider: Fabiano Morales Consult Reason/Comments: Seizure activity Do you want consulting provider notified?: Yes 11/04/22 11:01 Consult Physician Stat Consulting Provider: Jennifer Dumont Consult Reason/Comments: seizure, fever, sepsis Do you want consulting provider notified?: Yes 11/04/22 14:23 Consult Physician Urgent Consulting Provider: Juan Das Consult Reason/Comments: previous urethral reconstruction with hx of Ca, difficulty with burrows inser Do you want consulting provider notified?: Yes Primary care physician: Lucila Montejo Hospital Course: Final diagnosis Fevers with leukocytosis with features of sepsis, present on admission. Pro- calcitonin elevated with concerns of urinary tract infection/pyelonephritis, suggestive of bacterial infection Leukocytosis secondary to above, normalized Acute Metabolic encephalopathy, multifactorial, secondary to sepsis as well as seizure-like activity, EEG negative for epileptiform activity Hypomagnesemia, replaced and improved Breakthrough seizure with history of seizure disorder, maintained on Depakote Elevated Depakote level of 120, normalized and within therapeutic range Obesity with a BMI of 34.3 Diabetes mellitus, type II, severely uncontrolled with hyperglycemia and noncompliance of medications, hemoglobin A1c is 11 History of testicular cancer Seizure disorder history Former smoker and Vapes GI prophylaxis DVT prophylaxis Full code Discharge disposition Patient is being discharged in a stable condition with guarded prognosis to home. Patient will follow-up with Dr. Montejo in the outpatient setting upon d ischarge. Patient is to follow-up with neurologist this week and continue with current medications as mentioned below. Patient continue on oral Ceftin 500 mg twice daily for the next 10 days per ID recommendations. Total time taken is greater than 35 minutes. Hospital course This is a 52-year-old male who was recently admitted with fevers and leukocytosis with features of sepsis with concern of UTI with pyelonephritis. CT abdomen showed fat stranding with concerns of and no hydronephrosis noted. Patient does have significant past medical history of testicular cancer with urethral reconstruction and was evaluated by urology. Patient also evaluated by neurology for breakthrough seizures and found to be nonepileptic and had EEGs done. Patient with significant weakness evaluated by physical therapy slowly improving. Patient's blood sugars are completely uncontrolled and hemoglobin A1c is 11 and patient is maintained on oral diabetic agents along with ozempic injection weekly and will be going home on insulin coverage and instructed to follow-up with primary care provider this week. Patient has been cleared by consultations for discharge. Please refer to other consultation notes for further HPI. Currently no reports of chest pain, shortness of breath, or palpitations. Patient is afebrile. No reports of nausea or vomiting and patient is tolerating diet. Patient will be discharged home today. Physical exam: Gen: This is a 52-year-old male who is awake, alert and oriented 3, well- developed, well-nourished, morbidly obese HEENT: Head is atraumatic, normocephalic. Pupils equal, round. Sclerae is anicteric. NECK: Supple. No JVD. No lymphadenopathy. No thyromegaly. LUNGS: Clear to auscultation. No wheezes or rhonchi. No intercostal retractions. HEART: Regular rate and rhythm. No murmur. ABDOMEN: Soft. Obese. Bowel sounds are present. No masses. No tenderness. EXTREMITIES: No pedal edema. No calf tenderness. NEUROLOGICAL: Patient is awake, alert and oriented x3. Cranial nerves 2 through 12 are grossly intact. Please refer to medication reconciliation sheet for a list of medications. The impression and plan of care has been dictated by Dagmar Cardona, Nurse Practitioner as directed. Dr. Brandon MD I have performed a history and examination and MDM of this patient, discussed the same with the dictator, and agree with the dictator's assessment and plan as written ,documented as a scribe. Based on total visit time, I have performed more than 50% of the visit. Patient Condition at Discharge: Good Plan - Discharge Summary New Discharge Prescriptions: New lamoTRIgine [LaMICtal] 25 mg PO DAILY #30 tab Insulin Detemir (Levemir) [Levemir] 15 unit SQ BID@0700,2100 30 Days #6 each cefUROXime axetiL [Ceftin] 500 mg PO BID 10 Days #20 tab Divalproex [Depakote] 1,000 mg PO BID #0 tab Acetaminophen Tab [Tylenol] 650 mg PO Q6HR PRN tab PRN Reason: Mild Pain Or Fever > 100.5 Continue Metoprolol Tartrate [Lopressor] 50 mg PO BID Fluticasone Nasal [place] [Flonase Nasal [place]] 1 spray EA NOSTRIL BID PRN PRN Reason: Allergy Symptoms Latanoprost [Latanoprost 0.005%] 1 drop BOTH EYES HS Semaglutide [Ozempic] 0.5 mg SQ [place] metFORMIN HCL [Glucophage] 850 mg PO BID Glimepiride [Amaryl] 4 mg PO BID Dorzolamide-Timol 2.23%/0.68% [Cosopt] 1 drop BOTH EYES BID Discontinued Divalproex Sodium [Depakote] 1,000 mg PO DIRECTED Divalproex [Depakote] 500 mg PO DIRECTED Discharge Medication List Dorzolamide-Timol 2.23%/0.68% [Cosopt] 1 drop BOTH EYES BID 10/29/20 [History] Glimepiride [Amaryl] 4 mg PO BID 10/29/20 [History] Metoprolol Tartrate [Lopressor] 50 mg PO BID 10/29/20 [History] metFORMIN HCL [Glucophage] 850 mg PO BID 10/29/20 [History] Fluticasone Nasal [place] [Flonase Nasal [place]] 1 spray EA NOSTRIL BID PRN 03/18/21 [History] Latanoprost [Latanoprost 0.005%] 1 drop BOTH EYES HS 11/02/22 [History] Semaglutide [Ozempic] 0.5 mg SQ [place] 11/02/22 [History] Acetaminophen Tab [Tylenol] 650 mg PO Q6HR PRN tab 11/08/22 [Rx] Divalproex [Depakote] 1,000 mg PO BID #0 tab 11/08/22 [Rx] Insulin Detemir (Levemir) [Levemir] 15 unit SQ BID@0700,2100 30 Days #6 each 11/08/22 [Rx] cefUROXime axetiL [Ceftin] 500 mg PO BID 10 Days #20 tab 11/08/22 [Rx] lamoTRIgine [LaMICtal] 25 mg PO DAILY #30 tab 11/08/22 [Rx] Follow up Appointment(s)/Referral(s): Lucila Montejo MD [Primary Care Provider] - 11/15/22 10:45 am Patient Instructions/Handouts: Kidney Infection (DC), Nonepileptic Seizures (GEN) Activity/Diet/Wound Care/Special Instructions: Activity Limited until follow-up Follow-up with primary care provider this week Follow-up with neurologist outpatient in one week Continue taking medications as prescribed Continue monitoring Accu-Cheks before meals and at bedtime and keep a diary of all readings Recommend follow-up with endocrine outpatient for tighter glycemic control Patient to continue on twice daily long acting along with oral diabetic agents and close outpatient follow-up Continue heart healthy consistent carb diet Continue antibiotics until finished Discharge Disposition: HOME SELF-CARE
== END 2022-11-08 17:03 | disposition home or self-care (01) | DRG 871 ==
LOC: EC 14:40 → 4SSUR 11-03 00:19 → 2SICU 11-04 10:06
PROVIDERS: ADMIT Hospitalist; ATTEND Hospitalist
DX: A41.9 Sepsis, unspecified organism (principal); G93.41 Metabolic encephalopathy; N13.8 Other obstructive and reflux uropathy; Z68.41 Body mass index [BMI] 40.0-44.9, adult; N12 Tubulo-interstitial nephritis, not specified as acute or chronic; E11.649 Type 2 diabetes mellitus with hypoglycemia without coma; I95.9 Hypotension, unspecified; K76.0 Fatty (change of) liver, not elsewhere classified; I11.9 Hypertensive heart disease without heart failure; F44.5 Conversion disorder with seizures or convulsions; E66.01 Morbid (severe) obesity due to excess calories; E11.65 Type 2 diabetes mellitus with hyperglycemia; R65.20 Severe sepsis without septic shock; F39 Unspecified mood [affective] disorder; Z20.822 Contact with and (suspected) exposure to COVID-19; Z28.310 Unvaccinated for COVID-19; E83.42 Hypomagnesemia; E78.5 Hyperlipidemia, unspecified; N35.819 Other urethral stricture, male, unspecified site; R59.0 Localized enlarged lymph nodes; N40.1 Benign prostatic hyperplasia with lower urinary tract symptoms; R33.8 Other retention of urine; F17.290 Nicotine dependence, other tobacco product, uncomplicated; Z71.6 Tobacco abuse counseling; Z91.148 Patient's other noncompliance with medication regimen for other reason; Z79.85 Long-term (current) use of injectable non-insulin antidiabetic drugs; Z79.84 Long term (current) use of oral hypoglycemic drugs; Z79.899 Other long term (current) drug therapy; Z85.47 Personal history of malignant neoplasm of testis; Z71.3 Dietary counseling and surveillance
CPT/HCPCS: 36415; 36600; 70450; 71045; 71046; 74176; 76770; 80048; 80053; 80164; 80306; 81001; 82105; 82140; 82150; 82550; 82805; 83036; 83605; 83615; 83690; 83735; 83880; 84145; 84484; 85025; 85610; 85730; 87040; 87086; 87324; 87636; 93005; 94760; 95819; 96361; 96365; 96366; 96367; 96375; 99285

== ENCOUNTER → 2022-12-14 | Outpatient (CLI) | payer BC ==
--- NOTE | 2022-12-14 17:48 | US ---
EXAMINATION TYPE: US bladder DATE OF EXAM: 12/14/2022 COMPARISON: NONE CLINICAL INDICATION: Male, 52 years old with history of R93.41 ABNORMAL FINDING IMAGING; U/S 1 month ago has questionable bladder mass seen by radiologist, us tech said she did not feel area was a mass TECHNIQUE: Multiple sonographic images of the bladder are obtained. 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 Color Doppler performed to assess ureteral jets. Bilateral Jets seen: yes IMPRESSION: 1. Previous anterior wall findings not reproduced on the current examination. Follow-up can be perfor med as clinically indicated.
== END | disposition home or self-care (01) ==
LOC: RADUSWWP 15:02
PROVIDERS: ATTEND Family Medicine
DX: R93.41 Abnormal radiologic findings on diagnostic imaging of renal pelvis, ureter, or bladder (principal)
CPT/HCPCS: 76857

== ENCOUNTER → 2023-04-27 | Outpatient (CLI) | payer BC, OTHER ==
--- NOTE | 2023-04-27 12:34 | P.SLEEP ---
History of Present Illness DATE: 04/27/2023 CONSULTATION/NEW PATIENT EVALUATION HISTORY OF PRESENT ILLNESS/SLEEP-WAKE EVALUATION: 53 year old gentleman had been evaluated in the sleep center for possible obstructive sleep apnea hypopnea syndrome. Patient had been diagnosed with obstructive sleep apnea in the past, but never received CPAP treatment for different reason. 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 No regular sleep schedule for the days off. FALLING ASLEEP: Sometimes patient has difficulties with falling asleep, but usually no problems. DURING SLEEP: Patient snores, wakes up from sleep several times with nocturia, dry mouth, panic attacks, restless leg symptoms. Positive history of tremors during the sleep.No history of hypnogogical hallucinations, sleep paralysis, or cataplexy. DURING THE DAY/WAKE STATE: [place] sleepiness scale is extremely high 24. Patient may have several episodes of falling asleep during the day. PAST MEDICAL HISTORY: Known epileptic seizure disorder, hypertension, diabetes mellitus. PAST SURGICAL HISTORY: Urethra reconstruction, left testicle removed for cancer. MEDICATIONS: Metformin 850 mg 3 times a day, metoprolol 50 mg twice a day, atorvastatin once a day, levemir, glimepiride. SOCIAL HISTORY: Positive for smoking for about 30 years one pack a day, presently vaping, alcohol consumption occasional. FAMILY HISTORY: Heart problems, sinuses problems, thyroid problems. REVIEW OF SYSTEMS: Snoring, multiple awakenings from sleep, significant excessive daytime sleepiness. 216.0 No fevers. No double vision. No recent chest pain. No shortness of breath. No abdominal pain. No bleeding episodes. No blood in urine. No seizure episodes. PHYSICAL EXAMINATION: GENERAL: A pleasant patient without any distress. VITAL SIGNS: BP 120/80 , HR 75 , RR 16 , weight 216.0 pounds, height 5 foot 3 inches, body mass index []38.2 . HEENT: PERRLA, EOMI. Evaluation of oropharynx showed tongue protrudes midline, low position of soft palate Mallampati 4. NECK: Supple. No JVD. Thyroid is not palpable. 19 inches in circumference. LUNGS: Clear to percussion and to auscultation. Good air exchange. No wheezing or rhonchi. HEART: S1, S2 regular. No murmurs, gallops or rubs. ABDOMEN: Soft and nontender. Bowel sounds are present. No organomegaly appreciated. EXTREMITIES: No clubbing or cyanosis. 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 Cranial nerves 2 to 7 intact. There is no fasciculation or atrophy noted. No focal deficits observed. ASSESSMENT: 1. Snoring, multiple awakenings from sleep, extremely low position of soft palate Mallampati 4, wide neck 19 inches in circumference, significant excessive sleepiness with [place] Sleepiness Scale of extremely high range 24. History of obstructive sleep apnea in the past. Obstructive sleep apnea hypopnea syndrome 2. Restless leg symptoms. 3. Possible periodic limb movements 4. History of non epileptic seizures. 5 status post left testicle removed for cancer treatment. 6 . Status post urethra reconstruction. 7. History of arthritis. 8. Diabetes mellitus. 9 . Hypertension. 10. History of peripheral neuropathy PLAN: 1. Polysomnography for evaluation of patient's breathing during sleep and to check for possible periodic limb movements. 2. CPAP/BiPAP titration if sleep study confirms obstructive sleep apnea- hypopnea syndrome. 3. Preferable position during sleep on the side. 4. No driving if patient feels any sleepiness. Patient is aware of civil and criminal liability for unsafe driving. 5. Sleep hygiene with regular sleep time for at least 7.5-8 hours. 6. Watching and losing weight. Thank you very much for referring this patient for consultation. Sincerely, Tru Nugent MD, PhD, FAASM. Diplomat of [place] [employer], Sleep Medicine Board by [place] [employer] [place] [employer] Water Treatment Specialist [facility] [place] cc: Lucila Montejo MD Past Medical History Past Medical History: Cancer, Diabetes Mellitus, Seizure Disorder Additional Past Medical History / Comment(s): possible enlarged prostate, testicular cancer, renal failure, History of Any Multi-Drug Resistant Organisms: None Reported Past Surgical History: Bladder Surgery Additional Past Surgical History / Comment(s): testicular surgery, urethra reconstruction, Past Anesthesia/Blood Transfusion Reactions: No Reported Reaction Past Psychological History: No Psychological Hx Reported Smoking Status: Former smoker, Vaper Past Alcohol Use History: Occasional Past Drug Use History: None Reported - Past Family History Father Family Medical History: Diabetes Mellitus, Hypertension Mother Family Medical History: Diabetes Mellitus, Hypertension Additional Family Medical History / Comment(s): Glaucoma Medications and Allergies Home Medications Medication Instructions Recorded Confirmed Type Dorzolamide-Timol 2.23%/0.68% 1 drop BOTH EYES BID 10/29/20 11/02/22 History [Cosopt] Glimepiride [Amaryl] 4 mg PO BID 10/29/20 11/02/22 History Metoprolol Tartrate [Lopressor] 50 mg PO BID 10/29/20 11/02/22 History metFORMIN HCL [Glucophage] 850 mg PO BID 10/29/20 11/02/22 History Fluticasone Nasal [place] [Flonase 1 spray EA NOSTRIL BID PRN 03/18/21 11/02/22 History Nasal [place]] Latanoprost [Latanoprost 0.005%] 1 drop BOTH EYES HS 11/02/22 11/02/22 History Semaglutide [Ozempic] 0.5 mg SQ [place]O 11/02/22 11/02/22 History Acetaminophen Tab [Tylenol] 650 mg PO Q6HR PRN tab 11/08/22 Rx Divalproex [Depakote] 1,000 mg PO BID #0 tab 11/08/22 Rx Insulin Detemir (Levemir) [Levemir] 15 unit SQ BID@0700,2100 30 Days 11/08/22 Rx #6 each cefUROXime axetiL [Ceftin] 500 mg PO BID 10 Days #20 tab 11/08/22 Rx lamoTRIgine [LaMICtal] 25 mg PO DAILY #30 tab 11/08/22 Rx Allergies Allergy/AdvReac Type Severity Reaction Status Date / Time No Known Allergies Allergy Verified 11/02/22 16:29 Sleep Note - Sleep Note Sleep Note: Temperature: Pulse Rate: Respiratory Rate: Blood Pressure: SpO2: Height: Weight: BMI: Neck Circumference:
== END ==
LOC: 3 N SLEEP 11:50
PROVIDERS: ATTEND Internal Medicine
DX: G47.33 Obstructive sleep apnea (adult) (pediatric) (principal); G25.81 Restless legs syndrome; M19.90 Unspecified osteoarthritis, unspecified site; G47.10 Hypersomnia, unspecified; I10 Essential (primary) hypertension; F17.290 Nicotine dependence, other tobacco product, uncomplicated; E11.42 Type 2 diabetes mellitus with diabetic polyneuropathy; Z86.69 Personal history of other diseases of the nervous system and sense organs; Z98.890 Other specified postprocedural states; Z79.84 Long term (current) use of oral hypoglycemic drugs; Z79.899 Other long term (current) drug therapy; Z79.4 Long term (current) use of insulin; Z79.85 Long-term (current) use of injectable non-insulin antidiabetic drugs
CPT/HCPCS: 99211

== ENCOUNTER 2023-05-30 19:57 | Outpatient (CLI) | payer BC, OTHER ==
--- NOTE | 2023-06-01 19:03 | P.PCN ---
Description of Procedure: IPOLYSOMNOGRAPHY REPORT PROCEDURE(S)/DATE(S): Polysomnography the 2023 CLINICAL: Patient has been seen in the sleep center for evaluation of obstructive sleep apnea-hypopnea syndrome. Please see my consultation. Sleep study has been done for evaluation of patient breathing during the sleep. PROCEDURE: The standard montage for clinical polysomnography included the electroencephalogram, the electrooculogram, the mentalis surface electromyography and Lead II cardiography. The respiratory battery consisted of measurements of nasal/buccal air flow, pressure transducer measurements from nose, thoracic and/or abdominal effort and intercostal surface electromyography. Video monitoring has been done to check for any parasomnia events. Nocturnal oxyhemoglobin saturations were obtained by finger oximetry. Step-mendoza titration with positive airway pressure was utilized to control the respiratory events, if necessary. RESULTS: During the diagnostic sleep study sleep efficiency was 91.6 %. Latency to sleep onset was slightly short 8.5 min. Sleep architecture showed stage NI was significantly increased to 17.0 %, Delta sleep was absent 0 %, REM sleep was significantly decreased to 9.4 %. Respiratory channel showed 0 obstructive apneas, 1 mixed apneas, 0 central ap neas, 121 hypopneas with lowest oxygen level 66%. Total apnea hypopnea index was 20.9. Heart rate was in the range between 78 and 84, average 81. EMG showed 17.7 periodic limb movements per hour with 0 micro-arousals per hour. Possible seizures activity was documented in the Na[place] 7, 136, 338 and 651. IMPRESSIONS: 1. Moderate obstructive sleep apnea hypopnea syndrome. 2. Significant periodic limb movements have been documented, but without significant micro-arousals. 3. Possible seizures activity have been documented on EEG. Please see other impressions from consultation PLAN: 1. The patient will have PAP titration for correction of respiratory abnormalities during the sleep. 2. Losing weight program. 3. Sleep hygiene with regular time in bed for at least 7-1/2 hours. 4. No driving if feeling sleepiness. 5. Please check iron profile including ferritin level. Low level of iron may increase the risk for periodic limb movements. Thank you very much for allowing me to participate in the management of your patient. Sincerely, Tru Nugent MD, PhD, FAASM. Diplomat of [employer], Sleep Medicine Board by [employer] Scalp Treatment Operator of [facility] [place]
== END 2023-05-31 05:45 | disposition home or self-care (01) ==
LOC: 3 N SLEEP 19:57
PROVIDERS: ATTEND Internal Medicine
DX: G47.33 Obstructive sleep apnea (adult) (pediatric) (principal); G47.61 Periodic limb movement disorder; F17.200 Nicotine dependence, unspecified, uncomplicated
CPT/HCPCS: 95810

== ENCOUNTER 2023-08-08 20:26 | Outpatient (CLI) | payer BC, OTHER ==
--- NOTE | 2023-08-09 14:00 | P.PCN ---
Description of Procedure: CLINICAL: Titration with positive air pressure has been done for correction of respiratory abnormalities during sleep. DESCRIPTION OF PROCEDURE: The standard montage for clinical polysomnography included the electroencephalogram, the electrocardiogram, the mentalis surface electromyography and Lead II cardiography. The respiratory battery consisted of measurements of nasal /buccal air flow, pressure transducer measurements from the nose, thoracic and /or abdominal effort and intercostal surface electromyography. Video monitoring has been done to check for any parasomnia events. Nocturnal oxyhemoglobin saturations were obtained by finger oximetry. Step-mendoza titration with positive airway pressure was utilized to control respiratory events. Raw data of sleep recording has been reviewed and is adequate. RESULTS: Sleep efficiency was normal 92.6%. Latency to sleep onset was normal 13.5 minutes.]. Sleep architecture showed stage N1 was short 0.8%, Delta sleep was extremely short 0.1%, REM sleep was extremely high 50.9%. Heart rate was minimum 75 BPM, maximum 82 BPM, average 78 BPM. EMG showed 29.4 periodic limb movements per hour with 0 micriarousals per hour. PAP titration have been done with CPAP up to the pressure 8 cm H2O. The best results were at the pressure 8 cm H2O. Apnea hypopnea index reduced to 0.3. IMPRESSION: 1. Obstructive sleep apnea hypopnea syndrome on controle with PAP treatment. Patient presents with symptoms of significant excessive daytime sleepiness 2. Significant periodic limb movements have been documented. Please see other impressions from consultation. PLAN: 1. The patient will have treatment with positive air pressure equipment with the level of pressure AutoPAP 5-8 cm H2O and should use it every night for the whole night. 2. Watching and losing weight. 3. Sleep hygiene with regular time in bed for at least 8 hours. 4. No driving if feeling any sleepiness. 5. I will see the patient for follow up visit to explain the results of the test, recommendations, check compliance with treatment and make any necessary adjustment related to mask fitting, pressure and humidification. 6. Please check iron profile including ferritin level. Low level of iron may increase risk for periodic limb movements Thank you very much for allowing me to participate in the management of your patient. Sincerely, Tru Nugent MD, PhD, FAASM Diplomat of [place] [employer] Sleep Medicine Board of [place] Board of Internal Medicine Juvenile Counselor of [facility] [place]
== END 2023-08-09 07:12 | disposition home or self-care (01) ==
LOC: 3 N SLEEP 20:26
PROVIDERS: ATTEND Internal Medicine
DX: G47.33 Obstructive sleep apnea (adult) (pediatric) (principal); G47.61 Periodic limb movement disorder; G47.10 Hypersomnia, unspecified; F17.200 Nicotine dependence, unspecified, uncomplicated
CPT/HCPCS: 95811

== ENCOUNTER 2023-08-30 10:14 | Emergency (ER) | payer BC, OTHER ==
[2023-08-30 10:48] VITALS: RESP 16; TEMP 97.9
--- NOTE | 2023-08-30 10:57 | ED ---
General Adult HPI - General Chief complaint: Anxiety Stated complaint: Seizure Time Seen by Provider: 08/30/23 10:23 Source: patient, EMS, RN notes reviewed Mode of arrival: EMS Limitations: no limitations - History of Present Illness Initial comments: 53-year-old male presents emergency department chief complaint of possible seizure episode. Patient states he has been diagnosed with nonepileptic seizures in which she states they are called episodes. He states he was on Depakote for 15 years but states that he has been off for several years and states he has had these episodes in which they happen frequently. Patient was being followed by [facility] and was told he did not need any medications he is currently followed by local neurology. Patient states that he was at court today and he states stressful situations causes episodes. Patient denies any headache he states he has no complaints of chest pain shortness of breath nausea vomiting denies falling to the ground. - Related Data Home Medications Medication Instructions Recorded Confirmed Dorzolamide-Timol 2.23%/0.68% 1 drop BOTH EYES BID 10/29/20 08/30/23 [Cosopt] Glimepiride [Amaryl] 4 mg PO BID PRN 10/29/20 08/30/23 Metoprolol Tartrate [Lopressor] 50 mg PO BID 10/29/20 08/30/23 Latanoprost [Latanoprost 0.005%] 1 drop BOTH EYES HS 11/02/22 08/30/23 Atorvastatin [Lipitor] 10 mg PO DAILY 08/30/23 08/30/23 Gabapentin [Neurontin] 300 mg PO TID 08/30/23 08/30/23 Irbesartan [Avapro] 150 mg PO DAILY 08/30/23 08/30/23 Tirzepatide [Mounjaro] 2.5 mg SQ FR 08/30/23 08/30/23 methocarbamoL [Robaxin] 500 mg PO DAILY 08/30/23 08/30/23 rOPINIRole HCL [Requip] 0.25 mg PO TID 08/30/23 08/30/23 Previous Rx's Medication Instructions Recorded metFORMIN HCL [Glucophage] 850 mg PO BID #60 tab 08/30/23 Allergies Allergy/AdvReac Type Severity Reaction Status Date / Time No Known Allergies Allergy Verified 08/30/23 11:28 Review of Systems ROS Statement: Those systems with pertinent positive or pertinent negative responses have been documented in the HPI. ROS Other: All systems not noted in ROS Statement are negative. Past Medical History Past Medical History: Cancer, Diabetes Mellitus, Seizure Disorder Additional Past Medical History / Comment(s): possible enlarged prostate, testicular cancer, renal failure, non-epileptic seizures History of Any Multi-Drug Resistant Organisms: None Reported Past Surgical History: Bladder Surgery Additional Past Surgical History / Comment(s): testicular surgery, urethra reconstruction, Past Anesthesia/Blood Transfusion Reactions: No Reported Reaction Past Psychological History: No Psychological Hx Reported Smoking Status: Former smoker, Vaper Past Alcohol Use History: Occasional Past Drug Use History: None Reported - Past Family History Father Family Medical History: Diabetes Mellitus, Hypertension Mother Family Medical History: Diabetes Mellitus, Hypertension Additional Family Medical History / Comment(s): Glaucoma General Exam Limitations: no limitations General appearance: alert, in no apparent distress Head exam: Present: atraumatic, normocephalic, normal inspection Eye exam: Present: normal appearance, PERRL, EOMI. Absent: scleral icterus, conjunctival injection, periorbital swelling Neck exam: Present: normal inspection, full ROM. Absent: tenderness, meningismus, lymphadenopathy Respiratory exam: Present: normal lung sounds bilaterally. Absent: respiratory distress, wheezes, rales, rhonchi, stridor Cardiovascular Exam: Present: regular rate, normal rhythm, normal heart sounds. Absent: systolic murmur, diastolic murmur, rubs, gallop, clicks GI/Abdominal exam: Present: soft, normal bowel sounds. Absent: distended, te nderness, guarding, rebound, rigid Neurological exam: Present: alert, oriented X3, CN II-XII intact, reflexes normal. Absent: motor sensory deficit Course Vital Signs 08/30/23 08/30/23 10:21 12:24 Temperature 97.9 F Pulse Rate 76 74 Respiratory 16 16 Rate Blood Pressure 150/84 146/74 O2 Sat by Pulse 97 99 Oximetry EKG Findings - EKG Comments: EKG Findings:: EKG performed at 11: 01 sinus rhythm rate of 72 RI 168 QRS 101 QT/QTc 383/407 - EKG Results: EKG: interpreted by JACOB Medical Decision Making - Medical Decision Making Was pt. sent in by a medical professional or institution (, PA, DIRECTOR MEETINGS, urgent care, hospital, or shelter...) When possible be specific @ -No Did you speak to anyone other than the patient for history (EMS, parent, family, police, friend...)? What history was obtained from this source @ -No Did you review nursing and triage notes (agree or disagree)? Why? @ -I reviewed and agree with nursing and triage notes Were old charts reviewed (outside hosp., previous admission, EMS record, old EKG, old radiological studies, urgent care reports/EKG's, shelter records)? Report findings @ -No old charts were reviewed Differential Diagnosis (chest pain, altered mental status, abdominal pain women, abdominal pain men, vaginal bleeding, weakness, fever, dyspnea, syncope, headache, dizziness, GI bleed, back pain, seizure, CVA, palpatations, mental health, musculoskeletal)? @ -Differential Seizure: Recurrent seizure disorder, febrile seizure, alcohol withdrawal, stimulants, meningitis, encephalitis, intercranial hemorrhage, intracranial tumor, stroke, eclampsia, thyrotoxicosis, hypocalcemia, hyponatremia, hypernatremia, hypomagnesemia, psychogenic, this is not meant to be an all-inclusive list. EKG interpreted by me (3pts min.). @ -As above X-rays interpreted by me (1pt min.). @ -None done CT interpreted by me (1pt min.). @ -None done U/S interpreted by me (1pt. min.). @ -None done What testing was considered but not performed or refused? (CT, X-rays, U/S, labs)? Why? @ -None What meds were considered but not given or refused? Why? @ -None Did you discuss the management of the patient with other professionals (professionals i.e. , PA, DIRECTOR MEETINGS, lab, RT, psych nurse, medical social worker, supervisor labor gang, teacher, licensed loan officer assistant, caseworker intake)? Give summary @ -No Was smoking cessation discussed for >3mins.? @ -No Was critical care preformed (if so, how long)? @ -No Were there social determinants of health that impacted care today? How? (Homelessness, low income, unemployed, alcoholism, drug addiction, trans portation, low edu. Level, literacy, decrease access to med. care, fpc, rehab)? @ -No Was there de-escalation of care discussed even if they declined (Discuss DNR or withdrawal of care, Hospice)? DNR status @ -No What co-morbidities impacted this encounter? (DM, HTN, Smoking, COPD, CAD, Cancer, CVA, ARF, Chemo, Hep., AIDS, mental health diagnosis, sleep apnea, morbid obesity)? @ -Seizure, anxiety Was patient admitted / discharged? Hospital course, mention meds given and route, prescriptions, significant lab abnormalities, going to OR and other pertinent info. @ -Discharge patient feels greatly improved at this time he does have mild hypomagnesemia. Patient advised to follow-up with PCP discussed possible going back on Depakote for his seizures Undiagnosed new problem with uncertain prognosis? @ -No Drug Therapy requiring intensive monitoring for toxicity (Heparin, Nitro, Insulin, Cardizem)? @ -No Were any procedures done? @ -No Diagnosis/symptom? @ -Generalized seizure, hypomagnesemia Acute, or Chronic, or Acute on Chronic? @ -Acute Uncomplicated (without systemic symptoms) or Complicated (systemic symptoms)? @ -Uncomplicated Side effects of treatment? @ -No Exacerbation, Progression, or Severe Exacerbation? @ -No Poses a threat to life or bodily function? How? (Chest pain, USA, MD, pneumonia, PE, COPD, DKA, ARF, appy, cholecystitis, CVA, Diverticulitis, Homicidal, Suicidal, threat to staff... and all critical care pts) @ -No - Lab Data Result diagrams: 08/30/23 11:02 08/30/23 11:02 Lab Results 08/30/23 08/30/23 08/30/23 Range/Units 11:02 11:02 11:09 WBC 8.3 (3.8-10.6) k/uL RBC 4.62 (4.30-5.90) m/uL Hgb 13.6 (13.0-17.5) gm/dL Hct 40.7 (39.0-53.0) % MCV 88.1 (80.0-100.0) fL MCH 29.4 (25.0-35.0) pg MCHC 33.4 (31.0-37.0) g/dL RDW 13.3 (11.5-15.5) % Plt Count 211 (150-450) k/uL MPV 8.3 Neutrophils % 59 % Lymphocytes % 30 % Monocytes % 7 % Eosinophils % 2 % Basophils % 1 % Neutrophils # 4.9 (1.3-7.7) k/uL Lymphocytes # 2.5 (1.0-4.8) k/uL Monocytes # 0.6 (0-1.0) k/uL Eosinophils # 0.1 (0-0.7) k/uL Basophils # 0.0 (0-0.2) k/uL Sodium 138 (137-145) mmol/L Potassium 4.0 (3.5-5.1) mmol/L Chloride 107 (98-107) mmol/L Carbon Dioxide 25 (22-30) mmol/L Anion Gap 6 mmol/L BUN 13 (9-20) mg/dL Creatinine 0.50 L (0.66-1.25) mg/dL Est GFR (CKD-EPI)AfAm >90 (>60 ml/min/1.73 sqM) Est GFR (CKD-EPI)NonAf >90 (>60 ml/min/1.73 sqM) Glucose 147 H (74-99) mg/dL POC Glucose (mg/dL) 138 H (70-110) mg/dL POC Glu Manager Action ID Shantel Lacy Calcium 8.9 (8.4-10.2) mg/dL Magnesium 1.5 L (1.6-2.3) mg/dL Total Bilirubin 0.9 (0.2-1.3) mg/dL AST 36 (17-59) U/L ALT 58 H (4-49) U/L Alkaline Phosphatase 68 (38-126) U/L Total Protein 6.9 (6.3-8.2) g/dL Albumin 4.0 (3.5-5.0) g/dL Disposition Clinical Impression: Generalized seizure, Hypomagnesemia Disposition: HOME SELF-CARE Instructions (If sedation given, give patient instructions): Seizure/Epilepsy Discharge Instructions & Follow-Up Additional Instructions: Please return to the Emergency Department if symptoms worsen or any other concerns. Prescriptions: metFORMIN HCL [Glucophage] 850 mg PO BID #60 tab Is patient prescribed a controlled substance at d/c from ED?: No Referrals: Lucila Montejo MD [Primary Care Provider] - 1-2 days Time of Disposition: 12:06
[2023-08-30 11:10] LABS: Glucose,Whole Blood 138 mg/dL (70-110)
[2023-08-30 11:26] LABS: Basophils % (A) 1 %; Eosinophils # (A) 0.1 k/uL (0-0.7); Eosinophils % (A) 2 %; HCT 40.7 % (39.0-53.0); HGB 13.6 gm/dL (13.0-17.5); Lymphocytes # (A) 2.5 k/uL (1.0-4.8); Lymphocytes % (A) 30 %; MCH 29.4 pg (25.0-35.0); MCHC 33.4 g/dL (31.0-37.0); MCV 88.1 fL (80.0-100.0); Mean Platelet Volume 8.3; Monocytes # (A) 0.6 k/uL (0-1.0); Monocytes % (A) 7 %; Neutrophils # (A) 4.9 k/uL (1.3-7.7); Neutrophils % (A) 59 %; Platelet Count 211 k/uL (150-450); RBC 4.62 m/uL (4.30-5.90); RDW 13.3 % (11.5-15.5); WBC 8.3 k/uL (3.8-10.6)
[2023-08-30 11:37] LABS: ALT 58 U/L (4-49); AST 36 U/L (17-59); African American GFR (CKD) >90 (>60 ml/min/1.73 sqM); Alkaline Phosphatase 68 U/L (38-126); Anion Gap 6 mmol/L; Blood Urea Nitrogen 13 mg/dL (9-20); Calcium 8.9 mg/dL (8.4-10.2); Carbon Dioxide 25 mmol/L (22-30); Chloride 107 mmol/L (98-107); Glucose 147 mg/dL (74-99); Magnesium 1.5 mg/dL (1.6-2.3); Non-African American GFR(CKD) >90 (>60 ml/min/1.73 sqM); Sodium 138 mmol/L (137-145); Total Bilirubin 0.9 mg/dL (0.2-1.3); Total Protein 6.9 g/dL (6.3-8.2)
[2023-08-30] MEDS: KETOROLAC 15 MG/ML 1 ML VIAL IVP STA (11:41)
[2023-08-30] MEDS: SODIUM CHLORIDE 0.9% 500 ML 500 ML IV STA (11:42)
[2023-08-30] MEDS: MAGNESIUM OXIDE 400 MG TAB PO STA (12:18)
[2023-08-30 12:39] VITALS: BP 146/74; PULSE 74
== END 2023-08-30 12:25 | disposition home or self-care (01) ==
LOC: EC 10:14
DX: R56.9 Unspecified convulsions (principal); E83.42 Hypomagnesemia; F41.9 Anxiety disorder, unspecified; Z79.899 Other long term (current) drug therapy; Z87.891 Personal history of nicotine dependence
CPT/HCPCS: 36415; 93005; 80053; 83735; 85025; 99284; 96374; J1885

== ENCOUNTER → 2023-11-16 | Outpatient (CLI) | payer BC, OTHER ==
--- NOTE | 2023-12-19 10:07 | PN ---
PROGRESS NOTE First followup visit on CPAP. This is first followup visit after the patient was started on treatment with CPAP. The patient was able to use CPAP equipment most of the nights, he feels better with CPAP. [place] Sleepiness Scale is 10, which is borderline. I checked CPAP unit. Range of the pressure 5 to 8 cm of water, average pressure 7.8 cm of water. Usage is 98% and 70% more than 4 hours. Leak is 12 L/minute, which is acceptable. Apnea-hypopnea index is 1.0, which is perfect. The patient sleeps well with CPAP. He did have some discomfort with his CPAP mask, it was too tight. MEDICATIONS: None. PHYSICAL EXAMINATION: GENERAL: The patient in no distress. VITAL SIGNS: BP 133/86, HR 101, RR 18, temp 98.4, oxygen saturation on room air 98%. Weight 211.4 pounds. HEENT: PERRL, EOMI. NECK: Supple. No JVD. LUNGS: Clear. HEART: S1, S2 regular. ABDOMEN: Soft, nontender, slightly obese. EXTREMITIES: No edema. REFERENCE LIBRARIAN: No focal deficit. IMPRESSION: 1. Obstructive sleep apnea-hypopnea syndrome, the patient demonstrated good compliance with treatment, benefitting from treatment, normal respiration on CPAP. 2. Obesity. PLAN: 1. The patient should continue to use CPAP equipment every night for the whole night. 2. Losing weight. 3. Sleep hygiene with time bed for at least 8 hours. 4. No driving if feeling sleepiness. 5. I explained the patient that humidifier chamber has to be emptied from the water in the morning and dried. 6. Followup visit in 6 months. Thank you very much for allowing me to participate in management of your patient. MMODL / IJN: [id number] /
== END ==
LOC: 3 N SLEEP 16:30
PROVIDERS: ATTEND Internal Medicine
CPT/HCPCS: 99212